=== PATIENT | female | born 1940 | race Caucasian/White ===

== ENCOUNTER 2019-08-30 11:15 | Outpatient (CLI) | payer MEDICARE, MEDICAID, SELFPAY ==
[2019-08-30 12:39] LABS: Immunoglobulin G 1618 mg/dL (700-1600)
[2019-09-02 14:10] LABS: Immunoglobulin G, Serum 1613 mg/dL (600-1540); Immunoglobulin G1 919 mg/dL (382-929); Immunoglobulin G2 499 mg/dL (241-700); Immunoglobulin G3 90 mg/dL (22-178); Immunoglobulin G4 73.7 mg/dL (4.0-86.0)
== END 2019-08-30 11:16 | disposition home or self-care (01) ==
PROVIDERS: PCP Family Medicine Adolescent Medicine; Visit Provider Nurse Practitioner Family
DX: D83.9 Common variable immunodeficiency, unspecified (principal)
CPT/HCPCS: 36415; 82784; 82787

== ENCOUNTER 2019-09-03 07:30 | Outpatient (RCR) | payer MEDICAID, SELFPAY | END 2019-09-03 23:59 | disposition home or self-care (01) | LOC: ANHAUDIO 07:30 | PROVIDERS: PCP Family Medicine Adolescent Medicine; Visit Provider Family Medicine Adolescent Medicine | DX: Z46.1 Encounter for fitting and adjustment of hearing aid (principal) | CPT/HCPCS: 99199; V5160; V5259 ==

== ENCOUNTER 2019-11-01 19:29 | Emergency (ER) | payer MEDICARE, MEDICAID, SELFPAY ==
[2019-11-01 19:26] VITALS: BP 187/120; PULSE 98; RESP 17; TEMP 36.9; O2SAT 97
--- NOTE | 2019-11-01 19:32 | ED.AMS ---
HPI - Altered Mental Status General Chief Complaint: Altered Mental Status Stated Complaint: ams Time Seen by Provider: 11/01/19 19:33 Source: patient Mode of arrival: EMS Limitations: no limitations History of Present Illness HPI narrative: Patient is an 79 year old female who presents to the emergency department by emergency medical services from home with complaints of altered mental status. The patients daughter states that she called the emergency medical services due to the patient not letting her care center manager enter the house. The patient stated to the care center manager that she was feeling sick and would not let her in. Patient denies nausea, vomiting, or diarrhea. She has been eating normally, having normal bowel movements, and urinating normally. Patients daughter notes that she acts this way when she has a urinary tract infection. She is requesting sprite. Patient has a back stimulator with a pain pump. She also has a port to her right chest. Patient lives at home alone. She has a caregiver that goes to her home every Friday, Friday, and Friday. Patients daughter is a caregiver for a private company. MD complaint: altered mental status Onset (ago): unknown Context: history of similar presentation Associated symptoms: denies other symptoms Related Data Home Medications Medication Instructions Recorded Confirmed Morphine Pump 0.279 mg NOT APPLICABLE DAILY 05/10/19 10/27/19 alendronate 70 mg PO WEEKLY 05/10/19 10/27/19 ascorbic acid (vitamin C) 1,000 mg PO DAILY 05/10/19 10/27/19 cyanocobalamin (vitamin B-12) 1,000 mcg PO DAILY 05/10/19 10/27/19 furosemide 20 mg PO DAILY PRN 05/10/19 10/27/19 gabapentin 300 mg PO BID 05/10/19 10/27/19 hydralazine 10 mg PO TID 05/10/19 10/27/19 hydrochlorothiazide 25 mg PO DAILY 05/10/19 10/27/19 hydroxychloroquine 200 mg PO DAILY 05/10/19 10/27/19 levothyroxine 125 mcg PO DAILY 05/10/19 10/27/19 losartan 100 mg PO DAILY 05/10/19 10/27/19 metoprolol succinate 100 mg PO DAILY 05/10/19 10/27/19 pantoprazole 40 mg PO BID 05/10/19 10/27/19 prednisone 5 mg PO DAILY 05/10/19 10/27/19 vitamin E 800 unit PO DAILY 05/10/19 10/27/19 fluticasone furoate [Arnuity 1 inh INHALATION DAILY 09/17/19 10/27/19 Ellipta] Allergies Allergy/AdvReac Type Severity Reaction Status Date / Time cefepime Allergy Intermediate Unknown Verified 10/27/19 09:52 latex Allergy Unknown Rash Verified 10/27/19 09:52 levofloxacin Allergy Unknown Swelling Verified 10/27/19 09:52 Penicillins Allergy Unknown Swelling Verified 10/27/19 09:52 pregabalin Allergy Unknown Unknown Verified 10/27/19 09:52 Quinolones Allergy Unknown Unknown Verified 10/27/19 09:52 Sulfa (Sulfonamide Allergy Unknown Itching Verified 10/27/19 09:52 Antibiotics) Review of Systems Review of Systems: All systems reviewed & are unremarkable except as noted in HPI and below Constitutional: Constitutional: Reports other (normal intake) Gastrointestinal: Gastrointestinal: Denies diarrhea, Denies nausea, Denies vomiting and Reports other (normal bowel movements) Genitourinary: Genitourinary: Denies other (urinary problems) [facility] Past Medical History Medical History (Updated 11/01/19 @ 21:21 by Roseanna Kern MD) Anemia Arthritis Bronchitis CKD (chronic kidney disease) COPD (chronic obstructive pulmonary disease) CPAP (continuous positive airway pressure) dependence DDD (degenerative disc disease) Diverticulitis DVT (deep venous thrombosis) Emphysema of lung GERD (gastroesophageal reflux disease) HTN (hypertension) Hypothyroid Lupus Osteoporosis Pneumonia Sleep apnea Spinal cord stimulator status UTI (urinary tract infection) Surgical History Surgical History (Updated 11/01/19 @ 20:02 by Jeet Mejía) H/O bilateral cataract extraction H/O exploratory laparotomy H/O repair of rotator cuff right H/O: hysterectomy History of carpal tunnel release History of total bilateral knee replacement Hx of appendectomy Hx of tonsillectomy S/P IV
--- NOTE | 2019-11-01 19:33 | ECG_ITS ---
Measurements Intervals [place] Rate: 94 P: 47 RI: 164 QRS: -44 QRSD: 108 T: 46 QT: 353 QTc: 442 Interpretive Statements SINUS RHYTHM POSSIBLE LEFT ATRIAL ENLARGEMENT LEFT AXIS DEVIATION POSSIBLE LEFT VENTRICULAR HYPERTROPHY BORDERLINE R WAVE PROGRESSION, ANTERIOR LEADS BASELINE ARTIFACT- V1 BORDERLINE ECG Electronically Signed On 11-02-2019 6:56:23 CDT by Mustapha Meléndez D.O.
[2019-11-01 19:57] LABS: Basophils Percent Auto 0.3 % (0.2-1.2); Hematocrit 32.9 % (37.0-47.0); Hemoglobin 9.9 g/dL (12.0-15.0); Immature Granulocyte Absolute 0.01 K/mm3 (0.00-0.031); Immature Granulocyte Percent A 0.3 % (0-0.5); Lymphocytes Absolute Auto 0.65 K/mm3 (0.9-3.2); Lymphocytes Percent Auto 20.2 % (18.3-44.2); Mean Corpuscular HGB Conc 30.1 g/dl (32-36); Mean Corpuscular Hemoglobin 27.7 pg (26-34); Mean Corpuscular Volume 92.2 fl (80-100); Mean Platelet Volume 10.4 fl (7.4-10.4); Monocytes Absolute Auto 0.6 K/mm3 (0.1-0.6); Monocytes Percent Auto 19.3 % (2.6-8.5); Neutrophils Absolute Auto 1.9 K/mm3 (1.3-6.7); Neutrophils Percent Auto 59.9 % (45.5-73.1); Platelet Count Result 201 k/mm3 (150-375); Red Blood Count 3.57 M/mm3 (4.2-5.4); Red Cell Distribution Width 17.5 % (11.5-14.5); White Blood Count 3.2 K/mm3 (4.5-10.0)
[2019-11-01] MEDS: SODIUM CHLORIDE 0.9% IV 1,000 ML 999 ML IV CONT (20:00)
[2019-11-01 20:08] LABS: Alanine Aminotransferase 15 U/L (4-35); Albumin Level 3.9 g/dL (3.5-5.1); Alkaline Phosphatase 61 U/L (38-126); Aspartate Amino Transferase 45 U/L (14-36); Bilirubin,Total 0.4 mg/dL (0.2-1.3); Blood Urea Nitrogen 72 mg/dL (7-17); Calcium 7.7 mg/dL (8.4-10.2); Carbon Dioxide 29 mmol/L (22-30); Chloride 95 mmol/L (98-107); Estimated CRCL calculation 13 ml/min; Estimated Glomerular Filt Rate 20; Glucose 102 mg/dL (65-105); Potassium 3.4 mmol/L (3.4-5.0); Sodium 140 mmol/L (137-145)
[2019-11-01 20:42] LABS: Add Urine Microscopic? YES; Appearance Urine Clear (Clear); Bilirubin Urine Negative (Negative); Blood Urine Negative (Negative); Color Urine Yellow (Yellow); Glucose Urine UA Negative (Negative); Ketones Urine Negative (Negative); Leukocyte Esterase Ur Negative LEU/UL (Negative); Mucus Urine Heavy /lpf; Nitrate Urine Negative (Negative); Protein Urine 1+ mg/dL (Negative); Specific Grav Ur 1.012 (1.001-1.035); Squamous Epithelial Cell Urine Rare /hpf (Few); Urobilinogen Urine Negative mg/dL (<2.0); WBC Urine 0-3 /hpf
[2019-11-01 20:48] VITALS: BP 182/85; PULSE 83; RESP 22; O2SAT 100
[2019-11-01 21:00] VITALS: BP 170/65; PULSE 85; RESP 21; O2SAT 100
[2019-11-01 21:10] VITALS: PULSE 78
[2019-11-01] MEDS: METOPROLOL TARTRATE INJ 5 MG/5 ML VIAL IV PUSH (21:10)
[2019-11-01 21:30] VITALS: BP 161/77; PULSE 82; RESP 23; O2SAT 100
[2019-11-01] MEDS: HEPARIN SOD FLUSH 500 UNITS/5 ML SYRINGE IV PUSH (21:40)
== END 2019-11-01 21:56 | disposition home or self-care (01) ==
PROVIDERS: Emergency Provider Emergency Medicine; PCP Family Medicine Adolescent Medicine
DX: E86.0 Dehydration (principal); R41.0 Disorientation, unspecified; I12.0 Hypertensive chronic kidney disease with stage 5 chronic kidney disease or end stage renal disease; N18.6 End stage renal disease; M19.90 Unspecified osteoarthritis, unspecified site; Z86.718 Personal history of other venous thrombosis and embolism; J43.9 Emphysema, unspecified; K21.9 Gastro-esophageal reflux disease without esophagitis; E03.9 Hypothyroidism, unspecified; M81.0 Age-related osteoporosis without current pathological fracture; G47.30 Sleep apnea, unspecified; Z87.440 Personal history of urinary (tract) infections; Z98.42 Cataract extraction status, left eye; Z98.41 Cataract extraction status, right eye; Z96.653 Presence of artificial knee joint, bilateral; Z87.891 Personal history of nicotine dependence
CPT/HCPCS: 36415; 51701; 80053; 81001; 85025; 93005; 96361; 96365; 96375; 99284; J0696; J7030

== ENCOUNTER 2019-11-29 10:24 | Outpatient (CLI) | payer MEDICARE, MEDICAID, SELFPAY ==
--- NOTE | ~2019-11-29 | US_ITS ---
EXAMINATION:US venous doppler LE LT INDICATION:Left leg swelling. Hypercoagulable state. TECHNIQUE: Multiple grayscale, color flow and Doppler images of the left lower extremity deep venous systems were obtained and reviewed. COMPARISON:12/29/2018 FINDINGS: The common femoral, superficial femoral and popliteal veins demonstrate normal respiratory variation, augmentation and compressibility. Color flow is also seen within the posterior tibial, pe roneal, greater saphenous and profunda veins. IMPRESSION: 1: No lower extremity deep venous thrombosis. Reviewed, dictated and finalized at location A.
== END 2019-11-29 10:25 | disposition home or self-care (01) ==
PROVIDERS: PCP Family Medicine Adolescent Medicine; Visit Provider Internal Medicine Hematology & Oncology
DX: D68.59 Other primary thrombophilia (principal); M79.89 Other specified soft tissue disorders
CPT/HCPCS: 93971

== ENCOUNTER 2020-04-23 13:58 | Observation (INO) | payer MEDICARE, MEDICAID, SELFPAY ==
[2020-04-23] VITALS (13 sets, daily range): BP systolic 168–201; BP diastolic 70–86; PULSE 66–85; RESP 20; TEMP 36.6–36.8; O2SAT 97–100
--- NOTE | ~2020-04-23 | XR_ITS ---
EXAMINATION: XR chest 2V DATE: 04/23/2020 14:15 INDICATION: Midline chest pain and headache TECHNIQUE: AP and lateral views of the chest are obtained. COMPARISON: 06/14/2019 FINDINGS: There is chronic elevation of the right hemidiaphragm. A right internal jugular Port-A-Cath ends with its tip in the distal superior vena cava. There is mild dependent atelectasis of the lungs . There is no pleural effusion or pneumothorax. The heart size is normal. An IVC filter is noted. Hillary tebral plasty changes noted in the lumbar spine. Neurostimulator leads project in the central spinal canal in the midthoracic spine. IMPRESSION: 1. Mild atelectasis of the lung bases. Reviewed, dictated and finalized at location A.
--- NOTE | 2020-04-23 13:57 | ED.CHESTPAIN ---
HPI - Chest Pain General Chief Complaint: Chest Pain Stated Complaint: HTN/CP Source: patient and EMS Mode of arrival: EMS Limitations: no limitations History of Present Illness HPI narrative: Patient is an 80-year-old female with a history of COPD, CVI D, chronic kidney disease, hypertension who presents for evaluation of chest pain. Patient reports intermittent chest pain over the past 48 hours located in the center of her chest. Patient reports intermittent radiation of the pain to the left shoulder. At times she feels short of breath, denies current shortness of breath. Patient states the pain seems spontaneous, not always worse with movement. No associated palpitations or leg edema. No pleuritic chest pain. Patient does not follow with a communication coordinator. No history of AR per her knowledge. Patient with recent infusion for immunosuppression for CVI D at oncology center. Patient denies fever, chills, shortness of breath. No abdominal pain. Related Data Home Medications Medication Instructions Recorded Confirmed Morphine Pump 0.279 mg NOT APPLICABLE DAILY 05/10/19 04/21/20 alendronate 70 mg PO WEEKLY 05/10/19 04/21/20 ascorbic acid (vitamin C) 1,000 mg PO DAILY 05/10/19 04/21/20 cyanocobalamin (vitamin B-12) 1,000 mcg PO DAILY 05/10/19 04/21/20 furosemide 20 mg PO DAILY PRN 05/10/19 04/21/20 gabapentin 300 mg PO BID 05/10/19 04/21/20 hydralazine 10 mg PO TID 05/10/19 04/21/20 hydrochlorothiazide 25 mg PO DAILY 05/10/19 04/21/20 hydroxychloroquine 200 mg PO DAILY 05/10/19 04/21/20 levothyroxine 125 mcg PO DAILY 05/10/19 04/21/20 losartan 100 mg PO DAILY 05/10/19 04/21/20 metoprolol succinate 100 mg PO DAILY 05/10/19 04/21/20 pantoprazole 40 mg PO BID 05/10/19 04/21/20 prednisone 5 mg PO DAILY 05/10/19 04/21/20 vitamin E 800 unit PO DAILY 05/10/19 04/21/20 Allergies Allergy/AdvReac Type Severity Reaction Status Date / Time cefepime Allergy Intermediate Unknown Verified 03/31/20 11:32 latex Allergy Unknown Rash Verified 03/31/20 11:32 levofloxacin Allergy Unknown Swelling Verified 03/31/20 11:32 Penicillins Allergy Unknown Swelling Verified 03/31/20 11:32 pregabalin Allergy Unknown Unknown Verified 03/31/20 11:32 Quinolones Allergy Unknown Unknown Verified 03/31/20 11:32 Sulfa (Sulfonamide Allergy Unknown Itching Verified 03/31/20 11:32 Antibiotics) Review of Systems Review of Systems: Narrative: CONSTITUTIONAL: Denies fever, chills ENT: Denies rhinorrhea, congestion, sore throat, or otalgia. CARDIOVASCULAR reports chest pain without palpitations, or edema. RESPIRATORY: Denies cough or dyspnea. GASTROINTESTINAL: Denies abdominal pain, nausea, vomiting, or diarrhea. GENITOURINARY: Denies dysuria or hematuria. SKIN: Denies rash or itching. MUSCULOSKELETAL: Denies back pain, joint pain, or myalgia. NEUROLOGIC: Denies headache, numbness, or weakness. [facility] Past Medical History Medical History Anemia Arthritis Bronchitis CKD (chronic kidney disease) COPD (chronic obstructive pulmonary disease) CPAP (continuous positive airway pressure) dependence DDD (degenerative disc disease) Diverticulitis DVT (deep venous thrombosis) Emphysema of lung GERD (gastroesophageal reflux disease) HTN (hypertension) Hypothyroid Lupus Osteoporosis Pneumonia Sleep apnea Spinal cord stimulator status UTI (urinary tract infection) Surgical History Surgical History H/O bilateral cataract extraction H/O exploratory laparotomy H/O repair of rotator cuff right H/O: hysterectomy History of carpal tunnel release History of total bilateral knee replacement Hx of appendectomy Hx of tonsillectomy S/P IVC filter S/P spinal surgery Family History Family History Sibling Hypertension Malignant neoplasm of prostate Father Hypertension Cerebrovascu
--- NOTE | 2020-04-23 13:58 | ECG_ITS ---
Measurements Intervals [place] Rate: 82 P: 48 ND: 182 QRS: -40 QRSD: 121 T: 30 QT: 381 QTc: 447 Interpretive Statements SINUS RHYTHM LEFT AXIS DEVIATION INTRAVENTRICULAR CONDUCTION DELAY VOLTAGE CRITERIA FOR LVH BORDERLINE R WAVE PROGRESSION, ANTERIOR LEADS BORDERLINE ECG Electronically Signed On 04-23-2020 20:05:20 CDT by Mustapha Meléndez D.O.
[2020-04-23 15:09] LABS: Basophils Percent Auto 0.3 % (0.2-1.2); Eosinophils Absolute Auto 0.2 K/mm3 (0-0.3); Eosinophils Percent Auto 2.5 % (0-4.4); Hematocrit 31.3 % (37.0-47.0); Hemoglobin 9.5 g/dL (12.0-15.0); Immature Granulocyte Absolute 0.06 K/mm3 (0.00-0.031); Lymphocytes Absolute Auto 0.71 K/mm3 (0.9-3.2); Mean Corpuscular HGB Conc 30.4 g/dl (32-36); Mean Corpuscular Hemoglobin 27.9 pg (26-34); Mean Corpuscular Volume 92.1 fl (80-100); Mean Platelet Volume 10.9 fl (7.4-10.4); Monocytes Absolute Auto 0.4 K/mm3 (0.1-0.6); Monocytes Percent Auto 7.2 % (2.6-8.5); Neutrophils Absolute Auto 4.6 K/mm3 (1.3-6.7); Platelet Count Result 216 k/mm3 (150-375); Red Cell Distribution Width 15.5 % (11.5-14.5); White Blood Count 5.9 K/mm3 (4.5-10.0)
[2020-04-23 15:19] LABS: Prothrombin Time 13.3 Seconds (11.1-14.7)
[2020-04-23 15:20] LABS: Partial Thromboplastin Time 26.9 SECONDS (22.3-36.8)
[2020-04-23 15:26] LABS: Alanine Aminotransferase 8 U/L (4-35); Alkaline Phosphatase 63 U/L (38-126); Anion Gap 9 mmol/L (8-16); Aspartate Amino Transferase 26 U/L (14-36); Bilirubin,Total 0.3 mg/dL (0.2-1.3); Blood Urea Nitrogen 79 mg/dL (7-17); Carbon Dioxide 35 mmol/L (22-30); Chloride 91 mmol/L (98-107); Estimated Glomerular Filt Rate 17; Glucose 121 mg/dL (65-105); Potassium 4.4 mmol/L (3.4-5.0); Sodium 135 mmol/L (137-145)
[2020-04-23 15:37] LABS: NT Pro B Type Natriuretic Pept 1350 PG/ML (5-100); Troponin I < 0.012 ng/mL (0.000-0.034)
[2020-04-23 18:44] LABS: Troponin I 0.013 ng/mL (0.000-0.034)
--- NOTE | 2020-04-23 18:54 | ADMGEN ---
This patient, Kellee Arora, was admitted to IMU Room 206-02. Patient/family oriented to hospital policies and general routines including ID bracelet, bed and alarms, visiting hours, pain management, procedures, bathroom and other care routines, personal items, smoking policy, room service/diet, and visiting hours. Valuables list has been completed. Information on how to activate the Rapid Response Team has been discussed. Patient/Family are encouraged to report perceived risks to care and to ask questions if they do not understand what they are told or what they should do.
[2020-04-23] MEDS: LABETALOL HCL INJ 100 MG/20 ML VIAL 20 MG IV PUSH (20:30)
--- NOTE | 2020-04-23 20:47 | PM.IMHP ---
H&P: HPI History of Present Illness Date/Time: 04/23/20 20:47 Chief complaint: Chest pain Narrative: This is a pleasant 80-year-old female with known history of lupus, COPD, hypertension, chronic renal failure, and CVID who presented to the hospital with complaints of frontal headache since yesterday and midsternal chest pain that has been ongoing all day long. The patient started noticed that she was developing a frontal headache yesterday which has just worsened today. Associated symptoms include nausea. She describes her chest pain as pressure-like and radiating towards her left shoulder. The patient denies any previous history of heart disease or myocardial infarctions. She does not know if she ever had a stress test. On further questioning she denies any fever, chills, shortness of breath, cough, abdominal pain, palpitations, dysuria, hematuria, lower extremity swelling, or rectal bleeding. Patient was evaluated emergency room and found to have persistently elevated blood pressure. The patient denies missing any doses of her antihypertensives although she does relate that sometimes she will forget to take a dose of her medications. Troponins have been negative and EKG does not demonstrate any significant ST segment changes. Review of Systems Review of Systems: All systems reviewed & are unremarkable except as noted in HPI and below PMFSH Past Medical History Medical History Anemia Arthritis Bronchitis CKD (chronic kidney disease) COPD (chronic obstructive pulmonary disease) CPAP (continuous positive airway pressure) dependence DDD (degenerative disc disease) Diverticulitis DVT (deep venous thrombosis) Emphysema of lung GERD (gastroesophageal reflux disease) HTN (hypertension) Hypothyroid Lupus Osteoporosis Pneumonia Sleep apnea Spinal cord stimulator status UTI (urinary tract infection) Surgical History Surgical History H/O bilateral cataract extraction H/O exploratory laparotomy H/O repair of rotator cuff right H/O: hysterectomy History of carpal tunnel release History of total bilateral knee replacement Hx of appendectomy Hx of tonsillectomy S/P IVC filter S/P spinal surgery Family History Family History Sibling Hypertension Malignant neoplasm of prostate Father Hypertension Cerebrovascular accident Mother Family history of Alzheimer's disease Social History Social History Smoking packs per day: 2 Smoking cigarettes per day: 40.0 Years smoked: 14 Smoking pack-years: 28.00 Smoking status: Former smoker Smoking end date: 07/28/96 Alcohol intake: never Substance use: never Substance use type: does not use Gender identity (if verbalized by the patient): Female Spiritual care concerns: No Meds Home Medications and Allergies Home Medications Medication Instructions Recorded Confirmed Type Morphine Pump 0.279 mg NOT APPLICABLE DAILY 05/10/19 04/23/20 History alendronate 70 mg PO WEEKLY 05/10/19 04/23/20 History ascorbic acid (vitamin C) 1,000 mg PO DAILY 05/10/19 04/23/20 History cyanocobalamin (vitamin B-12) 1,000 mcg PO DAILY 05/10/19 04/23/20 History furosemide [Lasix] 40 mg PO DAILY PRN 05/10/19 04/23/20 History gabapentin 300 mg PO BID 05/10/19 04/23/20 History hydralazine 10 mg PO TID 05/10/19 04/23/20 History hydrochlorothiazide 25 mg PO DAILY 05/10/19 04/23/20 History hydroxychloroquine 200 mg PO DAILY 05/10/19 04/23/20 History levothyroxine 150 mcg PO DAILY 05/10/19 04/23/20 History losartan 50 mg PO DAILY 05/10/19 04/23/20 History metoprolol succinate 25 mg PO DAILY 05/10/19 04/23/20 History pantoprazole 40 mg PO BID 05/10/19 04/23/20 History albuterol sulfate 90 mcg/actuation 2 puff INHALATION QID PRN #8.5
[2020-04-23] MEDS: hydrALAZINE 10 MG TABLET PO (22:18)
[2020-04-23] MEDS: PANTOPRAZOLE 40 MG TABLET PO (22:19)
[2020-04-24] VITALS (14 sets, daily range): BP systolic 109–153; BP diastolic 48–72; PULSE 63–83; RESP 12–18; TEMP 35.7–36.4; O2SAT 97–100
--- NOTE | 2020-04-24 | ECHO_ITS ---
Patient Info Name: Kellee Arora Age: 80 years : 1940 Gender: Female Ht: 60 in Wt: 172 lbs BSA: 1.85 m2 HR: 65 bpm BP: 149 / 72 mmHg Heart Rhythm: Sinus Rhythm Technical Quality: Good Exam Date: 04/24/2020 11:45 AM Exam Location: [facility] Patient Status: Inpatient Admit Date: 04/23/2020 Staff Ordering Physician: Shun Gates MD Plaster Helper: Faustino Pike RDCS Attending Provider: Paula Hancock MD Referring Physician: Yajaira GAYLE; Exam Type: CA echo doppler color flow Study Info Indications R07.9 - Chest pain, unspecified Complete two-dimensional, color flow and Doppler transthoracic echocardiogram is performed. Strain analysis performed. History/Risk Factors Chest pain; HTN, CKD3, COPD, chronic respiratory failure. Summary 1. Complete two-dimensional, color flow and Doppler transthoracic echocardiogram is performed. 2. Left ventricular systolic function is normal, estimated at 60-65%. 3. There is mildly increased left ventricular wall thickness. 4. The left ventricular diastolic function is grade I diastolic dysfunction. 5. Left atrial chamber dimension is moderately enlarged. 6. Right atrial chamber dimension is mildly enlarged. 7. There is no aortic valve stenosis. 8. There is mild mitral valve regurgitation. 9. Moderate mitral annular calcification. 10. There is mild tricuspid valve regurgitation. Left Ventricle Left ventricular systolic function is normal, estimated at 60-65%. There is mildly increased left ventricular wall thickness. The left ventricular diastolic function is grade I diastolic dysfunction. Global longitudinal strain is normal at -21 %. Right Ventricle Right ventricular chamber dimension is normal. Right ventricular systolic function is normal. Left Atria Left atrial chamber dimension is moderately enlarged. Right Atria Right atrial chamber dimension is mildly enlarged. Aortic Valve The aortic valve is trileaflet. There is mild aortic valve sclerosis. There is no aortic valve stenosis. There is no aortic valve regurgitation. Pulmonic Valve The pulmonic valve is not well visualized. Mitral Valve The mitral valve has thickened leaflets. There is mild mitral valve regurgitation. Moderate mitral annular calcification. Tricuspid Valve The tricuspid valve leaflets are normal. There is mild tricuspid valve regurgitation. No pulmonary hypertension, estimated pulmonary arterial systolic pressure is 34 mmHg. Pericardium/Pleural The pericardium appears normal. There is no pericardial effusion. Inferior Vena Cava Normal inferior vena cava with >50% collapse upon inspiration consistent with normal right atrial pressure, 5 mmHg. Aorta The prox ascending aorta size is normal. There is mild aortic atherosclerosis. Left Ventricular Outflow Tract Name Value Normal LVOT 2D LVOT Diameter 1.8 cm LVOT Doppler LVOT Peak Gradient 5 mmHg LVOT Mean Gradient 2 mmHg LVOT VTI 24 cm LVOT VTI/AV VTI Ratio
--- NOTE | 2020-04-24 02:47 | PC.NURSE ---
Pt has a specimen cup of rings. When I came in earlier she was in a panic cause she couldn't find it and her daughter didn't have it. I looked in her belongings it was there. She is insistent she hold this cup. I have offered to have it locked up and she wants to hold it. When she got up to the bathroom it fell out her bedding. I reminded her again it would be best for it to be locked up or sent home w family she again declined.
[2020-04-24 05:16] LABS: Basophils Percent Auto 0.7 % (0.2-1.2); Eosinophils Absolute Auto 0.4 K/mm3 (0-0.3); Eosinophils Percent Auto 6.4 % (0-4.4); Hematocrit 30.1 % (37.0-47.0); Hemoglobin 9.2 g/dL (12.0-15.0); Immature Granulocyte Absolute 0.04 K/mm3 (0.00-0.031); Immature Granulocyte Percent A 0.7 % (0-0.5); Lymphocytes Absolute Auto 1.15 K/mm3 (0.9-3.2); Lymphocytes Percent Auto 20.9 % (18.3-44.2); Mean Corpuscular HGB Conc 30.6 g/dl (32-36); Mean Corpuscular Hemoglobin 27.9 pg (26-34); Mean Corpuscular Volume 91.2 fl (80-100); Monocytes Absolute Auto 0.8 K/mm3 (0.1-0.6); Monocytes Percent Auto 15.1 % (2.6-8.5); Neutrophils Absolute Auto 3.1 K/mm3 (1.3-6.7); Neutrophils Percent Auto 56.2 % (45.5-73.1); Platelet Count Result 224 k/mm3 (150-375); Red Cell Distribution Width 15.3 % (11.5-14.5); White Blood Count 5.5 K/mm3 (4.5-10.0)
[2020-04-24 05:26] LABS: Anion Gap 6 mmol/L (8-16); Blood Urea Nitrogen 78 mg/dL (7-17); Calcium 8.8 mg/dL (8.4-10.2); Carbon Dioxide 35 mmol/L (22-30); Chloride 94 mmol/L (98-107); Cholesterol 161 mg/dL (0-200); Estimated Glomerular Filt Rate 16; Glucose 88 mg/dL (65-105); HDL Direct 41 mg/dL; Sodium 135 mmol/L (137-145); Triglycerides 67 mg/dL (<150)
[2020-04-24] MEDS: LEVOTHYROXINE SODIUM 150 MCG TABLET PO (05:31)
[2020-04-24 05:37] LABS: LDL Cholesterol Direct 79 mg/dL
[2020-04-24 06:33] LABS: Thyroid Stimulating Hormone Reflex 0.708 uIU/mL (0.465-4.68)
[2020-04-24] MEDS: hydrALAZINE 10 MG TABLET PO ×3 (08:27→16:27)
[2020-04-24] MEDS: LOSARTAN POTASSIUM 50 MG TABLET PO (08:27)
[2020-04-24] MEDS: ASCORBIC ACID 500 MG TABLET 1000 MG PO (08:27)
[2020-04-24] MEDS: FLUTICASONE PROPIONATE 0.05% NA SPR 16 GM BTL (*BKC) 1 SPRAY NASAL (08:27)
[2020-04-24] MEDS: PANTOPRAZOLE 40 MG TABLET PO ×2 (08:27→16:28)
[2020-04-24] MEDS: hydroCHLOROthiazide 25 MG TABLET PO (08:27)
[2020-04-24] MEDS: HYDROXYCHLOROQUINE SULFATE 200 MG TABLET PO (08:27)
[2020-04-24] MEDS: ASPIRIN 81 MG ENTERIC TABLET PO (08:27)
[2020-04-24] MEDS: GABAPENTIN 300 MG CAPSULE PO ×2 (08:27→16:28)
[2020-04-24] MEDS: CYANOCOBALAMIN 1,000 MCG TABLET 1000 MCG PO (08:27)
[2020-04-24] MEDS: METOPROLOL SUCCINATE EXT REL 25 MG TABCR PO (10:48)
--- NOTE | 2020-04-24 10:53 | PM.CNCAR ---
Assessment and Plan Assessment and plan (1) Chest pain: Qualifiers: Chest pain type: unspecified Qualified Code(s): R07.9 - Chest pain, unspecified Code(s): R07.9 - Chest pain, unspecified Status: Acute Assessment and Plan: Resolved, occurring at rest, most likely related to hypertensive urgency presentation. Ruled out for myocardial infarction with negative enzymes without acute ischemic changes by EKG. No prior history of CAD. Given multiple risk factors ischemic evaluation reasonable, however, patient agrees to pursue as an outpatient Unless she has recurrent chest pain. Given her significant renal insufficiency, coronary disease conservative management would be preferred. Differential diagnosis would include thromboembolism/pulmonary embolism although no progression chronic hypoxic respiratory failure noted. V/Q scan an option, CTA PE protocol is not due to renal failure. DVT prophylaxis. Defer to primary service in this regard. Further recommendations after review 2D echocardiogram. DVT prophylaxis. (2) Hypertensive urgency: Code(s): I16.0 - Hypertensive urgency Status: Acute Assessment and Plan: Very high at presentation, CP resolved with improvement in CP. Patient admits she may have missed a couple doses of her medications but cannot specify which or when. BP improved on current therapy. Monitor CP closely. 2D Echo to assess LV function, chamber size/wall motion, valve pathology, pulmonary pressures. Recommendations to follow. (3) Chronic respiratory failure with hypoxia, on home O2 therapy: Code(s): J96.11 - Chronic respiratory failure with hypoxia; Z99.81 - Dependence on supplemental oxygen Status: Acute Assessment and Plan: Per Hospitalist Service. No clinical evidence of decompensated HF at present. (4) COPD (chronic obstructive pulmonary disease): Qualifiers: COPD type: unspecified COPD Qualified Code(s): J44.9 - Chronic obstructive pulmonary disease, unspecified Code(s): J44.9 - Chronic obstructive pulmonary disease, unspecified Status: Chronic Assessment and Plan: Per primary service. Continue oxygen supplementation, bronchodilator therapy. (5) ALEX (obstructive sleep apnea): Code(s): G47.33 - Obstructive sleep apnea (adult) (pediatric) Status: Acute Assessment and Plan: Continue support with CPAP/ BiPAP. (6) Anemia associated with stage 3 chronic renal failure: Code(s): N18.3 - Chronic kidney disease, stage 3 (moderate); D63.1 - Anemia in chronic kidney disease Status: Acute Assessment and Plan: Chronic. No evidence of active bleed. (7) CKD (chronic kidney disease): Qualifiers: Chronic kidney disease stage: stage 3 (moderate) Qualified Code(s): N18.3 - Chronic kidney disease, stage 3 (moderate) Code(s): N18.9 - Chronic kidney disease, unspecified Status: Chronic Assessment and Plan: Stable, stage IV, patient appears essentially at baseline. Continue to monitor closely. (8) Common variable immunodeficiency, unspecified: Code(s): D83.9 - Common variable immunodeficiency, unspecified Status: Acute Assessment and Plan: Per primary service. (9) SLE (systemic lupus erythematosus related syndrome): Code(s): M32.9 - Systemic lupus erythematosus, unspecified Status: Chronic Assessment and Plan: Per primary service. History of Present Illness History of Present Illness Consult date/time: date of service: 04/24/20 10:53 This is a cardiology consultation at the request of Dr. Ghotra of the [facility] Service for opinion regarding complaints of chest pain. Requesting physician: Titi Ghotra MD Consult reason: chest pain Reason For Visit: Chest pain Narrative: patient is an 80-year-old female with a past medical history significant for chronic hypoxic respiratory failu
--- NOTE | 2020-04-24 11:05 | PCRCNOTE ---
PAST RESPIRATORY TIME WINDOW TO GIVE TREATMENT
[2020-04-24] MEDS: ALBUTEROL SULFATE NEB 2.5 MG/0.5 ML INH INHALATION (14:16)
--- NOTE | 2020-04-28 13:36 | PM.DS ---
DS: Admitting Diagnosis Admitting Diagnosis Admitting Diagnosis: Chest pain DS: Discharge Diagnosis Discharge Diagnosis (1) Chest pain: Qualifiers: Chest pain type: unspecified Qualified Code(s): R07.9 - Chest pain, unspecified Code(s): R07.9 - Chest pain, unspecified Status: Acute Assessment and Plan: chest pain subsided and troponins were negative. Echocardiogram showed normal ejection fraction no wall motion abnormalities. She was seen in consultation Cardiology who felt to most likely the pain was nonischemic did agree that outpatient stress testing may be in order and patient will follow-up with cardiology. (2) Uncontrolled hypertension: Code(s): I10 - Essential (primary) hypertension Status: Acute Assessment and Plan: with resumption of for numerous anti hypertensives her pressure returned to her normal baseline. And chest pain and headache resolved. (3) Headache: Qualifiers: Headache type: other headache syndrome Qualified Code(s): G44.89 - Other headache syndrome Code(s): R51 - Headache Status: Acute Assessment and Plan: Now resolved likely secondary to uncontrolled hypertension. Not recur once returned her usual medication and was not evaluated further (4) COPD (chronic obstructive pulmonary disease): Qualifiers: COPD type: unspecified COPD Qualified Code(s): J44.9 - Chronic obstructive pulmonary disease, unspecified Code(s): J44.9 - Chronic obstructive pulmonary disease, unspecified Status: Chronic Assessment and Plan: continue bronchodilators as needed. and home O2 2 L nasal cannula (5) CKD (chronic kidney disease): Qualifiers: Chronic kidney disease stage: stage 3 (moderate) Qualified Code(s): N18.3 - Chronic kidney disease, stage 3 (moderate) Code(s): N18.9 - Chronic kidney disease, unspecified Status: Chronic Assessment and Plan: stage IV chronic renal failure unchanged with anemia of chronic disease unchanged DS: Summary Hospital Course Hospital Course: 80-year-old hypertensive female with COPD and stage IV chronic renal failure admitted with chest pain and headache. Pressure was elevated and once control with her usual medications headache and chest pain subsided. Troponins were negative and patient was seen by cardiology who felt that an outpatient ischemic evaluation was in order and patient will follow-up cardiology. Echocardiogram revealed ejection fraction of 60-65% with no wall motion abnormalities and no pulmonary hypertension Time Spent with Patient Time attestation: Total time spent providing and/or coordinating discharge services: 35 minutes Exam Narrative: Exam Narrative: condition on discharge blood pressure 134 / 84 pulse 72 saturating 100% on 2 L nasal cannula lungs clear CV regular rate rhythm abdomen soft nontender no masses extremities without edema good distal pulses she was up and about with no shortness of breath or chest discomfort seen by physical therapy felt to be independent and discharge home to self-care in stable condition DS: Data Data Completed and Pending Labs on day of discharge: Preliminary micro results at discharge 04/23/20 21:26 Blood Culture - Preliminary Blood 04/23/20 21:26 Blood Culture - Preliminary Blood Discharge Plan Discharge Attending physician on discharge: Shun Gates Consulting providers: Jared Gonzalez ; Gabriel Tavares ; Alfredo Barrett ; Mustapha Meléndez Discharging Clinician: Shun Gates Patient Disposition: Home, Self-Care Activity: as tolerated Diet: low sodium Stand Alone Forms: General Discharge Information Follow-up/Referrals: Ray Dee MD [Primary Care Provider] - 2 Weeks Discharge Medications: Continued alendronate 70 mg Tablet 70 mg PO WEEKLY RF: 0 ascorbic acid (vitamin C) 500 mg Tablet
== END 2020-04-24 18:24 | disposition home or self-care (01) ==
LOC: ANHED 16:16 → ANHIMU 04-24 13:00
PROVIDERS: Family Medicine; Admitting Provider Family Medicine; Emergency Provider Emergency Medicine; PCP Family Medicine Adolescent Medicine; Visit Provider Internal Medicine
DX: R07.9 Chest pain, unspecified (principal); I16.0 Hypertensive urgency; J44.9 Chronic obstructive pulmonary disease, unspecified; J96.11 Chronic respiratory failure with hypoxia; I12.9 Hypertensive chronic kidney disease with stage 1 through stage 4 chronic kidney disease, or unspecified chronic kidney disease; D83.9 Common variable immunodeficiency, unspecified; D63.1 Anemia in chronic kidney disease; G47.33 Obstructive sleep apnea (adult) (pediatric); G44.89 Other headache syndrome; M32.9 Systemic lupus erythematosus, unspecified; N18.4 Chronic kidney disease, stage 4 (severe); Z96.653 Presence of artificial knee joint, bilateral; Z99.81 Dependence on supplemental oxygen; Z87.891 Personal history of nicotine dependence; Z79.899 Other long term (current) drug therapy; R06.02 Shortness of breath
CPT/HCPCS: 36415; 71046; 80048; 80053; 80061; 83880; 84443; 84484; 85025; 85610; 85730; 87040; 93005; 93306; 94640; 96374; 97161; 97165; 99285; A9270; G0378

== ENCOUNTER 2020-06-23 05:05 | Emergency (ER) | payer MEDICARE, MEDICAID, SELFPAY ==
--- NOTE | ~2020-06-23 | CT_ITS ---
EXAMINATION: CT brain wo con DATE: 06/23/2020 05:58 INDICATION: Head injury TECHNIQUE: Computed tomographic angiography (CTA) of the head was performed without and with 100 mL O mnipaque-350 intravenous contrast. Exam dose: 605.33 mGy-cm total exam DLP. Volume-rendered and ma ximum intensity projection 3D reconstructions of the intracranial arteries were created by the techno logist on a separate workstation. COMPARISON: 11/16/2017 CT brain FINDINGS: Bilateral vertebral and carotid siphon and supraclinoid internal carotid artery calcificati ons. Nonspecific diminished attenuation of the cerebral white matter, likely due to chronic small vessel i schemic changes. No intracranial mass lesion or hemorrhage or cerebrovascular accident is evident. No midline shift or mass effect. No subdural or epidural hematoma. Prominent left periorbital and left frontal hematoma with some left supraorbital mild subcutaneous em physema associated with soft tissue laceration. No associated intracranial coup or contrecoup abnorma lity. No skull fracture or bone destruction. There is mild soft tissue thickening along the medial wall of the right maxillary sinus and minimal f luid in the dependent right maxillary sinus. Mild soft tissue thickening along the anterolateral wall of the right sphenoid sinus. The included paranasal sinuses and mastoid air cells are otherwise norm ally developed and aerated. IMPRESSION: Left periorbital and frontal cephalohematoma and laceration; no underlying skull fractur e or tumor contrecoup or other acute intracranial finding Reviewed, dictated and finalized at [facility]. Reviewed, dictated and finalized at location [facility]. 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
--- NOTE | ~2020-06-23 | CT_ITS ---
EXAMINATION: 1. CT facial & cervical spine wo DATE: 06/23/2020 05:58 INDICATION: Head injury TECHNIQUE: 1. Computed tomography (CT) of the maxillofacial region and of the cervical spine were performed with out intravenous contrast. Sagittal and coronal reconstructions of both regions were obtained. Automat ed exposure control and iterative reconstruction technique were employed. The dose-length product was 454.31 mGy-cm. COMPARISON: Cervical spine CT dated 11/16/2017 FINDINGS: Maxillofacial CT: Prominent left frontal scalp hematoma with likely blood surrounding bandaging material overlying skin laceration with tiny focus of gas in the soft tissues. The soft tissue swelling extends inferiorly i nto the preseptal soft tissues of the left orbit and into the left malar region. Bilateral globes emilia ear intact with changes of bilateral intraocular lens replacement. No post septal inflammatory strand ing. No maxillofacial fractures. Specifically the gomez of the orbits and paranasal sinuses, the pter ygoid plates, zygomatic arches and mandible remain intact. Nasal septum is midline. Small mucous rete ntion cyst at the superomedial aspect of the right maxillary sinus which occludes the right ostiomeat al unit. Minimal mucoperiosteal thickening the bilateral ethmoid sinuses. Bilateral temporomandibular joints are normal alignment with mild osteoarthritis. Patient is edentulous with alveolar ridge reso rption along both the mandible and maxilla. Atherosclerotic calcifications at the bilateral carotid s iphons. Cervical spine CT: Moderate osteoarthritis at the atlantoaxial articulation with degenerative subchondral changes at the left anterior base of the dens. 2 mm anterolisthesis C4 on C5. Relatively recent-appearing compressi on fracture with sclerosis along the fracture line underlying the superior endplate of T2 with 20% an terior vertebral body height loss. Cervical vertebral body heights are normal. No other fractures chel ntified. Severe disc height loss at C6-C7 and C7-T1. Moderate disc height loss at C3-C4 and T2-T3 and mild disc height loss at C5-C6 and T1-T2. Disc bulges and posterior disc osteophyte complexes result ing in mild central canal stenosis at the level of each of the cervical disc spaces. No significant i nterval change in multilevel severe uncovertebral and facet osteoarthritis. This contributes to multi level mild to moderate neural foraminal stenosis most prominent on the right at C5-C6 and C6-C7. Righ t internal jugular central venous port catheter with distal tip near the superior cavoatrial junction the recruitment specialist topogram. System Trainer topogram also demonstrates spinal stimulator leads projecting over the dong tral canal of the mid to lower thoracic spine. Atherosclerotic calcifications at the bilateral caroti d bulbs. Mild apical emphysema. Discoid atelectasis in the right upper lobe along the major fissure. IMPRESSION: 1. Large left frontal scalp hematoma with skin laceration. No radio opaque foreign bodies or maxillof acial fractures. 2. Age-indeterminate but relatively recent, potentially acute, T2 superior endplate compression fract ure with 20% anterior vertebral body height loss. 3. Severe cervical spondylosis. Reviewed, dictated and finalized at location [facility]. 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 Large left frontal scalp hematoma with skin laceration. No radio opaque fore ign bodies or maxillofacial fractures. 2. Age-indeterminate but relatively recent, potentially acute, T2 superior endp late compression fracture with 20% anterior vertebral body height loss. 3. Severe cervical spondylosis.
[2020-06-23 05:02] VITALS: BP 153/72; PULSE 76; RESP 16; TEMP 36.3; O2SAT 100
--- NOTE | 2020-06-23 06:22 | ED.FALL ---
HPI - Fall General Chief Complaint: Fall Stated Complaint: fall Time Seen by Provider: 06/23/20 05:10 History of Present Illness HPI Narrative: Patient is a 80-year-old female who presents the emergency department with chief complaint of head injury. Patient states she slipped and fell and struck her left eye area. The patient states she has a bruise around her eyes states she has normal vision out of her eye. Patient reports there is a laceration that is approximately 2 cm above the left eyebrow. Patient denies loss of consciousness states that she has pain in her face reports that she is a little uncomfortable in her neck as well but denies any actual point tenderness. Patient's family reports that she has history of anemia and is followed by hematology and they are concerned because they have noticed there was a fair amount of bleeding at the house after the injury. Related Data Home Medications Medication Instructions Recorded Confirmed Morphine Pump 0.279 mg NOT APPLICABLE DAILY 05/10/19 06/20/20 alendronate 70 mg PO WEEKLY 05/10/19 06/20/20 ascorbic acid (vitamin C) 1,000 mg PO DAILY 05/10/19 06/20/20 cyanocobalamin (vitamin B-12) 1,000 mcg PO DAILY 05/10/19 06/20/20 furosemide [Lasix] 40 mg PO DAILY PRN 05/10/19 06/20/20 gabapentin 300 mg PO BID 05/10/19 06/20/20 hydralazine 10 mg PO TID 05/10/19 06/20/20 hydrochlorothiazide 25 mg PO DAILY 05/10/19 06/20/20 hydroxychloroquine 200 mg PO DAILY 05/10/19 06/20/20 levothyroxine 150 mcg PO DAILY 05/10/19 06/20/20 losartan 50 mg PO DAILY 05/10/19 06/20/20 metoprolol succinate 25 mg PO DAILY 05/10/19 06/20/20 pantoprazole 40 mg PO BID 05/10/19 06/20/20 Allergies Allergy/AdvReac Type Severity Reaction Status Date / Time cefepime Allergy Intermediate Unknown Verified 06/20/20 10:36 latex Allergy Unknown Rash Verified 06/20/20 10:36 levofloxacin Allergy Unknown Swelling Verified 06/20/20 10:36 Penicillins Allergy Unknown Swelling Verified 06/20/20 10:36 pregabalin Allergy Unknown Unknown Verified 06/20/20 10:36 Quinolones Allergy Unknown Unknown Verified 06/20/20 10:36 Sulfa (Sulfonamide Allergy Unknown Itching Verified 06/20/20 10:36 Antibiotics) Review of Systems Review of Systems: Narrative: CONSTITUTIONAL: Denies fever, chills, or sweats. EYES: Denies visual changes, redness, or discharge. ENT: Denies rhinorrhea, congestion, sore throat, or otalgia. CARDIOVASCULAR: Denies chest pain, palpitations, or edema. RESPIRATORY: Denies cough or dyspnea. GASTROINTESTINAL: Denies abdominal pain, nausea, vomiting, or diarrhea. GENITOURINARY: Denies dysuria or hematuria. SKIN: Denies rash or itching. MUSCULOSKELETAL: Denies back pain, joint pain, or myalgia. NEUROLOGIC: Denies headache, numbness, or weakness. PSYCHIATRIC: Denies anxiety or depression. A 10 system review of systems was completed on the patient and is negative except for what is stated in the HPI. Nursing and ancillary documentation was reviewed. [facility] Past Medical History Medical History (Updated 06/23/20 @ 06:27 by Mohinder Del Rosario MD) Anemia Arthritis Bronchitis CKD (chronic kidney disease) COPD (chronic obstructive pulmonary disease) CPAP (continuous positive airway pressure) dependence DDD (degenerative disc disease) Diverticulitis DVT (deep venous thrombosis) Emphysema of lung GERD (gastroesophageal reflux disease) HTN (hypertension) Hypothyroid Lupus Osteoporosis Pneumonia Sleep apnea Spinal cord stimulator status UTI (urinary tract infection) Surgical History Surgical History H/O bilateral cataract extraction H/O exploratory laparotomy H/O repair of rotator cuff right H/O: hysterectomy History of carpal tunnel release History of total bilateral knee replacement Hx of appendectomy Hx of tonsillectomy S/P IVC filter S/P spinal surgery Family History Family History (Reviewed 06/23/20 @ 06:24 by Mohinder Irby
[2020-06-23 06:48] LABS: Basophils Percent Auto 0.5 % (0.2-1.2); Eosinophils Absolute Auto 0.2 K/mm3 (0-0.3); Eosinophils Percent Auto 3.8 % (0-4.4); Hematocrit 31.8 % (37.0-47.0); Hemoglobin 9.7 g/dL (12.0-15.0); Immature Granulocyte Absolute 0.02 K/mm3 (0.00-0.031); Immature Granulocyte Percent A 0.3 % (0-0.5); Immature Platelet Fraction Pct 3.2 % (0.9-11.2); Lymphocytes Absolute Auto 1.22 K/mm3 (0.9-3.2); Lymphocytes Percent Auto 20.1 % (18.3-44.2); Mean Corpuscular HGB Conc 30.5 g/dl (32-36); Mean Corpuscular Volume 94.9 fl (80-100); Monocytes Absolute Auto 0.6 K/mm3 (0.1-0.6); Neutrophils Percent Auto 65.3 % (45.5-73.1); Platelet Count Result 199 k/mm3 (150-375); Red Blood Count 3.35 M/mm3 (4.2-5.4); Red Cell Distribution Width 17.3 % (11.5-14.5); White Blood Count 6.1 K/mm3 (4.5-10.0)
[2020-06-23 06:58] LABS: Anion Gap 8 mmol/L (8-16); Blood Urea Nitrogen 88 mg/dL (7-17); Carbon Dioxide 34 mmol/L (22-30); Chloride 96 mmol/L (98-107); Estimated CRCL calculation 11 ml/min; Estimated Glomerular Filt Rate 13; Glucose 99 mg/dL (65-105); Sodium 138 mmol/L (137-145)
[2020-06-23 07:10] VITALS: BP 148/94; PULSE 72; RESP 16; TEMP 36.8; O2SAT 96
== END 2020-06-23 07:11 | disposition home or self-care (01) ==
PROVIDERS: Emergency Provider Emergency Medicine; PCP Family Medicine Adolescent Medicine
DX: S01.112A Laceration without foreign body of left eyelid and periocular area, initial encounter (principal); S09.90XA Unspecified injury of head, initial encounter; D64.9 Anemia, unspecified; M19.90 Unspecified osteoarthritis, unspecified site; I12.9 Hypertensive chronic kidney disease with stage 1 through stage 4 chronic kidney disease, or unspecified chronic kidney disease; N18.9 Chronic kidney disease, unspecified; Z87.891 Personal history of nicotine dependence; Z86.718 Personal history of other venous thrombosis and embolism; J43.9 Emphysema, unspecified; K21.9 Gastro-esophageal reflux disease without esophagitis; E03.9 Hypothyroidism, unspecified; M81.0 Age-related osteoporosis without current pathological fracture; G47.30 Sleep apnea, unspecified; Z87.440 Personal history of urinary (tract) infections; Z98.42 Cataract extraction status, left eye; Z98.41 Cataract extraction status, right eye; Z96.653 Presence of artificial knee joint, bilateral; W01.0XXA Fall on same level from slipping, tripping and stumbling without subsequent striking against object, initial encounter
CPT/HCPCS: 12011; 36415; 70450; 70486; 72125; 80048; 85025; 85055; 99284

== ENCOUNTER 2020-06-25 23:55 | Emergency (ER) | payer MEDICARE, MEDICAID, SELFPAY ==
--- NOTE | ~2020-06-25 | XR_ITS ---
EXAMINATION: XR knee LT 3V EXAM DATE: 06/26/2020 01:11 INDICATION: Injury, pain. TECHNIQUE: 3 projections of the left knee. Comparison is made to prior examination from 04/28/2019. FINDINGS: There is an oblique acute closed posttraumatic fracture through the left femoral distal me tadiaphysis, anterior portion of fracture line appears to be just above the femoral component of a to gonzález knee arthroplasty. There is about 1 cm gap between the fracture fragments. Knee arthroplasty hard ruby appears in position. There are arterial calcifications, arteriosclerosis. IMPRESSION: 1. Left distal femoral metadiaphyseal oblique fracture, just above femoral component of arthroplasty . Reviewed, dictated and finalized at location [facility]. ENT SUPPORT SPECIALIST IMPRESSION: 1. Left distal femoral metadiaphyseal oblique fracture, just above femoral com ponent of arthroplasty.
--- NOTE | ~2020-06-25 | XR_ITS ---
EXAMINATION: XR chest 1V EXAM DATE: 06/26/2020 01:11 INDICATION: Cough. TECHNIQUE: Portable AP frontal chest x-ray was obtained. Comparison is made to prior examination from 04/23/2020. FINDINGS: There is a right-sided or portacatheter. Several leads overlying the abdomen. There is an I VC filter. There is a needlelike foreign body overlying the right upper quadrant. No confluent consol idation, pneumothorax or pleural effusion suspected. Moderate thoracolumbar levoscoliosis. Lumbar met hylmethacrylate injections. There are bony degenerative changes. IMPRESSION: 1. Chronic findings unchanged. Reviewed, dictated and finalized at location [facility]. GER ROOFING
--- NOTE | ~2020-06-25 | XR_ITS ---
EXAMINATION: XR hip LT 2V w AP pelvis EXAM DATE: 06/26/2020 01:11 INDICATION: Fall, subsequent pelvic and left hip pain. TECHNIQUE: Left hip frontal, lateral projections for interpretation. Frontal projection pelvis. Enrique de la vega is made to prior examination from 06/13/2019. FINDINGS: Acute closed posttraumatic fracture through the shaft of the left femur with about 1 cm dis placement. Pelvic ring is intact. No hip dislocation. Methylmethacrylate injections lumbosacral regio n. 2 metallic stimulator and/or pain pump device is implanted over the abdomen. IMPRESSION: Acute oblique left distal femoral metadiaphyseal fracture. Reviewed, dictated and finalized at location [facility]. EL OPERATOR
[2020-06-25 23:56] VITALS: PULSE 87; RESP 20; TEMP 35.8; O2SAT 98
[2020-06-26] MEDS: MORPHINE SULFATE (*CRX) 4 MG/ML INJ IV PUSH ×2 (00:21→01:29)
[2020-06-26] MEDS: SODIUM CHLORIDE 0.9% IV 1,000 ML 150 ML IV CONT (00:21)
--- NOTE | 2020-06-26 00:29 | ED.FALL ---
HPI - Fall General Chief Complaint: Fall Stated Complaint: fall Time Seen by Provider: 06/26/20 00:02 History of Present Illness HPI Narrative: Patient is a 80-year-old female who presents to emergency department with complaint of fall. Per the patient's family she was bending over fell backwards and landed on her left lower extremity. Patient reports that her leg was twisted underneath her states she heard a large pop and reports that she had deformity and pain in the left knee area. Patient reports prior history of knee replacement many many years ago which they think was done at our facility. Patient denies head trauma today reports that she was recently seen in the emergency department after a fall and had a head injury with a scalp laceration that was repaired. Patient reports her tetanus status is up-to-date patient denies chest pain or shortness of breath currently Related Data Home Medications Medication Instructions Recorded Confirmed Morphine Pump 0.279 mg NOT APPLICABLE DAILY 05/10/19 06/20/20 alendronate 70 mg PO WEEKLY 05/10/19 06/20/20 ascorbic acid (vitamin C) 1,000 mg PO DAILY 05/10/19 06/20/20 cyanocobalamin (vitamin B-12) 1,000 mcg PO DAILY 05/10/19 06/20/20 furosemide [Lasix] 40 mg PO DAILY PRN 05/10/19 06/20/20 gabapentin 300 mg PO BID 05/10/19 06/20/20 hydralazine 10 mg PO TID 05/10/19 06/20/20 hydrochlorothiazide 25 mg PO DAILY 05/10/19 06/20/20 hydroxychloroquine 200 mg PO DAILY 05/10/19 06/20/20 levothyroxine 150 mcg PO DAILY 05/10/19 06/20/20 losartan 50 mg PO DAILY 05/10/19 06/20/20 metoprolol succinate 25 mg PO DAILY 05/10/19 06/20/20 pantoprazole 40 mg PO BID 05/10/19 06/20/20 Allergies Allergy/AdvReac Type Severity Reaction Status Date / Time cefepime Allergy Intermediate Unknown Verified 06/20/20 10:36 latex Allergy Unknown Rash Verified 06/20/20 10:36 levofloxacin Allergy Unknown Swelling Verified 06/20/20 10:36 Penicillins Allergy Unknown Swelling Verified 06/20/20 10:36 pregabalin Allergy Unknown Unknown Verified 06/20/20 10:36 Quinolones Allergy Unknown Unknown Verified 06/20/20 10:36 Sulfa (Sulfonamide Allergy Unknown Itching Verified 06/20/20 10:36 Antibiotics) Review of Systems Review of Systems: Narrative: CONSTITUTIONAL: Denies fever, chills, or sweats. EYES: Denies visual changes, redness, or discharge. ENT: Denies rhinorrhea, congestion, sore throat, or otalgia. CARDIOVASCULAR: Denies chest pain, palpitations, or edema. RESPIRATORY: Denies cough or dyspnea. GASTROINTESTINAL: Denies abdominal pain, nausea, vomiting, or diarrhea. GENITOURINARY: Denies dysuria or hematuria. SKIN: Denies rash or itching. MUSCULOSKELETAL: Denies back pain, joint pain, or myalgia. NEUROLOGIC: Denies headache, numbness, or weakness. PSYCHIATRIC: Denies anxiety or depression. A 10 system review of systems was completed on the patient and is negative except for what is stated in the HPI. Nursing and ancillary documentation was reviewed. [facility] Past Medical History Medical History (Updated 06/26/20 @ 01:40 by Mohinder Del Rosario MD) Anemia Arthritis Bronchitis CKD (chronic kidney disease) COPD (chronic obstructive pulmonary disease) CPAP (continuous positive airway pressure) dependence DDD (degenerative disc disease) Diverticulitis DVT (deep venous thrombosis) Emphysema of lung GERD (gastroesophageal reflux disease) HTN (hypertension) Hypothyroid Lupus Osteoporosis Pneumonia Sleep apnea Spinal cord stimulator status UTI (urinary tract infection) Surgical History Surgical History H/O bilateral cataract extraction H/O exploratory laparotomy H/O repair of rotator cuff right H/O: hysterectomy History of carpal tunnel release History of total bilateral knee replacement Hx of appendectomy Hx of tonsillectomy S/P IVC filter S/P spinal surgery Family History Family History (Reviewed 06/26/20 @ 00:35 by Mohinder Benton
[2020-06-26 01:15] VITALS: BP 127/69; PULSE 84; RESP 16; O2SAT 100
[2020-06-26 01:26] LABS: Basophils Percent Auto 0.3 % (0.2-1.2); Eosinophils Absolute Auto 0.1 K/mm3 (0-0.3); Eosinophils Percent Auto 1.5 % (0-4.4); Hematocrit 29.4 % (37.0-47.0); Immature Granulocyte Absolute 0.05 K/mm3 (0.00-0.031); Immature Granulocyte Percent A 0.6 % (0-0.5); Lymphocytes Absolute Auto 0.84 K/mm3 (0.9-3.2); Lymphocytes Percent Auto 9.3 % (18.3-44.2); Mean Corpuscular HGB Conc 30.6 g/dl (32-36); Mean Corpuscular Hemoglobin 29.2 pg (26-34); Mean Corpuscular Volume 95.5 fl (80-100); Mean Platelet Volume 10.7 fl (7.4-10.4); Monocytes Absolute Auto 0.6 K/mm3 (0.1-0.6); Monocytes Percent Auto 6.1 % (2.6-8.5); Neutrophils Absolute Auto 7.5 K/mm3 (1.3-6.7); Neutrophils Percent Auto 82.2 % (45.5-73.1); Platelet Count Result 260 k/mm3 (150-375); Red Blood Count 3.08 M/mm3 (4.2-5.4); Red Cell Distribution Width 17.2 % (11.5-14.5); White Blood Count 9.1 K/mm3 (4.5-10.0)
[2020-06-26 01:38] LABS: Alanine Aminotransferase 14 U/L (4-35); Albumin Level 3.9 g/dL (3.5-5.1); Alkaline Phosphatase 65 U/L (38-126); Anion Gap 8 mmol/L (8-16); Aspartate Amino Transferase 31 U/L (14-36); Bilirubin,Total 0.3 mg/dL (0.2-1.3); Blood Urea Nitrogen 92 mg/dL (7-17); Calcium 8.8 mg/dL (8.4-10.2); Carbon Dioxide 33 mmol/L (22-30); Chloride 96 mmol/L (98-107); Estimated CRCL calculation 9 ml/min; Estimated Glomerular Filt Rate 11; Glucose 130 mg/dL (65-105); Partial Thromboplastin Time 27.8 SECONDS (22.3-36.8); Sodium 137 mmol/L (137-145)
--- NOTE | 2020-06-26 01:47 | PC.NURSE ---
L knee immobilizer placed: L knee immobilizer placed per MD verbal orders with read back. PMS intact prior to placement and after placement. Pt educated on use. Pt reporting improvement in pain. Daughter at bedside. Pt within view of nursing station. VSS. RN will continue to monitor.
--- NOTE | 2020-06-26 01:55 | PC.NURSE ---
Addendum entered by Courtney Fox 06/26/20 01:58: Also called [facility] and [facility]. Both declined. Original Note: Called [facility] to transport patient to [facility]...[phone]
[2020-06-26 02:17] VITALS: BP 109/58; PULSE 79; RESP 18; O2SAT 100
--- NOTE | 2020-06-26 02:30 | PC.NURSE ---
ASSUMING CARE OF PT AT THIS TIME, RECEIVED REPORT FROM JASKARAN ENG
[2020-06-26 02:55] VITALS: BP 105/55; PULSE 79; RESP 20; O2SAT 100
[2020-06-26 03:09] LABS: Add Urine Microscopic? YES; Appearance Urine Clear (Clear); Bacteria Urine Trace /hpf; Bilirubin Urine Negative (Negative); Blood Urine Negative (Negative); Color Urine Straw (Yellow); Glucose Urine UA Negative (Negative); Ketones Urine Negative (Negative); Leukocyte Esterase Ur Negative LEU/UL (Negative); Mucus Urine Rare /lpf; Nitrate Urine Positive (Negative); Protein Urine Negative (Negative); RBC Urine 0-2 /hpf (0-2); Urobilinogen Urine Negative mg/dL (<2.0)
[2020-06-26 04:03] VITALS: BP 107/58; PULSE 86; RESP 18; O2SAT 100
== END 2020-06-26 04:05 | disposition short-term general hospital (02) ==
PROVIDERS: Emergency Provider Emergency Medicine; PCP Family Medicine Adolescent Medicine
DX: S79.192A Other physeal fracture of lower end of left femur, initial encounter for closed fracture (principal); I12.9 Hypertensive chronic kidney disease with stage 1 through stage 4 chronic kidney disease, or unspecified chronic kidney disease; N18.9 Chronic kidney disease, unspecified; Z86.718 Personal history of other venous thrombosis and embolism; K21.9 Gastro-esophageal reflux disease without esophagitis; J43.9 Emphysema, unspecified; M81.0 Age-related osteoporosis without current pathological fracture; E03.9 Hypothyroidism, unspecified; G47.30 Sleep apnea, unspecified; Z87.440 Personal history of urinary (tract) infections; Z98.42 Cataract extraction status, left eye; Z98.41 Cataract extraction status, right eye; Z96.653 Presence of artificial knee joint, bilateral; Z87.891 Personal history of nicotine dependence; W18.39XA Other fall on same level, initial encounter
CPT/HCPCS: 36415; 51702; 71045; 73502; 73562; 80053; 81001; 85025; 85610; 85730; 86850; 86880; 86900; 86901; 86902; 87086; 87088; 96361; 96374; 96376; 99285; J2270; J7030

== ENCOUNTER → 2020-08-17 15:56 | Outpatient (CLI) | payer MEDICARE, MEDICAID, SELFPAY ==
--- NOTE | ~2020-08-17 | XR_ITS ---
EXAMINATION: XR hip LT 2V w AP pelvis INDICATION: Left hip pain TECHNIQUE: AP view the pelvis and two views of the left hip and femur are obtained on six radiographs . COMPARISON: 06/26/2020 FINDINGS: There is been interval plate and screw fixation of the previously described distal left fem ur fracture. Changes of left knee arthroplasty are also noted. Alignment at the hip is normal. There is mild osteoarthritis of the hips and pubic symphysis. Neurostimulator devices are noted. There are changes of vertebroplasty and sacro plasty. An inferior vena cava filter is noted. IMPRESSION: 1. Interval plate and screw fixation of the previously described left distal femur fracture without a cute osseous abnormality. Reviewed, dictated and finalized at location A. ARIST IMPRESSION: 1. Interval plate and screw fixation of the previously described left distal fe mur fracture without acute osseous abnormality.
== END ==
PROVIDERS: PCP Family Medicine Adolescent Medicine; Visit Provider Family Medicine Adolescent Medicine
DX: M25.552 Pain in left hip (principal); Z96.89 Presence of other specified functional implants
CPT/HCPCS: 73502

== ENCOUNTER 2020-08-19 19:07 | Emergency (ER) | payer MEDICARE, MEDICAID, SELFPAY ==
[2020-08-19] VITALS (17 sets, daily range): BP systolic 166–187; BP diastolic 52–74; PULSE 77–88; RESP 12–18; TEMP 36.6; O2SAT 97–100
--- NOTE | 2020-08-19 19:10 | ED.FEMALEGU ---
HPI - Female Genitourinary General Chief complaint: Urogenital-Female Stated complaint: urinary retention Time Seen by Provider: 08/19/20 19:09 Source: patient and family Limitations: no limitations History of Present Illness HPI Narrative: 80 years old white female presents with inability to void urine completely. Patient denies any fever, chills, nausea, vomiting, abdominal pain. Patient had Moscoso catheter removed 3 days ago. After been there since May 2020 secondary to hip fracture. Related Data Home Medications Medication Instructions Recorded Confirmed Morphine Pump 0.279 mg NOT APPLICABLE DAILY 05/10/19 06/20/20 alendronate 70 mg PO WEEKLY 05/10/19 06/20/20 ascorbic acid (vitamin C) 1,000 mg PO DAILY 05/10/19 06/20/20 cyanocobalamin (vitamin B-12) 1,000 mcg PO DAILY 05/10/19 06/20/20 furosemide [Lasix] 40 mg PO DAILY PRN 05/10/19 06/20/20 gabapentin 300 mg PO BID 05/10/19 06/20/20 hydralazine 10 mg PO TID 05/10/19 06/20/20 hydrochlorothiazide 25 mg PO DAILY 05/10/19 06/20/20 hydroxychloroquine 200 mg PO DAILY 05/10/19 06/20/20 levothyroxine 150 mcg PO DAILY 05/10/19 06/20/20 losartan 50 mg PO DAILY 05/10/19 06/20/20 metoprolol succinate 25 mg PO DAILY 05/10/19 06/20/20 pantoprazole 40 mg PO BID 05/10/19 06/20/20 Allergies Allergy/AdvReac Type Severity Reaction Status Date / Time cefepime Allergy Intermediate Unknown Verified 06/20/20 10:36 latex Allergy Unknown Rash Verified 06/20/20 10:36 levofloxacin Allergy Unknown Swelling Verified 06/20/20 10:36 Penicillins Allergy Unknown Swelling Verified 06/20/20 10:36 pregabalin Allergy Unknown Unknown Verified 06/20/20 10:36 Quinolones Allergy Unknown Unknown Verified 06/20/20 10:36 Sulfa (Sulfonamide Allergy Unknown Itching Verified 06/20/20 10:36 Antibiotics) Review of Systems Review of Systems: Narrative: CONSTITUTIONAL: Denies fever, chills, or sweats. EYES: Denies visual changes, redness, or discharge. ENT: Denies rhinorrhea, congestion, sore throat, or otalgia. CARDIOVASCULAR: Denies chest pain, palpitations, or edema. RESPIRATORY: Denies cough or dyspnea. GASTROINTESTINAL: Denies abdominal pain, nausea, vomiting, or diarrhea. GENITOURINARY: Denies dysuria or hematuria. SKIN: Denies rash or itching. MUSCULOSKELETAL: Denies back pain, joint pain, or myalgia. NEUROLOGIC: Denies headache, numbness, or weakness. PSYCHIATRIC: Denies anxiety or depression. [facility] Past Medical History Medical History (Updated 08/19/20 @ 22:03 by Traci Childs MD) Anemia Arthritis Bronchitis CKD (chronic kidney disease) COPD (chronic obstructive pulmonary disease) CPAP (continuous positive airway pressure) dependence DDD (degenerative disc disease) Diverticulitis DVT (deep venous thrombosis) Emphysema of lung GERD (gastroesophageal reflux disease) HTN (hypertension) Hypothyroid Lupus Osteoporosis Pneumonia Sleep apnea Spinal cord stimulator status UTI (urinary tract infection) Surgical History Surgical History H/O bilateral cataract extraction H/O exploratory laparotomy H/O repair of rotator cuff right H/O: hysterectomy History of carpal tunnel release History of total bilateral knee replacement Hx of appendectomy Hx of tonsillectomy S/P IVC filter S/P spinal surgery Family History Family History Sibling Hypertension Malignant neoplasm of prostate Father Hypertension Cerebrovascular accident Mother Family history of Alzheimer's disease Social History Social History Smoking packs per day: 2 Smoking cigarettes per day: 40.0 Years smoked: 14 Smoking pack-years: 28.00 Smoking status: Former smoker Smoking end date: 07/28/96 Alcohol intake: never Substance use: never Substance use type: does not use Gender identity (if verbalized by the patient): F
[2020-08-19 20:56] LABS: Add Urine Microscopic? YES; Appearance Urine Cloudy (Clear); Bacteria Urine Trace /hpf; Bilirubin Urine Negative (Negative); Blood Urine Negative (Negative); Color Urine Yellow (Yellow); Glucose Urine UA Negative (Negative); Ketones Urine Negative (Negative); Leukocyte Esterase Ur 2+ LEU/UL (Negative); Nitrate Urine Negative (Negative); Protein Urine Negative (Negative); RBC Urine 0-2 /hpf (0-2); Specific Grav Ur 1.008 (1.001-1.035); Squamous Epithelial Cell Urine Occasional /hpf (Few); Urobilinogen Urine Negative mg/dL (<2.0); WBC Urine 51-75 /hpf
[2020-08-19] MEDS: NITROFURANTOIN MONOHYD MACROCR 100 MG CAP (22:27)
== END 2020-08-19 23:24 | disposition home or self-care (01) ==
PROVIDERS: Emergency Provider Emergency Medicine; PCP Family Medicine Adolescent Medicine
DX: N39.0 Urinary tract infection, site not specified (principal); J43.9 Emphysema, unspecified; I12.9 Hypertensive chronic kidney disease with stage 1 through stage 4 chronic kidney disease, or unspecified chronic kidney disease; N18.9 Chronic kidney disease, unspecified; Z86.718 Personal history of other venous thrombosis and embolism; K21.9 Gastro-esophageal reflux disease without esophagitis; I10 Essential (primary) hypertension; E03.9 Hypothyroidism, unspecified; M19.90 Unspecified osteoarthritis, unspecified site; G47.30 Sleep apnea, unspecified; Z98.42 Cataract extraction status, left eye; Z98.41 Cataract extraction status, right eye; Z87.891 Personal history of nicotine dependence; Z86.2 Personal history of diseases of the blood and blood-forming organs and certain disorders involving the immune mechanism; M81.0 Age-related osteoporosis without current pathological fracture
CPT/HCPCS: 81001; 87077; 87086; 87088; 87186; 99283; A9270

== ENCOUNTER 2020-10-11 20:55 | Inpatient (IN) | payer MEDICARE, MEDICAID, SELFPAY ==
--- NOTE | ~2020-10-11 | US_ITS ---
EXAMINATION: US renal BI DATE: 10/12/2020 12:19 INDICATION: Acute renal insufficiency TECHNIQUE: Multiple ultrasound grayscale images of the kidneys were obtained. COMPARISON: 05/28/[address] dated 07/01/2017 FINDINGS: The right kidney measures 7.9 x 3.2 x 4.4 cm. The left kidney measures 9.7 x 4.6 x 4.8 cm. There is b ilateral cortical thinning with increased renal cortical echogenicity consistent with medical renal d isease. Again seen is a small peripheral hypoechoic likely renal cysts measuring 1.3 cm in the curren t study. There is no hydronephrosis in either kidney. No stones identified. The bladder is incomplet nick distended likely due to the presence of a reported Moscoso catheter and which limits evaluation. IMPRESSION: 1. Bilateral mild renal atrophy with increased renal cortical echogenicity consistent with medical r enal disease. No hydronephrosis. Reviewed, dictated and finalized at location B. IMPRESSION: 1. Bilateral mild renal atrophy with increased renal cortical echogenicity con sistent with medical renal disease. No hydronephrosis.
--- NOTE | ~2020-10-11 | XR_ITS ---
MODIFIED ESOPHAGRAM HISTORY: Dysphagia. TECHNIQUE: Modified barium esophagram was performed by speech pathologist under radiologist fluorosco pic guidance. This was recorded on tape. The exam was reviewed on 10/18/2020 13:42 CDT. The DAP for this procedure was 2.9 Gycm2. Fluoroscopy time is 3.5 minutes. FINDINGS: Lateral projection of the cervical spine demonstrates normal alignment. Oral stage is wit hin functional limits. Pharyngeal stage demonstrates reduced laryngeal elevation, laryngeal penetrati on and aspiration with liquids.. IMPRESSION: 1: Abnormal laryngeal penetration with aspiration with liquids. 2: Please refer to speech pathologist report for additional detail. Reviewed, dictated and finalized at location A.
--- NOTE | ~2020-10-11 | CT_ITS ---
EXAMINATION: CT brain wo con DATE: 10/14/2020 06:22 INDICATION: Mental status change. TECHNIQUE: Computed tomography (CT) of the head was performed without intravenous contrast. Sagittal and coronal reconstructions were performed. The mA was adjusted according to patient size. Iterative reconstruction technique was employed. The dose-length product was 605.33 mGy-cm. COMPARISON: head CT dated 10/11/2020 FINDINGS: Streak artifact which mild to moderately limits evaluation. No acute intracranial hemorrhage, acute i nfarction or abnormal extra axial fluid collection. Again seen is moderate scattered white matter hyp oattenuation consistent with chronic small vessel ischemic disease. Ventricles are normal and symmetr ic. No mass/mass effect. Changes of bilateral intraocular lens replacement. Bubbly mucus and dependen tly layering fluid in the bilateral sphenoid sinuses. Small bilateral mastoid effusions. IMPRESSION: 1. No acute intracranial process. Evaluation mild to moderately limited by motion. 2. White matter hypoattenuation consistent with chronic small vessel ischemic disease. Reviewed, dictated and finalized at location A. IMPRESSION: 1. No acute intracranial process. Evaluation mild to moderately limited by avtar on. 2. White matter hypoattenuation consistent with chronic small vessel ischemic d isease.
--- NOTE | ~2020-10-11 | CT_ITS ---
EXAMINATION: CT brain wo con DATE: 10/15/2020 15:36 INDICATION: Seizure TECHNIQUE: Computed tomography (CT) of the head was performed without intravenous contrast. The mA wa s adjusted according to patient size. Iterative reconstruction technique was employed. Exam dose: 60 5.33 mGy-cm total exam DLP. COMPARISON: 10/14/2020 CT brain 10/11/2020 CT brain 06/23/2020 CT brain FINDINGS: There is prominent nonspecific diminished attenuation of the subcortical and periventricula r cerebral white matter, likely due to chronic small vessel ischemic changes. Prominent bilateral car otid siphon and supraclinoid internal carotid artery calcifications as well as vertebral artery calci fications are noted. No intracranial mass lesion or hemorrhage or cerebrovascular accident is evident. There is no midline shift or mass effect effect. No subdural or epidural hematoma is detected. There is cerebral and cerebellar volume loss not inconsistent with patient age. No fracture or bone destruction of the cranial vault. Included paranasal sinuses and mastoid air cells are normally developed and aerated. IMPRESSION: Cerebral atherosclerosis and chronic small vessel ischemic changes of the cerebral white matter No acute intracranial finding or significant change since 10/14/2020 Reviewed, dictated and finalized at Location A. Reviewed, dictated and finalized at location A.
--- NOTE | ~2020-10-11 | XR_ITS ---
XR chest 1V portable DATE: 10/17/2020 13:34 INDICATION: Worsening shortness of breath TECHNIQUE: Portable AP chest on 10/17/2020 at 1327 hours COMPARISON: 10/16/2020 portable AP chest FINDINGS: Right Port-A-Cath catheter tip is situated near the superior cavoatrial junction in the low er aspect of the superior vena cava. Heart size is borderline. Is aortic calcification. There is mild infiltrate or atelectasis in the lower lung zones primarily. There is minimal if any pl eural effusion. No pneumothorax. Bilateral rotator cuff atrophy. Thoracic spinal leads are noted at the T6-7 level. There is diffuse osteopenia. There is scoliosis and degenerative change of the thoracolumbar spine as well as vertebroplasty of some lumbar vertebral bodies. IMPRESSION: Bibasilar infiltrate or atelectasis, mildly improved since 10/16/2020 Reviewed, dictated and finalized at location B.
--- NOTE | ~2020-10-11 | XR_ITS ---
EXAMINATION: XR chest 1V portable DATE: 10/25/2020 06:34 INDICATION: Hypoxia TECHNIQUE: frontal view of the chest was obtained. COMPARISON: Chest radiograph dated 10/17/20 FINDINGS: Small lung volumes. Opacities in the bilateral lower lung zones. Blunting at the left costophrenic an gle consistent with small left pleural effusion. No pneumothorax. Heart size is normal. Right internal jugular central venous port catheter with distal tip in the midsuperior vena cava. Sev ere thoracic spondylosis with spinal stimulator leads project over the mid thoracic spine. IMPRESSION: 1. Small lung volumes with opacities in the bilateral lower lung zones with differential including at electasis, pneumonia, pulmonary edema or some combination thereof. 2. Small left pleural effusion. Reviewed, dictated and finalized at location A. IMPRESSION: 1. Small lung volumes with opacities in the bilateral lower lung zones with dif ferential including atelectasis, pneumonia, pulmonary edema or some combination thereof. 2. Small left pleural effusion.
--- NOTE | ~2020-10-11 | CT_ITS ---
EXAMINATION: CT brain wo con INDICATION: Confusion COMPARISON: 10/15/2020 TECHNIQUE: Standard unenhanced head CT. The dose-length product (DLP) was 605.33 mGy-cm. The mA was a djusted according to patient size. Iterative reconstruction technique was employed. FINDINGS: There is no acute intraparenchymal hemorrhage. No evidence of mass lesion. No evidence of a cute infarction. There is moderate periventricular and subcortical hypodensity probably related to sm all vessel ischemic disease. There is moderate prominence of the sulci and ventricles related to cere bral atrophy. Intracranial calcified cerebral atherosclerosis is noted. There are no extra-axial es ections. There is no mass effect or midline shift. Changes in the globes are likely from ocular lens surgery. There is mild mucosal thickening of the paranasal sinuses. IMPRESSION: 1. No acute intracranial abnormality. 2. Age related findings. Reviewed, dictated and finalized at location A.
--- NOTE | ~2020-10-11 | XR_ITS ---
XR chest 1V portable 10/16/2020 12:53 Indication: Shortness of breath and weakness Procedure: AP portable chest Comparison: Comparison to multiple prior studies sequentially, with oldest reviewed study dated 05/28. Findings: Shallow inspiration with crowding of the pulmonary vessels. Elevated right diaphragm. Bibas ilar airspace disease has progressed since 10/11/2020. Possible small effusions. No pneumothorax. Port acatheter tip in the SVC. Spinal stimulator leads unchanged. Impression: 1: Progression of bibasilar airspace disease which may represent pneumonia and/or atelectasis. Reviewed, dictated and finalized at location A. Impression: 1: Progression of bibasilar airspace disease which may represent pneumonia and/ or atelectasis.
--- NOTE | ~2020-10-11 | XR_ITS ---
XR chest 1V portable DATE: 10/11/2020 21:24 INDICATION: Weakness TECHNIQUE: Portable AP chest on 10/11/2020 at 2126 hours COMPARISON: 06/26/2020 AP chest FINDINGS: Right Port-A-Cath catheter again noted in superior vena cava. Thoracic spinal electrodes are again noted as well as leads overlying the medial left lower chest. Heart size appears within normal limits. Is aortic arch calcification. There is moderate elevation right leaf of diaphragm. There is discoid atelectasis and/or scarring in the right lung base and left mid to lower lung. Right basilar infiltrate and/atelectasis. No pleural effusion or pneumothorax is evident. IMPRESSION: Discoid atelectasis or scarring, left midlung, right lung base. Cannot exclude right basi lar infiltrate Elevated right diaphragm Right Port-A-Cath in superior vena cava Reviewed, dictated and finalized at location A. IMPRESSION: Discoid atelectasis or scarring, left midlung, right lung base. Can not exclude right basilar infiltrate Elevated right diaphragm Right Port-A-Cath in superior vena cava
--- NOTE | ~2020-10-11 | CT_ITS ---
EXAMINATION: CT brain wo con DATE: 10/11/2020 22:27 INDICATION: Altered mental status TECHNIQUE: Computed tomography (CT) of the head was performed without intravenous contrast. The mA wa s adjusted according to patient size. Iterative reconstruction technique was employed. Exam dose: 60 5.33 mGy-cm total exam DLP. COMPARISON: 06/23/2020 CT brain FINDINGS: Bilateral prominent carotid siphon and supraclinoid internal carotid artery calcifications. There is prominent image attenuation of the subcortical and periventricular cerebral white matter, li murphy due to chronic small vessel ischemic changes. Minimal bilateral basal ganglia calcification. No intracranial mass lesion or hemorrhage or recent cerebrovascular accident is detected. No midline shift or mass effect effect. No subdural or epidural hematoma. No fracture or bone destruction of the cranial vault. There is some soft tissue density within the right sphenoid sinus and fluid level in the left sphenoi d sinus. The paranasal sinuses and mastoid air cells otherwise appear unremarkable. IMPRESSION: Cerebral atherosclerosis and chronic small vessel ischemic changes of the cerebral white matter No acute intracranial finding Reviewed, dictated and finalized at Location A. Reviewed, dictated and finalized at location A.
--- NOTE | ~2020-10-11 | XR_ITS ---
EXAMINATION: XR femur LT min 2V DATE: 10/26/2020 17:07 INDICATION: Left thigh drainage. TECHNIQUE: 2 views of left femur on 4 radiographs were obtained. COMPARISON: Left femur radiographs 08/17/20, 06/26/20 FINDINGS: There is a comminuted fracture of distal diaphysis and metaphysis of the femur. Periosteal new bone formation is noted. Internal fixation is seen with lateral plate and multiple screws and ret rograde intramedullary carmen with proximal and distal screws. There is a total left knee arthroplasty i n near-anatomic alignment. No periprosthetic lucency to suggest loosening or infection. There is mild left hip osteoarthritis. There is a small knee joint effusion. IMPRESSION: 1. Healing comminuted fracture of distal diaphysis and metaphysis of left femur with internal fixatio n. 2. Total left knee arthroplasty in near-anatomic alignment. 3. Small left knee joint effusion. Reviewed, dictated and finalized at location A. IMPRESSION: 1. Healing comminuted fracture of distal diaphysis and metaphysis of left femur with internal fixation. 2. Total left knee arthroplasty in near-anatomic alignment. 3. Small left knee joint effusion.
[2020-10-11 20:53] VITALS: BP 124/78; PULSE 104; RESP 22; TEMP 37.6; O2SAT 90
[2020-10-11 21:00] VITALS: RESP 23
--- NOTE | 2020-10-11 21:01 | ECG_ITS ---
Measurements Intervals [place] Rate: 78 P: 57 NE: 177 QRS: -37 QRSD: 102 T: 7 QT: 412 QTc: 470 Interpretive Statements SINUS RHYTHM POSSIBLE LEFT ATRIAL ENLARGEMENT LEFT AXIS DEVIATION CANNOT RULE OUT SEPTAL INFARCT, AGE INDETERMINATE BORDERLINE T WAVE ABNORMALITY- INFERIOR LEADS MISSING LEAD V4 ABNORMAL ECG Electronically Signed On 10-12-2020 10:55:30 CDT by Mustapha Meléndez D.O.
[2020-10-11 21:30] VITALS: BP 104/53; PULSE 95; RESP 23; O2SAT 99
[2020-10-11 21:32] LABS: Alveolar/Arterial O2 Gradient 280.9 mmHg; Base Excess ABG -2.4 mEq/l (+/-2.0); Device NON-REBREATHER MASK; Fractional Inspired Oxygen 90 %; HCO3 ABG 23.4 mEq/l (22.0-26.0); Modified Allen's Test Pass; Oxygen Content ABG 15.8 %vol (16.0-22.0); Oxygen Saturation ABG 99.7 % (95.0-100.0); Oxyhemoglobin 98.4 % THb (90.0-100.0); PCO2 ABG 44.6 mmHg (35.0-45.0); PO2 ABG 315.1 mmHg (80.0-100.0); Site Drawn LEFT RADIAL; Total Hemoglobin 10.8 g/dL (12.0-18.0); pH ABG 7.338 (7.350-7.450)
[2020-10-11 22:00] VITALS: BP 103/51; PULSE 96; RESP 22; O2SAT 100
[2020-10-11 22:23] LABS: Basophils Percent Auto 0.2 % (0.2-1.2); Eosinophils Absolute Auto 0.1 K/mm3 (0-0.3); Eosinophils Percent Auto 0.6 % (0-4.4); Hematocrit 30.5 % (37.0-47.0); Hemoglobin 9.7 g/dL (12.0-15.0); Immature Granulocyte Absolute 0.07 K/mm3 (0.00-0.031); Immature Granulocyte Percent A 0.5 % (0-0.5); Lymphocytes Absolute Auto 0.89 K/mm3 (0.9-3.2); Lymphocytes Percent Auto 6.2 % (18.3-44.2); Mean Corpuscular HGB Conc 31.8 g/dl (32-36); Mean Corpuscular Hemoglobin 30.1 pg (26-34); Mean Corpuscular Volume 94.7 fl (80-100); Mean Platelet Volume 9.9 fl (7.4-10.4); Monocytes Absolute Auto 0.8 K/mm3 (0.1-0.6); Monocytes Percent Auto 5.5 % (2.6-8.5); Neutrophils Absolute Auto 12.5 K/mm3 (1.3-6.7); Platelet Count Result 241 k/mm3 (150-375); Red Blood Count 3.22 M/mm3 (4.2-5.4); Red Cell Distribution Width 16.2 % (11.5-14.5); White Blood Count 14.3 K/mm3 (4.5-10.0)
[2020-10-11 22:28] LABS: Add Urine Microscopic? YES; Appearance Urine Cloudy (Clear); Bacteria Urine 1+ /hpf; Bilirubin Urine Negative (Negative); Blood Urine Negative (Negative); Color Urine Yellow (Yellow); Glucose Urine UA Negative (Negative); Ketones Urine Negative (Negative); Leukocyte Esterase Ur 3+ LEU/UL (Negative); Nitrate Urine Positive (Negative); Protein Urine 1+ mg/dL (Negative); Specific Grav Ur 1.014 (1.001-1.035); Squamous Epithelial Cell Urine Few /hpf (Few); Urobilinogen Urine Negative mg/dL (<2.0); WBC Urine >75 /hpf
[2020-10-11 22:30] VITALS: BP 85/43; PULSE 88; RESP 21; O2SAT 100
[2020-10-11 22:33] LABS: INR 1.1; Prothrombin Time 14.3 Seconds (11.1-14.7)
[2020-10-11 22:34] LABS: Partial Thromboplastin Time 29.1 SECONDS (22.3-36.8)
[2020-10-11 22:37] LABS: Alanine Aminotransferase 6 U/L (4-35); Albumin Level 3.5 g/dL (3.5-5.1); Alkaline Phosphatase 85 U/L (38-126); Anion Gap 7 mmol/L (8-16); Aspartate Amino Transferase 19 U/L (14-36); Bilirubin,Total 0.4 mg/dL (0.2-1.3); Blood Urea Nitrogen 90 mg/dL (7-17); Calcium 8.4 mg/dL (8.4-10.2); Carbon Dioxide 26 mmol/L (22-30); Chloride 100 mmol/L (98-107); Estimated CRCL calculation 12 ml/min; Estimated Glomerular Filt Rate 13; Glucose 116 mg/dL (65-105); Lactic Acid Reflex 0.6 mmol/L (0.7-2.1); Magnesium 1.9 mg/dL (1.6-2.3); Potassium 5.1 mmol/L (3.4-5.0); Sodium 133 mmol/L (137-145)
[2020-10-11] MEDS: SODIUM CHLORIDE 0.9% IV 1,000 ML 999 ML IV CONT (22:49)
[2020-10-11 22:57] LABS: NT Pro B Type Natriuretic Pept 3120 PG/ML (5-100); Troponin I 0.077 ng/mL (0.000-0.034)
[2020-10-11 23:00] VITALS: BP 95/49; PULSE 82; RESP 23; O2SAT 100
--- NOTE | 2020-10-11 23:25 | ED.GENADULT ---
HPI - General Adult General Chief complaint: Fever Stated complaint: fever-lethargic Time Seen by Provider: 10/11/20 21:02 Limitations: altered mental status History of Present Illness HPI narrative: Patient is a 80-year-old female sent to the emergency department with chief complaint of altered mental status and generalized weakness. Patient was at a local long term and they noticed over the last week she has been declining more and today noticed particular this evening she was much less active. They reported subjective fevers and reported that she has history of UTIs due to a chronic indwelling Moscoso. Related Data Home Medications Medication Instructions Recorded Confirmed Morphine Pump 0.279 mg NOT APPLICABLE DAILY 05/10/19 08/30/20 alendronate 70 mg PO WEEKLY 05/10/19 08/30/20 ascorbic acid (vitamin C) 1,000 mg PO DAILY 05/10/19 08/30/20 cyanocobalamin (vitamin B-12) 1,000 mcg PO DAILY 05/10/19 08/30/20 furosemide [Lasix] 40 mg PO DAILY PRN 05/10/19 08/30/20 gabapentin 300 mg PO BID 05/10/19 08/30/20 hydralazine 10 mg PO TID 05/10/19 08/30/20 hydrochlorothiazide 25 mg PO DAILY 05/10/19 08/30/20 hydroxychloroquine 200 mg PO DAILY 05/10/19 08/30/20 levothyroxine 150 mcg PO DAILY 05/10/19 08/30/20 losartan 50 mg PO DAILY 05/10/19 08/30/20 metoprolol succinate 25 mg PO DAILY 05/10/19 08/30/20 pantoprazole 40 mg PO BID 05/10/19 08/30/20 Allergies Allergy/AdvReac Type Severity Reaction Status Date / Time cefepime Allergy Intermediate Unknown Verified 08/30/20 10:26 latex Allergy Unknown Rash Verified 08/30/20 10:26 levofloxacin Allergy Unknown Swelling Verified 08/30/20 10:26 Penicillins Allergy Unknown Swelling Verified 08/30/20 10:26 pregabalin Allergy Unknown Unknown Verified 08/30/20 10:26 Quinolones Allergy Unknown Unknown Verified 08/30/20 10:26 Sulfa (Sulfonamide Allergy Unknown Itching Verified 08/30/20 10:26 Antibiotics) Review of Systems Review of Systems: Narrative: A 10 system review of systems was completed on the patient and is negative except for what is stated in the HPI. Nursing and ancillary documentation was reviewed. [facility] Past Medical History Medical History (Updated 10/11/20 @ 23:30 by Mohinder Del Rosario MD) Anemia Arthritis Bronchitis CKD (chronic kidney disease) COPD (chronic obstructive pulmonary disease) CPAP (continuous positive airway pressure) dependence DDD (degenerative disc disease) Diverticulitis DVT (deep venous thrombosis) Emphysema of lung GERD (gastroesophageal reflux disease) HTN (hypertension) Hypothyroid Lupus Osteoporosis Pneumonia Sleep apnea Spinal cord stimulator status UTI (urinary tract infection) Surgical History Surgical History H/O bilateral cataract extraction H/O exploratory laparotomy H/O repair of rotator cuff right H/O: hysterectomy History of carpal tunnel release History of total bilateral knee replacement Hx of appendectomy Hx of tonsillectomy S/P IVC filter S/P spinal surgery Family History Family History Sibling Hypertension Malignant neoplasm of prostate Father Hypertension Cerebrovascular accident Mother Family history of Alzheimer's disease Social History Social History Smoking packs per day: 2 Smoking cigarettes per day: 40.0 Years smoked: 14 Smoking pack-years: 28.00 Smoking status: Former smoker Smoking end date: 07/28/96 Alcohol intake: never Substance use: never Substance use type: does not use Gender identity (if verbalized by the patient): Female Spiritual care concerns: No Exam Narrative: Exam Narrative: GENERAL: ill-appearing, well-nourished, and in no acute distress. HEAD: Normocephalic, atraumatic. EYES: PERRLA and EOMI. ENT: Nares clear, no rhinorrhea or e
[2020-10-11] MEDS: SODIUM CHLORIDE 0.9% IV 1,000 ML 500 ML IV CONT (23:51)
[2020-10-12] VITALS (22 sets, daily range): BP systolic 97–209; BP diastolic 48–84; PULSE 77–105; RESP 17–23; TEMP 36.5–38; O2SAT 92–100; BMI 25.4
--- NOTE | 2020-10-12 | ECHO_ITS ---
Patient Info Name: Kellee Arora Age: 80 years : 1940 Gender: Female Ht: 64 in Wt: 138 lbs BSA: 1.69 m2 HR: 97 bpm BP: 143 / 58 mmHg Heart Rhythm: Sinus Rhythm Technical Quality: Good Exam Date: 10/12/2020 11:33 AM Exam Location: [facility] Patient Status: Inpatient Admit Date: 10/11/2020 Staff Ordering Physician: Mohinder Rapp MD Brazing Machine Operator Automatic: Mauro Salazar, CRISTHIANCS, RT Attending Provider: Titi Ghotra MD Exam Type: CA echo doppler color flow Study Info Indications I50.9 - Heart failure, unspecified Complete two-dimensional, color flow and Doppler transthoracic echocardiogram is performed. Strain analysis performed. Summary 1. Complete two-dimensional, color flow and Doppler transthoracic echocardiogram is performed. 2. Left ventricular systolic function is normal, estimated at 60-65%. 3. There is mildly increased left ventricular wall thickness. 4. Left ventricular septal wall motion is abnormal with septal motion related to bundle branch block. 5. The left ventricular diastolic function is grade I diastolic dysfunction. 6. There is mild aortic valve stenosis with a peak velocity of 220 cm/s, mean gradient of 11 mmHg, and aortic valve area of 1.5 cm2. 7. There is trace mitral valve regurgitation. 8. There is trace tricuspid valve regurgitation. 9. Mild pulmonary hypertension, estimated pulmonary arterial systolic pressure is 35 mmHg. Left Ventricle Left ventricular chamber dimension is normal. Left ventricular systolic function is normal, estimated at 60-65%. There is mildly increased left ventricular wall thickness. Left ventricular septal wall motion is abnormal with septal motion related to bundle branch block. The left ventricular diastolic function is grade I diastolic dysfunction. Global longitudinal strain is normal at -18 %. Right Ventricle Right ventricular chamber dimension is normal. Right ventricular systolic function is normal. Left Atria Left atrial chamber dimension is mildly enlarged. Right Atria Right atrial chamber dimension is moderately enlarged. Atrial Septum Thin and hypermobile interatrial septum. Aortic Valve There is mild aortic valve stenosis with a peak velocity of 220 cm/s, mean gradient of 11 mmHg, and aortic valve area of 1.5 cm2. The aortic valve is not well visualized. There is no aortic valve regurgitation. There is mild aortic valve calcification. Pulmonic Valve The pulmonic valve is normal. There is trace pulmonic regurgitation. Mitral Valve The mitral valve has thickened leaflets. There is trace mitral valve regurgitation. The mitral valve annulus is moderately calcified. Tricuspid Valve The tricuspid valve leaflets are normal. There is trace tricuspid valve regurgitation. Mild pulmonary hypertension, estimated pulmonary arterial systolic pressure is 35 mmHg. Pericardium/Pleural The pericardium appears normal. There is no pericardial effusion. Inferior Vena Cava Normal inferior vena cava with >50% collapse upon inspiration consistent with normal right atrial pressure, 5 mmHg. Aorta The aortic root size at the sinus of Valsalva is normal. Left Ventricular Outflow Tract Name Value Normal LVOT 2D LVOT Diameter
--- NOTE | 2020-10-12 01:45 | ADMGEN ---
This patient, Kellee Arora, was admitted to Intensive Care Unit-11. Patient/family oriented to hospital policies and general routines including ID bracelet, bed and alarms, visiting hours, pain management, procedures, bathroom and other care routines, personal items, smoking policy, room service/diet, and visiting hours. Information on how to activate the Rapid Response Team has been discussed. Patient/Family are encouraged to report perceived risks to care and to ask questions if they do not understand what they are told or what they should do.
[2020-10-12 03:06] LABS: Troponin I 0.075 ng/mL (0.000-0.034)
[2020-10-12] MEDS: SODIUM CHLORIDE 0.9% IV 1,000 ML 125 ML IV CONT ×2 (03:23→12:44)
[2020-10-12 05:03] LABS: Basophils Percent Auto 0.2 % (0.2-1.2); Eosinophils Absolute Auto 0.1 K/mm3 (0-0.3); Eosinophils Percent Auto 0.7 % (0-4.4); Hematocrit 31.2 % (37.0-47.0); Hemoglobin 9.7 g/dL (12.0-15.0); Immature Granulocyte Absolute 0.07 K/mm3 (0.00-0.031); Immature Granulocyte Percent A 0.6 % (0-0.5); Lymphocytes Absolute Auto 1.31 K/mm3 (0.9-3.2); Lymphocytes Percent Auto 10.7 % (18.3-44.2); Mean Corpuscular HGB Conc 31.1 g/dl (32-36); Mean Corpuscular Hemoglobin 29.8 pg (26-34); Mean Platelet Volume 8.9 fl (7.4-10.4); Monocytes Absolute Auto 0.9 K/mm3 (0.1-0.6); Monocytes Percent Auto 7.2 % (2.6-8.5); Neutrophils Absolute Auto 9.8 K/mm3 (1.3-6.7); Neutrophils Percent Auto 80.6 % (45.5-73.1); Platelet Count Result 207 k/mm3 (150-375); Red Blood Count 3.25 M/mm3 (4.2-5.4); Red Cell Distribution Width 16.3 % (11.5-14.5); White Blood Count 12.2 K/mm3 (4.5-10.0)
[2020-10-12 05:27] LABS: Anion Gap 7 mmol/L (8-16); Blood Urea Nitrogen 81 mg/dL (7-17); Calcium 7.8 mg/dL (8.4-10.2); Carbon Dioxide 24 mmol/L (22-30); Chloride 104 mmol/L (98-107); Estimated CRCL calculation 11 ml/min; Estimated Glomerular Filt Rate 14; Glucose 106 mg/dL (65-105); Potassium 4.6 mmol/L (3.4-5.0); Sodium 135 mmol/L (137-145)
[2020-10-12 05:51] LABS: Troponin I 0.067 ng/mL (0.000-0.034)
--- NOTE | 2020-10-12 09:02 | PM.IMHP ---
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 She is alert but confused currently and unable to provide hx. She does not know why she is here and denies and recent illnesses or symptoms that she can recall. She only complains of feeling cold at this time. As such, a majority of the history is from the chart. Per EMS notes, patient was alert but unresponsive to verbal stimuli beginning around 1900 on 10/11. VS: BP 128/60, HR 99, SAO2 75% on 2L (she is on 2L chronically). She was placed on a NRB mask and transported to the ED. In the ED, Temp 99.7 with HR 104 and BP dropping to 85/43. Brain CT showing no acute findings. CXR showing RLL and left mid and lower lobe discoid atelectasis or scarring with right Port-A-Cath in superior vena cava. She is known to have bronchietasis. Port in place for Hizentra infusions every 4weeks for her CVID. WBC 14K, Hgb 9.7, Potassium 5.1, Cr 3.4, BUN 90. Trop elevated at 0.077 but trended down. No EKG listed. BNP 3120. ABG 7.34/44/315 NRB. UA consistent with UTI. Cultures obtained. She was given aspirin. Was started IV fluids. Primaxin started. She was admitted to the IMU for further care. She is a full code. Discussed with POA: Patient has had a more recent left hip surgery 09/14/20. The patient had a carmen placed originally but that the carmen was bent requiring repeat surgery. Surgery at [facility] for rehab and has been at [place] since Friday. She was 'fine' on 10/10 but was noted to be 'off the wall' yesterday when speaking with the patient by phone. Patient without symptoms past few days that the POA is aware of. Review of Systems Review of Systems: ROS unobtainable: Yes unobtainable due to mental status PMFSH Past Medical History Medical History (Updated 10/12/20 @ 09:51 by Mohinder Rapp MD) Anemia Arthritis Bronchitis Chronic respiratory failure with hypoxia, on home O2 therapy Home O2 at 2L CKD (chronic kidney disease) Common variable immunodeficiency, unspecified COPD (chronic obstructive pulmonary disease) CPAP (continuous positive airway pressure) dependence DDD (degenerative disc disease) Diverticulitis DVT (deep venous thrombosis) Emphysema of lung Femur fracture, left s/p surgical repair in Jun 2020 GERD (gastroesophageal reflux disease) HTN (hypertension) Hypothyroid Lupus Osteoporosis Pneumonia Port-A-Cath in place Sleep apnea Spinal cord stimulator status UTI (urinary tract infection) Surgical History Surgical History H/O bilateral cataract extraction H/O exploratory laparotomy H/O repair of rotator cuff right H/O: hysterectomy History of carpal tunnel release History of total bilateral knee replacement Hx of appendectomy Hx of tonsillectomy S/P IVC filter S/P spinal surgery Family History Family History Sibling Hypertension Malignant neoplasm of prostate Father Hypertension Cerebrovascular accident Mother Family history of Alzheimer's disease Social History Social History Smoking packs per day: 2 Smoking cigarettes per day: 40.0 Years smoked: 14 Smoking pack-years: 28.00 Smoking status: Former smoker Alcohol intake: never Substance use: never Substance use type: does not use Gender identity (if verbalized by the patient): Female Spiritual care concerns: No Meds Home Medications and Allergies Home Medications Medication Instructions Recorded Confirmed Type alendronate 70 mg PO WEEKLY 05/10/19 10/12/20 History ascorbic acid (vitamin C) 1,000 mg PO DAILY 05/10
--- NOTE | 2020-10-12 10:11 | ECG_ITS ---
Measurements Intervals [place] Rate: 92 P: 63 FL: 185 QRS: -41 QRSD: 101 T: 11 QT: 351 QTc: 436 Interpretive Statements SINUS RHYTHM LEFT AXIS DEVIATION BORDERLINE R WAVE PROGRESSION, ANTERIOR LEADS BORDERLINE ECG Electronically Signed On 10-12-2020 13:01:52 CDT by Mustapha Meléndez D.O.
[2020-10-12] MEDS: HEPARIN SODIUM 5,000 UNITS/ML VIAL 5000 UNITS SUB-Q ×2 (12:41→20:40)
[2020-10-12] MEDS: ASPIRIN 81 MG CHEWABLE TABLET PO (12:41)
[2020-10-12 12:59] LABS: Eosinophil Urine None Seen % (None Seen)
[2020-10-12] MEDS: CENTRAL LINE FLUSH 10 ML IV PUSH (13:58)
[2020-10-12] MEDS: PANTOPRAZOLE 40 MG TABLET PO (16:54)
[2020-10-12] MEDS: hydrALAZINE 10 MG TABLET PO (20:40)
[2020-10-12] MEDS: METOPROLOL TARTRATE 12.5 MG TABLET PO (20:41)
[2020-10-12] MEDS: ACETAMINOPHEN 325 MG TABLET 650 MG PO (20:45)
[2020-10-12] MEDS: SODIUM CHLORIDE 0.9% IV 1,000 ML 100 ML IV CONT (21:54)
[2020-10-13] VITALS (10 sets, daily range): BP systolic 147–176; BP diastolic 61–83; PULSE 72–95; RESP 15–24; TEMP 36.1–37.3; O2SAT 94–100
[2020-10-13 05:08] LABS: Basophils Percent Auto 0.2 % (0.2-1.2); Eosinophils Absolute Auto 0.1 K/mm3 (0-0.3); Hematocrit 27.8 % (37.0-47.0); Hemoglobin 8.9 g/dL (12.0-15.0); Immature Granulocyte Absolute 0.11 K/mm3 (0.00-0.031); Immature Granulocyte Percent A 0.9 % (0-0.5); Lymphocytes Absolute Auto 0.83 K/mm3 (0.9-3.2); Lymphocytes Percent Auto 6.9 % (18.3-44.2); Mean Corpuscular Hemoglobin 30.1 pg (26-34); Mean Corpuscular Volume 93.9 fl (80-100); Monocytes Absolute Auto 0.8 K/mm3 (0.1-0.6); Monocytes Percent Auto 6.5 % (2.6-8.5); Neutrophils Absolute Auto 10.2 K/mm3 (1.3-6.7); Neutrophils Percent Auto 84.5 % (45.5-73.1); Platelet Count Result 174 k/mm3 (150-375); Red Blood Count 2.96 M/mm3 (4.2-5.4); Red Cell Distribution Width 16.1 % (11.5-14.5); White Blood Count 12.1 K/mm3 (4.5-10.0)
[2020-10-13 05:32] LABS: Albumin Level 2.9 g/dL (3.5-5.1); Alkaline Phosphatase 72 U/L (38-126); Anion Gap 5 mmol/L (8-16); Aspartate Amino Transferase 19 U/L (14-36); Bilirubin,Total 0.4 mg/dL (0.2-1.3); Blood Urea Nitrogen 65 mg/dL (7-17); Calcium 7.7 mg/dL (8.4-10.2); Carbon Dioxide 22 mmol/L (22-30); Chloride 104 mmol/L (98-107); Estimated CRCL calculation 13 ml/min; Estimated Glomerular Filt Rate 17; Glucose 127 mg/dL (65-105); Magnesium 1.7 mg/dL (1.6-2.3); Phosphorus 4.1 mg/dL (2.5-4.5); Potassium 3.9 mmol/L (3.4-5.0); Sodium 131 mmol/L (137-145)
[2020-10-13] MEDS: LEVOTHYROXINE SODIUM 150 MCG TABLET PO (05:41)
[2020-10-13] MEDS: CENTRAL LINE FLUSH 10 ML IV PUSH ×3 (05:41→20:24)
[2020-10-13] MEDS: hydrALAZINE HCL 20 MG/ML VIAL 10 MG IV PUSH (05:42)
[2020-10-13 05:44] LABS: CRP 16.3 mg/dL (<1.0)
[2020-10-13] MEDS: ACETAMINOPHEN 325 MG TABLET 650 MG PO ×3 (05:44→20:26)
[2020-10-13 05:47] LABS: Iron 44 ug/dL (37-170)
[2020-10-13 05:56] LABS: Percent Iron Saturation 29 % (20-50)
[2020-10-13 06:44] LABS: Vitamin B12 > 1000.0 pg/mL (239-931)
[2020-10-13 06:46] LABS: Alanine Aminotransferase < 6 U/L (4-35)
[2020-10-13] MEDS: SODIUM CHLORIDE 0.9% IV 1,000 ML 100 ML IV CONT (09:10)
[2020-10-13] MEDS: ONDANSETRON INJ 4 MG/2 ML VIAL IV PUSH (09:14)
[2020-10-13] MEDS: predniSONE 5 MG TABLET PO (09:20)
[2020-10-13] MEDS: ASPIRIN 81 MG CHEWABLE TABLET PO (09:20)
[2020-10-13] MEDS: METOPROLOL TARTRATE 12.5 MG TABLET PO ×2 (09:20→20:23)
[2020-10-13] MEDS: PANTOPRAZOLE 40 MG TABLET PO ×2 (09:20→16:10)
[2020-10-13] MEDS: HEPARIN SODIUM 5,000 UNITS/ML VIAL 5000 UNITS SUB-Q ×2 (09:22→20:23)
--- NOTE | 2020-10-13 11:37 | PC.NURSE ---
This patient, Kellee Arora, was transferred to [[id number]] on 10/13/20 at 1137. Personal belongings sent with patient. Report given to [Mojgan ENG]. Appropriate documentation sent with patient.
--- NOTE | 2020-10-13 14:17 | PM.IMPN ---
Progress Note: A&P Assessment and Plan (1) Acute respiratory failure with hypoxia: Code(s): J96.01 - Acute respiratory failure with hypoxia Status: Acute Assessment and Plan: Patient have an SaO2 of 75% on her chronic 2 L at the [facility]. Chest x-ray results as mentioned above. These were reviewed. ABG noted on admission. Patient has been weaned to room air. Will continue monitor. 10/13/20 14:17 Patient 80-year-old female was sent to emergency department with a acute mental status change upon arrival patient was confused and was not able to provide any detailed review symptoms or history, patient had a left hip surgery on 09/14/2020 and patient had a repeat surgery because surgical carmen was bent and it was revised, surgery was performed with [facility] from there patient was transferred to [place] for rehab and then to [facility] here in [place], today patient is more awake however still quite confused and wants to walk out, still unable to provide any detailed review of symptom however upon arrival patient was hypoxic on 2 L however her symptoms did improve and patient was saturating well on room air, upon patient also met the criteria for sepsis with hypotension tachycardia tachypnea elevated tropes and acute kidney injury suspect secondary to UTI is patient urine is positive for nitrite and leukocyte and patient was being treated with Primaxin, the culture is growing E coli sensitive to Rocephin will start the Primaxin switch the patient to Rocephin will continue to monitor. Patient with acute on chronic kidney disease most likely secondary dehydration will gently hydrate the patient and monitor kidney function, Will continue to monitor the patient have PT OT evaluate and further recommendation to follow. (2) Sepsis: Code(s): A41.9 - Sepsis, unspecified organism Status: Acute Assessment and Plan: Present on admission with hypotension, tachycardia, leukocytosis, elevated troponins and acute kidney injury. Suspect related to UTI. Cannot exclude pneumonia. Consider also wound infection. Blood cultures and urine cultures are pending. Continue IV antibiotics. Blood pressure better controlled now. (3) Encephalopathy: Code(s): G93.40 - Encephalopathy, unspecified Status: Acute Assessment and Plan: Patient with acute encephalopathy. Probably related to sepsis but cannot exclude metabolic given her renal failure and elevated BUN. CT of the brain showing no acute findings. She cannot have MRI. Continue monitor for improvement. (4) Acute kidney injury: Code(s): N17.9 - Acute kidney failure, unspecified Status: Acute Assessment and Plan: Creatinine 3.4 on admission. Baseline creatinine probably a runs 2.3-2.9 range. With IV fluids, creatinine improved this morning. BUN is also trended downward. Check renal ultrasound. Continue to follow. Potassium mildly elevated on admission but normal now. (5) Acute UTI: Code(s): N39.0 - Urinary tract infection, site not specified Status: Acute Assessment and Plan: Patient with complicated acute UTI related to chronic indwelling Moscoso catheter. UA noted. Urine culture pending. Continue Primaxin. (6) Elevated troponin: Code(s): R77.8 - Other specified abnormalities of plasma proteins Status: Acute Assessment and Plan: Troponins are mildly elevated but flat. Suspect related to cardiac strain from sepsis. Will check EKG. Check echocardiogram. Continue aspirin. (7) Chronic respiratory failure with hypoxia, on home O2 therapy: Code(s): J96.11 - Chronic respiratory failure with hypoxia; Z99.81 - Dependence on supplemental oxygen Status: Acute Assessment and Plan: Patient with chronic respiratory failure requiring 2 L of oxygen at home. Currently on room air sore O2 requirement during the day might be just with exertion. Continue monit
[2020-10-13 19:28] LABS: SARS-CoV-2 RNA PCR Negative
[2020-10-13] MEDS: SODIUM CHLORIDE 0.9% IV 1,000 ML 75 ML IV CONT (20:21)
[2020-10-14] VITALS (22 sets, daily range): BP systolic 143–208; BP diastolic 55–116; PULSE 74–129; RESP 14–22; TEMP 36–36.8; O2SAT 95–100
[2020-10-14] MEDS: CENTRAL LINE FLUSH 10 ML IV PUSH ×3 (05:29→22:27)
[2020-10-14] MEDS: LEVOTHYROXINE SODIUM 150 MCG TABLET PO (05:30)
--- NOTE | 2020-10-14 05:50 | ECG_ITS ---
Measurements Intervals [place] Rate: 117 P: 64 CA: 165 QRS: -40 QRSD: 98 T: 62 QT: 311 QTc: 435 Interpretive Statements SINUS TACHYCARDIA POSSIBLE LEFT ATRIAL ENLARGEMENT LEFT AXIS DEVIATION CANNOT RULE OUT SEPTAL INFARCT, AGE INDETERMINATE BORDERLINE ST-T WAVE ABNORMALITY- HIGH LATERAL LEADS BASELINE ARTIFACT- I, II, AVR, AVL, V1-V2 ABNORMAL ECG Electronically Signed On 10-14-2020 7:40:53 CDT by Mustapha Meléndez D.O.
--- NOTE | 2020-10-14 06:19 | P.RRN_ITS ---
Critical Care Event Note Summary Code activated: No Narrative: 10/14/2020 at 05:55 A rapid response was called after the patient had an episode of jerking and unresponsiveness. Nursing staff was changing the patient bedding/cleaning the patient up when they rolled her to her left side. When they were older to her left side the patient had eye deviation and twitching of the left side of her body. The episode lasted about 45 seconds to a minute. After which time the patient was confused and had left-side neglect. The patient left hand was flaccid and she only had minimal movement of her left leg to noxious stimuli. The patient has had episodes of confusion throughout her hospital stay and was repetitively asking the nurse to treat her headache. However the same time the patient was also intermittently saying that her hips hurt. The source the patient's pain was not clear. Patient's blood pressure immediately following this episode was elevated to over 200 systolic. Repeat blood pressure evaluation at the time of my arrival demonstrated blood pressure of 186/105. Th e patient pupils were equal and she did not have any eye deviation. She was unable to follow commands for complete evaluation of extraocular movements. Patient did not have any evidence of tongue deviation or nasal labial fold droop. The patient was able to clinical appeals reviewer the nurses hand strongly with the right hand. She was moving her right lower extremity similar to prior exams. down for the stat CT of the head the patient did have an episode of emesis consisting of clear material. There was no evidence of acute aspiration. She did receive a dose of Zofran well in the radiology department. GENERAL: Chronically ill-appearing, debilitated HEENT: No facial asymmetry, pupils are equal and reactive, head is normocephalic atraumatic CARDIOVASCULAR: Sinus tachycardia, 2+ left radial pulse RESPIRATORY: Decreased breath sounds at the bases, no tachypnea, no increased work of breathing ABDOMEN: Soft, nondistended, positive bowel sound INTEGUMENT: Scabbing to the left lateral thigh, mottling of the extremities NEUROLOGIC: Alert and oriented to name, speech is clear but repetitive questions, patient has left-sided neglect, flaccid on the left arm and hand, mental response to noxious stimuli to the left foot, patient will not look at the examiner he was standing on the left side of the bed PSYCHIATRIC: Confused, restless EXTREMITIES: 4/5 clinical appeals reviewer strength on the right, moves the right lower extremity, flaccid of the left upper and lower extremity : Moscoso catheter in place Assessment and plan: 1. Acute neurologic change concerning for possible CVA versus seizure---patient has been taken downed for stat CT of the head. The patient's blood pressures are elevated to the 1 80s systolic. Will allow for permissive hypertension until CVA is ruled out. Patient will be moved to the intermediate unit. Will check neuro checks q.4 hours. Stat labs have been ordered. Will provide p.r.n. hydralazine for blood pressures greater than 180/105. 45 minutes spent in critical care activities. This case had a high probability of a clinically significant, sudden, or life threatening deterioration of this patient's condition which required my full and direct attention, intervention and personal management. Critical care time: 30 - 74 mins
[2020-10-14] MEDS: ONDANSETRON INJ 4 MG/2 ML VIAL IV PUSH ×2 (06:24→17:03)
[2020-10-14 06:39] LABS: Hematocrit 31.2 % (37.0-47.0); Hemoglobin 9.9 g/dL (12.0-15.0); Mean Corpuscular HGB Conc 31.7 g/dl (32-36); Mean Corpuscular Hemoglobin 29.3 pg (26-34); Mean Corpuscular Volume 92.3 fl (80-100); Mean Platelet Volume 9.4 fl (7.4-10.4); Platelet Count Result 215 k/mm3 (150-375); Red Blood Count 3.38 M/mm3 (4.2-5.4); Red Cell Distribution Width 16.2 % (11.5-14.5); White Blood Count 15.5 K/mm3 (4.5-10.0)
--- NOTE | 2020-10-14 06:45 | PC.NURSE ---
This patient, Kellee Arora, was transferred to [ IMU] on 10/14/20 at 0640. Personal belongings sent with patient. Report given to [Cecilia ]. Appropriate documentation sent with patient.
[2020-10-14 06:48] LABS: Partial Thromboplastin Time 36.4 SECONDS (22.3-36.8)
--- NOTE | 2020-10-14 06:49 | PC.NURSE ---
This patient, Kellee Arora, was received from [ 243] on 10/14/20 at 0649. Patient/family oriented to unit policies and routines
--- NOTE | 2020-10-14 06:50 | PC.NURSE ---
This patient, Kellee Arora, was received from [ 243] on 10/14/20 at 0635 for change in neuro status and increased BP. Patient/family oriented to unit policies and routines
[2020-10-14 06:54] LABS: Anion Gap 5 mmol/L (8-16); Blood Urea Nitrogen 56 mg/dL (7-17); Calcium 7.9 mg/dL (8.4-10.2); Carbon Dioxide 23 mmol/L (22-30); Chloride 104 mmol/L (98-107); Estimated CRCL calculation 14 ml/min; Estimated Glomerular Filt Rate 18; Glucose 136 mg/dL (65-105); Potassium 4.2 mmol/L (3.4-5.0); Sodium 132 mmol/L (137-145)
[2020-10-14 07:00] LABS: Glucose Point of Care 140 (65-105)
[2020-10-14] MEDS: hydrALAZINE HCL 20 MG/ML VIAL 10 MG IV PUSH (07:06)
[2020-10-14 07:09] LABS: INR 1.1; Prothrombin Time 15.1 Seconds (11.1-14.7)
[2020-10-14 07:33] LABS: Alanine Aminotransferase 6 U/L (4-35); Albumin Level 3.1 g/dL (3.5-5.1); Alkaline Phosphatase 86 U/L (38-126); Aspartate Amino Transferase 18 U/L (14-36); Bilirubin,Total 0.5 mg/dL (0.2-1.3)
[2020-10-14 07:41] LABS: Alveolar/Arterial O2 Gradient 140.9 mmHg; Base Excess ABG -9.3 mEq/l (+/-2.0); Carboxyhemoglobin 0.3 % THb (0-2.0); Fractional Inspired Oxygen 44 %; HCO3 ABG 16.9 mEq/l (22.0-26.0); Methemoglobin ABG 0.5 %THb (0-1.5); Oxygen Content ABG 15.7 %vol (16.0-22.0); Oxygen Saturation ABG 98.2 % (95.0-100.0); Oxyhemoglobin 97.1 % THb (90.0-100.0); PCO2 ABG 37.9 mmHg (35.0-45.0); PO2 ABG 129.6 mmHg (80.0-100.0); PO2 FiO2 Ratio Arterial Blood 2.95 %; Reduced Hemoglobin 2.1 %THb (0-5.0); Total Hemoglobin 11.3 g/dL (12.0-18.0)
[2020-10-14 07:42] LABS: Device NASAL CANNULA; Modified Allen's Test Pass; Site Drawn RIGHT RADIAL; pH ABG 7.267 (7.350-7.450)
[2020-10-14 07:48] LABS: Troponin I 0.047 ng/mL (0.000-0.034)
[2020-10-14] MEDS: LORazepam INJ (*CRX) 2 MG/ML VIAL IV PUSH (08:04)
--- NOTE | 2020-10-14 08:13 | PC.NURSE ---
Karen administed at 0733, unable to edit admin in MAR
--- NOTE | 2020-10-14 08:20 | PM.IMPN ---
Progress Note: A&P Assessment and Plan (1) Seizure: Code(s): R56.9 - Unspecified convulsions Status: Acute Assessment and Plan: Patient with new onset seizures. She may have had this on admission. Glucose okay. Now with a thick left hemiplegia and left facial droop. Consider CVA causing the seizure and weakness but would also consider Claudy's paralysis from the seizure. Seizure could also be related to imipenem as well. Discussed with stroke team and no plans for alteplase. Not able to get MRA/MRI or CTA. Plan to repeat CT brain tomorrow. If she remains stable, resume PT/OT. NPO for now. Neuro checks. Neurology to see. Change to maintenance fluids. 40 minutes spent of critical care time (2) Left hemiparesis: Code(s): G81.94 - Hemiplegia, unspecified affecting left nondominant side Status: Acute Assessment and Plan: As above. (3) Acute respiratory failure with hypoxia: Code(s): J96.01 - Acute respiratory failure with hypoxia Status: Acute Assessment and Plan: Patient have an SaO2 of 75% on her chronic 2 L at the [facility]. Chest x-ray showing atelectasis. ABG showing 7.27/38/130 today. Low pH related to the seizure. Patient has been weaned to room air at times. Will continue monitor. (4) Sepsis: Code(s): A41.9 - Sepsis, unspecified organism Status: Acute Assessment and Plan: Present on admission with hypotension, tachycardia, leukocytosis, elevated troponins and acute kidney injury. Suspect related to UTI. Cannot exclude pneumonia. Consider also wound infection. Blood cultures NGTD. Urine culture growing EColi. Blood pressure better controlled now. Abx stopped for now. (5) Encephalopathy: Code(s): G93.40 - Encephalopathy, unspecified Status: Acute Assessment and Plan: Patient with acute encephalopathy. Probably related to sepsis but cannot exclude metabolic given her renal failure and elevated BUN. Now, will also consider unrecognized seizure that occurred prior to admission. On admission, CT of the brain showing no acute findings. As above. (6) Acute kidney injury: Code(s): N17.9 - Acute kidney failure, unspecified Status: Acute Assessment and Plan: Creatinine 3.4 on admission. Baseline creatinine probably a runs 2.3-2.9 range. With IV fluids, creatinine improved to 2.5 this morning. BUN is also trended downward. Renal ultrasound showing bilateral renal atrophy. Continue to follow. Change to maintenance fluids (7) Acute UTI: Code(s): N39.0 - Urinary tract infection, site not specified Status: Acute Assessment and Plan: Patient with complicated acute UTI related to chronic indwelling Moscoso catheter. UA noted. Urine culture growing EColi sensitive to imipenem. Since she has many allergies and imipenem can cause seizures, don hold further abx for now. Cefepime caused patietn to (what sounds like) flail wildly and required her to be moved to ICU. Will hold abx for now. (8) Elevated troponin: Code(s): R77.8 - Other specified abnormalities of plasma proteins Status: Acute Assessment and Plan: Troponins are mildly elevated but flat. Suspect related to cardiac strain from sepsis. Troponin repeated today and still trending down. EKG today reviewd showing borderline ST-T wave changes. Echo showing EF 60-65%, diastolic dysfunction and mild pulmonary HTN. Continue aspirin. (9) Chronic respiratory failure with hypoxia, on home O2 therapy: Code(s): J96.11 - Chronic respiratory failure with hypoxia; Z99.81 - Dependence on supplemental oxygen Status: Acute Assessment and Plan: Patient with chronic respiratory failure requiring 2 L of oxygen at home. On room air at times so O2 requirement during the day might be just with exertion. As above. Continue monitor and adjust oxygen as needed. Continue with 2 L of
[2020-10-14] MEDS: levETIRAcetam 500MG/NACL 100ML 500 MG/100 ML BAG 400 MG IVPB ×2 (08:21→20:37)
[2020-10-14 08:53] LABS: Glucose Point of Care 129 (65-105)
--- NOTE | 2020-10-14 11:00 | PCPTNOTE ---
patient experienced 2 rapids this morning. She is having seizures, and has had a CVA. Spoke with nurse. She spoke with MD, who will issue HOLD PT/OT orders and send RESUME therapy orders when appropriate
[2020-10-14] MEDS: ASPIRIN 300 MG SUPPOSITORY RECTAL (11:12)
[2020-10-14] MEDS: PANTOPRAZOLE SODIUM IV 40 MG VIAL IV PUSH ×2 (11:12→20:33)
[2020-10-14] MEDS: DEXTROSE 5%/0.9% SOD CHL 1,000 ML 70 ML IV CONT (11:19)
[2020-10-14] MEDS: HEPARIN SODIUM 5,000 UNITS/ML VIAL 5000 UNITS SUB-Q ×2 (11:28→20:24)
--- NOTE | 2020-10-14 12:00 | WPDNEURCNPN ---
Assessment and Plan Assessment and plan (1) Left hemiparesis: Code(s): G81.94 - Hemiplegia, unspecified affecting left nondominant side Status: Acute (2) Seizure: Code(s): R56.9 - Unspecified convulsions Status: Acute Additional Plan most likely right hemispheric stroke with no evidence of bleed on the routine CT scan of the head ,MRI cannot be obtained because of the pacemaker, explained to the family patient had right hemispheric stroke with left hemiparesis and seizure because of the stroke and gradually shoe going to improve left-sided neurological deficit, MRI note necessary right now Consult date: 10/14/20 Time Seen: 11:30 HPI: Kellee Arora is a 80 year old female has been admitted [facility] for the complaint of change in the mental status in a patient with the ongoing history of 1. COVID 2. Bladder dysfunction 3. Chronic respiratory failure 4. Chronic kidney disease the initially patient was unable to provide any information but as per the EMS mV patient was reportedly alert to his stimuli initially and then became unresponsive. there was significant change in the vital signs. Patient has had hip surgery on to 09/14/20. neuro consult was obtained because patient had a seizure. repeat CT head revealed no bleed or space-occupying lesion but data was white matter hypoattenuation consistent with chronic ischemic disease. patient has received her Keppra intravenously in addition to other medication. Review of Systems Review of Systems: All systems reviewed & are unremarkable except as noted in HPI and below PMFSH Past Medical History Medical History Anemia Arthritis Bronchitis Chronic respiratory failure with hypoxia, on home O2 therapy Home O2 at 2L CKD (chronic kidney disease) Common variable immunodeficiency, unspecified COPD (chronic obstructive pulmonary disease) CPAP (continuous positive airway pressure) dependence DDD (degenerative disc disease) Diverticulitis DVT (deep venous thrombosis) Emphysema of lung Femur fracture, left s/p surgical repair in Jun 2020 GERD (gastroesophageal reflux disease) HTN (hypertension) Hypothyroid Lupus Osteoporosis Pneumonia Port-A-Cath in place Sleep apnea Spinal cord stimulator status UTI (urinary tract infection) Surgical History Surgical History H/O bilateral cataract extraction H/O exploratory laparotomy H/O repair of rotator cuff right H/O: hysterectomy History of carpal tunnel release History of total bilateral knee replacement Hx of appendectomy Hx of tonsillectomy S/P IVC filter S/P spinal surgery Family History Family History Sibling Hypertension Malignant neoplasm of prostate Father Hypertension Cerebrovascular accident Mother Family history of Alzheimer's disease Social History Social History Smoking packs per day: 2 Smoking cigarettes per day: 40.0 Years smoked: 14 Smoking pack-years: 28.00 Smoking status: Former smoker Alcohol intake: never Substance use: never Substance use type: does not use Gender identity (if verbalized by the patient): Female Spiritual care concerns: No Meds Home Medications and Allergies Home Medications Medication Instructions Recorded Confirmed Type alendronate 70 mg PO WEEKLY 05/10/19 10/12/20 History ascorbic acid (vitamin C) 1,000 mg PO DAILY 05/10/19 10/12/20 History cyanocobalamin (vitamin B-12) 1,000 mcg PO DAILY 05/10/19 10/12/20 History furosemide [Lasix] 40 mg PO DAILY 05/10/19 10/12/20 History gabapentin 300 mg PO BID 05/10/19 10/12/20 History hydralazine 10 mg PO DAILY 05/10/19 10/12/20 History hydrochlorothiazide 25 mg PO DAILY 05/10/19 10/12/20 History hydroxychloroquine 200 mg PO DAILY 05/10/19 10/12/20 History
[2020-10-15] VITALS (20 sets, daily range): BP systolic 165–186; BP diastolic 61–74; PULSE 71–98; RESP 16–24; TEMP 36.5–36.6; O2SAT 94–100
[2020-10-15] MEDS: DEXTROSE 5%/0.9% SOD CHL 1,000 ML 70 ML IV CONT ×2 (04:46→19:03)
[2020-10-15] MEDS: CENTRAL LINE FLUSH 10 ML IV PUSH ×3 (06:09→20:21)
[2020-10-15 07:15] LABS: Basophils Percent Auto 0.4 % (0.2-1.2); Eosinophils Absolute Auto 0.2 K/mm3 (0-0.3); Eosinophils Percent Auto 2.8 % (0-4.4); Hematocrit 25.7 % (37.0-47.0); Hemoglobin 8.1 g/dL (12.0-15.0); Immature Granulocyte Absolute 0.15 K/mm3 (0.00-0.031); Immature Granulocyte Percent A 1.8 % (0-0.5); Lymphocytes Absolute Auto 0.71 K/mm3 (0.9-3.2); Lymphocytes Percent Auto 8.3 % (18.3-44.2); Mean Corpuscular HGB Conc 31.5 g/dl (32-36); Mean Corpuscular Hemoglobin 29.8 pg (26-34); Mean Corpuscular Volume 94.5 fl (80-100); Mean Platelet Volume 10.1 fl (7.4-10.4); Monocytes Absolute Auto 0.6 K/mm3 (0.1-0.6); Monocytes Percent Auto 7.5 % (2.6-8.5); Neutrophils Absolute Auto 6.8 K/mm3 (1.3-6.7); Neutrophils Percent Auto 79.2 % (45.5-73.1); Platelet Count Result 210 k/mm3 (150-375); Red Blood Count 2.72 M/mm3 (4.2-5.4); Red Cell Distribution Width 16.5 % (11.5-14.5); White Blood Count 8.5 K/mm3 (4.5-10.0)
[2020-10-15 07:34] LABS: Albumin Level 2.7 g/dL (3.5-5.1); Alkaline Phosphatase 65 U/L (38-126); Anion Gap 4 mmol/L (8-16); Aspartate Amino Transferase 16 U/L (14-36); Bilirubin,Total 0.4 mg/dL (0.2-1.3); Blood Urea Nitrogen 50 mg/dL (7-17); CRP 8.4 mg/dL (<1.0); Calcium 7.8 mg/dL (8.4-10.2); Carbon Dioxide 23 mmol/L (22-30); Chloride 107 mmol/L (98-107); Estimated CRCL calculation 16 ml/min; Estimated Glomerular Filt Rate 18; Glucose 91 mg/dL (65-105); Magnesium 1.6 mg/dL (1.6-2.3); Phosphorus 4.6 mg/dL (2.5-4.5); Sodium 134 mmol/L (137-145)
[2020-10-15 07:48] LABS: Alanine Aminotransferase < 4 U/L (4-35)
[2020-10-15] MEDS: levETIRAcetam 500MG/NACL 100ML 500 MG/100 ML BAG 400 MG IVPB ×2 (08:21→20:19)
[2020-10-15] MEDS: HEPARIN SODIUM 5,000 UNITS/ML VIAL 5000 UNITS SUB-Q ×2 (08:22→20:20)
[2020-10-15] MEDS: PANTOPRAZOLE SODIUM IV 40 MG VIAL IV PUSH ×2 (08:24→20:21)
[2020-10-15] MEDS: ASPIRIN 300 MG SUPPOSITORY RECTAL (08:24)
--- NOTE | 2020-10-15 09:52 | WPDNEUROPN ---
Progress Note: A&P Assessment and Plan (1) Left hemiparesis: Code(s): G81.94 - Hemiplegia, unspecified affecting left nondominant side Status: Acute (2) Seizure: Code(s): R56.9 - Unspecified convulsions Status: Acute Additional Plan iscontrolled Review of Systems Review of Systems: All systems reviewed & are unremarkable except as noted in HPI and below Exam Const: General: no acute distress Nutritional Appearance: average body habitus Orientation/consciousness: confusion Limitations: altered mental status HENMT: General nose exam: Normal external nose present and No nasal discharge present Face and sinus: normal facial exam Mouth: Yes Normal oral and palatal mucosa present Eyes: General: appearance normal, both eyes and all related structures EOM: EOMs intact bilaterally Neck: Neck: full ROM Resp: Auscultation: clear to auscultation bilaterally Cardio: Rate: regular rate Rhythm: regular rhythm GI: Auscultation: normoactive bowel sounds Neuro: General: oriented to person ( open her eyes on command) and no meningeal signs Cranial nerves: Yes Equal, round and reactive pupils present and Yes Nystagmus not present Cognition (Neuro): abnormal cognition Speech: Abnormal speech present Gait exam (Neuro): Unable to assess gait Motor exam (neuro): Abnormal motor strength present ( left hemiparesis) Plantar Reflex Responses: upgoing (positive Babinski): left Objective Data Vital Signs Vital Signs: Vital Signs - 24 hr 10/14/20 10:00 10/14/20 11:53 10/14/20 12:00 Temperature 36.8 C Pulse Rate 79 89 89 Respiratory Rate 16 14 Blood Pressure 151/66 H Pulse Oximetry 100 100 10/14/20 14:00 10/14/20 16:00 10/14/20 18:00 Temperature 36.5 C Pulse Rate 83 79 86 Respiratory Rate 14 Blood Pressure 143/55 H Pulse Oximetry 100 10/14/20 19:42 10/14/20 20:00 10/14/20 22:00 Temperature 36.3 C L Pulse Rate 79 91 74 Respiratory Rate 20 Blood Pressure 149/66 H Pulse Oximetry 97 10/14/20 23:48 10/15/20 00:00 10/15/20 02:00 Temperature 36.2 C L Pulse Rate 97 73 76 Respiratory Rate 16 Blood Pressure 152/68 H Pulse Oximetry 95 10/15/20 03:29 10/15/20 04:00 10/15/20 06:00 Temperature Pulse Rate 72 71 Respiratory Rate Blood Pressure Pulse Oximetry 99 10/15/20 07:54 10/15/20 08:00 10/15/20 09:29 Temperature 36.6 C Pulse Rate 85 81 Respiratory Rate 16 Blood Pressure 179/74 H Pulse Oximetry 100 99 Intake/Output Intake/Output: Intake & Output 10/12/20 10/13/20 10/14/20 10/15/20 23:59 23:59 23:59 23:59 Intake Total 4400 3520 600 1000 Output Total 1450 1975 2300 450 Balance 2950 1545 -1700 550 Meds/Results Medications: Active Medications Generic Name Dose Route Start Last Admin Trade Name Freq PRN Reason Stop Dose Admin Albuterol 2 puff 10/12/20 10:08 Albuterol Sulfate (*Sp) Aerosol 1 Puff INHALATION QID PRN shortness of breath or wheezing Aspirin 81 mg 10/12/20 10:15 10/14/20 11:30 Aspirin 81 Mg Chewable Tablet PO Not Given DAILY@0800 JACK Aspirin 300 mg 10/14/20 09:10 10/15/20 08:24 Aspirin 300 Mg Suppository RECTAL 300 mg QAM JACK Administration Fluticasone Propionate 2 puff 10/12/20 20:00 10/15/20 08:22 Fluticasone Prop 110 Mcg Inhaler 1 Puff INHALATION 2 puff Q12HRT JACK Administration Heparin Sodium (Beef Lung) 50 units 10/12/20 09:00 10/14/20 11:30 Heparin Flush 50 Units/5 Ml Syringe IV PUSH Not Given QAM JACK Heparin Sodium (Beef Lung) 50 units 10/12/20 06:39 Heparin Flush 50 Units/5 Ml Syringe IV PUSH PRN PRN after intermittent infusion Heparin Sodium (Beef Lung) 50 units 10/12/20 06:39 10/15/20 06:11 Heparin Flush 50 Units/5 Ml Syringe IV PUSH 50 units PRN PRN Administration after blood draws Heparin Sodium (Porcine) 500 units 10/12/20 06:39 Heparin Sod Flush 500 Units/5 Ml Syringe IV PUSH HI
--- NOTE | 2020-10-15 13:51 | PM.IMPN ---
Progress Note: A&P Assessment and Plan (1) Seizure: Code(s): R56.9 - Unspecified convulsions Status: Acute Assessment and Plan: Patient with new onset seizures. She may have had this on admission. Glucose okay. Had a thick left hemiplegia and left facial droop but some improvement. Consider CVA causing the seizure and weakness but would also consider Claudy's paralysis from the seizure. Seizure could also be related to imipenem as well. Discussed with Stroke Team and no plans for alteplase. Not able to get MRA/MRI or CTA. Will repeat CT brain today. Resume PT/OT. NPO for now and have ST evaluate. Neuro checks. Neurology to see. Continue maintenance fluids. (2) Left hemiparesis: Code(s): G81.94 - Hemiplegia, unspecified affecting left nondominant side Status: Acute Assessment and Plan: As above. (3) Acute respiratory failure with hypoxia: Code(s): J96.01 - Acute respiratory failure with hypoxia Status: Acute Assessment and Plan: Patient have an SaO2 of 75% [facility] Chest x-ray showing atelectasis. ABG showing 7.27/38/130 yesterday. Low pH related to the seizure. Patient has been weaned to room air at times. Will continue monitor. (4) Sepsis: Code(s): A41.9 - Sepsis, unspecified organism Status: Acute Assessment and Plan: Present on admission with hypotension, tachycardia, leukocytosis, elevated troponins and acute kidney injury. Suspect related to UTI but consider other etiologies. Cannot exclude pneumonia. Consider also wound infection but felt les likely. Blood cultures NGTD. Urine culture growing EColi. Blood pressure better controlled now. Primaxin stopped yesterday - more stable now so will start Ertapenem and monitor closely. (5) Encephalopathy: Code(s): G93.40 - Encephalopathy, unspecified Status: Acute Assessment and Plan: Patient with acute encephalopathy. Probably related to sepsis but cannot exclude metabolic given her renal failure and elevated BUN. Consider also lupus cerebritis. Consider also unrecognized seizure that occurred prior to admission. On admission, CT of the brain showing no acute findings. As above. (6) Acute kidney injury: Code(s): N17.9 - Acute kidney failure, unspecified Status: Acute Assessment and Plan: Creatinine 3.4 on admission. Baseline creatinine probably a runs 2.3-2.9 range. With IV fluids, creatinine improved to 2.5 and stable. BUN is also trended downward. Renal ultrasound showing bilateral renal atrophy. Continue to follow. Changed to maintenance fluids. (7) Acute UTI: Code(s): N39.0 - Urinary tract infection, site not specified Status: Acute Assessment and Plan: Patient with complicated acute UTI related to chronic indwelling Moscoso catheter. UA noted. Urine culture growing EColi sensitive to imipenem. Since she has many allergies and imipenem can cause seizures, we held her abx. Cefepime caused patient to (what sounds like) flail wildly and required her to be moved to ICU. Will resume abx. (8) Elevated troponin: Code(s): R77.8 - Other specified abnormalities of plasma proteins Status: Acute Assessment and Plan: Troponins are mildly elevated but flat. Suspect related to cardiac strain from sepsis. Troponin repeated yesterday and still trending down. EKG yesterday reviewed showing borderline ST-T wave changes. Echo showing EF 60-65%, diastolic dysfunction and mild pulmonary HTN. Continue aspirin. (9) Chronic respiratory failure with hypoxia, on home O2 therapy: Code(s): J96.11 - Chronic respiratory failure with hypoxia; Z99.81 - Dependence on supplemental oxygen Status: Acute Assessment and Plan: Patient with chronic respiratory failure requiring 2 L of oxygen at home. On room air at times so O2 requirement during the day might
[2020-10-15] MEDS: ERTAPENEM 1 GM/NS 50 ML 1 GM/50 ML BAG IVPB (15:54)
[2020-10-15 15:55] LABS: Hematocrit 27.1 % (37.0-47.0); Hemoglobin 8.3 g/dL (12.0-15.0)
[2020-10-16] VITALS (16 sets, daily range): BP systolic 174–201; BP diastolic 68–83; PULSE 47–114; RESP 18–26; TEMP 36.1–36.5; O2SAT 97–100; BMI 11.0
[2020-10-16] MEDS: CENTRAL LINE FLUSH 10 ML IV PUSH ×3 (03:53→20:07)
[2020-10-16 04:03] LABS: Basophils Percent Auto 0.3 % (0.2-1.2); Eosinophils Absolute Auto 0.3 K/mm3 (0-0.3); Eosinophils Percent Auto 2.3 % (0-4.4); Hematocrit 27.4 % (37.0-47.0); Hemoglobin 8.4 g/dL (12.0-15.0); Immature Granulocyte Absolute 0.07 K/mm3 (0.00-0.031); Immature Granulocyte Percent A 0.5 % (0-0.5); Lymphocytes Absolute Auto 0.83 K/mm3 (0.9-3.2); Lymphocytes Percent Auto 6.2 % (18.3-44.2); Mean Corpuscular HGB Conc 30.7 g/dl (32-36); Mean Corpuscular Hemoglobin 29.9 pg (26-34); Mean Corpuscular Volume 97.5 fl (80-100); Mean Platelet Volume 9.8 fl (7.4-10.4); Monocytes Absolute Auto 0.9 K/mm3 (0.1-0.6); Neutrophils Absolute Auto 11.2 K/mm3 (1.3-6.7); Neutrophils Percent Auto 83.7 % (45.5-73.1); Platelet Count Result 185 k/mm3 (150-375); Red Blood Count 2.81 M/mm3 (4.2-5.4); Red Cell Distribution Width 16.6 % (11.5-14.5); White Blood Count 13.3 K/mm3 (4.5-10.0)
[2020-10-16 04:22] LABS: Albumin Level 2.7 g/dL (3.5-5.1); Anion Gap 5 mmol/L (8-16); Blood Urea Nitrogen 44 mg/dL (7-17); CRP 6.5 mg/dL (<1.0); Calcium 8.1 mg/dL (8.4-10.2); Carbon Dioxide 22 mmol/L (22-30); Chloride 111 mmol/L (98-107); Estimated CRCL calculation 16 ml/min; Estimated Glomerular Filt Rate 18; Glucose 102 mg/dL (65-105); Magnesium 1.5 mg/dL (1.6-2.3); Phosphorus 4.5 mg/dL (2.5-4.5); Potassium 4.2 mmol/L (3.4-5.0); Sodium 138 mmol/L (137-145)
[2020-10-16] MEDS: MAGNESIUM SULF 2 GM/WATER 50ML 2 GM/50 ML BAG IVPB (08:20)
[2020-10-16] MEDS: HEPARIN SODIUM 5,000 UNITS/ML VIAL 5000 UNITS SUB-Q ×2 (08:22→20:05)
[2020-10-16] MEDS: hydrALAZINE HCL 20 MG/ML VIAL 10 MG IV PUSH ×2 (08:22→17:34)
[2020-10-16] MEDS: PANTOPRAZOLE SODIUM IV 40 MG VIAL IV PUSH ×2 (08:23→20:06)
[2020-10-16] MEDS: ASPIRIN 300 MG SUPPOSITORY RECTAL (08:23)
[2020-10-16] MEDS: levETIRAcetam 500MG/NACL 100ML 500 MG/100 ML BAG 400 MG IVPB ×2 (08:29→20:05)
[2020-10-16] MEDS: DEXTROSE 5%/0.9% SOD CHL 1,000 ML 70 ML IV CONT ×2 (09:21→23:26)
--- NOTE | 2020-10-16 10:46 | PM.IMPN ---
Progress Note: A&P Assessment and Plan (1) Seizure: Code(s): R56.9 - Unspecified convulsions Status: Acute Assessment and Plan: Patient with new onset seizures. She may have had unrecognized seizures on admission. Glucose okay. Had a thick left hemiplegia and left facial droop but some improvement every day. Consider CVA causing the seizure and weakness but would also consider Claudy's paralysis from the seizure. Seizure could also be related to imipenem as well. Discussed with Stroke Team and no plans for alteplase. Not able to get MRA/MRI or CTA. Repeat CT brain yesterday not showing any acute changes. Contineu PT/OT. ST evaluate ordered. Contineu Neuro checks. Neurology following. Continue maintenance fluids. (2) Left hemiparesis: Code(s): G81.94 - Hemiplegia, unspecified affecting left nondominant side Status: Acute Assessment and Plan: As above. (3) Acute respiratory failure with hypoxia: Code(s): J96.01 - Acute respiratory failure with hypoxia Status: Acute Assessment and Plan: Patient had an SaO2 of 75% on her [facility]. Chest x-ray showing atelectasis. ABG showing 7.27/38/130. Low pH related to the seizure. Patient has been weaned to room air at times. Will continue monitor. (4) Sepsis: Code(s): A41.9 - Sepsis, unspecified organism Status: Acute Assessment and Plan: Present on admission with hypotension, tachycardia, leukocytosis, elevated troponins and acute kidney injury. Suspect related to UTI but consider other etiologies. Cannot exclude pneumonia. Consider also wound infection but felt less likely. Blood cultures NGTD. Urine culture growing EColi. Blood pressure higher now. Primaxin stopped due to seizure risk; no other appropriate abx so started Ertapenem yesterday. WBC slightly elevated - continue to monitor. (5) Encephalopathy: Code(s): G93.40 - Encephalopathy, unspecified Status: Acute Assessment and Plan: Patient with acute encephalopathy. Probably related to sepsis but cannot exclude metabolic given her renal failure and elevated BUN. Consider also lupus cerebritis. Consider also unrecognized seizure that occurred prior to admission. On admission, CT of the brain showing no acute findings. As above. (6) Acute kidney injury: Code(s): N17.9 - Acute kidney failure, unspecified Status: Acute Assessment and Plan: Creatinine 3.4 on admission. Baseline creatinine probably a runs 2.3-2.9 range. With IV fluids, creatinine improved to 2.5 and stable. BUN is also trended downward. Renal ultrasound showing bilateral renal atrophy. Continue to follow. Contnue maintenance fluids until eating. (7) Acute UTI: Code(s): N39.0 - Urinary tract infection, site not specified Status: Acute Assessment and Plan: Patient with complicated acute UTI related to chronic indwelling Moscoso catheter. UA noted. Urine culture growing EColi sensitive to imipenem. Since she has many allergies and imipenem can cause seizures, we held her abx. Cefepime caused patient to (what sounds like) flail wildly and required her to be moved to ICU. We resumed abx as Ertapenem and she appears to be toelrating. Follow. (8) Elevated troponin: Code(s): R77.8 - Other specified abnormalities of plasma proteins Status: Acute Assessment and Plan: Troponins are mildly elevated but flat. Suspect related to cardiac strain from sepsis. Troponin repeated and still trending down. EKG 10/[address]-T wave changes. Echo showing EF 60-65%, diastolic dysfunction and mild pulmonary HTN. Continue aspirin. (9) Chronic respiratory failure with hypoxia, on home O2 therapy: Code(s): J96.11 - Chronic respiratory failure with hypoxia; Z99.81 - Dependence on supplemental oxygen Status: Acute Assessment and Plan: Patient w
[2020-10-16] MEDS: ERTAPENEM 1 GM/NS 50 ML 1 GM/50 ML BAG IVPB (17:34)
[2020-10-17] VITALS (20 sets, daily range): BP systolic 160–188; BP diastolic 64–76; PULSE 77–98; RESP 20; TEMP 36.2–36.7; O2SAT 94–100
[2020-10-17] MEDS: CENTRAL LINE FLUSH 10 ML IV PUSH ×3 (04:39→20:18)
[2020-10-17 04:56] LABS: Hematocrit 27.6 % (37.0-47.0); Hemoglobin 8.4 g/dL (12.0-15.0); Mean Corpuscular HGB Conc 30.4 g/dl (32-36); Mean Corpuscular Hemoglobin 29.1 pg (26-34); Mean Corpuscular Volume 95.5 fl (80-100); Platelet Count Result 201 k/mm3 (150-375); Red Blood Count 2.89 M/mm3 (4.2-5.4); Red Cell Distribution Width 16.5 % (11.5-14.5)
[2020-10-17 05:11] LABS: Anion Gap 3 mmol/L (8-16); Blood Urea Nitrogen 36 mg/dL (7-17); Carbon Dioxide 24 mmol/L (22-30); Chloride 113 mmol/L (98-107); Estimated CRCL calculation 16 ml/min; Estimated Glomerular Filt Rate 18; Glucose 126 mg/dL (65-105); Magnesium 1.8 mg/dL (1.6-2.3); Potassium 4.1 mmol/L (3.4-5.0); Sodium 140 mmol/L (137-145)
[2020-10-17] MEDS: HEPARIN SODIUM 5,000 UNITS/ML VIAL 5000 UNITS SUB-Q ×2 (09:24→20:16)
[2020-10-17] MEDS: ASPIRIN 300 MG SUPPOSITORY RECTAL (09:25)
[2020-10-17] MEDS: PANTOPRAZOLE SODIUM IV 40 MG VIAL IV PUSH (09:25)
[2020-10-17] MEDS: levETIRAcetam 500MG/NACL 100ML 500 MG/100 ML BAG 400 MG IVPB ×2 (09:26→20:17)
--- NOTE | 2020-10-17 09:55 | PCSTNOTE ---
Patient will not receive Modified Barium Swallow at 9:30 this morning due to decreased alertness and not being to actively participate in evaluation tasks. Therapist will conference in the nurse in the afternoon, to see if she can tolerate it at that time.
--- NOTE | 2020-10-17 11:44 | WPDNEUROPN ---
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 Review of Systems Review of Systems: All systems reviewed & are unremarkable except as noted in HPI and below Exam Const: General: comfortable and no acute distress Nutritional Appearance: average body habitus Limitations: physical limitations HENMT: Ears: hearing grossly normal bilaterally General nose exam: Normal external nose present Face and sinus: normal facial exam Mouth: Yes Normal oral and palatal mucosa present Eyes: General: appearance normal, both eyes and all related structures Alignment and Position: alignment normal Eyelids: eyelids normal Conjunctivae: conjunctivae normal Sclera: sclerae normal Cornea: corneas normal Pupils: Equal, round and reactive pupils present EOM: EOMs intact bilaterally Neck: Neck: full ROM Resp: Effort & Inspection: normal respiratory effort Auscultation: rhonchi Cardio: Rate: regular rate Rhythm: regular rhythm Neuro: General: no meningeal signs and Unable to assess gait Cranial nerves: Yes Equal, round and reactive pupils present, Yes Bilaterally intact EOM present, Yes Nystagmus not present and Yes Normal facial strength present Speech: Abnormal speech present Gait exam (Neuro): Unable to assess gait Sensory Exam: other Deep tendon reflexes (DTR's): Right triceps reflex intensity grade: 1+, Left triceps reflex intensity grade: 2+, Rt Biceps (C5, C6): 1+, Left biceps reflex intensity grade: 2+, Right brachioradialis reflex intensity grade: 1+, Left brachioradialis reflex intensity grade: 2+, Right patellar reflex intensity grade: 1+, Left patellar reflex intensity grade: 2+, Right ankle reflex intensity grade: 1+ and Left ankle reflex intensity grade: 2+ Plantar Reflex Responses: downgoing: right and upgoing (positive Babinski): left Psych: Appearance: other ( tries to follow the instruction and eyes open) Objective Data Vital Signs Vital Signs: Vital Signs - 24 hr 10/16/20 12:00 10/16/20 12:30 10/16/20 14:00 Temperature 36.2 C L Pulse Rate 104 H 104 H 112 H Respiratory Rate 24 H 22 H Blood Pressure 183/77 H Pulse Oximetry 97 100 10/16/20 14:01 10/16/20 16:00 10/16/20 18:00 Temperature 36.3 C L Pulse Rate 111 H 110 H Respiratory Rate 24 H Blood Pressure 197/81 H Pulse Oximetry 98 100 10/16/20 20:00 10/16/20 20:52 10/16/20 22:00 Temperature 36.5 C Pulse Rate 108 H 114 H 107 H Respiratory Rate 20 Blood Pressure 184/83 H Pulse Oximetry 99 99 10/16/20 23:38 10/16/20 23:45 10/17/20 02:00 Temperature 36.4 C Pulse Rate 47 L 102 H 95 Respiratory Rate 20 20 Blood Pressure 174/68 H Pulse Oximetry 97 97 10/17/20 03:49 10/17/20 04:31 10/17/20 05:58 Temperature 36.6 C Pulse Rate 95 94 98 Respiratory Rate 20 20 Blood Pressure 160/69 H Pulse Oximetry 97 98 10/17/20 08:00 10/17/20 08:52 Temperature 36.4 C L Pulse Rate 90 Respiratory Rate 20 Blood Pressure 183/76 H Pulse Oximetry 98 98 Intake/Output Intake/Output: Intake & Output 10/14/20 10/15/20 10/16/20 10/17/20 23:59 23:59 23:59 23:59 Intake Total 600 2350 2200 0 Output Total 2300 1150 2350 500 Balance -1700 1200 -150 -500 Meds/Results Medications: Active Medications Generic Name Dose Route Start Last Admin Trade Name Freq PRN Reason Stop Dose Admin Albuterol 2 puff 10/12/20 10:08 Albuterol Sulfate (*Sp) Aerosol 1 Puff INHALATION QID PRN shortness of breath or wheezing Aspirin 81 mg 10/12/20 10:15 10/14/20 11:30 Aspirin 81 Mg Chewable Tablet PO Not Given DAILY@0800 [facility] Aspirin 300 mg 10/14/20 09:10 10/17/20 09:25 Aspirin 300 Mg Suppository RECTAL 300 mg QAM [facility] Administration Fluticasone Propionate 2
[2020-10-17 12:39] LABS: Glucose Point of Care 124 (65-105)
[2020-10-17] MEDS: DEXTROSE 5%/0.9% SOD CHL 1,000 ML 30 ML IV CONT (13:45)
[2020-10-17] MEDS: IPRATROPIUM BR 0.02% INH SOLN 0.5 MG/2.5 ML VIAL INHALATION ×2 (13:59→19:56)
[2020-10-17] MEDS: ALBUTEROL SULFATE NEB 2.5 MG/0.5 ML INH INHALATION ×2 (13:59→19:56)
[2020-10-17] MEDS: ERTAPENEM 1 GM/NS 50 ML 1 GM/50 ML BAG IVPB (14:42)
--- NOTE | 2020-10-17 14:59 | P.PNIM_ITS ---
Progress Note: A&P Assessment and Plan (1) Seizure: Code(s): R56.9 - Unspecified convulsions Status: Acute Assessment and Plan: Patient with new onset seizures.Had a thick left hemiplegia and left facial droop but some improvement every day. Consider CVA causing the seizure and weakness but would also consider Claudy's paralysis from the seizure. (2) Left hemiparesis: Code(s): G81.94 - Hemiplegia, unspecified affecting left nondominant side Status: Acute Assessment and Plan: As above. swallow test postponed. (3) Acute respiratory failure with hypoxia: Code(s): J96.01 - Acute respiratory failure with hypoxia Status: Acute Assessment and Plan: Patient is on chronic 2 L at the [facility]-term. Chest x-ray showing atelectasis. on 2 liters of oxygen start breathing treatment continue ertapenem (4) Sepsis: Code(s): A41.9 - Sepsis, unspecified organism Status: Acute Assessment and Plan: Present on admission with hypotension, tachycardia, leukocytosis, elevated troponins and acute kidney injury. pt started on appropriate abx so started Ertapenem yesterday. WBC slightly elevated - continue to monitor. (5) Encephalopathy: Code(s): G93.40 - Encephalopathy, unspecified Status: Acute Assessment and Plan: Patient with acute encephalopathy. Probably related to sepsis but cannot exclude metabolic causes (6) Acute kidney injury: Code(s): N17.9 - Acute kidney failure, unspecified Status: Acute Assessment and Plan: Pt is wheezing cut back on fluids (7) Acute UTI: Code(s): N39.0 - Urinary tract infection, site not specified Status: Acute Assessment and Plan: Patient with complicated acute UTI related to chronic indwelling Moscoso catheter. On ertapenem (8) Elevated troponin: Code(s): R77.8 - Other specified abnormalities of plasma proteins Status: Acute Assessment and Plan: Troponins are mildly elevated but flat. (9) Chronic respiratory failure with hypoxia, on home O2 therapy: Code(s): J96.11 - Chronic respiratory failure with hypoxia; Z99.81 - Dependence on supplemental oxygen Status: Acute Assessment and Plan: Patient with chronic respiratory failure requiring 2 L of oxygen at home. (10) CKD (chronic kidney disease): Qualifiers: Chronic kidney disease stage: stage 3 (moderate) Qualified Code(s): N18.3 - Chronic kidney disease, stage 3 (moderate) Code(s): N18.9 - Chronic kidney disease, unspecified Status: Chronic Assessment and Plan: Baseline creatinine probably 2.3-2.9. (11) Femur fracture, left: Code(s): S72.92XA - Unspecified fracture of left femur, initial encounter for closed fracture Status: Inactive Assessment and Plan: interval history : Patient fell on June 26 and presented to the ED here. X-ray showing acute oblique left distal femoral metadiaphyseal fracture. She was transferred to another facility for surgical repair and had a carmen placed. On follow up, she was found to have the carmen bent so she underwent a 2nd surgery on 09/14. Patient still with nicol in place. Wound did not appear to be in fected. (12) Anemia associated with stage 3 chronic renal failure: Code(s): N18.3 - Chronic kidney disease, stage 3 (moderate); D63.1 - Anemia in chronic kidney disease Status: Acute Assessment and Plan: Continue to foll
--- NOTE | 2020-10-17 15:15 | PCSTNOTE ---
Therapist returned in the afternoon to check on status of patient and daughter, who was present in the room, stated that mother is still unable to actively participate in direct evaluation/therapy tasks. No charge.
[2020-10-17] MEDS: hydrALAZINE HCL 20 MG/ML VIAL 10 MG IV PUSH (17:52)
[2020-10-18] VITALS (24 sets, daily range): BP systolic 151–195; BP diastolic 62–90; PULSE 80–113; RESP 18–26; TEMP 35.8–36.6; O2SAT 24–100; BMI 28.8
[2020-10-18] MEDS: ALBUTEROL SULFATE NEB 2.5 MG/0.5 ML INH INHALATION ×4 (01:40→21:38)
[2020-10-18] MEDS: IPRATROPIUM BR 0.02% INH SOLN 0.5 MG/2.5 ML VIAL INHALATION ×4 (01:40→21:36)
[2020-10-18] MEDS: CENTRAL LINE FLUSH 10 ML IV PUSH ×3 (05:37→21:09)
[2020-10-18] MEDS: ASPIRIN 300 MG SUPPOSITORY RECTAL (09:37)
[2020-10-18] MEDS: HEPARIN SODIUM 5,000 UNITS/ML VIAL 5000 UNITS SUB-Q ×2 (09:38→21:08)
[2020-10-18] MEDS: levETIRAcetam 500MG/NACL 100ML 500 MG/100 ML BAG 400 MG IVPB ×2 (09:39→21:08)
--- NOTE | 2020-10-18 13:08 | P.PNIM_ITS ---
Progress Note: A&P Assessment and Plan (1) Seizure: Code(s): R56.9 - Unspecified convulsions Status: Acute Assessment and Plan: Patient with new onset seizures.Had a thick left hemiplegia and left facial droop but some improvement every day. Consider CVA causing the seizure and weakness but would also consider Clauyd's paralysis from the seizure. (2) Left hemiparesis: Code(s): G81.94 - Hemiplegia, unspecified affecting left nondominant side Status: Acute Assessment and Plan: As above. swallow test today (3) Acute respiratory failure with hypoxia: Code(s): J96.01 - Acute respiratory failure with hypoxia Status: Acute Assessment and Plan: Patient is on chronic 2 L at the halfway. Chest x-ray showing atelectasis. on 2 liters of oxygen start breathing treatment continue ertapenem (4) Sepsis: Code(s): A41.9 - Sepsis, unspecified organism Status: Acute Assessment and Plan: Present on admission with hypotension, tachycardia, leukocytosis, elevated troponins and acute kidney injury. pt started on appropriate abx so started Ertapenem yesterday. WBC slightly elevated - continue to monitor. (5) Encephalopathy: Code(s): G93.40 - Encephalopathy, unspecified Status: Acute Assessment and Plan: Patient with acute encephalopathy. Probably related to sepsis but cannot exclude metabolic causes (6) Acute kidney injury: Code(s): N17.9 - Acute kidney failure, unspecified Status: Acute Assessment and Plan: Pt is wheezing cut back on fluids (7) Acute UTI: Code(s): N39.0 - Urinary tract infection, site not specified Status: Acute Assessment and Plan: Patient with complicated acute UTI related to chronic indwelling Moscoso catheter. On ertapenem (8) Elevated troponin: Code(s): R77.8 - Other specified abnormalities of plasma proteins Status: Acute Assessment and Plan: Troponins are mildly elevated but flat. (9) Chronic respiratory failure with hypoxia, on home O2 therapy: Code(s): J96.11 - Chronic respiratory failure with hypoxia; Z99.81 - Dependence on supplemental oxygen Status: Acute Assessment and Plan: Patient with chronic respiratory failure requiring 2 L of oxygen at home. (10) CKD (chronic kidney disease): Qualifiers: Chronic kidney disease stage: stage 3 (moderate) Qualified Code(s): N18.3 - Chronic kidney disease, stage 3 (moderate) Code(s): N18.9 - Chronic kidney disease, unspecified Status: Chronic Assessment and Plan: Baseline creatinine probably 2.3-2.9. (11) Femur fracture, left: Code(s): S72.92XA - Unspecified fracture of left femur, initial encounter for closed fracture Status: Inactive Assessment and Plan: interval history : Patient fell on June 26 and presented to the ED here. X-ray showing acute oblique left distal femoral metadiaphyseal fracture. She was transferred to another facility for surgical repair and had a carmen placed. On follow up, she was found to have the carmen bent so she underwent a 2nd surgery on 09/14. Patient still with nicol in place. Wound did not appear to be infected. (12) Anemia associated with stage 3 chronic renal failure: Code(s): N18.3 - Chronic kidney disease, stage 3 (moderate); D63.1 - Anemia in chronic kidney disease Status: Acute Assessment and Plan: Continue to follow.
--- NOTE | 2020-10-18 14:25 | PCSTNOTE ---
Please refer to the Modified Barium Swallow Evaluation in the EMR.
[2020-10-18] MEDS: ERTAPENEM 1 GM/NS 50 ML 1 GM/50 ML BAG IVPB (17:23)
[2020-10-18] MEDS: hydrALAZINE HCL 20 MG/ML VIAL 10 MG IV PUSH (17:26)
[2020-10-18] MEDS: DEXTROSE 5%/0.9% SOD CHL 1,000 ML 30 ML IV CONT (23:04)
[2020-10-19] VITALS (25 sets, daily range): BP systolic 156–186; BP diastolic 57–81; PULSE 84–108; RESP 16–24; TEMP 35.5–36.6; O2SAT 98–100
[2020-10-19] MEDS: ALBUTEROL SULFATE NEB 2.5 MG/0.5 ML INH INHALATION ×4 (02:00→20:35)
[2020-10-19] MEDS: IPRATROPIUM BR 0.02% INH SOLN 0.5 MG/2.5 ML VIAL INHALATION ×4 (03:35→20:35)
[2020-10-19] MEDS: hydrALAZINE HCL 20 MG/ML VIAL 10 MG IV PUSH (04:13)
[2020-10-19] MEDS: CENTRAL LINE FLUSH 10 ML IV PUSH ×3 (06:54→20:23)
[2020-10-19] MEDS: HEPARIN SODIUM 5,000 UNITS/ML VIAL 5000 UNITS SUB-Q ×2 (09:33→20:21)
[2020-10-19] MEDS: levETIRAcetam 500MG/NACL 100ML 500 MG/100 ML BAG 400 MG IVPB ×2 (09:41→20:22)
[2020-10-19] MEDS: ASPIRIN 300 MG SUPPOSITORY RECTAL (12:31)
--- NOTE | 2020-10-19 14:32 | PM.IMPN ---
Progress Note: A&P Assessment and Plan (1) Seizure: Code(s): R56.9 - Unspecified convulsions Status: Acute Assessment and Plan: Patient with new onset seizures.Had a thick left hemiplegia and left facial droop but some improvement every day. Consider CVA causing the seizure and weakness but would also consider Claudy's paralysis from the seizure. (2) Left hemiparesis: Code(s): G81.94 - Hemiplegia, unspecified affecting left nondominant side Status: Acute Assessment and Plan: As above. swallow test yesterday. (3) Acute respiratory failure with hypoxia: Code(s): J96.01 - Acute respiratory failure with hypoxia Status: Acute Assessment and Plan: Patient is on chronic 2 L at the assisted. Chest x-ray showing atelectasis. on 2 liters of oxygen start breathing treatment continue ertapenem (4) Sepsis: Code(s): A41.9 - Sepsis, unspecified organism Status: Acute Assessment and Plan: Present on admission with hypotension, tachycardia, leukocytosis, elevated troponins and acute kidney injury. pt started on appropriate abx so started Ertapenem yesterday. WBC slightly elevated - continue to monitor. (5) Encephalopathy: Code(s): G93.40 - Encephalopathy, unspecified Status: Acute Assessment and Plan: Patient with acute encephalopathy. Probably related to sepsis but cannot exclude metabolic causes (6) Acute kidney injury: Code(s): N17.9 - Acute kidney failure, unspecified Status: Acute Assessment and Plan: Pt is wheezing cut back on fluids (7) Acute UTI: Code(s): N39.0 - Urinary tract infection, site not specified Status: Acute Assessment and Plan: Patient with complicated acute UTI related to chronic indwelling Moscoso catheter. On ertapenem (8) Elevated troponin: Code(s): R77.8 - Other specified abnormalities of plasma proteins Status: Acute Assessment and Plan: Troponins are mildly elevated but flat. (9) Chronic respiratory failure with hypoxia, on home O2 therapy: Code(s): J96.11 - Chronic respiratory failure with hypoxia; Z99.81 - Dependence on supplemental oxygen Status: Acute Assessment and Plan: Patient with chronic respiratory failure requiring 2 L of oxygen at home. (10) CKD (chronic kidney disease): Qualifiers: Chronic kidney disease stage: stage 3 (moderate) Qualified Code(s): N18.3 - Chronic kidney disease, stage 3 (moderate) Code(s): N18.9 - Chronic kidney disease, unspecified Status: Chronic Assessment and Plan: Baseline creatinine probably 2.3-2.9. (11) Femur fracture, left: Code(s): S72.92XA - Unspecified fracture of left femur, initial encounter for closed fracture Status: Inactive Assessment and Plan: interval history : Patient fell on June 26 and presented to the ED here. X-ray showing acute oblique left distal femoral metadiaphyseal fracture. She was transferred to another facility for surgical repair and had a carmen placed. On follow up, she was found to have the carmen bent so she underwent a 2nd surgery on 09/14. Patient still with nicol in place. Wound did not appear to be infected. (12) Anemia associated with stage 3 chronic renal failure: Code(s): N18.3 - Chronic kidney disease, stage 3 (moderate); D63.1 - Anemia in chronic kidney disease Status: Acute Assessment and Plan: Continue to follow. (13) ALEX (obstructive sleep apnea): Code(s): G47.33 - Obstructive sleep apnea (adult) (pediatric) Status: Acute Assessment and Plan: ABG showing no CO2 retention. Follow. (14) Common variable immunodeficiency, unspecified: Code(s): D83.9 - Common variable immunodeficiency, unspecified Status: Acute Assessment and Plan: Patient has CVID requiring Hizantra infusions every 4 wee
[2020-10-19] MEDS: ERTAPENEM SODIUM 0.5 GM in SODIUM CHLORIDE 0.9% IV 50 ML IVPB (15:42)
[2020-10-20] VITALS (18 sets, daily range): BP systolic 154–184; BP diastolic 71–93; PULSE 82–113; RESP 18–28; TEMP 36.1–36.7; O2SAT 97–100
[2020-10-20] MEDS: hydrALAZINE HCL 20 MG/ML VIAL 10 MG IV PUSH ×2 (00:48→17:24)
[2020-10-20] MEDS: IPRATROPIUM BR 0.02% INH SOLN 0.5 MG/2.5 ML VIAL INHALATION ×4 (02:55→20:20)
[2020-10-20] MEDS: ALBUTEROL SULFATE NEB 2.5 MG/0.5 ML INH INHALATION ×4 (02:55→20:20)
[2020-10-20] MEDS: CENTRAL LINE FLUSH 10 ML IV PUSH ×3 (05:47→21:31)
[2020-10-20] MEDS: ASPIRIN 300 MG SUPPOSITORY RECTAL (09:06)
[2020-10-20] MEDS: levETIRAcetam 500MG/NACL 100ML 500 MG/100 ML BAG 400 MG IVPB ×2 (09:07→21:27)
[2020-10-20] MEDS: HEPARIN SODIUM 5,000 UNITS/ML VIAL 5000 UNITS SUB-Q ×2 (09:15→21:28)
[2020-10-20] MEDS: DEXTROSE 5%/0.9% SOD CHL 1,000 ML 30 ML IV CONT (09:38)
--- NOTE | 2020-10-20 12:06 | PCDIET ---
Nutrition Follow-Up Complete: Nutrition Diagnosis: Inadequate oral intake related to possible dysphagia as evidenced by NPO diet, awaiting swallow evaluation. Nutrition Goal: Patient to meet estimated nutritional needs. Goal in progress. Average intake 46% of meals from last review. Does take Ensure Enlive via spoon, per RN. Diet is pureed, level 3 liquids, heart healthy + Ensure Enlive BID. Recommend removing heart healthy restriction and increasing Ensure Enlive (350kcal, 20g protein) to TID with all meals. Last recorded weight is 73.9 kg which is decreased from last review. I/O noted. Bowel Motility: +BM x 1 on 10/19/20. Labs Reviewed: No new labs available. Meds Noted: Albuterol, D5NS at 30mL/hr, Ertapenem, Hydralazine, Atrovent Additional Notes: Sacrum macerated. Left hip incision with dressing. Will continue to monitor with same goal. Nutrition Monitoring and Evaluation: Follow up every 5 days.
[2020-10-20] MEDS: ERTAPENEM SODIUM 0.5 GM in SODIUM CHLORIDE 0.9% IV 50 ML IVPB (15:51)
--- NOTE | 2020-10-20 16:31 | P.PNIM_ITS ---
Progress Note: A&P Assessment and Plan (1) Seizure: Code(s): R56.9 - Unspecified convulsions Status: Acute Assessment and Plan: Patient with new onset seizures.Had a thick left hemiplegia and left facial droop but some improvement every day. Consider CVA causing the seizure and weakness but would also consider Claudy's paralysis from the seizure. (2) Left hemiparesis: Code(s): G81.94 - Hemiplegia, unspecified affecting left nondominant side Status: Acute Assessment and Plan: As above. swallow test yesterday. (3) Acute respiratory failure with hypoxia: Code(s): J96.01 - Acute respiratory failure with hypoxia Status: Acute Assessment and Plan: Patient is on chronic 2 L at the [facility]. Chest x-ray showing atelectasis. on 2 liters of oxygen start breathing treatment continue ertapenem (4) Sepsis: Code(s): A41.9 - Sepsis, unspecified organism Status: Acute Assessment and Plan: Present on admission with hypotension, tachycardia, leukocytosis, elevated troponins and acute kidney injury. pt started on appropriate abx so started Ertapenem yesterday. WBC slightly elevated - continue to monitor. (5) Encephalopathy: Code(s): G93.40 - Encephalopathy, unspecified Status: Acute Assessment and Plan: Patient with acute encephalopathy. Probably related to sepsis but cannot exclude metabolic causes (6) Acute kidney injury: Code(s): N17.9 - Acute kidney failure, unspecified Status: Acute Assessment and Plan: Pt is wheezing cut back on fluids (7) Acute UTI: Code(s): N39.0 - Urinary tract infection, site not specified Status: Acute Assessment and Plan: Patient with complicated acute UTI related to chronic indwelling Moscoso catheter. On ertapenem (8) Elevated troponin: Code(s): R77.8 - Other specified abnormalities of plasma proteins Status: Acute Assessment and Plan: Troponins are mildly elevated but flat. (9) Chronic respiratory failure with hypoxia, on home O2 therapy: Code(s): J96.11 - Chronic respiratory failure with hypoxia; Z99.81 - Dependence on supplemental oxygen Status: Acute Assessment and Plan: Patient with chronic respiratory failure requiring 2 L of oxygen at home. (10) CKD (chronic kidney disease): Qualifiers: Chronic kidney disease stage: stage 3 (moderate) Qualified Code(s): N18.3 - Chronic kidney disease, stage 3 (moderate) Code(s): N18.9 - Chronic kidney disease, unspecified Status: Chronic Assessment and Plan: Baseline creatinine probably 2.3-2.9. (11) Femur fracture, left: Code(s): S72.92XA - Unspecified fracture of left femur, initial encounter for closed fracture Status: Inactive Assessment and Plan: interval history : Patient fell on June 26 and presented to the ED here. X-ray showing acute oblique left distal femoral metadiaphyseal fracture. She was transferred to another facility for surgical repair and had a carmen placed. On follow up, she was found to have the carmen bent so she underwent a 2nd surgery on 09/14. Patient still with nicol in place. Wound did not appear to be inf ected. (12) Anemia associated with stage 3 chronic renal failure: Code(s): N18.3 - Chronic kidney disease, stage 3 (moderate); D63.1 - Anemia in chronic kidney disease Status: Acute Assessment and Plan: Continue to follo
--- NOTE | 2020-10-20 18:38 | PC.NURSE ---
Orders to transfer to medical- report given to Mojgan ENG- Daughter Liliam called and notified of transfer to room 258 - transferred via bed accompanied by staff- belongings with pt
[2020-10-20] MEDS: hydrALAZINE 10 MG TABLET 20 MG PO (21:29)
[2020-10-20] MEDS: ACETAMINOPHEN 325 MG TABLET 650 MG PO (21:36)
[2020-10-20] MEDS: METOPROLOL TARTRATE 12.5 MG TABLET PO (21:39)
[2020-10-21] VITALS (15 sets, daily range): BP systolic 145–180; BP diastolic 63–94; PULSE 68–94; RESP 16–21; TEMP 36.1–36.6; O2SAT 97–100
[2020-10-21 01:42] LABS: SARS-CoV-2 RNA PCR Negative
[2020-10-21] MEDS: IPRATROPIUM BR 0.02% INH SOLN 0.5 MG/2.5 ML VIAL INHALATION ×3 (03:51→19:38)
[2020-10-21] MEDS: ALBUTEROL SULFATE NEB 2.5 MG/0.5 ML INH INHALATION ×3 (03:52→19:38)
[2020-10-21 04:30] LABS: Hematocrit 25.4 % (37.0-47.0); Hemoglobin 7.8 g/dL (12.0-15.0); Mean Corpuscular HGB Conc 30.7 g/dl (32-36); Mean Corpuscular Hemoglobin 29.8 pg (26-34); Mean Corpuscular Volume 96.9 fl (80-100); Mean Platelet Volume 10.2 fl (7.4-10.4); Platelet Count Result 157 k/mm3 (150-375); Red Blood Count 2.62 M/mm3 (4.2-5.4); Red Cell Distribution Width 17.2 % (11.5-14.5); White Blood Count 9.8 K/mm3 (4.5-10.0)
[2020-10-21 04:42] LABS: Anion Gap 4 mmol/L (8-16); Blood Urea Nitrogen 26 mg/dL (7-17); Calcium 8.1 mg/dL (8.4-10.2); Carbon Dioxide 25 mmol/L (22-30); Chloride 118 mmol/L (98-107); Estimated CRCL calculation 21 ml/min; Estimated Glomerular Filt Rate 25; Glucose 102 mg/dL (65-105); Potassium 3.8 mmol/L (3.4-5.0); Sodium 147 mmol/L (137-145)
[2020-10-21] MEDS: CENTRAL LINE FLUSH 10 ML IV PUSH ×3 (06:35→19:58)
[2020-10-21] MEDS: LEVOTHYROXINE SODIUM 150 MCG TABLET PO (06:35)
[2020-10-21] MEDS: FLUTICASONE PROPIONATE 0.05% NA SPR 16 GM BTL (*BKC) 1 SPRAY NASAL (08:56)
[2020-10-21] MEDS: VITAMIN E 400 UNIT CAPSULE PO (08:57)
[2020-10-21] MEDS: HYDROXYCHLOROQUINE SULFATE 200 MG TABLET PO (08:57)
[2020-10-21] MEDS: hydrALAZINE 10 MG TABLET PO ×2 (08:57→18:24)
[2020-10-21] MEDS: hydroCHLOROthiazide 25 MG TABLET PO (08:57)
[2020-10-21] MEDS: LOSARTAN POTASSIUM 50 MG TABLET PO (08:57)
[2020-10-21] MEDS: ASCORBIC ACID 500 MG TABLET 1000 MG PO (08:57)
[2020-10-21] MEDS: METOPROLOL SUCCINATE EXT REL 25 MG TABCR PO (08:57)
[2020-10-21] MEDS: FUROSEMIDE 40 MG TABLET PO (08:58)
[2020-10-21] MEDS: METOPROLOL TARTRATE 12.5 MG TABLET PO ×2 (08:58→19:58)
[2020-10-21] MEDS: GABAPENTIN 300 MG CAPSULE PO ×2 (08:58→17:23)
[2020-10-21] MEDS: CYANOCOBALAMIN 1,000 MCG TABLET 1000 MCG PO (08:58)
[2020-10-21] MEDS: ASPIRIN 325 MG TABLET PO (08:58)
[2020-10-21] MEDS: HEPARIN SODIUM 5,000 UNITS/ML VIAL 5000 UNITS SUB-Q ×2 (08:59→19:56)
[2020-10-21] MEDS: levETIRAcetam 500MG/NACL 100ML 500 MG/100 ML BAG 400 MG IVPB ×2 (09:13→19:57)
[2020-10-21] MEDS: predniSONE 5 MG TABLET PO (09:24)
[2020-10-21] MEDS: PANTOPRAZOLE 40 MG TABLET PO ×2 (09:24→17:23)
[2020-10-21] MEDS: POTASSIUM CHLORIDE 10 MEQ TABLET.ER PO (09:24)
--- NOTE | 2020-10-21 10:42 | WPDNEUROPN ---
Progress Note: A&P Assessment and Plan (1) Left hemiparesis: Code(s): G81.94 - Hemiplegia, unspecified affecting left nondominant side Status: Acute (2) Seizure: Code(s): R56.9 - Unspecified convulsions Status: Acute Additional Plan stable neurologically will repeat the CT scan of the head Review of Systems Review of Systems: All systems reviewed & are unremarkable except as noted in HPI and below Exam Const: General: cooperative, comfortable and no acute distress Nutritional Appearance: average body habitus Orientation/consciousness: oriented to person Limitations: physical limitations HENMT: Head: normocephalic Ears: hearing grossly normal bilaterally General nose exam: Normal external nose present Face and sinus: normal facial exam Mouth: Yes Normal oral and palatal mucosa present Eyes: General: appearance normal, both eyes and all related structures Neck: Neck: full ROM Chest: Chest palpation & inspection: normal inspection of the chest Resp: Auscultation: clear to auscultation bilaterally Cardio: Rate: regular rate Rhythm: regular rhythm Neuro: General: oriented to person and oriented to place Cranial nerves: Yes CN's II-XII intact bilaterally Cognition (Neuro): normal cognition Speech: Other speech findings present (Neuro) ( slow) Gait exam (Neuro): Unable to assess gait Motor exam (neuro): Abnormal motor strength present ( left hemiparesis) Deep tendon reflexes (DTR's): Right triceps reflex intensity grade: 1+, Left triceps reflex intensity grade: 2+, Rt Biceps (C5, C6): 1+, Left biceps reflex intensity grade: 2+, Right brachioradialis reflex intensity grade: 1+, Left brachioradialis reflex intensity grade: 2+, Right patellar reflex intensity grade: 1+, Left patellar reflex intensity grade: 2+, Right ankle reflex intensity grade: 1+ and Left ankle reflex intensity grade: 2+ Plantar Reflex Responses: downgoing: right and upgoing (positive Babinski): left Psych: Mental Status: mental status grossly normal Speech and movement: Slowed speech present (Psych) Affect: Animated affect present Attitude: cooperative Thought process: Circumstantial thought process present Thought content: Yes Normal thought content present Insight: Limited insight present (Psych) Judgement: Limited judgement present (Psych) Objective Data Vital Signs Vital Signs: Vital Signs - 24 hr 10/20/20 12:00 10/20/20 14:50 10/20/20 16:00 Temperature 36.3 C L 36.7 C Pulse Rate 94 84 108 H Respiratory Rate 22 H 18 28 H Blood Pressure 154/85 H 184/93 H Pulse Oximetry 100 100 10/20/20 20:23 10/20/20 20:25 10/20/20 20:33 Temperature Pulse Rate 103 H 105 H Respiratory Rate 18 18 Blood Pressure Pulse Oximetry 97 10/20/20 21:39 10/20/20 22:00 10/21/20 02:00 Temperature 36.7 C 36.6 C Pulse Rate 96 113 H 90 Respiratory Rate 20 21 H Blood Pressure 163/75 H 180/82 H Pulse Oximetry 99 100 10/21/20 03:53 10/21/20 04:03 10/21/20 06:00 Temperature 36.2 C L Pulse Rate 91 94 93 Respiratory Rate 18 18 21 H Blood Pressure 158/94 H Pulse Oximetry 100 10/21/20 07:50 10/21/20 07:51 10/21/20 07:56 Temperature Pulse Rate 92 94 Respiratory Rate 18 18 Blood Pressure Pulse Oximetry 98 10/21/20 08:57 10/21/20 08:58 Temperature Pulse Rate 94 94 Respiratory Rate Blood Pressure Pulse Oximetry Intake/Output Intake/Output: Intake & Output 10/18/20 10/19/20 10/20/20 10/21/20 23:59 23:59 23:59 23:59 Intake Total 1400 1012 1758 340 Output Total 1200 1400 925 750 Balance 200 -388 833 -410 Meds/Results Medications: Active Medications Generic Name Dose Route Start Last Admin Trade Name Freq PRN Reason Stop Dose Admin Acetaminophen 650 mg 10/20/20 21:24 10/20/20 21:36 Acetaminophen 325 Mg Tablet PO 650 mg Q4H PRN Administration Pain Albuterol 2 puff 10/12/20 10:08 Albuterol Sulfate (*Sp) Aerosol 1 Puff INHALATION QID
--- NOTE | 2020-10-21 13:29 | PCRCNOTE ---
Pt taken to CT at this time/ no neb given
--- NOTE | 2020-10-21 13:29 | PM.IMPN ---
Progress Note: A&P Assessment and Plan (1) Seizure: Code(s): R56.9 - Unspecified convulsions Status: Acute Assessment and Plan: Patient with new onset seizures.Had a thick left hemiplegia and left facial droop but some improvement every day. Consider CVA causing the seizure and weakness but would also consider Claudy's paralysis from the seizure. (2) Left hemiparesis: Code(s): G81.94 - Hemiplegia, unspecified affecting left nondominant side Status: Acute Assessment and Plan: As above. Pt passed swallow test. (3) Acute respiratory failure with hypoxia: Code(s): J96.01 - Acute respiratory failure with hypoxia Status: Acute Assessment and Plan: Patient is on chronic 2 L at the halfway. Chest x-ray showing atelectasis. on 2 liters of oxygen start breathing treatment continue ertapenem, stop ertapenem today. (4) Sepsis: Code(s): A41.9 - Sepsis, unspecified organism Status: Acute Assessment and Plan: Present on admission with hypotension, tachycardia, leukocytosis, elevated troponins and acute kidney injury. pt started on appropriate abx so started Ertapenem yesterday. WBC slightly elevated - continue to monitor. (5) Encephalopathy: Code(s): G93.40 - Encephalopathy, unspecified Status: Acute Assessment and Plan: Patient with acute encephalopathy. Probably related to sepsis but cannot exclude metabolic causes (6) Acute kidney injury: Code(s): N17.9 - Acute kidney failure, unspecified Status: Acute Assessment and Plan: Pt is off fluids (7) Acute UTI: Code(s): N39.0 - Urinary tract infection, site not specified Status: Acute Assessment and Plan: Patient with complicated acute UTI related to chronic indwelling Moscoso catheter. (8) Elevated troponin: Code(s): R77.8 - Other specified abnormalities of plasma proteins Status: Acute Assessment and Plan: Troponins are mildly elevated but flat. (9) Chronic respiratory failure with hypoxia, on home O2 therapy: Code(s): J96.11 - Chronic respiratory failure with hypoxia; Z99.81 - Dependence on supplemental oxygen Status: Acute Assessment and Plan: Patient with chronic respiratory failure requiring 2 L of oxygen at home. (10) CKD (chronic kidney disease): Qualifiers: Chronic kidney disease stage: stage 3 (moderate) Qualified Code(s): N18.3 - Chronic kidney disease, stage 3 (moderate) Code(s): N18.9 - Chronic kidney disease, unspecified Status: Chronic Assessment and Plan: Baseline creatinine 1.9 (11) Femur fracture, left: Code(s): S72.92XA - Unspecified fracture of left femur, initial encounter for closed fracture Status: Inactive Assessment and Plan: interval history : Patient fell on June 26 and presented to the ED here. X-ray showing acute oblique left distal femoral metadiaphyseal fracture. She was transferred to another facility for surgical repair and had a carmen placed. On follow up, she was found to have the carmen bent so she underwent a 2nd surgery on 09/14. Patient still with nicol in place. Wound did not appear to be infected. (12) Anemia associated with stage 3 chronic renal failure: Code(s): N18.3 - Chronic kidney disease, stage 3 (moderate); D63.1 - Anemia in chronic kidney disease Status: Acute Assessment and Plan: Continue to follow. (13) ALEX (obstructive sleep apnea): Code(s): G47.33 - Obstructive sleep apnea (adult) (pediatric) Status: Acute Assessment and Plan: ABG showing no CO2 retention. Follow. 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 CVID could be c
[2020-10-21] MEDS: hydrALAZINE 10 MG TABLET 20 MG PO (19:57)
[2020-10-21] MEDS: ACETAMINOPHEN 325 MG TABLET 650 MG PO (19:59)
[2020-10-22] VITALS (16 sets, daily range): BP systolic 117–169; BP diastolic 43–81; PULSE 78–94; RESP 16–21; TEMP 36.1–36.6; O2SAT 97–100
[2020-10-22] MEDS: ALBUTEROL SULFATE NEB 2.5 MG/0.5 ML INH INHALATION ×4 (02:27→20:33)
[2020-10-22] MEDS: IPRATROPIUM BR 0.02% INH SOLN 0.5 MG/2.5 ML VIAL INHALATION ×4 (02:28→20:33)
[2020-10-22 05:09] LABS: Hematocrit 24.8 % (37.0-47.0); Hemoglobin 7.4 g/dL (12.0-15.0); Mean Corpuscular HGB Conc 29.8 g/dl (32-36); Mean Corpuscular Hemoglobin 29.4 pg (26-34); Mean Corpuscular Volume 98.4 fl (80-100); Mean Platelet Volume 10.1 fl (7.4-10.4); Platelet Count Result 150 k/mm3 (150-375); Red Blood Count 2.52 M/mm3 (4.2-5.4); Red Cell Distribution Width 17.2 % (11.5-14.5); White Blood Count 12.7 K/mm3 (4.5-10.0)
[2020-10-22 05:25] LABS: Anion Gap 3 mmol/L (8-16); Blood Urea Nitrogen 26 mg/dL (7-17); Calcium 7.9 mg/dL (8.4-10.2); Carbon Dioxide 27 mmol/L (22-30); Chloride 116 mmol/L (98-107); Estimated CRCL calculation 21 ml/min; Estimated Glomerular Filt Rate 25; Glucose 93 mg/dL (65-105); Potassium 3.9 mmol/L (3.4-5.0); Sodium 146 mmol/L (137-145)
[2020-10-22] MEDS: CENTRAL LINE FLUSH 10 ML IV PUSH ×2 (05:53→20:47)
[2020-10-22] MEDS: LEVOTHYROXINE SODIUM 150 MCG TABLET PO (05:54)
[2020-10-22] MEDS: levETIRAcetam 500MG/NACL 100ML 500 MG/100 ML BAG 400 MG IVPB ×2 (08:26→20:47)
[2020-10-22] MEDS: hydrALAZINE 10 MG TABLET PO ×2 (08:29→16:41)
[2020-10-22] MEDS: FUROSEMIDE 40 MG TABLET PO (08:29)
[2020-10-22] MEDS: ASCORBIC ACID 500 MG TABLET 1000 MG PO (08:29)
[2020-10-22] MEDS: POTASSIUM CHLORIDE 10 MEQ TABLET.ER PO (08:29)
[2020-10-22] MEDS: CYANOCOBALAMIN 1,000 MCG TABLET 1000 MCG PO (08:29)
[2020-10-22] MEDS: LOSARTAN POTASSIUM 50 MG TABLET PO (08:29)
[2020-10-22] MEDS: GABAPENTIN 300 MG CAPSULE PO ×2 (08:29→16:41)
[2020-10-22] MEDS: VITAMIN E 400 UNIT CAPSULE PO (08:29)
[2020-10-22] MEDS: METOPROLOL TARTRATE 12.5 MG TABLET PO ×2 (08:29→20:51)
[2020-10-22] MEDS: ASPIRIN 325 MG TABLET PO (08:29)
[2020-10-22] MEDS: HYDROXYCHLOROQUINE SULFATE 200 MG TABLET PO (08:30)
[2020-10-22] MEDS: PANTOPRAZOLE 40 MG TABLET PO ×2 (08:30→16:42)
[2020-10-22] MEDS: HEPARIN SODIUM 5,000 UNITS/ML VIAL 5000 UNITS SUB-Q ×2 (08:30→20:46)
[2020-10-22] MEDS: predniSONE 5 MG TABLET PO (08:30)
[2020-10-22] MEDS: FLUTICASONE PROPIONATE 0.05% NA SPR 16 GM BTL (*BKC) 1 SPRAY NASAL (08:30)
[2020-10-22] MEDS: hydroCHLOROthiazide 25 MG TABLET PO (08:30)
[2020-10-22] MEDS: METOPROLOL SUCCINATE EXT REL 25 MG TABCR PO (08:31)
--- NOTE | 2020-10-22 10:48 | PM.IMPN ---
Progress Note: A&P Assessment and Plan (1) Seizure: Code(s): R56.9 - Unspecified convulsions Status: Acute Assessment and Plan: Patient with new onset seizures.Had a thick left hemiplegia and left facial droop but some improvement every day. Consider CVA causing the seizure and weakness but would also consider Claudy's paralysis from the seizure. 10/22/20 10:48 10/22 patient remains clinically stable was seen by Neurology ordered repeat CT of the head which did not show any acute in injury patient has not had any more seizure while in the hospital, currently patient is sleeping her daughter is present in the room and provide review of symptom, patient passed swallow study, is working with PT/OT and further recommendation to follow. (2) Left hemiparesis: Code(s): G81.94 - Hemiplegia, unspecified affecting left nondominant side Status: Acute Assessment and Plan: As above. Pt passed swallow test. (3) Acute respiratory failure with hypoxia: Code(s): J96.01 - Acute respiratory failure with hypoxia Status: Acute Assessment and Plan: [facility] Chest x-ray showing atelectasis. on 2 liters of oxygen start breathing treatment continue ertapenem, stop ertapenem today. (4) Sepsis: Code(s): A41.9 - Sepsis, unspecified organism Status: Acute Assessment and Plan: Present on admission with hypotension, tachycardia, leukocytosis, elevated troponins and acute kidney injury. pt started on appropriate abx so started Ertapenem yesterday. WBC slightly elevated - continue to monitor. (5) Encephalopathy: Code(s): G93.40 - Encephalopathy, unspecified Status: Acute Assessment and Plan: Patient with acute encephalopathy. Probably related to sepsis but cannot exclude metabolic causes (6) Acute kidney injury: Code(s): N17.9 - Acute kidney failure, unspecified Status: Acute Assessment and Plan: Pt is off fluids (7) Acute UTI: Code(s): N39.0 - Urinary tract infection, site not specified Status: Acute Assessment and Plan: Patient with complicated acute UTI related to chronic indwelling Moscoso catheter. (8) Elevated troponin: Code(s): R77.8 - Other specified abnormalities of plasma proteins Status: Acute Assessment and Plan: Troponins are mildly elevated but flat. (9) Chronic respiratory failure with hypoxia, on home O2 therapy: Code(s): J96.11 - Chronic respiratory failure with hypoxia; Z99.81 - Dependence on supplemental oxygen Status: Acute Assessment and Plan: Patient with chronic respiratory failure requiring 2 L of oxygen at home. (10) CKD (chronic kidney disease): Qualifiers: Chronic kidney disease stage: stage 3 (moderate) Qualified Code(s): N18.3 - Chronic kidney disease, stage 3 (moderate) Code(s): N18.9 - Chronic kidney disease, unspecified Status: Chronic Assessment and Plan: Baseline creatinine 1.9 (11) Femur fracture, left: Code(s): S72.92XA - Unspecified fracture of left femur, initial encounter for closed fracture Status: Inactive Assessment and Plan: interval history : Patient fell on June 26 and presented to the ED here. X-ray showing acute oblique left distal femoral metadiaphyseal fracture. She was transferred to another facility for surgical repair and had a carmen placed. On follow up, she was found to have the carmen bent so she underwent a 2nd surgery on 09/14. Patient still with nciol in place. Wound did not appear to be infected. (12) Anemia associated with stage 3 chronic renal failure: Code(s): N18.3 - Chronic kidney disease, stage 3 (moderate); D63.1 - Anemia in chronic kidney disease Status: Acute Assessment and Plan: Continue to follow. (13) ALEX (obstructive sleep apnea): Code(s): G47.
[2020-10-22] MEDS: HEPARIN SOD FLUSH 500 UNITS/5 ML SYRINGE IV PUSH (17:21)
[2020-10-22] MEDS: WATER FOR IRRIGATION, STERILE 1,000 ML BOTTLE 1000 ML (20:48)
[2020-10-22] MEDS: hydrALAZINE 10 MG TABLET 20 MG PO (20:49)
[2020-10-23] VITALS (16 sets, daily range): BP systolic 109–151; BP diastolic 56–73; PULSE 66–100; RESP 16–22; TEMP 35.8–36.4; O2SAT 89–100
[2020-10-23] MEDS: ALBUTEROL SULFATE NEB 2.5 MG/0.5 ML INH INHALATION ×3 (01:38→20:29)
[2020-10-23] MEDS: IPRATROPIUM BR 0.02% INH SOLN 0.5 MG/2.5 ML VIAL INHALATION ×3 (01:38→20:29)
[2020-10-23 05:30] LABS: Hematocrit 24.1 % (37.0-47.0); Hemoglobin 7.3 g/dL (12.0-15.0); Mean Corpuscular HGB Conc 30.3 g/dl (32-36); Mean Corpuscular Hemoglobin 29.3 pg (26-34); Mean Corpuscular Volume 96.8 fl (80-100); Mean Platelet Volume 10.5 fl (7.4-10.4); Platelet Count Result 172 k/mm3 (150-375); Red Blood Count 2.49 M/mm3 (4.2-5.4); Red Cell Distribution Width 17.2 % (11.5-14.5); White Blood Count 11.6 K/mm3 (4.5-10.0)
[2020-10-23 05:59] LABS: Anion Gap 4 mmol/L (8-16); Blood Urea Nitrogen 33 mg/dL (7-17); Calcium 8.2 mg/dL (8.4-10.2); Carbon Dioxide 30 mmol/L (22-30); Chloride 109 mmol/L (98-107); Estimated CRCL calculation 17 ml/min; Estimated Glomerular Filt Rate 24; Glucose 92 mg/dL (65-105); Phosphorus 3.6 mg/dL (2.5-4.5); Sodium 143 mmol/L (137-145)
[2020-10-23 06:15] LABS: Potassium 4.2 mmol/L (3.4-5.0)
[2020-10-23] MEDS: LEVOTHYROXINE SODIUM 150 MCG TABLET PO (06:25)
[2020-10-23] MEDS: CENTRAL LINE FLUSH 10 ML IV PUSH ×3 (06:25→20:50)
[2020-10-23] MEDS: levETIRAcetam 500MG/NACL 100ML 500 MG/100 ML BAG 400 MG IVPB (09:12)
[2020-10-23] MEDS: FUROSEMIDE 40 MG TABLET PO (09:13)
[2020-10-23] MEDS: CYANOCOBALAMIN 1,000 MCG TABLET 1000 MCG PO (09:13)
[2020-10-23] MEDS: HEPARIN SODIUM 5,000 UNITS/ML VIAL 5000 UNITS SUB-Q ×2 (09:13→20:48)
[2020-10-23] MEDS: ASPIRIN 325 MG TABLET PO (09:13)
[2020-10-23] MEDS: FLUTICASONE PROPIONATE 0.05% NA SPR 16 GM BTL (*BKC) 1 SPRAY NASAL (09:13)
[2020-10-23] MEDS: ASCORBIC ACID 500 MG TABLET 1000 MG PO (09:14)
[2020-10-23] MEDS: METOPROLOL SUCCINATE EXT REL 25 MG TABCR PO (09:15)
[2020-10-23] MEDS: PANTOPRAZOLE 40 MG TABLET PO ×2 (09:15→17:55)
[2020-10-23] MEDS: VITAMIN E 400 UNIT CAPSULE PO (09:15)
[2020-10-23] MEDS: GABAPENTIN 300 MG CAPSULE PO ×2 (09:15→17:55)
[2020-10-23] MEDS: POTASSIUM CHLORIDE 10 MEQ TABLET.ER PO (09:15)
[2020-10-23] MEDS: LOSARTAN POTASSIUM 50 MG TABLET PO (09:15)
[2020-10-23] MEDS: predniSONE 5 MG TABLET PO (09:15)
[2020-10-23] MEDS: HYDROXYCHLOROQUINE SULFATE 200 MG TABLET PO (09:15)
[2020-10-23] MEDS: hydroCHLOROthiazide 25 MG TABLET PO (09:15)
[2020-10-23] MEDS: METOPROLOL TARTRATE 12.5 MG TABLET PO ×2 (10:26→20:48)
[2020-10-23] MEDS: hydrALAZINE 10 MG TABLET PO ×2 (10:27→17:56)
--- NOTE | 2020-10-23 12:25 | PM.IMPN ---
Progress Note: A&P Assessment and Plan (1) Seizure: Code(s): R56.9 - Unspecified convulsions Status: Acute Assessment and Plan: Patient with new onset seizures.Had a thick left hemiplegia and left facial droop but some improvement every day. Consider CVA causing the seizure and weakness but would also consider Claudy's paralysis from the seizure. Pt transitioned to oral keppra, pt to have EEG today. (2) Left hemiparesis: Code(s): G81.94 - Hemiplegia, unspecified affecting left nondominant side Status: Acute Assessment and Plan: As above. Pt passed swallow test. See recommendations, continue PT/ OT/ST here. (3) Acute respiratory failure with hypoxia: Code(s): J96.01 - Acute respiratory failure with hypoxia Status: Acute Assessment and Plan: Patient is on chronic 2 L [facility] the [facility]. Chest x-ray showing atelectasis. on 2 liters of oxygen and breathing treatment prn (4) Sepsis: Code(s): A41.9 - Sepsis, unspecified organism Status: Acute Assessment and Plan: Present on admission with hypotension, tachycardia, leukocytosis, elevated troponins and acute kidney injury. pt started on Ertapenem off now. (5) Encephalopathy: Code(s): G93.40 - Encephalopathy, unspecified Status: Acute Assessment and Plan: Patient with acute encephalopathy. Probably related to sepsis. (6) Acute kidney injury: Code(s): N17.9 - Acute kidney failure, unspecified Status: Acute Assessment and Plan: Pt is off fluids (7) Acute UTI: Code(s): N39.0 - Urinary tract infection, site not specified Status: Acute Assessment and Plan: Patient with complicated acute UTI related to chronic indwelling Moscoso catheter. rpt UA/ UC today (8) Elevated troponin: Code(s): R77.8 - Other specified abnormalities of plasma proteins Status: Acute Assessment and Plan: Troponins are mildly elevated but flat. (9) Chronic respiratory failure with hypoxia, on home O2 therapy: Code(s): J96.11 - Chronic respiratory failure with hypoxia; Z99.81 - Dependence on supplemental oxygen Status: Acute Assessment and Plan: Patient with chronic respiratory failure requiring 2 L of oxygen at home. (10) CKD (chronic kidney disease): Qualifiers: Chronic kidney disease stage: stage 3 (moderate) Qualified Code(s): N18.3 - Chronic kidney disease, stage 3 (moderate) Code(s): N18.9 - Chronic kidney disease, unspecified Status: Chronic Assessment and Plan: Baseline creatinine 2.0 (11) Femur fracture, left: Code(s): S72.92XA - Unspecified fracture of left femur, initial encounter for closed fracture Status: Inactive Assessment and Plan: Interval history : Patient fell on June 26 and presented to the ED here. X-ray showing acute oblique left distal femoral metadiaphyseal fracture. She was transferred to another facility for surgical repair and had a carmen placed. On follow up, she was found to have the carmen bent so she underwent a 2nd surgery on 09/14. Patient still with nicol in place. Wound did not appear to be infected. Pt was in rehab before for 17 days for left femur fracture. Continue PT/ OT here. (12) Anemia associated with stage 3 chronic renal failure: Code(s): N18.3 - Chronic kidney disease, stage 3 (moderate); D63.1 - Anemia in chronic kidney disease Status: Acute Assessment and Plan: Continue to follow. Labs ordered (13) ALEX (obstructive sleep apnea): Code(s): G47.33 - Obstructive sleep apnea (adult) (pediatric) Status: Acute Assessment and Plan: Stable. (14) Common variable immunodeficiency, unspecified: Code(s): D83.9 - Common variable immunodeficiency, unspecified Status: Acute Assessment and Plan: Patient has CVID requiring Hizantra infusions e
--- NOTE | 2020-10-23 12:47 | PCOTNOTE ---
Patient OT therapy frequency increased to 5-7x/wk as patient is making progress and participating more with occupational therapy.
--- NOTE | 2020-10-23 12:48 | PCPTNOTE ---
Order clarification changed to 5-7 days/week as pt's medical status has improved and able to tolerate therapy.
[2020-10-23 14:17] LABS: Add Urine Microscopic? YES; Appearance Urine Cloudy (Clear); Bacteria Urine Trace /hpf; Bilirubin Urine Negative (Negative); Blood Urine Negative (Negative); Budding Yeast Urine Present /hpf; Color Urine Yellow (Yellow); Glucose Urine UA Negative (Negative); Ketones Urine Negative (Negative); Leukocyte Esterase Ur Trace LEU/UL (Negative); Mucus Urine Rare /lpf; Nitrate Urine Negative (Negative); Protein Urine 1+ mg/dL (Negative); RBC Urine 51-75 /hpf (0-2); Squamous Epithelial Cell Urine Occasional /hpf (Few); Urobilinogen Urine Negative mg/dL (<2.0); WBC Urine 16-20 /hpf
[2020-10-23] MEDS: ACETAMINOPHEN 325 MG TABLET 650 MG PO (14:41)
[2020-10-23 20:13] LABS: SARS-CoV-2 RNA PCR Negative
[2020-10-23] MEDS: levETIRAcetam 500 MG TABLET PO (20:49)
[2020-10-23] MEDS: hydrALAZINE 10 MG TABLET 20 MG PO (20:49)
[2020-10-24] VITALS (18 sets, daily range): BP systolic 98–140; BP diastolic 47–74; PULSE 72–95; RESP 16–20; TEMP 36.1–36.9; O2SAT 80–100; BMI 11.0
[2020-10-24] MEDS: IPRATROPIUM BR 0.02% INH SOLN 0.5 MG/2.5 ML VIAL INHALATION ×4 (01:42→20:50)
[2020-10-24] MEDS: ALBUTEROL SULFATE NEB 2.5 MG/0.5 ML INH INHALATION ×4 (01:43→20:50)
[2020-10-24] MEDS: CENTRAL LINE FLUSH 10 ML IV PUSH ×3 (05:11→21:54)
[2020-10-24] MEDS: LEVOTHYROXINE SODIUM 150 MCG TABLET PO (05:12)
[2020-10-24 05:23] LABS: Hematocrit 23.5 % (37.0-47.0); Hemoglobin 7.2 g/dL (12.0-15.0); Mean Corpuscular HGB Conc 30.6 g/dl (32-36); Mean Corpuscular Hemoglobin 29.8 pg (26-34); Mean Corpuscular Volume 97.1 fl (80-100); Mean Platelet Volume 10.2 fl (7.4-10.4); Platelet Count Result 163 k/mm3 (150-375); Red Blood Count 2.42 M/mm3 (4.2-5.4); White Blood Count 9.1 K/mm3 (4.5-10.0)
[2020-10-24 05:34] LABS: Albumin Level 2.8 g/dL (3.5-5.1); Anion Gap 4 mmol/L (8-16); Blood Urea Nitrogen 37 mg/dL (7-17); Calcium 7.7 mg/dL (8.4-10.2); Carbon Dioxide 28 mmol/L (22-30); Chloride 109 mmol/L (98-107); Estimated CRCL calculation 19 ml/min; Estimated Glomerular Filt Rate 23; Glucose 84 mg/dL (65-105); Phosphorus 4.2 mg/dL (2.5-4.5); Potassium 4.6 mmol/L (3.4-5.0); Sodium 141 mmol/L (137-145)
[2020-10-24] MEDS: CYANOCOBALAMIN 1,000 MCG TABLET 1000 MCG PO (10:45)
[2020-10-24] MEDS: FUROSEMIDE 40 MG TABLET PO (10:48)
[2020-10-24] MEDS: hydrALAZINE 10 MG TABLET PO (10:50)
[2020-10-24] MEDS: METOPROLOL SUCCINATE EXT REL 25 MG TABCR PO (10:52)
[2020-10-24] MEDS: levETIRAcetam 500 MG TABLET PO ×2 (10:54→21:54)
[2020-10-24] MEDS: HYDROXYCHLOROQUINE SULFATE 200 MG TABLET PO (10:57)
[2020-10-24] MEDS: LOSARTAN POTASSIUM 50 MG TABLET PO (10:58)
[2020-10-24] MEDS: predniSONE 5 MG TABLET PO (10:58)
[2020-10-24] MEDS: hydroCHLOROthiazide 25 MG TABLET PO (11:00)
[2020-10-24] MEDS: GABAPENTIN 300 MG CAPSULE PO ×2 (11:01→17:46)
[2020-10-24] MEDS: ACETAMINOPHEN 325 MG TABLET 650 MG PO (11:02)
[2020-10-24] MEDS: PANTOPRAZOLE 40 MG TABLET PO ×2 (11:04→17:46)
[2020-10-24] MEDS: POTASSIUM CHLORIDE 10 MEQ TABLET.ER PO (11:05)
[2020-10-24] MEDS: ASCORBIC ACID 500 MG TABLET 1000 MG PO (11:06)
[2020-10-24] MEDS: ASPIRIN 325 MG TABLET PO (11:06)
[2020-10-24] MEDS: HEPARIN SODIUM 5,000 UNITS/ML VIAL 5000 UNITS SUB-Q ×2 (11:08→21:53)
[2020-10-24] MEDS: VITAMIN E 400 UNIT CAPSULE PO (11:08)
[2020-10-24] MEDS: FLUTICASONE PROPIONATE 0.05% NA SPR 16 GM BTL (*BKC) 1 SPRAY NASAL (11:19)
--- NOTE | 2020-10-24 13:34 | PM.IMPN ---
Progress Note: A&P Assessment and Plan (1) Seizure: Code(s): R56.9 - Unspecified convulsions Status: Acute Assessment and Plan: Patient with new onset seizures. She may have had unrecognized seizures on admission. Glucose okay. Head CT 10/14 showing no acute findings. Had a thick left hemiplegia and left facial droop but some improvement every day. Consider CVA causing the seizure and weakness but would also consider Claudy's paralysis from the seizure. Repeat CT head 10/21 again showing no acute process. Can not have MR due to the devices in her abdomen. Pt transitioned to oral keppra. Pt to have EEG today. (2) Left hemiparesis: Code(s): G81.94 - Hemiplegia, unspecified affecting left nondominant side Status: Acute Assessment and Plan: As above. Pt passed swallow test. See recommendations. Continue PT/ OT/ST. Placement being arranged. (3) Acute respiratory failure with hypoxia: Code(s): J96.01 - Acute respiratory failure with hypoxia Status: Acute Assessment and Plan: Patient had an SaO2 of 75% on her chronic 2 L at the [facility]. Chest x-ray showing atelectasis. ABG showing 7.27/38/130. Low pH related to the seizure. Patient has been weaned to room air at times. Will continue monitor. (4) Sepsis: Code(s): A41.9 - Sepsis, unspecified organism Status: Acute Assessment and Plan: Present on admission with hypotension, tachycardia, leukocytosis, elevated troponins and acute kidney injury. Suspect related to UTI but consider other etiologies. Blood cultures NGTD. Urine culture growing EColi. Started on Primaxin but stopped due to seizure risk; no other appropriate abx so started Ertapenem. Currently off abx now. UA and UCx repeated for unclear reasons. She has a chronic indwelling Moscoso. (5) Encephalopathy: Code(s): G93.40 - Encephalopathy, unspecified Status: Acute Assessment and Plan: Patient with acute encephalopathy. Probably related to sepsis but cannot exclude metabolic given her UTI, renal failure and elevated BUN. Consider also lupus cerebritis. Consider also unrecognized seizure that occurred prior to admission. On admission, CT of the brain showing no acute findings. As above. (6) Acute kidney injury: Code(s): N17.9 - Acute kidney failure, unspecified Status: Acute Assessment and Plan: Creatinine 3.4 on admission. Baseline creatinine probably a runs 2.3-2.9 range. With IV fluids, creatinine improved. BUN is also trended downward. Renal ultrasound showing bilateral renal atrophy. IV fluids have been stopped. Cr 2.1 and BUN 37 today. Continue to follow. (7) Acute UTI: Code(s): N39.0 - Urinary tract infection, site not specified Status: Acute Assessment and Plan: Patient with complicated acute UTI related to chronic indwelling Moscoso catheter. UA noted. Urine culture growing EColi sensitive to imipenem. Since she has many allergies and imipenem can cause seizures, we held her abx. Cefepime caused patient to (what sounds like) flail wildly and required her to be moved to ICU. We resumed abx as Ertapenem and she appeartolerated this well. Currently off abx. UA and culture repeated for unclear reasons. Follow up on repeat UCx results.. (8) Elevated troponin: Code(s): R77.8 - Other specified abnormalities of plasma proteins Status: Acute Assessment and Plan: Troponins are mildly elevated but flat. Suspect related to cardiac strain from sepsis. Troponin repeated and still trending down. EKG 10/[address]-T wave changes. Echo showing EF 60-65%, diastolic dysfunction and mild pulmonary HTN but no wall motion abnormality. Continue aspirin. (9) Chronic respiratory failure with hypoxia, on home O2 therapy: Code(s): J96.11 - Chronic respiratory failure with hypoxia; Z99.81 - Dependence on supplemental oxyge
--- NOTE | 2020-10-24 13:39 | PCOTNOTE ---
Patient in procedure at 13:45, will be unavailable for approx. 30 minutes. Will attempt to see patient then if time allows for OT.
[2020-10-25] VITALS (15 sets, daily range): BP systolic 117–144; BP diastolic 48–55; PULSE 74–88; RESP 18–22; TEMP 36.4–36.9; O2SAT 92–100; BMI 10.0
[2020-10-25] MEDS: IPRATROPIUM BR 0.02% INH SOLN 0.5 MG/2.5 ML VIAL INHALATION ×3 (03:04→21:17)
[2020-10-25] MEDS: ALBUTEROL SULFATE NEB 2.5 MG/0.5 ML INH INHALATION ×3 (03:05→21:17)
[2020-10-25 05:51] LABS: Mean Corpuscular Hemoglobin 28.7 pg (26-34); Mean Corpuscular Volume 95.7 fl (80-100); Mean Platelet Volume 10.7 fl (7.4-10.4); Platelet Count Result 194 k/mm3 (150-375); Red Cell Distribution Width 16.9 % (11.5-14.5); White Blood Count 8.8 K/mm3 (4.5-10.0)
[2020-10-25 05:59] LABS: Hemoglobin 6.6 g/dL (12.0-15.0)
[2020-10-25 06:14] LABS: Albumin Level 2.9 g/dL (3.5-5.1); Anion Gap 6 mmol/L (8-16); Blood Urea Nitrogen 43 mg/dL (7-17); Calcium 7.6 mg/dL (8.4-10.2); Carbon Dioxide 28 mmol/L (22-30); Chloride 106 mmol/L (98-107); Estimated CRCL calculation 19 ml/min; Estimated Glomerular Filt Rate 19; Glucose 85 mg/dL (65-105); Magnesium 1.4 mg/dL (1.6-2.3); Phosphorus 4.4 mg/dL (2.5-4.5); Potassium 4.9 mmol/L (3.4-5.0); Sodium 140 mmol/L (137-145)
[2020-10-25] MEDS: LEVOTHYROXINE SODIUM 150 MCG TABLET PO (06:16)
[2020-10-25] MEDS: CENTRAL LINE FLUSH 10 ML IV PUSH ×3 (06:17→21:59)
[2020-10-25] MEDS: MAGNESIUM SULF 1 GM/D5W 100 ML 1 GM/100 ML BAG IVPB (07:35)
[2020-10-25] MEDS: POTASSIUM CHLORIDE 10 MEQ TABLET.ER PO (08:51)
[2020-10-25] MEDS: ASPIRIN 325 MG TABLET PO (08:51)
[2020-10-25] MEDS: ASCORBIC ACID 500 MG TABLET 1000 MG PO (08:52)
[2020-10-25] MEDS: FUROSEMIDE 40 MG TABLET PO (08:53)
[2020-10-25] MEDS: GABAPENTIN 300 MG CAPSULE PO ×2 (08:53→16:43)
[2020-10-25] MEDS: CYANOCOBALAMIN 1,000 MCG TABLET 1000 MCG PO (08:53)
[2020-10-25] MEDS: hydroCHLOROthiazide 25 MG TABLET PO (08:54)
[2020-10-25] MEDS: levETIRAcetam 500 MG TABLET PO ×2 (08:55→21:59)
[2020-10-25] MEDS: LOSARTAN POTASSIUM 50 MG TABLET PO (08:55)
--- NOTE | 2020-10-25 08:55 | PCRCNOTE ---
Pt did not receive resp meds. Rn stated pt eating. Pt not in distress
[2020-10-25] MEDS: PANTOPRAZOLE 40 MG TABLET PO ×2 (08:56→16:43)
[2020-10-25] MEDS: METOPROLOL SUCCINATE EXT REL 25 MG TABCR PO (08:56)
[2020-10-25] MEDS: VITAMIN E 400 UNIT CAPSULE PO (08:57)
[2020-10-25] MEDS: predniSONE 5 MG TABLET PO (08:57)
[2020-10-25] MEDS: HYDROXYCHLOROQUINE SULFATE 200 MG TABLET PO (09:00)
[2020-10-25] MEDS: FLUTICASONE PROPIONATE 0.05% NA SPR 16 GM BTL (*BKC) 1 SPRAY NASAL (09:07)
--- NOTE | 2020-10-25 10:52 | PCNFU ---
Nutrition Follow-Up Complete: Inadequate oral intake related to possible dysphagia as evidenced by NPO diet, awaiting swallow evaluation. Goal: Patient to meet estimated nutritional needs. Patient is consuming 50-75% of all meals. Continue progressing towards goal. Pt current nutrition is a heart healthy diet with soft and bite sized level 6 and mildly thick liquids level 2. Last recorded weight is 97.2 kg. Down 9.9 pounds as of admission on 10/11. Bowel Motility: + BM 10/24 Labs Reviewed: Hgb 6.6, Alb 2.9, GFR 19, BUN 43, Cr 2.4 Meds Noted:Proventil Hfa, Albuterol, Vitamin C, Vitamin B-12, Lasix, Neurontin, Flovent, Heparin Sodium, Vitamin E, Prednisone, Kcl tablet, Protonix, Cozaar, Toprol Xl, Synthroid, Keppra Tablet, Atrovent Neb, Hydralazine Hcl, Hydrochlorothiazide Additional Notes: Followed up with patient. Patient reported enjoying the food, especially the chocolate pudding. She stated she has a good appetite consuming 50-75% of all meals. She is receiving Ensure Enlive TID providing her with an additional 350 calories and 20 grams of protein. Patient had a bedside swallow evaluation done yesterday, 10/24. Follow up every 5 days.
--- NOTE | 2020-10-25 11:05 | PC.NURSE ---
Dr. Rapp on floor requested junior technical writer to put order for stat H/H and have the specimen drawn peripherally.
--- NOTE | 2020-10-25 11:08 | PCNSR ---
On 10/25/20, the student,Rosio Mathew, provided care and completed [facility] documentation on this patient. I have reviewed the student's documentation and agree with the findings.
[2020-10-25 11:27] LABS: Hematocrit 24.1 % (37.0-47.0); Hemoglobin 7.2 g/dL (12.0-15.0)
--- NOTE | 2020-10-25 11:31 | WPDNEUROLOGY ---
Neurology EEG Report General Information Date of Study: 10/24/20 TEST eeg DIAGNOSIS altered mental status with the possibility of seizures CONDITION OF RECORDING awake drowsy and sleep EEG NUMBER [id number] CLINICAL HISTORY patient had a stroke with the possibility of seizures EEG DESCRIPTION background rhythm consists of low to medium voltage 5 to 7 hertz per second theta admixed with intermittent regular EKG artifact. Bilateral symmetrical sleep activity seen with symmetrical sleep spindles. Non paroxysmal. Nonfocal. Nonlateralizing. IMPRESSION Abnormal record due to the absence of the normal background rhythm, And presence of excessive amount of slow activity even though there is no focal seizure-like phenomena .clinical correlation recommend
--- NOTE | 2020-10-25 11:45 | PCCCNOTE ---
Per Care Coordination: pt will need Covid test repeated prior to discharge if does not discharge on 10/25/2020.
--- NOTE | 2020-10-25 11:54 | PM.IMPN ---
Progress Note: A&P Assessment and Plan (1) Seizure: Code(s): R56.9 - Unspecified convulsions Status: Acute Assessment and Plan: Patient with new onset seizures. She may have had unrecognized seizures on admission. Glucose okay. Head CT 10/14 showing no acute findings. Had a thick left hemiplegia and left facial droop but some improvement every day. Consider CVA causing the seizure and weakness but would also consider Claudy's paralysis from the seizure. Repeat CT head 10/21 again showing no acute process. Can not have MR due to the devices in her abdomen. Pt transitioned to oral keppra. Patient had EEG 10/24 showing abnormal record due to the absence of the normal background rhythm and presence of excessive amount of slow activity even though there is no focal seizure-like phenomena. Continue Keppra. Contineu therapy. (2) Anemia associated with stage 3 chronic renal failure: Code(s): N18.3 - Chronic kidney disease, stage 3 (moderate); D63.1 - Anemia in chronic kidney disease Status: Acute Assessment and Plan: Patient with hemoglobin running mostly in the 8-9 range chronically. Appears consistent with anemia of chronic disease probably related to her CKD. Hemoglobin dropped to the 7 range but stable but this morning, Hgb 6.6. This was drawn out of a line and was 7.2 on repeat (peripheral draw). Stool guaiac postiive. Some bruising noted as well. Doubt anemia related to surgery. Continue to monitor HH. Continue Protonix. Continue to follow. GI consult (3) Femur fracture, left: Code(s): S72.92XA - Unspecified fracture of left femur, initial encounter for closed fracture Status: Acute Assessment and Plan: Patient fell on June 26 and presented to the ED here. X-ray showing acute oblique left distal femoral metadiaphyseal fracture. She was transferred to another facility for surgical repair and had a carmen placed. On follow up, she was found to have the carmen bent so she underwent a 2nd surgery on 09/14. Patient still with nicol in place and wound still draining. Suspect hematoma that is . Called the surgeon but awaiting a call back. Continue PT/OT. Continue to monitor. Lio consult ortho here to see if there are other techniques to help slow this drainage. Keep nicol in place. Doubt this is the cause of her anemia. (4) Left hemiparesis: Code(s): G81.94 - Hemiplegia, unspecified affecting left nondominant side Status: Acute Assessment and Plan: As above. Pt passed swallow test. See recommendations. Continue PT/ OT/ST. Placement being arranged. (5) Acute respiratory failure with hypoxia: Code(s): J96.01 - Acute respiratory failure with hypoxia Status: Acute Assessment and Plan: Patient had an SaO2 of 75% on her chronic 2 L at the [facility]. Chest x-ray showing atelectasis. ABG showing 7.27/38/130. Low pH related to the seizure. Continue to wean O2 as tolerated during the day; continue O2 2L at night. Will continue monitor. (6) Sepsis: Code(s): A41.9 - Sepsis, unspecified organism Status: Acute Assessment and Plan: Present on admission with hypotension, tachycardia, leukocytosis, elevated troponins and acute kidney injury. Suspect related to complicated UTI but consider other etiologies. Blood cultures negative. Urine culture growing EColi. Started on Primaxin but stopped due to seizure risk; no other appropriate abx so started Ertapenem and completed a course. Currently off abx now. UA and UCx repeated for unclear reasons showing candidia felt to be a contaminate. She has a chronic indwelling Moscoso. (7) Encephalopathy: Code(s): G93.40 - Encephalopathy, unspecified Status: Acute Assessment and Plan: Patient with acute encephalopathy. Probably related to sepsis but cannot exclude metabolic given her UTI, renal failure and elevated BUN. Consid
[2020-10-25 13:31] LABS: IFOB Positive Control Positive; Immunochemical Fecal Occult Bl Positive (N)
--- NOTE | 2020-10-25 15:01 | PC.NURSE ---
On 10/25/20, the student, [Judy Aguilar ], provided care and completed [facility] documentation on this patient. I have reviewed the student's documentation and agree with the findings.
[2020-10-26] VITALS (23 sets, daily range): BP systolic 108–132; BP diastolic 43–63; PULSE 73–94; RESP 16–20; TEMP 36.1–36.6; O2SAT 91–100
[2020-10-26 02:34] LABS: Hematocrit 22.8 % (37.0-47.0); Mean Corpuscular HGB Conc 30.7 g/dl (32-36); Mean Corpuscular Hemoglobin 29.7 pg (26-34); Mean Corpuscular Volume 96.6 fl (80-100); Mean Platelet Volume 10.8 fl (7.4-10.4); Platelet Count Result 229 k/mm3 (150-375); Red Blood Count 2.36 M/mm3 (4.2-5.4); Red Cell Distribution Width 16.8 % (11.5-14.5); White Blood Count 10.1 K/mm3 (4.5-10.0)
[2020-10-26] MEDS: ALBUTEROL SULFATE NEB 2.5 MG/0.5 ML INH INHALATION ×4 (02:42→20:34)
[2020-10-26] MEDS: IPRATROPIUM BR 0.02% INH SOLN 0.5 MG/2.5 ML VIAL INHALATION ×4 (02:42→20:34)
[2020-10-26 02:46] LABS: Potassium 5.3 mmol/L (3.4-5.0)
[2020-10-26 03:02] LABS: Albumin Level 3.1 g/dL (3.5-5.1); Anion Gap 6 mmol/L (8-16); Blood Urea Nitrogen 45 mg/dL (7-17); Calcium 7.9 mg/dL (8.4-10.2); Carbon Dioxide 29 mmol/L (22-30); Chloride 103 mmol/L (98-107); Estimated CRCL calculation 18 ml/min; Estimated Glomerular Filt Rate 18; Glucose 91 mg/dL (65-105); Magnesium 1.7 mg/dL (1.6-2.3); Phosphorus 4.3 mg/dL (2.5-4.5); Sodium 138 mmol/L (137-145)
[2020-10-26 05:54] LABS: Hematocrit 22.1 % (37.0-47.0); Mean Corpuscular HGB Conc 30.3 g/dl (32-36); Mean Corpuscular Hemoglobin 29.3 pg (26-34); Mean Corpuscular Volume 96.5 fl (80-100); Mean Platelet Volume 10.7 fl (7.4-10.4); Platelet Count Result 212 k/mm3 (150-375); Red Blood Count 2.29 M/mm3 (4.2-5.4); Red Cell Distribution Width 16.5 % (11.5-14.5); White Blood Count 9.8 K/mm3 (4.5-10.0)
[2020-10-26 05:57] LABS: Hemoglobin 6.7 g/dL (12.0-15.0)
[2020-10-26] MEDS: CENTRAL LINE FLUSH 10 ML IV PUSH ×3 (06:51→22:13)
[2020-10-26] MEDS: LEVOTHYROXINE SODIUM 150 MCG TABLET PO (06:51)
--- NOTE | 2020-10-26 09:46 | PM.CNOR ---
Assessment and Plan Assessment and plan (1) Femur fracture, left: Qualifiers: Encounter type: subsequent encounter Femur location: supracondylar without intracondylar extension <JC Lopez - Last Filed: 10/26/20 10:16> Code(s): S72.92XA - Unspecified fracture of left femur, initial encounter for closed fracture <JC Lopez - Last Filed: 10/26/20 10:16> Status: Acute <JC Lopez - Last Filed: 10/26/20 10:16> (2) Wound infection after surgery: Code(s): T81.49XA - Infection following a procedure, other surgical site, initial encounter <JC Lopez - Last Filed: 10/26/20 10:16> Status: Acute <JC Lopez - Last Filed: 10/26/20 10:16> Assessment and Plan: Patient seen and examined by me. Agree with the above documentation. 80-year-old female with a draining wound of the left thigh. Suffered a supracondylar periprosthetic femur fracture. Initially fixed with minimally invasive long plate covering the entire femur. By report the patient had a second surgery September 14 at [facility] due to failure of fixation. The fracture was re- fixed with a plate and also an intramedullary retrograde nail. She was noted to have drainage from the wound on October 02 while at rehab in [place]. She was seen by the surgeon at [facility] on the . She was started on oral antibiotics. Follow-up was arranged for October 24. However she was admitted here on October 11 for urinary tract infection and dehydration. She had seizure-like activity and was diagnosed with a stroke. She is unable to obtain an MRI due to implanted nerve stimulators in the lumbar spine. Also given 1 unit of blood due to anemia. Her mental status seems to have improved although she was somewhat somnolent today. I had an extensive discussion with the patient and her daughter. The extent of the infection is not clear. The thigh is warm and swollen moderately. Her knee motion is quite good without pain. The limb is moving as a unit. Abundant callus is apparent on x-ray and the fracture may in fact be healed. There is a side plate again encompassing the entire femur as well as a retrograde nail which is locked. Her ability to participate in rehab therapy is a concern. She is responsive today and was able to get into the chair with assistance. I watched her perform some exercises with the therapist. Her daughter is considering whether not she will be able to discharge home with her. I think this will be a challenge as the draining wound will continue to cause some issue and she may likely need further surgery. I recommend she reschedule her appointment at [facility] and follow-up as an outpatient. Management of the infection may require extensive surgical debridement and potentially hardware removal. I discussed the significant risk to life and limb with the patient and her daughter. <Terrance Flaherty MD - Last Filed: 10/26/20 17:25> History of Present Illness HPI Consult date: 10/26/20 <JC Lopez - Last Filed: 10/26/20 10:16> 10/26/20 <Terrance Flaherty MD - Last Filed: 10/26/20 17:25> Requesting physician: Mohinder Rapp MD <JC Lopez - Last Filed: 10/26/20 10:16> Consult reason: other <JC Lopez - Last Filed: 10/26/20 10:16> Chief complaint: UTI, kym, elevated troponin <JC Lopez - Last Filed: 10/26/20 10:16> Narrative: Patient was admitted on 10/12/2020 For altered mental status in UTI with chronic Moscoso. While in the hospital she was found to have new onset seizures. She also has anemia chronic kidney disease, CVID, left cammy pre he lists is, acute on chronic respiratory failure. Patient was have found to have a left femur fracture on June 26. She was transferred to [facility] and had surgery. Patient had a revision surgery on 09/14 2020. patient is a poor
--- NOTE | 2020-10-26 09:57 | PM.IMPN ---
Progress Note: A&P Assessment and Plan (1) Seizure: Code(s): R56.9 - Unspecified convulsions Status: Acute Assessment and Plan: Patient with new onset seizures. She may have had unrecognized seizures on admission. Glucose okay. Head CT 10/14 showing no acute findings. Had a thick left hemiplegia and left facial droop but some improvement every day. Consider CVA causing the seizure and weakness but would also consider Claudy's paralysis from the seizure. Repeat CT head 10/21 again showing no acute process. Can not have MR due to the devices in her abdomen. Pt transitioned to oral keppra. Patient had EEG 10/24 showing abnormal record due to the absence of the normal background rhythm and presence of excessive amount of slow activity even though there is no focal seizure-like phenomena. Continue Keppra. Continue therapy. (2) Anemia associated with stage 3 chronic renal failure: Code(s): N18.3 - Chronic kidney disease, stage 3 (moderate); D63.1 - Anemia in chronic kidney disease Status: Acute Assessment and Plan: Patient with hemoglobin running mostly in the 8-9 range chronically. Appears consistent with anemia of chronic disease probably related to her CKD. Hemoglobin dropped to the 7 range but stable but yesterday, Hgb 6.6. This was drawn out of a line and was 7.2 on repeat (peripheral draw). Stool guaiac positive. Hgb again low this morning at 6.7 and transfusion ordered. Continue to monitor HH. Continue Protonix. Continue to follow. GI consult ordered (3) Femur fracture, left: Code(s): S72.92XA - Unspecified fracture of left femur, initial encounter for closed fracture Status: Acute Assessment and Plan: Patient fell on June 26 and presented to the ED here. X-ray showing acute oblique left distal femoral metadiaphyseal fracture. She was transferred to another facility for surgical repair and had a carmen placed. On follow up, she was found to have the carmen bent so she underwent a 2nd surgery on 09/14. Patient still with nicol in place and wound still draining. Suspect hematoma that is . Called her surgeon from [facility] but no call back. Had ortho here evaluate. Continue PT/OT. Continue to monitor. (4) Left hemiparesis: Code(s): G81.94 - Hemiplegia, unspecified affecting left nondominant side Status: Acute Assessment and Plan: As above. Pt passed swallow test. See recommendations. Continue PT/ OT/ST. Placement being arranged. (5) Acute respiratory failure with hypoxia: Code(s): J96.01 - Acute respiratory failure with hypoxia Status: Acute Assessment and Plan: Patient had an SaO2 of 75% on her chronic 2 L at the skilled nursing. Chest x-ray showing atelectasis. ABG showing 7.27/38/130. Low pH related to the seizure. Continue to wean O2 as tolerated during the day; continue O2 2L at night. Will continue monitor. (6) Sepsis: Code(s): A41.9 - Sepsis, unspecified organism Status: Acute Assessment and Plan: Present on admission with hypotension, tachycardia, leukocytosis, elevated troponins and acute kidney injury. Suspect related to complicated UTI but consider other etiologies. Blood cultures negative. Urine culture growing EColi. Started on Primaxin but stopped due to seizure risk; no other appropriate abx so started Ertapenem and completed a course. Currently off abx now. UA and UCx repeated for unclear reasons showing candidia felt to be a contaminate. She has a chronic indwelling Moscoso. (7) Encephalopathy: Code(s): G93.40 - Encephalopathy, unspecified Status: Acute Assessment and Plan: Patient with acute encephalopathy. Probably related to sepsis but cannot exclude metabolic given her UTI, renal failure and elevated BUN. Consider also lupus cerebritis. Consider also unrecognized seizure that occurred prior to admission. On admission, CT of the
[2020-10-26] MEDS: SODIUM CHLORIDE 0.9% IV 250 ML 30 ML IV CONT (11:15)
[2020-10-26] MEDS: ASCORBIC ACID 500 MG TABLET 1000 MG PO (11:28)
[2020-10-26] MEDS: ASPIRIN 325 MG TABLET PO (11:28)
[2020-10-26] MEDS: LOSARTAN POTASSIUM 50 MG TABLET PO (11:28)
[2020-10-26] MEDS: FUROSEMIDE 40 MG TABLET PO (11:28)
[2020-10-26] MEDS: GABAPENTIN 300 MG CAPSULE PO ×2 (11:28→16:45)
[2020-10-26] MEDS: METOPROLOL SUCCINATE EXT REL 25 MG TABCR PO (11:28)
[2020-10-26] MEDS: levETIRAcetam 500 MG TABLET PO ×2 (11:29→22:10)
[2020-10-26] MEDS: predniSONE 5 MG TABLET PO (11:29)
[2020-10-26] MEDS: HYDROXYCHLOROQUINE SULFATE 200 MG TABLET PO (11:29)
[2020-10-26] MEDS: CYANOCOBALAMIN 1,000 MCG TABLET 1000 MCG PO (11:29)
[2020-10-26] MEDS: VITAMIN E 400 UNIT CAPSULE PO (11:29)
[2020-10-26] MEDS: PANTOPRAZOLE 40 MG TABLET PO ×2 (11:29→16:45)
[2020-10-26] MEDS: FLUTICASONE PROPIONATE 0.05% NA SPR 16 GM BTL (*BKC) 1 SPRAY NASAL (11:30)
--- NOTE | 2020-10-26 14:26 | PCOTNOTE ---
Attempted therapy session with patient, but patient refused stating she didn't feel up to it right now and to check back tomorrow.
--- NOTE | 2020-10-26 15:43 | WPDGICN ---
Assessment and Plan Assessment and plan (1) Acute on chronic blood loss anemia: Code(s): D62 - Acute posthemorrhagic anemia Status: Acute Assessment and Plan: chronic anemia but recently hb dropped and required blood transfusion, also positive blood in stools primary team asking to evaluate will do EGD tomorrow to assess if upper gi loss, I won't do colonoscopy (had one about 5-6 years ago when evaluated by Dr Muñiz because chronic anemia) (2) Occult blood in stools: Code(s): R19.5 - Other fecal abnormalities Status: Acute Assessment and Plan: assess with egd, ? perianal (3) Seizure: Code(s): R56.9 - Unspecified convulsions Status: Acute Assessment and Plan: neurology on board (4) Femur fracture, left: Code(s): S72.92XA - Unspecified fracture of left femur, initial encounter for closed fracture Status: Acute Assessment and Plan: reevaluated by orthopedics (5) Left hemiparesis: Code(s): G81.94 - Hemiplegia, unspecified affecting left nondominant side Status: Acute (6) Encephalopathy: Code(s): G93.40 - Encephalopathy, unspecified Status: Acute Assessment and Plan: confused (7) Acute UTI: Code(s): N39.0 - Urinary tract infection, site not specified Status: Acute Assessment and Plan: received antibiotic (8) Common variable immunodeficiency, unspecified: Code(s): D83.9 - Common variable immunodeficiency, unspecified Status: Acute (9) Chronic respiratory failure with hypoxia, on home O2 therapy: Code(s): J96.11 - Chronic respiratory failure with hypoxia; Z99.81 - Dependence on supplemental oxygen Status: Acute (10) CKD (chronic kidney disease): Qualifiers: Chronic kidney disease stage: stage 3 (moderate) Qualified Code(s): N18.3 - Chronic kidney disease, stage 3 (moderate) Code(s): N18.9 - Chronic kidney disease, unspecified Status: Chronic (11) ALEX (obstructive sleep apnea): Code(s): G47.33 - Obstructive sleep apnea (adult) (pediatric) Status: Acute GI Consult Note Consult date/time: 10/26/20 15:43 Reason for consult: fobt +, acute on chronic blood loss anemia HPI: Kellee Arora is a 80 year old female with CKD, recent hip fracture surgery, CVID requiring Hizantra, ALEX, chronic anemia (hb 8-10) actually evaluated by Dr Muñiz in 2015 with colonoscopy, also chronic respiratory failure who was admitted about 2 weeks ago brought in by EMS from [facility] for altered mental status and had several issues during this hospitalization. She had a seizure then developed left hemiplegia, urine retention requiring chronic Moscoso and treated for UTI. Recently more anemic wiht hb 6.6, FOBT positive and hospitalist asking to evaluate patient. She is poor historian, RN did not report obvious GIB Review of Systems Constitutional: Constitutional: Reports weakness Eyes: Eyes: Reports no additional eye complaints ENT: Reports system reviewed and no additional complaints, except as documented Cardiovascular: Cardiovascular: Reports no additional cardiovascular complaints Respiratory: Respiratory: Reports dyspnea on exertion Gastrointestinal: Gastrointestinal: Denies abdominal pain Genitourinary: Genitourinary: Reports dysuria Musculoskeletal: Musculoskeletal: Reports no additional musculoskeletal complaints Integumentary/Breasts: Skin/Breast: Denies dry skin Neurologic: Reports confusion Psychiatric: Psychiatric: Reports anxiety PMFSH Past Medical History Medical History Anemia Arthritis Bronchitis Chronic respiratory failure with hypoxia, on home O2 therapy Home O2 at 2L CKD (chronic kidney disease) Common variable immunodeficiency, unspecified COPD (chronic obstructive pulmonary disease) CPAP (continuous positive airway pressure) dependence DDD (degenerative disc disease)
[2020-10-26 16:32] LABS: Hematocrit 27.1 % (37.0-47.0); Hemoglobin 8.4 g/dL (12.0-15.0)
[2020-10-26 16:40] LABS: Potassium 5.9 mmol/L (3.4-5.0)
[2020-10-26 17:59] LABS: Hematocrit 29.6 % (37.0-47.0); Hemoglobin 9.1 g/dL (12.0-15.0)
[2020-10-27] VITALS (14 sets, daily range): BP systolic 122–138; BP diastolic 50–82; PULSE 66–85; RESP 18–20; TEMP 35.8–36.6; O2SAT 93–100
--- NOTE | 2020-10-27 00:29 | PC.NURSE ---
Addendum entered by Yony Hope RN 10/27/20 04:27: Catheter patent/draining. Will not change at this time. Latex free catheter tip at bedside. Original Note: Pt found to have occluded morris catheter. Pt complains of bladder fullness and distention is palpable. Catheter was irrigated w/ normal saline and is patent/draining. Catheter will be changed when latex free catheter is delivered to floor.
[2020-10-27 01:15] LABS: Hematocrit 25.4 % (37.0-47.0); Hemoglobin 7.8 g/dL (12.0-15.0)
[2020-10-27] MEDS: ALBUTEROL SULFATE NEB 2.5 MG/0.5 ML INH INHALATION ×4 (01:51→20:52)
[2020-10-27] MEDS: IPRATROPIUM BR 0.02% INH SOLN 0.5 MG/2.5 ML VIAL INHALATION ×4 (01:51→20:52)
[2020-10-27 05:37] LABS: Hematocrit 25.1 % (37.0-47.0); Hemoglobin 7.6 g/dL (12.0-15.0); Mean Corpuscular HGB Conc 30.3 g/dl (32-36); Mean Corpuscular Hemoglobin 28.7 pg (26-34); Mean Corpuscular Volume 94.7 fl (80-100); Mean Platelet Volume 10.3 fl (7.4-10.4); Platelet Count Result 238 k/mm3 (150-375); Red Blood Count 2.65 M/mm3 (4.2-5.4); Red Cell Distribution Width 16.2 % (11.5-14.5); White Blood Count 11.1 K/mm3 (4.5-10.0)
[2020-10-27 06:08] LABS: Magnesium 1.6 mg/dL (1.6-2.3)
[2020-10-27] MEDS: LEVOTHYROXINE SODIUM 150 MCG TABLET PO (06:41)
[2020-10-27] MEDS: CENTRAL LINE FLUSH 10 ML IV PUSH ×3 (06:41→20:27)
[2020-10-27 06:42] LABS: Albumin Level 2.8 g/dL (3.5-5.1); Anion Gap 5 mmol/L (8-16); Blood Urea Nitrogen 50 mg/dL (7-17); Calcium 7.9 mg/dL (8.4-10.2); Carbon Dioxide 29 mmol/L (22-30); Chloride 104 mmol/L (98-107); Estimated CRCL calculation 13 ml/min; Estimated Glomerular Filt Rate 17; Glucose 81 mg/dL (65-105); Potassium 5.1 mmol/L (3.4-5.0); Sodium 138 mmol/L (137-145)
[2020-10-27] MEDS: FLUTICASONE PROPIONATE 0.05% NA SPR 16 GM BTL (*BKC) 1 SPRAY NASAL (10:11)
[2020-10-27] MEDS: GABAPENTIN 300 MG CAPSULE PO ×2 (10:53→17:03)
[2020-10-27] MEDS: PANTOPRAZOLE 40 MG TABLET PO ×2 (10:55→17:03)
[2020-10-27] MEDS: METOPROLOL SUCCINATE EXT REL 25 MG TABCR PO (10:56)
[2020-10-27] MEDS: predniSONE 5 MG TABLET PO (10:56)
[2020-10-27] MEDS: ASPIRIN 325 MG TABLET PO (10:57)
[2020-10-27] MEDS: LOSARTAN POTASSIUM 50 MG TABLET PO (10:57)
[2020-10-27] MEDS: VITAMIN E 400 UNIT CAPSULE PO (10:58)
[2020-10-27] MEDS: levETIRAcetam 500 MG TABLET PO ×2 (10:58→20:26)
[2020-10-27] MEDS: HYDROXYCHLOROQUINE SULFATE 200 MG TABLET PO (10:59)
[2020-10-27] MEDS: ASCORBIC ACID 500 MG TABLET 1000 MG PO (11:00)
[2020-10-27] MEDS: CYANOCOBALAMIN 1,000 MCG TABLET 1000 MCG PO (11:02)
[2020-10-27] MEDS: FUROSEMIDE 40 MG TABLET PO (11:04)
--- NOTE | 2020-10-27 14:00 | PC.NURSE ---
On 10/27/20, the student, [Karel Ellis ], provided care and completed [facility] documentation on this patient. I have reviewed the student's documentation and agree with the findings.
--- NOTE | 2020-10-27 14:56 | PM.IMPN ---
Progress Note: A&P Assessment and Plan (1) Seizure: Code(s): R56.9 - Unspecified convulsions Status: Acute Assessment and Plan: Patient with new onset seizures. She may have had unrecognized seizures on admission. Glucose okay. Head CT 10/14 showing no acute findings. Had a thick left hemiplegia and left facial droop but some improvement every day. Consider CVA causing the seizure and weakness but would also consider Claudy's paralysis from the seizure. Repeat CT head 10/21 again showing no acute process. Can not have MR due to the devices in her abdomen. Pt transitioned to oral keppra. Patient had EEG 10/24 showing abnormal record due to the absence of the normal background rhythm and presence of excessive amount of slow activity even though there is no focal seizure-like phenomena. Neurology following. Continue Keppra. Continue therapy. (2) Anemia associated with stage 3 chronic renal failure: Code(s): N18.3 - Chronic kidney disease, stage 3 (moderate); D63.1 - Anemia in chronic kidney disease Status: Acute Assessment and Plan: Patient with hemoglobin running mostly in the 8-9 range chronically. Appears consistent with anemia of chronic disease probably related to her CKD. Hemoglobin dropped to the 7 range and stable until 10/25 when Hgb dropped to 6.6. This was drawn out of her port and was 7.2 on repeat (peripheral draw). Stool guaiac positive. Hgb dropped to 6.7 yesterday and she received 1U PRBC. Hgb 7.6 today. GI consulted with plans for EGD today but family refused. Updated son in the room with patient permission. He was unaware of the guaiac positive stools. He called the patient's dtr and she was unaware of the guaiac positive stools and asked if that could be from the patient's hemorrhoids (and she was told that is possible). The patient had been informed yesterday about this finding but no family in the room at that time. Family now wanting the EGD. Spoke with [employer] who stated the insurance authorization is good until Friday. Continue Protonix. Continue to follow. Appreciate GI input. (3) Femur fracture, left: Qualifiers: Encounter type: subsequent encounter Femur location: supracondylar without intracondylar extension Code(s): S72.92XA - Unspecified fracture of left femur, initial encounter for closed fracture Status: Acute Assessment and Plan: Patient fell on June 26 and presented to the ED here. X-ray showing acute oblique left distal femoral metadiaphyseal fracture. She was transferred to another facility for surgical repair and had a carmen placed. On follow up, she was found to have the carmen bent so she underwent a 2nd surgery on 09/14. Patient still with nicol in place and wound still draining so ortho consulted. Discussed with ortho who was concerned that the wound was infected given the persistent drainage. Son was unaware of this as well but I believe the dtr was informed by ortho. Ortho recommended patient follow up with the patient's surgeon as soon as possible to have this evaluated and may require surgery to remove hardware. Some of the nicol removed. Called her surgeon from [place] the other day but no call back. Continue PT/OT. Continue to monitor. (4) Left hemiparesis: Code(s): G81.94 - Hemiplegia, unspecified affecting left nondominant side Status: Acute Assessment and Plan: As above. Pt passed swallow test. See recommendations. Continue PT/ OT/ST. Placement being arranged. (5) Acute respiratory failure with hypoxia: Code(s): J96.01 - Acute respiratory failure with hypoxia Status: Acute Assessment and Plan: Patient had an SaO2 of 75% on her chronic 2 L at the [facility]. Chest x-ray showing atelectasis. ABG showing 7.27/38/130. Low pH related to the seizure. Continue to wean O2 as tolerated during the day; continue O2 2L at night. Will continue monitor. (
--- NOTE | 2020-10-27 15:17 | PCPTNOTE ---
The PT treatment was unable to be completed today. Will continue per Plan of Care frequency and duration.
--- NOTE | 2020-10-27 17:21 | WPDGIPROGNO ---
Progress Note: A&P Assessment and Plan (1) Occult blood in stools: Code(s): R19.5 - Other fecal abnormalities Status: Acute Assessment and Plan: continue medical treatment with protonix JOSE did not want EGD, if she changes her mind then she can see us in office as outpatient please call us if questions (2) Acute on chronic blood loss anemia: Code(s): D62 - Acute posthemorrhagic anemia Status: Acute Assessment and Plan: chronic anemia and multifactorial (3) Seizure: Code(s): R56.9 - Unspecified convulsions Status: Acute (4) Encephalopathy: Code(s): G93.40 - Encephalopathy, unspecified Status: Acute (5) Chronic respiratory failure with hypoxia, on home O2 therapy: Code(s): J96.11 - Chronic respiratory failure with hypoxia; Z99.81 - Dependence on supplemental oxygen Status: Acute Assessment and Plan: stable (6) Common variable immunodeficiency, unspecified: Code(s): D83.9 - Common variable immunodeficiency, unspecified Status: Acute (7) Wound infection after surgery: Code(s): T81.49XA - Infection following a procedure, other surgical site, initial encounter Status: Acute Subjective Date/time seen: 10/27/20 17:21 Interval history: I was going to do EGD today but JOSE did not want to, RN does not report obvious GIB Review of Systems Review of Systems: All systems reviewed & are unremarkable except as noted in HPI and below Exam Const: General: no acute distress and ill appearing chronically Orientation/consciousness: oriented to person and confusion HENMT: General nose exam: Normal nares present Eyes: Sclera: sclerae normal Neck: Neck: supple Resp: Auscultation: diminished lung sounds Cardio: Rate: regular rate GI: Inspection: non-distended GI Palp: Yes Soft to palpation Auscultation: normal bowel sounds Urinary Catheter: Urinary Catheter: patent and draining Skin: General skin exam: normal color Neuro: Speech: normal speech Extrem: Other: few bruises Psych: Affect: Anxious affect present Objective Data Vital Signs Vital Signs: Vital Signs - 24 hr 10/26/20 18:00 10/26/20 20:37 10/26/20 20:38 Temperature 97.4 F L Pulse Rate 85 83 Respiratory Rate 16 16 Blood Pressure 115/52 L Pulse Oximetry 100 97 10/26/20 20:49 10/26/20 21:45 10/26/20 22:00 Temperature 97.6 F Pulse Rate 87 87 Respiratory Rate 18 20 Blood Pressure 121/63 Pulse Oximetry 97 97 10/27/20 01:47 10/27/20 01:53 10/27/20 02:03 Temperature 97.8 F Pulse Rate 82 82 85 Respiratory Rate 20 18 18 Blood Pressure 138/82 Pulse Oximetry 99 10/27/20 06:00 10/27/20 09:10 10/27/20 09:11 Temperature 97.6 F 96.5 F L Pulse Rate 66 72 77 Respiratory Rate 20 18 18 Blood Pressure 129/61 132/62 Pulse Oximetry 93 95 99 10/27/20 09:19 10/27/20 11:12 10/27/20 13:59 Temperature 96.6 F L Pulse Rate 76 80 73 Respiratory Rate 18 18 20 Blood Pressure 122/50 L Pulse Oximetry 99 10/27/20 14:12 Temperature Pulse Rate 77 Respiratory Rate 20 Blood Pressure Pulse Oximetry Intake/Output Intake/Output: Intake & Output 10/24/20 10/25/20 10/26/20 10/27/20 23:59 23:59 23:59 23:59 Intake Total 730 1240 1010 240 Output Total 1050 4019 019 4850 Balance -320 39 410 -1060 Meds/Results Medications: Active Medications Generic Name Dose Route Start Last Admin Trade Name Freq PRN Reason Stop Dose Admin Acetaminophen 650 mg 10/20/20 21:24 10/24/20 11:02 Acetaminophen 325 Mg Tablet PO 650 mg Q4H PRN Administration Pain Albuterol 2 puff 10/12/20 10:08 Albuterol Sulfate (*Sp) Aerosol 1 Puff INHALATION QID PRN shortness of breath or wheezing Albuterol 2.5 mg 10/27/20 14:00 10/27/20 14:03 Albuterol Sulfate Neb 2.5 Mg/0.5 Ml Inh INHALATION 2.5 mg [id number] JACK Administration Ascorbic Acid 1,000 mg 10/21/20 09:00 10/27/20 11:00 Ascorb
[2020-10-27 19:22] LABS: SARS-CoV-2 RNA PCR Negative
[2020-10-28] VITALS (14 sets, daily range): BP systolic 110–154; BP diastolic 51–77; PULSE 61–114; RESP 16–20; TEMP 36.2–36.7; O2SAT 92–100
[2020-10-28] MEDS: CENTRAL LINE FLUSH 10 ML IV PUSH ×3 (06:21→21:07)
[2020-10-28] MEDS: LEVOTHYROXINE SODIUM 150 MCG TABLET PO (06:21)
[2020-10-28 07:05] LABS: Hematocrit 26.1 % (37.0-47.0); Hemoglobin 7.9 g/dL (12.0-15.0); Mean Corpuscular HGB Conc 30.3 g/dl (32-36); Mean Corpuscular Hemoglobin 29.2 pg (26-34); Mean Corpuscular Volume 96.3 fl (80-100); Mean Platelet Volume 10.5 fl (7.4-10.4); Platelet Count Result 285 k/mm3 (150-375); Red Blood Count 2.71 M/mm3 (4.2-5.4); Red Cell Distribution Width 16.4 % (11.5-14.5); White Blood Count 10.9 K/mm3 (4.5-10.0)
[2020-10-28 07:12] LABS: Albumin Level 3.2 g/dL (3.5-5.1); Anion Gap 7 mmol/L (8-16); Blood Urea Nitrogen 49 mg/dL (7-17); Calcium 8.2 mg/dL (8.4-10.2); Carbon Dioxide 30 mmol/L (22-30); Chloride 100 mmol/L (98-107); Estimated CRCL calculation 13 ml/min; Estimated Glomerular Filt Rate 17; Glucose 85 mg/dL (65-105); Magnesium 1.6 mg/dL (1.6-2.3); Phosphorus 4.6 mg/dL (2.5-4.5); Potassium 5.1 mmol/L (3.4-5.0); Sodium 137 mmol/L (137-145)
[2020-10-28] MEDS: IPRATROPIUM BR 0.02% INH SOLN 0.5 MG/2.5 ML VIAL INHALATION ×3 (07:51→20:51)
[2020-10-28] MEDS: ALBUTEROL SULFATE NEB 2.5 MG/0.5 ML INH INHALATION ×3 (07:52→20:51)
[2020-10-28] MEDS: ASPIRIN 325 MG TABLET PO (08:41)
[2020-10-28] MEDS: VITAMIN E 400 UNIT CAPSULE PO (08:41)
[2020-10-28] MEDS: PANTOPRAZOLE 40 MG TABLET PO ×2 (08:41→17:18)
[2020-10-28] MEDS: HYDROXYCHLOROQUINE SULFATE 200 MG TABLET PO (08:41)
[2020-10-28] MEDS: levETIRAcetam 500 MG TABLET PO ×2 (08:41→21:07)
[2020-10-28] MEDS: predniSONE 5 MG TABLET PO (08:41)
[2020-10-28] MEDS: FLUTICASONE PROPIONATE 0.05% NA SPR 16 GM BTL (*BKC) 1 SPRAY NASAL (08:42)
[2020-10-28] MEDS: METOPROLOL SUCCINATE EXT REL 25 MG TABCR PO (08:42)
[2020-10-28] MEDS: GABAPENTIN 300 MG CAPSULE PO ×2 (08:42→17:18)
[2020-10-28] MEDS: CYANOCOBALAMIN 1,000 MCG TABLET 1000 MCG PO (08:42)
[2020-10-28] MEDS: FUROSEMIDE 20 MG TABLET PO (08:42)
[2020-10-28] MEDS: ASCORBIC ACID 500 MG TABLET 1000 MG PO (08:42)
--- NOTE | 2020-10-28 10:01 | PM.IMPN ---
Progress Note: A&P Assessment and Plan (1) Abdominal pain: Code(s): R10.9 - Unspecified abdominal pain Status: Acute Assessment and Plan: Patietn with abdominal pain and distention. Concern for urine retention from clogged Moscoso. Will flush to see if this improves her symptoms. Consider Obstructive series if Moscoso draining normally. (2) Anemia associated with stage 3 chronic renal failure: Code(s): N18.3 - Chronic kidney disease, stage 3 (moderate); D63.1 - Anemia in chronic kidney disease Status: Acute Assessment and Plan: Patient with hemoglobin running mostly in the 8-9 range chronically. Appears consistent with anemia of chronic disease probably related to her CKD. Hemoglobin dropped to the 7 range and stable until 10/25 when Hgb dropped to 6.6. This was drawn out of her port and was 7.2 on repeat (peripheral draw). Stool guaiac positive. Hgb dropped to 6.7 on 10/26 and she received 1U PRBC. Hgb 7.9 today and stable. GI consulted with plans for EGD on 10/27 but family refused. Family was unaware of the guaiac positive stools. They asked if this could be from the patient's hemorrhoids (and she was told that is possible). Family now wanting the EGD. Spoke with [employer] who stated the insurance authorization is good until Friday. Continue Protonix. Continue to follow. Appreciate GI input. Anticipate EGD on Friday. (3) Seizure: Code(s): R56.9 - Unspecified convulsions Status: Acute Assessment and Plan: Patient with new onset seizures. She may have had unrecognized seizures on admission. Glucose was okay. Head CT 10/14 showed no acute findings. Had a thick left hemiplegia and left facial droop but some improvement every day. We considered CVA causing the seizure and weakness but would also consider Claudy's paralysis from the seizure. Repeat CT head 10/21 again showing no acute process. Can not have MR due to the devices in her abdomen. Pt transitioned to oral Keppra. Patient had EEG 10/24 showed abnormal record due to the absence of the normal background rhythm and presence of excessive amount of slow activity even though there is no focal seizure-like phenomena. Neurology following. Continue Keppra. Continue therapy. (4) Femur fracture, left: Qualifiers: Encounter type: subsequent encounter Femur location: supracondylar without intracondylar extension Code(s): S72.92XA - Unspecified fracture of left femur, initial encounter for closed fracture Status: Acute Assessment and Plan: Patient fell on 06/26/20 and presented to the ED here. X-ray showing acute oblique left distal femoral metadiaphyseal fracture. She was transferred to another facility for surgical repair and had a carmen placed. On follow up, she was found to have the carmen bent so she underwent a 2nd surgery on 09/14/20. Patient presented here still with nicol in place and wound still draining so ortho consulted. Discussed with ortho who was concerned that the wound was infected given the persistent drainage. Ortho recommended patient follow up with the patient's surgeon as soon as possible to have this re-evaluated and may require surgery to remove hardware. Some of the nicol removed. Called her surgeon from [place] the other day but no call back. Continue PT/OT. Continue to monitor. (5) Left hemiparesis: Code(s): G81.94 - Hemiplegia, unspecified affecting left nondominant side Status: Acute Assessment and Plan: As above. Pt passed swallow test. See recommendations. Continue PT/ OT/ST. Placement being arranged. (6) Acute respiratory failure with hypoxia: Code(s): J96.01 - Acute respiratory failure with hypoxia Status: Acute Assessment and Plan: Patient had an SpO2 of 75% on her chronic [facility] L [facility] the [facility]. Chest x-ray showing atelectasis. ABG showing 7.27/38/130. Low pH related to the seizure. Continue to wean O2
[2020-10-29] VITALS (15 sets, daily range): BP systolic 122–152; BP diastolic 51–74; PULSE 72–90; RESP 16–20; TEMP 36.4–36.8; O2SAT 93–100
[2020-10-29 06:09] LABS: Hematocrit 25.3 % (37.0-47.0); Hemoglobin 7.7 g/dL (12.0-15.0); Mean Corpuscular HGB Conc 30.4 g/dl (32-36); Mean Corpuscular Hemoglobin 29.1 pg (26-34); Mean Corpuscular Volume 95.5 fl (80-100); Mean Platelet Volume 10.4 fl (7.4-10.4); Platelet Count Result 304 k/mm3 (150-375); Red Blood Count 2.65 M/mm3 (4.2-5.4); Red Cell Distribution Width 15.9 % (11.5-14.5); White Blood Count 9.3 K/mm3 (4.5-10.0)
[2020-10-29] MEDS: LEVOTHYROXINE SODIUM 150 MCG TABLET PO (06:22)
[2020-10-29 06:24] LABS: Albumin Level 3.2 g/dL (3.5-5.1); Anion Gap 7 mmol/L (8-16); Blood Urea Nitrogen 46 mg/dL (7-17); Calcium 8.1 mg/dL (8.4-10.2); Carbon Dioxide 29 mmol/L (22-30); Chloride 100 mmol/L (98-107); Estimated CRCL calculation 13 ml/min; Estimated Glomerular Filt Rate 16; Glucose 92 mg/dL (65-105); Phosphorus 4.8 mg/dL (2.5-4.5); Potassium 4.8 mmol/L (3.4-5.0); Sodium 136 mmol/L (137-145)
[2020-10-29] MEDS: CENTRAL LINE FLUSH 10 ML IV PUSH ×3 (06:24→22:28)
[2020-10-29] MEDS: IPRATROPIUM BR 0.02% INH SOLN 0.5 MG/2.5 ML VIAL INHALATION ×3 (08:57→20:02)
[2020-10-29] MEDS: ALBUTEROL SULFATE NEB 2.5 MG/0.5 ML INH INHALATION ×3 (08:57→20:02)
[2020-10-29] MEDS: ASCORBIC ACID 500 MG TABLET 1000 MG PO (09:58)
[2020-10-29] MEDS: predniSONE 5 MG TABLET PO (09:58)
[2020-10-29] MEDS: GABAPENTIN 300 MG CAPSULE PO ×2 (09:58→18:09)
[2020-10-29] MEDS: ASPIRIN 81 MG CHEWABLE TABLET PO (09:58)
[2020-10-29] MEDS: PANTOPRAZOLE 40 MG TABLET PO ×2 (09:58→18:09)
[2020-10-29] MEDS: HYDROXYCHLOROQUINE SULFATE 200 MG TABLET PO (09:59)
[2020-10-29] MEDS: CYANOCOBALAMIN 1,000 MCG TABLET 1000 MCG PO (09:59)
[2020-10-29] MEDS: METOPROLOL SUCCINATE EXT REL 25 MG TABCR PO (09:59)
[2020-10-29] MEDS: FUROSEMIDE 20 MG TABLET PO (09:59)
[2020-10-29] MEDS: VITAMIN E 400 UNIT CAPSULE PO (09:59)
[2020-10-29] MEDS: levETIRAcetam 500 MG TABLET PO ×2 (09:59→20:28)
[2020-10-29] MEDS: FLUTICASONE PROPIONATE 0.05% NA SPR 16 GM BTL (*BKC) 1 SPRAY NASAL (10:00)
--- NOTE | 2020-10-29 14:48 | PM.IMPN ---
Progress Note: A&P Assessment and Plan (1) Abdominal pain: Code(s): R10.9 - Unspecified abdominal pain Status: Acute Assessment and Plan: Patietn with abdominal pain and distention yesterday. Concern for urine retention from clogged Moscoso so catheter was flushed. Patient had over 1L return. Continue to monitor frequently. (2) Anemia associated with stage 3 chronic renal failure: Code(s): N18.3 - Chronic kidney disease, stage 3 (moderate); D63.1 - Anemia in chronic kidney disease Status: Acute Assessment and Plan: Patient with hemoglobin running mostly in the 8-9 range chronically. Appears consistent with anemia of chronic disease probably related to her CKD. Hemoglobin dropped to the 7 range and stable until 10/25 when Hgb dropped to 6.6. This was drawn out of her port and was 7.2 on repeat (peripheral draw). Stool guaiac positive. Hgb dropped to 6.7 on 10/26 and she received 1U PRBC. Hgb 7.7 today and stable. GI consulted with plans for EGD on 10/27 but family refused. Family was unaware of the guaiac positive stools. They asked if this could be from the patient's hemorrhoids (and they were told that is possible). Family now wanting the EGD. Spoke with [employer] who stated the insurance authorization is good until Friday. Continue Protonix. Continue to follow. Appreciate GI input. Anticipate EGD on Friday. (3) Seizure: Code(s): R56.9 - Unspecified convulsions Status: Acute Assessment and Plan: Patient with new onset seizures. She may have had unrecognized seizures on admission. Glucose was okay. Head CT 10/14 showed no acute findings. Had a thick left hemiplegia and left facial droop but some improvement every day. We considered CVA causing the seizure and weakness but would also consider Claudy's paralysis from the seizure. Repeat CT head 10/21 again showing no acute process. Can not have MR due to the devices in her abdomen. Pt transitioned to oral Keppra. Patient had EEG 10/24 showed abnormal record due to the absence of the normal background rhythm and presence of excessive amount of slow activity even though there is no focal seizure-like phenomena. Neurology following. Continue Keppra. Continue therapy. (4) Femur fracture, left: Qualifiers: Encounter type: subsequent encounter Femur location: supracondylar without intracondylar extension Code(s): S72.92XA - Unspecified fracture of left femur, initial encounter for closed fracture Status: Acute Assessment and Plan: Patient fell on 06/26/20 and presented to the ED here. X-ray showing acute oblique left distal femoral metadiaphyseal fracture. She was transferred to another facility for surgical repair and had a carmen placed. On follow up, she was found to have the carmen bent so she underwent a 2nd surgery on 09/14/20. Patient presented here still with nicol in place and wound still draining so ortho consulted. Discussed with ortho who was concerned that the wound was infected given the persistent drainage. Ortho recommended patient follow up with the patient's surgeon as soon as possible to have this re-evaluated and may require surgery to remove hardware. Some of the nicol removed. Called her surgeon from [place] the other day but no call back. Continue PT/OT. Continue to monitor. (5) Left hemiparesis: Code(s): G81.94 - Hemiplegia, unspecified affecting left nondominant side Status: Acute Assessment and Plan: As above. Pt passed swallow test. See recommendations. Continue PT/ OT/ST. Placement being arranged. (6) Acute respiratory failure with hypoxia: Code(s): J96.01 - Acute respiratory failure with hypoxia Status: Acute Assessment and Plan: Patient had an SpO2 of 75% on her chronic 2 L at the skilled nursing. Chest x-ray on admission showing atelectasis. ABG showing 7.27/38/130. Low pH related to the seizure. Continue to wea
[2020-10-30] VITALS (9 sets, daily range): BP systolic 116–151; BP diastolic 58–69; PULSE 68–78; RESP 16–20; TEMP 36.6–36.7; O2SAT 92–100
[2020-10-30] MEDS: CENTRAL LINE FLUSH 10 ML IV PUSH ×2 (05:19→13:30)
[2020-10-30 05:34] LABS: Hematocrit 25.2 % (37.0-47.0); Hemoglobin 7.8 g/dL (12.0-15.0); Mean Corpuscular Hemoglobin 29.8 pg (26-34); Mean Corpuscular Volume 96.2 fl (80-100); Platelet Count Result 295 k/mm3 (150-375); Red Blood Count 2.62 M/mm3 (4.2-5.4); Red Cell Distribution Width 16.1 % (11.5-14.5); White Blood Count 9.2 K/mm3 (4.5-10.0)
[2020-10-30 05:47] LABS: Anion Gap 5 mmol/L (8-16); Blood Urea Nitrogen 47 mg/dL (7-17); Calcium 8.2 mg/dL (8.4-10.2); Carbon Dioxide 29 mmol/L (22-30); Chloride 101 mmol/L (98-107); Estimated CRCL calculation 13 ml/min; Estimated Glomerular Filt Rate 16; Glucose 81 mg/dL (65-105); Magnesium 1.7 mg/dL (1.6-2.3); Potassium 4.9 mmol/L (3.4-5.0); Sodium 135 mmol/L (137-145)
--- NOTE | 2020-10-30 08:21 | PC.NURSE ---
pt to GI lab via maria teresa
[2020-10-30] MEDS: LACTATED RINGERS 1,000 ML 150 ML IV CONT (08:32)
--- NOTE | 2020-10-30 08:43 | WPDANESEPPF ---
Anes - Initial Pre Proc Eval Procedure: Operation Date: 10/27/20 15:00 Proposed Procedures p Esophagogastroduodenoscopy - Markie Pruett MD Operation Date: 10/30/20 12:15 Proposed Procedures p Esophagogastroduodenoscopy - Markie Pruett MD Date/Time: 10/30/20 08:43 Surgeon: Carlos Rapp MD Pre Op Diagnosis: UTI, kym, elevated troponin Patient Data Age: 80 Gender: F Height: 5 ft 4 in Weight: 70.7 kg Last Vital Signs Temp 98 F 10/30/20 08:34 Pulse 76 10/30/20 08:34 Resp 18 10/30/20 08:34 BP 151/69 H 10/30/20 08:34 Pulse Ox 96 10/30/20 08:34 Allergies Allergy/AdvReac Type Severity Reaction Status Date / Time cefepime Allergy Intermediate Unknown Verified 10/30/20 08:32 latex Allergy Unknown Rash Verified 10/30/20 08:32 levofloxacin Allergy Unknown Swelling Verified 10/30/20 08:32 Penicillins Allergy Unknown Swelling Verified 10/30/20 08:32 pregabalin Allergy Unknown Unknown Verified 10/30/20 08:32 Quinolones Allergy Unknown Unknown Verified 10/30/20 08:32 Sulfa (Sulfonamide Allergy Unknown Itching Verified 10/30/20 08:32 Antibiotics) Home Medications Medication Instructions Recorded Confirmed Type alendronate 70 mg PO WEEKLY 05/10/19 10/12/20 History ascorbic acid (vitamin C) 1,000 mg PO DAILY 05/10/19 10/12/20 History cyanocobalamin (vitamin B-12) 1,000 mcg PO DAILY 05/10/19 10/12/20 History furosemide [Lasix] 40 mg PO DAILY 05/10/19 10/12/20 History gabapentin 300 mg PO BID 05/10/19 10/12/20 History hydralazine 10 mg PO DAILY 05/10/19 10/12/20 History hydrochlorothiazide 25 mg PO DAILY 05/10/19 10/12/20 History hydroxychloroquine 200 mg PO DAILY 05/10/19 10/12/20 History levothyroxine 150 mcg PO DAILY 05/10/19 10/12/20 History losartan 50 mg PO DAILY 05/10/19 10/12/20 History metoprolol succinate 25 mg PO DAILY 05/10/19 10/12/20 History pantoprazole 40 mg PO BID 05/10/19 10/12/20 History fluticasone propionate 50 1 spray NASAL DAILY #18.2 ml 02/28/20 10/12/20 Rx mcg/actuation nasal spray,suspension albuterol sulfate 90 mcg/actuation 2 puff INHALATION QID PRN #8.5 gm 08/30/20 10/12/20 Rx aerosol inhaler fluticasone furoate 100 1 inh INHALATION Q24H #30 ea 08/30/20 10/12/20 Rx mcg/actuation blister powder for inhalation cholecalciferol (vitamin D3) 25 mcg PO DAILY 10/12/20 10/12/20 History [Vitamin D3] ferrous sulfate 45 mg PO DAILY 10/12/20 10/12/20 History ferrous sulfate 90 mg PO HS 10/12/20 10/12/20 History hydralazine 20 mg PO HS 10/12/20 10/12/20 History potassium 99 mg PO DAILY 10/12/20 10/12/20 History prednisone 5 mg PO DAILY 10/12/20 10/12/20 History vitamin E 400 unit PO DAILY 10/12/20 10/12/20 History Laboratory Tests 10/30/20 10/30/20 05:08 05:08 WBC 9.2 K/mm3 K/mm3 (4.5-10.0) RBC 2.62 M/mm3 L M/mm3 (4.2-5.4) Hgb 7.8 g/dL L g/dL (12.0-15.0) Hct 25.2 % L % (37.0-47.0) MCV 96.2 fl fl (80-100) MCH 29.8 pg pg (26-34) MCHC 31.0 g/dl L g/dl (32-36) RDW 16.1 % H % (11.5-14.5) Plt Count 295 k/mm3 k/mm3 (150-375) MPV 10.0 fl fl (7.4-10.4) Sodium 135 mmol/L L mmol/L (137-145) Potassium 4.9 mmol/L mmol/L (3.4-5.0) Chloride 101 mmol/L mmol/L (98-107) Carbon Dioxide 29 mmol/L mmol/L (22-30) Anion Gap 5 mmol/L L mmol/L (8-16) BUN 47 mg/dL H mg/dL (7-17) Creatinine 2.80 mg/dL H mg/dL (0.7-1.0) Estim Creat Clear Calc 13 ml/min ml/min Estimated GFR 16 L (59 - ) Glucose 81 mg/dL mg/dL (65-105) Calcium 8.2 mg/dL L mg/dL (8.4-10.2) Phosphorus 5.0 mg/dL H mg/dL (2.5-4.5) Magnesium 1.7 mg/dL mg/dL (1.6-2.3) Albumin 3.0 g/dL L g/dL (3.5-5.1) Patient hx anesthesia problems: none Family hx anesthesia problems: none [facility] Past Medical History Medical History (Updated 10/28/20 @ 10:07 by Mohinder Rapp MD) Ac
--- NOTE | 2020-10-30 08:56 | PCRCNOTE ---
Patient did not receive AM breathing treatment and inhaler. Patient in GI lab for procedure.
--- NOTE | 2020-10-30 10:15 | PC.NURSE ---
returned from GI lab, incontinent of medium amount of stool, positioned in bed, daughter here to visit
--- NOTE | 2020-10-30 12:10 | PM.DS ---
DS: Admitting Diagnosis Admitting Diagnosis Admitting Diagnosis: Altered mental status DS: Discharge Diagnosis Discharge Diagnosis (1) Abdominal pain: Code(s): R10.9 - Unspecified abdominal pain Status: Acute Assessment and Plan: Patietn with abdominal pain and distention late in her hospital course and found to have urine retention from clogged Moscoso so catheter was flushed. Will need to continue to monitor frequently after discharge. (2) Anemia associated with stage 3 chronic renal failure: Code(s): N18.3 - Chronic kidney disease, stage 3 (moderate); D63.1 - Anemia in chronic kidney disease Status: Acute Assessment and Plan: Patient with hemoglobin running mostly in the 8-9 range chronically. Appears consistent with anemia of chronic disease probably related to her CKD. Hemoglobin dropped to the 7 range and stable until 10/25 when Hgb dropped to 6.6. This was drawn out of her port and was 7.2 on repeat (peripheral draw). Stool guaiac positive. Hgb dropped to 6.7 on 10/26 and she received 1U PRBC. Hgb 7.8 today and stable. GI consulted with EGD performed 10/30 showing hiatal hernia and gastritis. Guaiac positive stools could be from the patient's hemorrhoids. We continued Protonix BID. (3) Seizure: Code(s): R56.9 - Unspecified convulsions Status: Acute Assessment and Plan: Patient with new onset seizures. She may have had unrecognized seizures on admission causing her altered mental status. Glucose was okay. Head CT 10/14 showed no acute findings. Had a thick left hemiplegia and left facial droop but some improvement every day. We considered CVA causing the seizure and weakness but also Claudy's paralysis from the seizure. Repeat CT head 10/21 again showing no acute process. Can not have MR due to the devices in her abdomen. Pt transitioned to oral Keppra. Patient had EEG 10/24 showed abnormal record due to the absence of the normal background rhythm and presence of excessive amount of slow activity even though there is no focal seizure-like phenomena. Neurology followed along. Therapy worked with the patient. (4) Femur fracture, left: Qualifiers: Encounter type: subsequent encounter Femur location: supracondylar without intracondylar extension Code(s): S72.92XA - Unspecified fracture of left femur, initial encounter for closed fracture Status: Acute Assessment and Plan: Patient fell on 06/26/20 and presented to the ED here. X-ray showing acute oblique left distal femoral metadiaphyseal fracture. She was transferred to another facility for surgical repair and had a carmen placed. On follow up, she was found to have the carmen bent so she underwent a 2nd surgery on 09/14/20. Patient presented here still with nicol in place and wound still draining so ortho consulted. Discussed with ortho who was concerned that the wound was infected given the persistent drainage. Ortho recommended patient follow up with the patient's surgeon as soon as possible to have this re-evaluated and may require surgery to remove hardware. Some of the nicol removed. Called her surgeon from [place] the other day but no call back. Patient worked with therapy here. (5) Left hemiparesis: Code(s): G81.94 - Hemiplegia, unspecified affecting left nondominant side Status: Acute Assessment and Plan: As above. Pt passed swallow test. See recommendations. We continued PT/ OT/ST. (6) Acute respiratory failure with hypoxia: Code(s): J96.01 - Acute respiratory failure with hypoxia Status: Acute Assessment and Plan: Patient had an SpO2 of 75% on her chronic 2 L at the [facility]. Chest x-ray on admission showing atelectasis. ABG showing 7.27/38/130. Low pH related to the seizure. We attempted to wean O2 as tolerated. (7) Sepsis: Code(s): A41.9 - Sepsis, unspecified organism Status: Acute Assessment
[2020-10-30] MEDS: VITAMIN E 400 UNIT CAPSULE PO (12:24)
[2020-10-30] MEDS: predniSONE 5 MG TABLET PO (12:24)
[2020-10-30] MEDS: GABAPENTIN 300 MG CAPSULE PO (12:25)
[2020-10-30] MEDS: METOPROLOL SUCCINATE EXT REL 25 MG TABCR PO (12:25)
[2020-10-30] MEDS: ASPIRIN 81 MG CHEWABLE TABLET PO (12:26)
[2020-10-30] MEDS: HYDROXYCHLOROQUINE SULFATE 200 MG TABLET PO (12:26)
[2020-10-30] MEDS: ASCORBIC ACID 500 MG TABLET 1000 MG PO (12:26)
[2020-10-30] MEDS: PANTOPRAZOLE 40 MG TABLET PO (12:26)
[2020-10-30] MEDS: FLUTICASONE PROPIONATE 0.05% NA SPR 16 GM BTL (*BKC) 1 SPRAY NASAL (12:26)
[2020-10-30] MEDS: FUROSEMIDE 20 MG TABLET PO (12:26)
[2020-10-30] MEDS: CYANOCOBALAMIN 1,000 MCG TABLET 1000 MCG PO (12:26)
[2020-10-30] MEDS: levETIRAcetam 500 MG TABLET PO (12:26)
--- NOTE | 2020-10-30 12:31 | PC.NURSE ---
pt caught up on a.m meds following small meal after EGD
[2020-10-30] MEDS: HEPARIN SOD FLUSH 500 UNITS/5 ML SYRINGE IV PUSH (13:30)
[2020-10-30] MEDS: IPRATROPIUM BR 0.02% INH SOLN 0.5 MG/2.5 ML VIAL INHALATION (14:09)
[2020-10-30] MEDS: ALBUTEROL SULFATE NEB 2.5 MG/0.5 ML INH INHALATION (14:09)
--- NOTE | 2020-10-30 14:41 | PCDIET ---
Nutrition Follow-Up Complete: Inadequate oral intake related to possible dysphagia as evidenced by NPO diet, awaiting swallow evaluation. Patient to meet estimated nutritional needs. Goal: goal met; continue goal Pt current nutrition is level 6 soft and bite sized, 4gm Na diet, moderately thick liquids Nutrition recommendation: agree Last recorded weight is 70.7 kg, down from 76.1kg on assessment Bowel Motility: 2 BMs today Labs Reviewed: PO4 5.0, GFR 16, Na 135, Albumin 3.0, Hgb 7.8 Meds Noted: lasix, b12, Vit E, protonix Additional Notes: Agree with current diet. BMI in good range and pt eating 100% of last three meals. Skin WNL. Bowels moving appropriately. We will continue to monitor every five days.
== END 2020-10-30 15:27 | DRG 698 ==
LOC: ANHED 23:30 → ANHICU 10-12 09:21 → ANHIMU 10-14 10:51 → ANH2MED 10-24 07:05 → ANHICU 10-31 16:53 → ANHIMU 10-31 16:53
PROVIDERS: Family Medicine; Internal Medicine; Internal Medicine Gastroenterology; Admitting Provider Family Medicine; Emergency Provider Emergency Medicine; PCP Family Medicine Adolescent Medicine; Visit Provider Internal Medicine
PROC: 0DJ08ZZ Inspection of Upper Intestinal Tract, Via Natural or Artificial Opening Endoscopic (ICD-10-PCS; CPT 43235; principal; 2020-10-30 12:15)
DX: T83.511A Infection and inflammatory reaction due to indwelling urethral catheter, initial encounter (principal); A41.9 Sepsis, unspecified organism; J96.21 Acute and chronic respiratory failure with hypoxia; G93.41 Metabolic encephalopathy; N17.9 Acute kidney failure, unspecified; D83.9 Common variable immunodeficiency, unspecified; T81.49XA Infection following a procedure, other surgical site, initial encounter; D62 Acute posthemorrhagic anemia; G81.94 Hemiplegia, unspecified affecting left nondominant side; R56.9 Unspecified convulsions; N39.0 Urinary tract infection, site not specified; R19.5 Other fecal abnormalities; T83.091A Other mechanical complication of indwelling urethral catheter, initial encounter; R33.8 Other retention of urine; Z20.822 Contact with and (suspected) exposure to COVID-19; D63.1 Anemia in chronic kidney disease; M32.9 Systemic lupus erythematosus, unspecified; B96.20 Unspecified Escherichia coli [E. coli] as the cause of diseases classified elsewhere; J43.9 Emphysema, unspecified; E03.9 Hypothyroidism, unspecified; I12.9 Hypertensive chronic kidney disease with stage 1 through stage 4 chronic kidney disease, or unspecified chronic kidney disease; N18.30 Chronic kidney disease, stage 3 unspecified; K29.70 Gastritis, unspecified, without bleeding; K44.9 Diaphragmatic hernia without obstruction or gangrene; G47.33 Obstructive sleep apnea (adult) (pediatric); R77.8 Other specified abnormalities of plasma proteins; K21.9 Gastro-esophageal reflux disease without esophagitis; M81.0 Age-related osteoporosis without current pathological fracture; S72.452D Displaced supracondylar fracture without intracondylar extension of lower end of left femur, subsequent encounter for closed fracture with routine healing; Z91.81 History of falling; Z79.899 Other long term (current) drug therapy; Z88.0 Allergy status to penicillin; Z88.2 Allergy status to sulfonamides; Z88.8 Allergy status to other drugs, medicaments and biological substances; Z86.718 Personal history of other venous thrombosis and embolism; Z87.891 Personal history of nicotine dependence; Z95.0 Presence of cardiac pacemaker; Z95.828 Presence of other vascular implants and grafts; Z96.653 Presence of artificial knee joint, bilateral; Z96.82 Presence of neurostimulator; Z98.41 Cataract extraction status, right eye; Z98.42 Cataract extraction status, left eye; Z99.81 Dependence on supplemental oxygen; Z99.89 Dependence on other enabling machines and devices
CPT/HCPCS: 36415; 36430; 36600; 70450; 71045; 73552; 76775; 80048; 80053; 80069; 80076; 81001; 82274; 82375; 82607; 82728; 82746; 82805; 82948; 83050; 83540; 83550; 83605; 83735; 83880; 84100; 84132; 84145; 84443; 84484; 85014; 85018; 85025; 85027; 85610; 85730; 85999; 86140; 86850; 86860; 86870; 86880; 86900; 86901; 86902; 86905; 86922; 86972; 87040; 87077; 87086; 87088; 87186; 88305; 92526; 92610; 92611; 93005; 93306; 94640; 95816; 96360; 97110; 97161; 97162; 97165; 97166; 97530; 97535; 99285; A9270; C9113; C9803; J0131; J0360; J0743; J1335; J1642; J1644; J1953; J2060; J2405; J2704; J3475; J7030; J7042; J7050; J7060; J7120; J7512; P9016; U0003; U0005

== ENCOUNTER 2021-01-06 18:41 | Inpatient (IN) | payer MEDICARE, MEDICAID, SELFPAY ==
--- NOTE | ~2021-01-06 | CT_ITS ---
EXAMINATION: CT cervical spine wo con DATE: 01/06/2021 20:38 INDICATION: Neck pain post fall TECHNIQUE: Computed tomography (CT) of the cervical spine was performed without intravenous contrast. Automated exposure control and iterative reconstruction technique were employed. The dose-length pro duct was 293.24 mGy-cm. 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 Mild cervical dextrocurvature. No significa nt change in 3 mm anterolisthesis C4 on C5. Chronic T2 compression fracture with unchanged 20% anteri or vertebral body height loss. Remainder of the visualized vertebral body heights are normal. No acut e fracture. Severe disc height loss with degenerative endplate changes and severe uncovertebral osteo arthritis at C5-C6 and C6-C7. Moderate disc height loss at C3-C4 and C7-T1. Mild disc height loss at C4-C5. Severe cervical facet osteoarthritis on the right at C4-C5 and C5-C6 and on the left at C4-C5 with fusion across the right C3-C4 facet joint. Disc bulges or posterior disc osteophyte complexes re sulting in mild central canal stenosis at each level from C2-C3 through C6-C7. There is also multilev el mild to moderate neural foraminal stenosis on both the left and right. Atherosclerotic calcificati ons at the bilateral carotid bulbs. Partially visualized right internal jugular central venous port c atheter but appreciated on the mailer apprentice topogram. Mild right apical pleural-parenchymal scarring. IMPRESSION: 1. Chronic mild T2 compression fracture. No acute osseous abnormality in the cervical spine. 2. Severe cervical spondylosis. Reviewed, dictated and finalized at location A. IMPRESSION: 1. Chronic mild T2 compression fracture. No acute osseous abnormality in the ce rvical spine. 2. Severe cervical spondylosis.
--- NOTE | ~2021-01-06 | CT_ITS ---
EXAMINATION: CT brain wo con DATE: 01/06/2021 20:38 INDICATION: Generalized weakness and neck pain post fall TECHNIQUE: Computed tomography (CT) of the head was performed without intravenous contrast. Sagittal and coronal reconstructions were performed. The mA was adjusted according to patient size. Iterative reconstruction technique was employed. The dose-length product was 605.33 mGy-cm. COMPARISON: head CT dated 10/21/20 FINDINGS: No fracture. No acute intracranial hemorrhage, acute infarction or abnormal extra axial fluid collect ion. There is moderate scattered white matter hypoattenuation consistent with chronic small vessel is chemic disease. Ventricles are normal and symmetric. No mass/mass effect. Changes of bilateral intrao cular lens replacement. The orbits, paranasal sinuses and mastoid air cells are normal. Intracranial calcified cerebral atherosclerosis is noted. IMPRESSION: 1. No fracture or acute intracranial process. 2. Moderate scattered white matter hypoattenuation consistent with chronic small vessel ischemic dise ase. Reviewed, dictated and finalized at location A. IMPRESSION: 1. No fracture or acute intracranial process. 2. Moderate scattered white matter hypoattenuation consistent with chronic smal l vessel ischemic disease.
--- NOTE | ~2021-01-06 | XR_ITS ---
EXAMINATION: XR chest 1V DATE: 01/06/2021 20:42 INDICATION: Unwitnessed fall with neck pain and weakness. TECHNIQUE: frontal view of the chest was obtained. COMPARISON: Chest radiograph dated 10/25/2020 FINDINGS: Right internal jugular central venous port catheter with distal tip at the caudal superior vena cava. Horizontal bandlike discoid atelectasis projecting over the apex of the elevated right hemidiaphragm . No other airspace opacities, pulmonary edema, pleural effusion or pneumothorax. Heart size is anali l. Round opacity projecting over the lower thoracic spine consistent with moderate sized hiatal herni a. Spinal stimulator leads project over the mid thoracic spine. Additional tiny density projecting ov er the midthoracic spine likely represents the tip of an intrathecal catheter. Postoperative change o f bilateral distal clavicle resections. IMPRESSION: 1. Elevated right hemidiaphragm with bandlike opacity projecting over the right midlung zone with con figuration favoring discoid atelectasis over pneumonia. 2. Moderate-sized hiatal hernia. Reviewed, dictated and finalized at location A. IMPRESSION: 1. Elevated right hemidiaphragm with bandlike opacity projecting over the right midlung zone with configuration favoring discoid atelectasis over pneumonia. 2. Moderate-sized hiatal hernia.
--- NOTE | ~2021-01-06 | XR_ITS ---
XR chest 2V 01/09/2021 13:25 Indication: Shortness of breath Procedure: AP and lateral views of the chest Comparison: Comparison to multiple prior studies sequentially, with oldest reviewed study dated 10/16. Findings: Moderate cardiomegaly. Port catheter tip in the SVC. Spinal stimulator lead position unchan ged. There is fluid in the minor fissure. Elevated right diaphragm. Posterior basilar airspace diseas e may represent atelectasis or pneumonia. No pneumothorax. There are degenerative changes of the shou lders. There are vertebroplasty changes in multiple lumbar vertebra. There is an IVC filter present. Impression: 1: No infiltrates of the right mid and bilateral lower lungs which may represent atelectasis or pneum onia. 2: Probable fluid in the minor fissure. 3: Moderate cardiomegaly. 4: Hiatal hernia. Reviewed, dictated and finalized at location A. Impression: 1: No infiltrates of the right mid and bilateral lower lungs which may represen t atelectasis or pneumonia. 2: Probable fluid in the minor fissure. 3: Moderate cardiomegaly. 4: Hiatal hernia.
--- NOTE | ~2021-01-06 | US_ITS ---
EXAMINATION: US renal BI EXAM DATE: 01/07/2021 07:45 INDICATION: Acute kidney insufficiency. TECHNIQUE: Multiple grayscale and Doppler images of the kidneys were obtained (by a technologist who performed the scan) and subsequently reviewed. Comparison is made to prior examination from 10/12/2020 . FINDINGS: Bilateral renal cortical thinning. Right kidney: There is normal contour and increased echogenicity. It measures 9.0 x 5.4 x 5.7 centim eters. There are no focal renal lesions identified. There is no hydronephrosis. Left kidney: There is normal contour and increased echogenicity. It measures 9.8 x 5.3 x 4.1 centime ters. There are no focal renal lesions identified. There is no hydronephrosis. Bladder unremarkable. IMPRESSION: 1. Echogenic kidneys with renal cortical thinning, medical renal disease. 2. No hydronephrosis. Reviewed, dictated and finalized at location A.
[2021-01-06 18:45] VITALS: BP 143/58; PULSE 80; RESP 18; TEMP 36.7; O2SAT 95
--- NOTE | 2021-01-06 19:19 | ECG_ITS ---
Measurements Intervals [place] Rate: 73 P: 71 NV: 177 QRS: -39 QRSD: 116 T: 46 QT: 407 QTc: 450 Interpretive Statements SINUS RHYTHM ATRIAL PREMATURE COMPLEX LEFT AXIS DEVIATION INTRAVENTRICULAR CONDUCTION DELAY BASELINE ARTIFACT- I, II, AVL, V4-V5 BORDERLINE ECG Electronically Signed On 01-06-2021 20:05:24 CDT by Mustapha Meléndez D.O.
[2021-01-06 19:45] VITALS: BP 140/6; PULSE 71; RESP 20; O2SAT 95
[2021-01-06 19:49] LABS: Basophils Percent Auto 0.2 % (0.2-1.2); Eosinophils Absolute Auto 0.1 K/mm3 (0-0.3); Hematocrit 24.7 % (37.0-47.0); Hemoglobin 7.5 g/dL (12.0-15.0); Immature Granulocyte Absolute 0.02 K/mm3 (0.00-0.031); Immature Granulocyte Percent A 0.4 % (0-0.5); Lymphocytes Absolute Auto 0.69 K/mm3 (0.9-3.2); Lymphocytes Percent Auto 15.4 % (18.3-44.2); Mean Corpuscular HGB Conc 30.4 g/dl (32-36); Mean Corpuscular Hemoglobin 28.6 pg (26-34); Mean Corpuscular Volume 94.3 fl (80-100); Mean Platelet Volume 9.8 fl (7.4-10.4); Monocytes Absolute Auto 0.3 K/mm3 (0.1-0.6); Monocytes Percent Auto 7.2 % (2.6-8.5); Neutrophils Absolute Auto 3.3 K/mm3 (1.3-6.7); Neutrophils Percent Auto 74.8 % (45.5-73.1); Platelet Count Result 185 k/mm3 (150-375); Red Blood Count 2.62 M/mm3 (4.2-5.4); Red Cell Distribution Width 17.4 % (11.5-14.5); White Blood Count 4.5 K/mm3 (4.5-10.0)
[2021-01-06] MEDS: SODIUM CHLORIDE 0.9% IV 1,000 ML 500 ML IV CONT (19:52)
[2021-01-06 19:53] LABS: Alveolar/Arterial O2 Gradient 35.5 mmHg; Base Excess ABG -8.2 mEq/l (+/-2.0); Fractional Inspired Oxygen 28 %; HCO3 ABG 19.4 mEq/l (22.0-26.0); Oxygen Content ABG 11.9 %vol (16.0-22.0); Oxygen Saturation ABG 96.6 % (95.0-100.0); Oxyhemoglobin 96.6 % THb (90.0-100.0); PCO2 ABG 49.9 mmHg (35.0-45.0); PO2 ABG 105.3 mmHg (80.0-100.0); PO2 FiO2 Ratio Arterial Blood 3.76 %; Total Hemoglobin 8.6 g/dL (12.0-18.0)
[2021-01-06 19:56] LABS: Device NASAL CANNULA; Modified Allen's Test Pass; Site Drawn RIGHT RADIAL; pH ABG 7.207 (7.350-7.450)
[2021-01-06 20:01] LABS: Lactic Acid Reflex 0.9 mmol/L (0.7-2.1)
[2021-01-06 20:02] LABS: Alanine Aminotransferase 10 U/L (4-35); Albumin Level 3.6 g/dL (3.5-5.1); Alkaline Phosphatase 68 U/L (38-126); Anion Gap 13 mmol/L (8-16); Aspartate Amino Transferase 32 U/L (14-36); Bilirubin,Total 0.1 mg/dL (0.2-1.3); Blood Urea Nitrogen 89 mg/dL (7-17); Carbon Dioxide 19 mmol/L (22-30); Chloride 95 mmol/L (98-107); Estimated Glomerular Filt Rate 6; Glucose 109 mg/dL (65-105); Magnesium 1.8 mg/dL (1.6-2.3); Potassium 5.4 mmol/L (3.4-5.0); Sodium 127 mmol/L (137-145)
[2021-01-06 20:14] LABS: NT Pro B Type Natriuretic Pept 17100 pg/mL (5-100); Troponin I 0.015 ng/mL (0.000-0.034)
[2021-01-06 20:27] LABS: Add Urine Microscopic? YES; Appearance Urine Clear (Clear); Bacteria Urine Trace /hpf; Bilirubin Urine Negative (Negative); Blood Urine Negative (Negative); Color Urine Straw (Yellow); Glucose Urine UA Negative (Negative); Ketones Urine Negative (Negative); Leukocyte Esterase Ur Negative LEU/UL (Negative); Nitrate Urine Negative (Negative); Protein Urine 1+ mg/dL (Negative); RBC Urine 0-2 /hpf (0-2); Specific Grav Ur 1.008 (1.001-1.035); Squamous Epithelial Cell Urine Rare /hpf (Few); Urobilinogen Urine Negative mg/dL (<2.0); WBC Urine 0-3 /hpf
[2021-01-06 20:47] VITALS: BP 154/69; PULSE 76; RESP 16; O2SAT 99
--- NOTE | 2021-01-06 21:22 | ED.GENADULT ---
HPI - General Adult General Chief complaint: Unspecified Stated complaint: fell 4 days ago, dont feel right Time Seen by Provider: 01/06/21 19:08 History of Present Illness HPI narrative: Patient 80-year-old female presents emergency department chief complaint of generalized weakness. Patient reports that about 4 days ago she fell and since then has been less active than normal. Patient states she just feels as though her head is swimming and feels extremely weak. Patient states she seen her primary care physician this week but as things have progressed the family was concerned that there may have been a lesion in her brain or may be something else going on patient reports she has history of COPD is on home oxygen she also reports that she has history of renal insufficiency with this been well controlled. Related Data Home Medications Medication Instructions Recorded Confirmed alendronate 70 mg PO WEEKLY 05/10/19 12/04/20 ascorbic acid (vitamin C) 1,000 mg PO DAILY 05/10/19 12/04/20 cyanocobalamin (vitamin B-12) 1,000 mcg PO DAILY 05/10/19 12/04/20 gabapentin 300 mg PO BID 05/10/19 12/04/20 hydroxychloroquine 200 mg PO DAILY 05/10/19 12/04/20 levothyroxine 150 mcg PO DAILY 05/10/19 12/04/20 losartan 100 mg PO DAILY 05/10/19 12/04/20 metoprolol succinate 25 mg PO DAILY 05/10/19 12/04/20 pantoprazole 40 mg PO BID 05/10/19 12/04/20 cholecalciferol (vitamin D3) 25 mcg PO DAILY 10/12/20 12/04/20 [Vitamin D3] prednisone 5 mg PO DAILY 10/12/20 12/04/20 vitamin E 400 unit PO DAILY 10/12/20 12/04/20 polysaccharide iron complex 150 mg PO DAILY 11/06/20 12/04/20 Allergies Allergy/AdvReac Type Severity Reaction Status Date / Time cefepime Allergy Intermediate Unknown Verified 12/04/20 10:38 latex Allergy Unknown Rash Verified 12/04/20 10:38 levofloxacin Allergy Unknown Swelling Verified 12/04/20 10:38 Penicillins Allergy Unknown Swelling Verified 12/04/20 10:38 pregabalin Allergy Unknown Unknown Verified 12/04/20 10:38 Quinolones Allergy Unknown Unknown Verified 12/04/20 10:38 Sulfa (Sulfonamide Allergy Unknown Itching Verified 12/04/20 10:38 Antibiotics) Review of Systems Review of Systems: Narrative: A 10 system review of systems was completed on the patient and is negative except for what is stated in the HPI. Nursing and ancillary documentation was reviewed. [facility] Past Medical History Medical History Acute on chronic blood loss anemia Anemia Arthritis Bronchitis Chronic respiratory failure with hypoxia, on home O2 therapy Home O2 at 2L CKD (chronic kidney disease) Common variable immunodeficiency, unspecified COPD (chronic obstructive pulmonary disease) CPAP (continuous positive airway pressure) dependence DDD (degenerative disc disease) Diverticulitis DVT (deep venous thrombosis) Emphysema of lung Femur fracture, left s/p surgical repair in Jun 2020 GERD (gastroesophageal reflux disease) HTN (hypertension) Hypothyroid Lupus Occult blood in stools Osteoporosis Pneumonia Port-A-Cath in place Sleep apnea Spinal cord stimulator status UTI (urinary tract infection) Surgical History Surgical History H/O bilateral cataract extraction H/O exploratory laparotomy H/O repair of rotator cuff right H/O: hysterectomy History of carpal tunnel release History of total bilateral knee replacement Hx of appendectomy Hx of tonsillectomy S/P IVC filter S/P spinal surgery Family History Family History Sibling Hypertension Malignant neoplasm of prostate Father Hypertension Cerebrovascular accident Mother Family history of Alzheimer's disease Social History Social History Smoking packs per day: 2 Smoking cigarettes per day: 40.0 Y
[2021-01-06] MEDS: SODIUM BICARBONATE 8.4% 150 MEQ in DEXTROSE 5% 1,000 ML 950 ML 100 MEQ IV CONT (21:45)
[2021-01-06 21:46] VITALS: BP 131/64; PULSE 75; RESP 14; O2SAT 99
[2021-01-07] VITALS (17 sets, daily range): BP systolic 132–163; BP diastolic 54–90; PULSE 74–85; RESP 14–20; TEMP 36.1–36.7; O2SAT 90–100; BMI 28.8
[2021-01-07] MEDS: CALCIUM GLUC 1,000 MG/NS 50 ML 1,000 MG/50 ML BAG 100 MG IVPB (00:54)
[2021-01-07] MEDS: SODIUM CHLORIDE 0.9% IV 1,000 ML 125 ML IV CONT ×2 (00:54→02:48)
--- NOTE | 2021-01-07 01:15 | PC.NURSE ---
This patient, Kellee Arora, was admitted to [facility] Room 205-02 on 01/07/21 at 2347. Patient/family oriented to hospital policies and general routines including ID bracelet, bed and alarms, visiting hours, pain management, procedures, bathroom and other care routines, personal items, smoking policy, room service/diet, and visiting hours. Information on how to activate the Rapid Response Team has been discussed. Patient/Family are encouraged to report perceived risks to care and to ask questions if they do not understand what they are told or what they should do.
--- NOTE | 2021-01-07 01:20 | PM.IMHP ---
H&P: HPI History of Present Illness Date/Time: 01/07/21 01:20 Chief Complaint: ALTERED MENTAL STATUS Narrative: THIS IS AN 80-YEAR-OLD FEMALE WITH PAST MEDICAL HISTORY SIGNIFICANT FOR CHRONIC KIDNEY DISEASE, HYPERTENSION, SEIZURE DISORDER, SYSTEMIC LUPUS ERYTHEMATOSUS, OSTEOPOROSIS, COPD ON SUPPLEMENTAL OXYGEN AT HOME, CONGESTIVE HEART FAILURE DIASTOLIC TYPE 1. PATIENT WAS BROUGHT TO THE EMERGENCY ROOM AFTER SHE HAS BEEN COMPLAINING OF HER MENTATION TO BE LIKE IN A FOG AND HAD A FALL WITH NO LOSS OF CONSCIOUSNESS. PATIENT DENIES ANY FEVERS RIGORS OR CHILLS NO NAUSEA NO VOMITING NO DIARRHEA NO CONSTIPATION NO CHEST PAIN NO SHORTNESS OF BREATH NO COUGH NO SPUTUM PRODUCTION NO SYNCOPE OR NEAR SYNCOPE. PATIENT WAS FOUND TO HAVE AN ELEVATED CREATININE LEVEL IN CHEMISTRY PANEL. CT OF HEAD CERVICAL AND CHEST X-RAY WERE NONSIGNIFICANT FOR ACUTE FINDINGS. Review of Systems Review of Systems: Narrative: MY MIND IS IN A FOG Constitutional: Constitutional: Denies chills, Denies fever(s), Denies malaise, Denies night sweats and Denies weakness Eyes: Eyes: Denies change in vision ENT: Denies nasal congestion, Denies nasal discharge and Denies nasal obstruction Cardiovascular: Cardiovascular: Denies chest pain, Denies syncope, Denies claudication, Denies leg edema, Denies lightheadedness, Denies radiating jaw, neck or arm pain, Denies palpitations and Denies dyspnea on exertion Respiratory: Respiratory: Denies cough and Denies dyspnea Gastrointestinal: Gastrointestinal: Denies abdominal pain, Denies diarrhea, Denies nausea and Denies vomiting Genitourinary: Genitourinary: Reports no additional female genitourinary complaints Musculoskeletal: Musculoskeletal: Denies arthralgias, Denies joint swelling and Denies muscle weakness Integumentary/Breasts: Skin/Breast: Denies rash Neurologic: Denies Sensory deficit (Neuro) Psychiatric: Psychiatric: Reports no additional psychiatric complaints Endocrine: Endocrine: Reports no additional endocrine complaints Hematologic/Lymphatic: Hematologic/Lymphatic: Reports no additional hematologic/lymphatic complaints Allergic/Immunologic: Allergic/Immunologic: Reports no additional allergic/immunologic complaints PMFSH Past Medical History Medical History Acute on chronic blood loss anemia Anemia Arthritis Bronchitis Chronic respiratory failure with hypoxia, on home O2 therapy Home O2 at 2L CKD (chronic kidney disease) Common variable immunodeficiency, unspecified COPD (chronic obstructive pulmonary disease) CPAP (continuous positive airway pressure) dependence DDD (degenerative disc disease) Diverticulitis DVT (deep venous thrombosis) Emphysema of lung Femur fracture, left s/p surgical repair in Jun 2020 GERD (gastroesophageal reflux disease) HTN (hypertension) Hypothyroid Lupus Occult blood in stools Osteoporosis Pneumonia Port-A-Cath in place Sleep apnea Spinal cord stimulator status UTI (urinary tract infection) Surgical History Surgical History H/O bilateral cataract extraction H/O exploratory laparotomy H/O repair of rotator cuff right H/O: hysterectomy History of carpal tunnel release History of total bilateral knee replacement Hx of appendectomy Hx of tonsillectomy S/P IVC filter S/P spinal surgery Family History Family History (Updated 01/07/21 @ 00:19 by Geetha Early RN) Sibling Malignant neoplasm of prostate Hypertension Father Hypertension Cerebrovascular accident Acute myocardial infarction Mother Family history of Alzheimer's disease Social History Social History Smoking packs per day: 2 Smoking cigarettes per day: 40.0 Years smoked: 14 Smoking pack-years: 28.00 Smoking status: Former smoker Tobacco type: cigarettes Alcoho
[2021-01-07] MEDS: LEVOTHYROXINE SODIUM 150 MCG TABLET PO (05:53)
[2021-01-07 05:58] LABS: Basophils Percent Auto 0.3 % (0.2-1.2); Eosinophils Absolute Auto 0.2 K/mm3 (0-0.3); Hemoglobin 7.2 g/dL (12.0-15.0); Immature Granulocyte Absolute 0.01 K/mm3 (0.00-0.031); Immature Granulocyte Percent A 0.2 % (0-0.5); Lymphocytes Absolute Auto 1.17 K/mm3 (0.9-3.2); Lymphocytes Percent Auto 19.6 % (18.3-44.2); Mean Corpuscular HGB Conc 31.3 g/dl (32-36); Mean Corpuscular Hemoglobin 28.5 pg (26-34); Mean Corpuscular Volume 90.9 fl (80-100); Monocytes Absolute Auto 0.7 K/mm3 (0.1-0.6); Monocytes Percent Auto 11.6 % (2.6-8.5); Neutrophils Absolute Auto 3.9 K/mm3 (1.3-6.7); Neutrophils Percent Auto 65.3 % (45.5-73.1); Platelet Count Result 177 k/mm3 (150-375); Red Blood Count 2.53 M/mm3 (4.2-5.4); Red Cell Distribution Width 16.9 % (11.5-14.5)
[2021-01-07 06:11] LABS: Anion Gap 12 mmol/L (8-16); Blood Urea Nitrogen 85 mg/dL (7-17); Calcium 7.9 mg/dL (8.4-10.2); Carbon Dioxide 23 mmol/L (22-30); Chloride 95 mmol/L (98-107); Estimated Glomerular Filt Rate 7; Glucose 122 mg/dL (65-105); Potassium 4.3 mmol/L (3.4-5.0); Sodium 130 mmol/L (137-145)
--- NOTE | 2021-01-07 09:25 | PM.IMPN ---
Progress Note: A&P Assessment and Plan (1) Acute kidney injury: Code(s): N17.9 - Acute kidney failure, unspecified Status: Acute Assessment and Plan: HOLDING LASIX HOLDING HYDROCHLOROTHIAZIDE HOLDING LOSARTAN ALMEIDA IN RENAL ULTRASOUND 01/07 with cortical thinning, c/w medical renal disease IV FLUIDS F/U LAB (2) Metabolic acidosis: Code(s): E87.2 - Acidosis Status: Acute Assessment and Plan: LIKELY SECONDARY TO RENAL FAILURE IMPROVED WITH BICARB DRIP OVERNIGHT BICARB PO F/u LAB (3) Encephalopathy: Code(s): G93.40 - Encephalopathy, unspecified Status: Acute Assessment and Plan: Likely due to ERIC Seems to be near baseline now. PT/OT (4) Chronic respiratory failure with hypoxia, on home O2 therapy: Code(s): J96.11 - Chronic respiratory failure with hypoxia; Z99.81 - Dependence on supplemental oxygen Status: Acute Assessment and Plan: STABLE CONTINUE SUPPLEMENTAL OXYGEN (5) ALEX (obstructive sleep apnea): Code(s): G47.33 - Obstructive sleep apnea (adult) (pediatric) Status: Acute Assessment and Plan: CPAP AT NIGHTTIME (6) SLE (systemic lupus erythematosus related syndrome): Code(s): M32.9 - Systemic lupus erythematosus, unspecified Status: Chronic Assessment and Plan: STABLE CONTINUE HYDROXYCHLOROQUINE (7) Left hemiparesis: Code(s): G81.94 - Hemiplegia, unspecified affecting left nondominant side Status: Acute Assessment and Plan: CHRONIC FALL PRECAUTIONS Subjective Date/time seen: 01/07/21 09:25 Interval history: 80 y/o f admitted with ERIC superimposed on CKD4. 01/07: Feels stronger. Appetite poor. Denied pain. No sob at rest. Chronic CAN. No swelling. Constipated, chronic. Review of Systems Review of Systems: All systems reviewed & are unremarkable except as noted in HPI and below Exam Narrative: Exam Narrative: HEENT: PERRL, sclerae nonicteric, pharyngeal mucosa pink and intact NECK: No JVD, adenopathy, or thyromegaly CHEST: Clear to auscultation. Normal effort. Increased APD with prolonged expiratory phase HEART: NL S1/S2, regular, no murmur ABDOMEN: BS+, soft, nontender, no mass, no bruits EXTREMITIES: No cyanosis, edema, or clubbing NEUROLOGIC: CN intact and symmetric to inspection. MUSCULOSKELETAL: Tone and strength symmetric. PSYCH: Alert. Oriented to person, place, and time (year, month, but not day) Objective Data Vital Signs Vital Signs: Vital Signs - 24 hr 01/06/21 18:45 01/06/21 19:45 01/06/21 20:47 Temperature 98.1 F Pulse Rate 80 71 76 Respiratory Rate 18 20 16 Blood Pressure 143/58 H 140/6 L 154/69 H Pulse Oximetry 95 95 99 01/06/21 21:46 01/07/21 00:00 01/07/21 00:05 Temperature 96.9 F L Pulse Rate 75 79 76 Respiratory Rate 14 16 Blood Pressure 131/64 132/54 L Pulse Oximetry 99 99 99 01/07/21 02:00 01/07/21 03:17 01/07/21 03:58 Temperature 97.2 F L Pulse Rate 78 78 Respiratory Rate 18 Blood Pressure 163/65 H Pulse Oximetry 99 98 01/07/21 04:00 01/07/21 06:00 01/07/21 08:00 Temperature 97.8 F Pulse Rate 78 78 79 Respiratory Rate 14 Blood Pressure 150/61 H Pulse Oximetry 100 01/07/21 08:38 Temperature Pulse Rate Respiratory Rate Blood Pressure Pulse Oximetry 90 Intake/Output Intake/Output: Intake & Output 01/04/21 01/05/21 01/06/21 01/07/21 23:59 23:59 23:59 23:59 Intake Total 3750 Output Total 700 Balance -700 3750 Meds/Results Medications: Active Medications Generic Name Dose Route Start Last Admin Trade Name Freq PRN Reason Stop Dose Admin Acetaminophen 650 mg 01/07/21 01:16 Acetaminophen 325 Mg Tablet PO Q4H PRN Pain Albuterol 2 puff 01/07/21 01:16 Albuterol Sulfate (*Sp) Aerosol 1 Puff INHALATION QID PRN shortness of breath or wheezing Calcium Carbonate 500 mg 01/07/21 09:00 Calcium/Vitamin D 500 Mg Tab
--- NOTE | 2021-01-07 10:04 | PM.CNNEP ---
Assessment and Plan Assessment and plan (1) Chronic kidney disease, stage 4 (severe): Code(s): N18.4 - Chronic kidney disease, stage 4 (severe) Status: Acute Assessment and Plan: the patient has chronic kidney disease stage 4. This is due to hypertension and nephrosclerosis. Her baseline GFR seems to be running in the high teens. In November however her GFR was down a little bit into the low teens and now her GFR is only 7. (2) Acute renal failure: Qualifiers: Acute renal failure type: unspecified Qualified Code(s): N17.9 - Acute kidney failure, unspecified Code(s): N17.9 - Acute kidney failure, unspecified Status: Acute Assessment and Plan: the patient's creatinine is higher. This could be due to several things. She has not been eating for about 4 days. She continues to take her diuretics. Perhaps she is dehydrated. She did receive some IV fluids and her creatinine came down a little bit. Another possibility is that this is chronic progression of her underlying kidney disease and the lack of appetite is due to uremia and the swiminess is as well. Will review the chart and order tests for acute kidney injury. She will get urine electrolytes and an eosinophil. She will also get a renal ultrasound. Diuretics are being held. Will hold losartan as well. And will hold potassium. (3) Metabolic acidosis: Code(s): E87.2 - Acidosis Status: Acute Assessment and Plan: The patient's bicarbonate was low on admission. This has improved. (4) SLE (systemic lupus erythematosus related syndrome): Code(s): M32.9 - Systemic lupus erythematosus, unspecified Status: Chronic Assessment and Plan: The patient has lupus. There is no evidence of this in the kidneys. (5) Essential hypertension: Code(s): I10 - Essential (primary) hypertension Status: Acute Assessment and Plan: Blood pressure is running 130-150. (6) Chronic respiratory failure with hypoxia, on home O2 therapy: Code(s): J96.11 - Chronic respiratory failure with hypoxia; Z99.81 - Dependence on supplemental oxygen Status: Acute Assessment and Plan: the patient has chronic obstructive pulmonary disease home oxygen. She used to smoke but does not anymore. (7) ALEX (obstructive sleep apnea): Code(s): G47.33 - Obstructive sleep apnea (adult) (pediatric) Status: Acute Assessment and Plan: She has sleep apnea and uses a CPAP mask. (8) Hypothyroid: Code(s): E03.9 - Hypothyroidism, unspecified Status: Acute Assessment and Plan: She is on supplements for this. History of Present Illness Reason for Consult Consult date: 01/07/21 Chief Complaint Chief complaint: Acute Renal Failure, Metabolic Acidosis History of Present Illness Narrative: Kellee is a very pleasant 80-year-old lady who has multiple medical problems including Acute on chronic blood loss anemia Anemia, CKD, Common variable immunodeficiency, Diverticulosis, DVT, Emphysema, GERD (gastroesophageal reflux disease), HTN (hypertension), Hypothyroid, Lupus, Sleep apnea. the patient sees Dr. Frank in the office for chronic kidney disease. The patient's creatinine has gradually risen over the last couple of years. Earlier this year it seemed to stabilize at around 2.8. In November the creatinine was between 3.6 and 4. the patient says that about 4 days ago she stopped eating. She lost her appetite. Two days ago the patient started feeling swimming in her head. Just foggy. She does not have any specific symptoms otherwise. She denies any nausea or vomiting. No diarrhea. She does take diuretics and continue to take those even though she was not eating. Because of this woman is the patient decided to come to the emergency room. In the ER she was evaluated found to have a higher creatinine than usual so she was admitted. She has been given I
[2021-01-07] MEDS: SODIUM BICARBONATE TAB 650 MG TABLET PO ×2 (10:19→18:01)
[2021-01-07] MEDS: FERROUS SULFATE DRIED 142 MG TABCR PO (10:19)
[2021-01-07] MEDS: HYDROXYCHLOROQUINE SULFATE 200 MG TABLET PO (10:19)
[2021-01-07] MEDS: METOPROLOL SUCCINATE EXT REL 25 MG TABCR PO (10:20)
[2021-01-07] MEDS: predniSONE 5 MG TABLET PO (10:21)
[2021-01-07] MEDS: PANTOPRAZOLE 40 MG TABLET PO ×2 (10:21→18:00)
[2021-01-07] MEDS: FLUTICASONE PROPIONATE 0.05% NA SPR 16 GM BTL (*BKC) 1 SPRAY NASAL (10:23)
[2021-01-07] MEDS: GABAPENTIN 300 MG CAPSULE PO ×2 (10:23→21:53)
[2021-01-07] MEDS: hydrALAZINE 10 MG TABLET PO (10:23)
[2021-01-07 10:50] LABS: Reticulocyte Hemoglobin Conten 31.3 pg (28.2-35.7); Reticulocyte Percent 1.11 % (0.7-4.3); Reticulocytes Absolute 0.03 B/L (32.2-175.7)
[2021-01-07] MEDS: EPOETIN ALFA-EPBX 10,000 UNITS/ML VIAL 10000 UNITS SUB-Q (13:33)
[2021-01-07 13:44] LABS: Creatine Kinase 125 U/L (30-135)
[2021-01-07 13:45] LABS: Albumin Level 3.3 g/dL (3.5-5.1); Anion Gap 13 mmol/L (8-16); Blood Urea Nitrogen 82 mg/dL (7-17); Calcium 7.6 mg/dL (8.4-10.2); Carbon Dioxide 23 mmol/L (22-30); Chloride 94 mmol/L (98-107); Estimated Glomerular Filt Rate 7; Glucose 121 mg/dL (65-105); Potassium 4.2 mmol/L (3.4-5.0); Sodium 130 mmol/L (137-145)
[2021-01-07 14:42] LABS: Iron 142 ug/dL (37-170)
[2021-01-07 14:51] LABS: Percent Iron Saturation 119 % (20-50)
--- NOTE | 2021-01-07 14:58 | PC.NURSE ---
This patient, Kellee Arora, was received from [[facility]] on 01/07/21 at 1500. Patient/family oriented to unit policies and routines
--- NOTE | 2021-01-07 17:05 | PC.NURSE ---
This patient, Kellee Arora, was transferred to [[facility] ] on 01/07/21 at 1455. Personal belongings sent with patient. Report given to [Kenna ]. Appropriate documentation sent with patient.
[2021-01-07] MEDS: SODIUM CHLORIDE 0.9% IV 1,000 ML 75 ML IV CONT (17:58)
[2021-01-07] MEDS: FERROUS SULFATE DRIED 142 MG TABCR 284 MG PO (18:00)
[2021-01-07] MEDS: hydrALAZINE 10 MG TABLET 20 MG PO (18:01)
[2021-01-07] MEDS: TAMSULOSIN HCL 0.4 MG CAPSULE PO (21:54)
[2021-01-07] MEDS: SENNOSIDES 8.6 MG TABLET PO (21:54)
[2021-01-08] VITALS (8 sets, daily range): BP systolic 152–176; BP diastolic 69–80; PULSE 81–88; RESP 16–18; TEMP 36.4–36.6; O2SAT 91–98
[2021-01-08 06:35] LABS: Hematocrit 22.5 % (37.0-47.0); Mean Corpuscular HGB Conc 30.7 g/dl (32-36); Mean Corpuscular Hemoglobin 27.9 pg (26-34); Mean Corpuscular Volume 91.1 fl (80-100); Mean Platelet Volume 11.2 fl (7.4-10.4); Platelet Count Result 182 k/mm3 (150-375); Red Blood Count 2.47 M/mm3 (4.2-5.4); White Blood Count 6.2 K/mm3 (4.5-10.0)
[2021-01-08 06:48] LABS: Hemoglobin 6.9 g/dL (12.0-15.0)
[2021-01-08 06:51] LABS: Albumin Level 3.3 g/dL (3.5-5.1); Anion Gap 12 mmol/L (8-16); Blood Urea Nitrogen 81 mg/dL (7-17); Calcium 7.6 mg/dL (8.4-10.2); Carbon Dioxide 23 mmol/L (22-30); Chloride 98 mmol/L (98-107); Estimated Glomerular Filt Rate 7; Glucose 83 mg/dL (65-105); Phosphorus 5.5 mg/dL (2.5-4.5); Potassium 4.3 mmol/L (3.4-5.0); Sodium 133 mmol/L (137-145)
[2021-01-08] MEDS: LEVOTHYROXINE SODIUM 150 MCG TABLET PO (06:52)
[2021-01-08 07:00] LABS: Iron 143 ug/dL (37-170)
[2021-01-08 07:09] LABS: Percent Iron Saturation 97 % (20-50)
[2021-01-08 07:54] LABS: Vitamin B12 > 1000.0 pg/mL (239-931)
[2021-01-08] MEDS: SODIUM CHLORIDE 0.9% IV 1,000 ML 75 ML IV CONT (10:21)
[2021-01-08] MEDS: GABAPENTIN 300 MG CAPSULE PO (10:22)
[2021-01-08] MEDS: SODIUM BICARBONATE TAB 650 MG TABLET PO ×2 (10:22→18:00)
[2021-01-08] MEDS: FERROUS SULFATE DRIED 142 MG TABCR PO (10:23)
[2021-01-08] MEDS: METOPROLOL SUCCINATE EXT REL 25 MG TABCR PO (10:23)
[2021-01-08] MEDS: HYDROXYCHLOROQUINE SULFATE 200 MG TABLET PO (10:23)
[2021-01-08] MEDS: FLUTICASONE PROPIONATE 0.05% NA SPR 16 GM BTL (*BKC) 1 SPRAY NASAL (10:23)
[2021-01-08] MEDS: hydrALAZINE 10 MG TABLET PO (10:23)
[2021-01-08] MEDS: predniSONE 5 MG TABLET PO (10:24)
[2021-01-08] MEDS: PANTOPRAZOLE 40 MG TABLET PO ×2 (10:24→18:01)
[2021-01-08 12:31] LABS: Sodium Urine Random 68 meq/L; Total Protein Urine Random 39 mg/dL; Ur Ttl Prot Creatinine Ratio 2.17 mg/mg (0-0.20)
[2021-01-08 12:43] LABS: Eosinophil Urine 1 % (None Seen)
--- NOTE | 2021-01-08 13:13 | P.CDI_ITS ---
CDI Query Clarification Request -Encephalopathy and likely due to ERIC has been documented Please further specify type of encephalopathy: * Metabolic * Toxic * Hypertensive * Hepatic * Other * Unable to determine
--- NOTE | 2021-01-08 13:13 | WPDCDIQUERY2 ---
CDI Query Clarification Request -Encephalopathy and likely due to ERIC has been documented Please further specify type of encephalopathy: Metabolic Toxic Hypertensive Hepatic Other Unable to determine
--- NOTE | 2021-01-08 14:32 | PM.PNNEP ---
Progress Note: A&P Assessment and Plan (1) Chronic kidney disease, stage 4 (severe): Code(s): N18.4 - Chronic kidney disease, stage 4 (severe) Status: Acute Assessment and Plan: the patient has chronic kidney disease stage 4. This is due to hypertension and nephrosclerosis. Her baseline GFR seems to be running in the high teens. In November however her GFR was down a little bit into the low teens and now her GFR is only 7. (2) Acute renal failure: Qualifiers: Acute renal failure type: unspecified Qualified Code(s): N17.9 - Acute kidney failure, unspecified Code(s): N17.9 - Acute kidney failure, unspecified Status: Acute Assessment and Plan: the patient's creatinine is higher. This could be due to several things. Shows echogenic kidneys and no hydro. CPK is okay. Urine electrolytes are non pre renal. Urine eosinophils are negative. Urinalysis is bland. Most likely this is acute on chronic renal failure because of poor intake at home. Continue IV fluids for another day. (3) Metabolic acidosis: Code(s): E87.2 - Acidosis Status: Acute Assessment and Plan: Resolved (4) SLE (systemic lupus erythematosus related syndrome): Code(s): M32.9 - Systemic lupus erythematosus, unspecified Status: Chronic Assessment and Plan: The patient has lupus. There is no evidence of this in the kidneys. (5) Essential hypertension: Code(s): I10 - Essential (primary) hypertension Status: Acute Assessment and Plan: Blood pressure is running 130-160. will add amlodipine (6) Chronic respiratory failure with hypoxia, on home O2 therapy: Code(s): J96.11 - Chronic respiratory failure with hypoxia; Z99.81 - Dependence on supplemental oxygen Status: Acute Assessment and Plan: the patient has chronic obstructive pulmonary disease home oxygen. She used to smoke but does not anymore. (7) ALEX (obstructive sleep apnea): Code(s): G47.33 - Obstructive sleep apnea (adult) (pediatric) Status: Acute Assessment and Plan: She has sleep apnea and uses a CPAP mask. (8) Hypothyroid: Code(s): E03.9 - Hypothyroidism, unspecified Status: Acute Assessment and Plan: She is on supplements for this. Subjective Date/time seen: 01/08/21 14:32 Interval history: Kellee is feeling about the same today. No unusual shortness of breath. Eyes knows not Ali because she has no [place] and she is incontinent/depends. Review of Systems Cardiovascular: Cardiovascular: Reports no additional cardiovascular complaints Respiratory: Respiratory: Reports no additional respiratory complaints Gastrointestinal: Gastrointestinal: Reports no additional gastrointestinal complaints Genitourinary: Genitourinary: Reports no additional female genitourinary complaints Exam Narrative: Exam Narrative: WDWN in NAD skin no rash head ncat lungs clear bilaterally with decreased breath sounds throughout. No wheezes. cor reg no rub abd BS+ nontender and soft ext no edema. Objective Data Vital Signs Vital Signs: Vital Signs - 24 hr 01/07/21 16:00 01/07/21 20:00 01/07/21 22:00 Temperature 36.7 C 36.7 C Pulse Rate 74 83 83 Respiratory Rate 20 16 16 Blood Pressure 145/74 H 145/74 H Pulse Oximetry 90 97 97 01/07/21 23:40 01/08/21 00:06 01/08/21 05:50 Temperature 36.4 C Pulse Rate 87 Respiratory Rate 16 Blood Pressure 160/76 H Pulse Oximetry 98 95 98 01/08/21 08:00 01/08/21 09:18 01/08/21 10:23 Temperature Pulse Rate 88 88 Respiratory Rate 16 Blood Pressure Pulse Oximetry 98 98 Intake/Output Intake/Output: Intake & Output 01/05/21 01/06/21 01/07/21 01/08/21 23:59 23:59 23:59 23:59 Intake Total 5270 1640 Output Total 700 250 Balance -700 5270 1390 Meds/Results Medications: Active Medications Generic Name Dose Route Start Last Admin
--- NOTE | 2021-01-08 15:39 | PM.IMPN ---
Progress Note: A&P Assessment and Plan (1) Acute kidney injury: Code(s): N17.9 - Acute kidney failure, unspecified Status: Acute Assessment and Plan: HOLDING LASIX HOLDING HYDROCHLOROTHIAZIDE HOLDING LOSARTAN ALMEIDA IN RENAL ULTRASOUND 01/07 with cortical thinning, c/w medical renal disease (2) Metabolic acidosis: Code(s): E87.2 - Acidosis Status: Acute Assessment and Plan: LIKELY SECONDARY TO RENAL FAILURE IMPROVED WITH BICARB DRIP OVERNIGHT BICARB PO seen by nephrology (3) Encephalopathy: Code(s): G93.40 - Encephalopathy, unspecified Status: Acute Assessment and Plan: Likely due to ERIC Seems to be near baseline now. PT/OT (4) Chronic respiratory failure with hypoxia, on home O2 therapy: Code(s): J96.11 - Chronic respiratory failure with hypoxia; Z99.81 - Dependence on supplemental oxygen Status: Acute Assessment and Plan: STABLE CONTINUE SUPPLEMENTAL OXYGEN (5) ALEX (obstructive sleep apnea): Code(s): G47.33 - Obstructive sleep apnea (adult) (pediatric) Status: Acute Assessment and Plan: CPAP AT NIGHTTIME (6) SLE (systemic lupus erythematosus related syndrome): Code(s): M32.9 - Systemic lupus erythematosus, unspecified Status: Chronic Assessment and Plan: STABLE CONTINUE HYDROXYCHLOROQUINE (7) Left hemiparesis: Code(s): G81.94 - Hemiplegia, unspecified affecting left nondominant side Status: Acute Assessment and Plan: CHRONIC FALL PRECAUTIONS Subjective Date/time seen: 01/08/21 15:39 Interval history: 80 y/o f admitted with ERIC superimposed on CKD4. 01/07: Feels stronger. Appetite poor. Denied pain. No sob at rest. Chronic CAN. No swelling. Constipated, chronic. 01/08: HB is low pt will need blood transfusion otherwise much the same as yesterday Review of Systems Review of Systems: All systems reviewed & are unremarkable except as noted in HPI and below Exam Narrative: Exam Narrative: elderly frail lady NECK: No JVD, adenopathy, or thyromegaly CHEST: Clear to auscultation. Normal effort. Increased APD with prolonged expiratory phase HEART: NL S1/S2, regular, no murmur ABDOMEN: BS+, soft, nontender, no mass, no bruits EXTREMITIES: No cyanosis, edema, or clubbing NEUROLOGIC: CN intact and symmetric to inspection. MUSCULOSKELETAL: Tone and strength symmetric. PSYCH: Alert. Oriented to person, place, and time Objective Data Vital Signs Vital Signs: Vital Signs - 24 hr 01/07/21 16:00 01/07/21 20:00 01/07/21 22:00 Temperature 36.7 C 36.7 C Pulse Rate 74 83 83 Respiratory Rate 20 16 16 Blood Pressure 145/74 H 145/74 H Pulse Oximetry 90 97 97 01/07/21 23:40 01/08/21 00:06 01/08/21 05:50 Temperature 36.4 C Pulse Rate 87 Respiratory Rate 16 Blood Pressure 160/76 H Pulse Oximetry 98 95 98 01/08/21 08:00 01/08/21 09:18 01/08/21 10:23 Temperature Pulse Rate 88 88 Respiratory Rate 16 Blood Pressure Pulse Oximetry 98 98 01/08/21 14:00 Temperature 36.6 C Pulse Rate 81 Respiratory Rate 18 Blood Pressure 152/69 H Pulse Oximetry 97 Intake/Output Intake/Output: Intake & Output 01/05/21 01/06/21 01/07/21 01/08/21 23:59 23:59 23:59 23:59 Intake Total 5270 1640 Output Total 700 250 Balance -700 5270 1390 Meds/Results Medications: Active Medications Generic Name Dose Route Start Last Admin Trade Name Freq PRN Reason Stop Dose Admin Acetaminophen 650 mg 01/07/21 01:16 Acetaminophen 325 Mg Tablet PO Q4H PRN Pain Albuterol 2 puff 01/07/21 01:16 Albuterol Sulfate (*Sp) Aerosol 1 Puff INHALATION QID PRN shortness of breath or wheezing Amlodipine Besylate 2.5 mg 01/09/21 09:00 Amlodipine Besylate 2.5 Mg Tablet PO QAM FOR[facility], [facility]–1983 Calcium Carbonate 500 mg 01/07/21 09:00 01/08/21 10:23 Calcium/Vitamin D 500 Mg Tablet PO 02/06/21 09:01 500 mg BID JACK
[2021-01-08] MEDS: CENTRAL LINE FLUSH 10 ML IV PUSH ×2 (16:48→22:00)
[2021-01-08] MEDS: hydrALAZINE 10 MG TABLET 20 MG PO (18:00)
[2021-01-08] MEDS: FERROUS SULFATE DRIED 142 MG TABCR 284 MG PO (18:01)
[2021-01-08] MEDS: TAMSULOSIN HCL 0.4 MG CAPSULE PO (22:01)
[2021-01-08] MEDS: SENNOSIDES 8.6 MG TABLET PO (22:05)
[2021-01-09] VITALS (9 sets, daily range): BP systolic 152–186; BP diastolic 67–90; PULSE 88–94; RESP 18–20; TEMP 36.3–36.8; O2SAT 93–100
[2021-01-09] MEDS: SODIUM CHLORIDE 0.9% IV 1,000 ML 75 ML IV CONT ×2 (01:56→15:15)
[2021-01-09] MEDS: LEVOTHYROXINE SODIUM 150 MCG TABLET PO (06:42)
[2021-01-09 07:44] LABS: Hematocrit 24.5 % (37.0-47.0); Hemoglobin 7.5 g/dL (12.0-15.0); Mean Corpuscular HGB Conc 30.6 g/dl (32-36); Mean Corpuscular Volume 94.6 fl (80-100); Mean Platelet Volume 10.4 fl (7.4-10.4); Platelet Count Result 170 k/mm3 (150-375); Red Blood Count 2.59 M/mm3 (4.2-5.4); Red Cell Distribution Width 17.5 % (11.5-14.5); White Blood Count 5.1 K/mm3 (4.5-10.0)
[2021-01-09 07:55] LABS: Albumin Level 3.4 g/dL (3.5-5.1); Anion Gap 13 mmol/L (8-16); Blood Urea Nitrogen 74 mg/dL (7-17); Calcium 7.7 mg/dL (8.4-10.2); Carbon Dioxide 22 mmol/L (22-30); Chloride 100 mmol/L (98-107); Estimated Glomerular Filt Rate 7; Glucose 90 mg/dL (65-105); Phosphorus 5.2 mg/dL (2.5-4.5); Potassium 4.1 mmol/L (3.4-5.0); Sodium 135 mmol/L (137-145)
[2021-01-09] MEDS: FLUTICASONE PROPIONATE 0.05% NA SPR 16 GM BTL (*BKC) 1 SPRAY NASAL (09:45)
[2021-01-09] MEDS: ACETAMINOPHEN 325 MG TABLET 650 MG PO ×2 (09:46→23:36)
[2021-01-09] MEDS: GABAPENTIN 300 MG CAPSULE PO ×2 (09:47→22:05)
[2021-01-09] MEDS: METOPROLOL SUCCINATE EXT REL 25 MG TABCR PO (09:48)
[2021-01-09] MEDS: FERROUS SULFATE DRIED 142 MG TABCR PO (09:48)
[2021-01-09] MEDS: amLODIPine BESYLATE 2.5 MG TABLET PO (09:49)
[2021-01-09] MEDS: hydrALAZINE 10 MG TABLET PO (09:49)
[2021-01-09] MEDS: SODIUM BICARBONATE TAB 650 MG TABLET PO ×2 (09:49→17:15)
[2021-01-09] MEDS: PANTOPRAZOLE 40 MG TABLET PO ×2 (09:49→17:15)
[2021-01-09] MEDS: predniSONE 5 MG TABLET PO (09:49)
[2021-01-09] MEDS: HYDROXYCHLOROQUINE SULFATE 200 MG TABLET PO (09:49)
[2021-01-09] MEDS: CENTRAL LINE FLUSH 10 ML IV PUSH ×3 (09:51→22:05)
[2021-01-09] MEDS: EPOETIN ALFA-EPBX 10,000 UNITS/ML VIAL 10000 UNITS SUB-Q (09:51)
--- NOTE | 2021-01-09 12:44 | PC.NURSE ---
Called Dr. Hancock to verify an ordered that was from 01/08/21 @ 1552 due to patient's Hgb 6.9. Patient's Hgb today is 7.5. stated to call and ask Dr. Alcala's opinion on order & to check about Epogen. Patient is on Retacrit TuThSa. Dr. Alcala suggested to hold off on the unit of blood due to recent Hgb levels, no signs & symptoms of bleeding, and patient already on Retacrit. Called Dr. Hancock to update her with what Dr. Alclaa stated.
--- NOTE | 2021-01-09 13:38 | PM.IMPN ---
Progress Note: A&P Assessment and Plan (1) Acute kidney injury: Code(s): N17.9 - Acute kidney failure, unspecified Status: Acute Assessment and Plan: HOLDING LASIX HOLDING HYDROCHLOROTHIAZIDE HOLDING LOSARTAN ALMEIDA IN RENAL ULTRASOUND 01/07 with cortical thinning, c/w medical renal disease (2) Metabolic acidosis: Code(s): E87.2 - Acidosis Status: Acute Assessment and Plan: LIKELY SECONDARY TO RENAL FAILURE IMPROVED WITH BICARB DRIP OVERNIGHT BICARB PO seen by nephrology (3) Encephalopathy: Code(s): G93.40 - Encephalopathy, unspecified Status: Acute Assessment and Plan: Likely due to ERIC Seems to be near baseline now. PT/OT (4) Chronic respiratory failure with hypoxia, on home O2 therapy: Code(s): J96.11 - Chronic respiratory failure with hypoxia; Z99.81 - Dependence on supplemental oxygen Status: Acute Assessment and Plan: STABLE CONTINUE SUPPLEMENTAL OXYGEN (5) ALEX (obstructive sleep apnea): Code(s): G47.33 - Obstructive sleep apnea (adult) (pediatric) Status: Acute Assessment and Plan: CPAP AT NIGHTTIME (6) SLE (systemic lupus erythematosus related syndrome): Code(s): M32.9 - Systemic lupus erythematosus, unspecified Status: Chronic Assessment and Plan: STABLE CONTINUE HYDROXYCHLOROQUINE (7) Left hemiparesis: Code(s): G81.94 - Hemiplegia, unspecified affecting left nondominant side Status: Acute Assessment and Plan: CHRONIC FALL PRECAUTIONS Subjective Date/time seen: 01/09/21 13:38 Interval history: 80 y/o f admitted with ERIC superimposed on CKD4. 01/07: Feels stronger. Appetite poor. Denied pain. No sob at rest. Chronic CAN. No swelling. Constipated, chronic. 01/08: HB is low PT RECEIVES EPOGEN SHOTS 01/09: Much the same tired and weak Review of Systems Review of Systems: All systems reviewed & are unremarkable except as noted in HPI and below Exam Narrative: Exam Narrative: elderly frail lady NECK: No JVD, adenopathy, or thyromegaly CHEST: Clear to auscultation. Normal effort. Increased APD with prolonged expiratory phase HEART: NL S1/S2, regular, no murmur ABDOMEN: BS+, soft, nontender, no mass, no bruits EXTREMITIES: No cyanosis, edema, or clubbing NEUROLOGIC: CN intact and symmetric to inspection. MUSCULOSKELETAL: Tone and strength symmetric. PSYCH: Alert. Oriented to person, place, and time Objective Data Vital Signs Vital Signs: Vital Signs - 24 hr 01/08/21 14:00 01/08/21 22:00 01/08/21 23:31 Temperature 36.6 C 36.4 C Pulse Rate 81 84 Respiratory Rate 18 18 Blood Pressure 152/69 H 176/80 H Pulse Oximetry 97 97 91 01/09/21 06:00 01/09/21 09:23 01/09/21 09:40 Temperature 36.3 C L Pulse Rate 89 Respiratory Rate 18 Blood Pressure 161/80 H Pulse Oximetry 100 93 97 01/09/21 09:48 Temperature Pulse Rate 94 Respiratory Rate Blood Pressure Pulse Oximetry Intake/Output Intake/Output: Intake & Output 01/06/21 01/07/21 01/08/21 01/09/21 23:59 23:59 23:59 23:59 Intake Total 5270 3330 390 Output Total 700 250 150 Balance -700 5270 3080 240 Meds/Results Medications: Active Medications Generic Name Dose Route Start Last Admin Trade Name Freq PRN Reason Stop Dose Admin Acetaminophen 650 mg 01/07/21 01:16 01/09/21 09:46 Acetaminophen 325 Mg Tablet PO 650 mg Q4H PRN Administration Pain Albuterol 2 puff 01/07/21 01:16 Albuterol Sulfate (*Sp) Aerosol 1 Puff INHALATION QID PRN shortness of breath or wheezing Amlodipine Besylate 2.5 mg 01/09/21 09:00 01/09/21 09:49 Amlodipine Besylate 2.5 Mg Tablet PO 2.5 mg QAM JACK Administration Calcium Carbonate 500 mg 01/07/21 09:00 01/09/21 09:48 Calcium/Vitamin D 500 Mg Tablet PO 02/06/21 09:01 500 mg BID JACK Administration Epoetin Lobito-epbx 10,000 units 01/09/21 09:00 01/09/21 09:51 Epoetin Joe
--- NOTE | 2021-01-09 16:17 | PM.PNNEP ---
Progress Note: A&P Assessment and Plan (1) Chronic kidney disease, stage 4 (severe): Code(s): N18.4 - Chronic kidney disease, stage 4 (severe) Status: Acute Assessment and Plan: the patient has chronic kidney disease stage 4. This is due to hypertension and nephrosclerosis. Her baseline GFR seems to be running in the high teens. In November however her GFR was down a little bit into the low teens and now her GFR is only 7. her gfr isnt improving with fluids. now demonstrates volume overload. will stop fluids and give a dose of bumex. check a cxr. (2) Acute renal failure: Qualifiers: Acute renal failure type: unspecified Qualified Code(s): N17.9 - Acute kidney failure, unspecified Code(s): N17.9 - Acute kidney failure, unspecified Status: Acute Assessment and Plan: the patient's creatinine is higher. This could be due to several things. Shows echogenic kidneys and no hydro. CPK is okay. Urine electrolytes are non pre renal. Urine eosinophils are negative. Urinalysis is bland. Most likely this is acute on chronic renal failure because of poor intake at home. this may be a new baseline for her. we discussed that she may need dialysis down the line. (3) Metabolic acidosis: Code(s): E87.2 - Acidosis Status: Acute Assessment and Plan: Resolved (4) SLE (systemic lupus erythematosus related syndrome): Code(s): M32.9 - Systemic lupus erythematosus, unspecified Status: Chronic Assessment and Plan: The patient has lupus. There is no evidence of this in the kidneys. (5) Essential hypertension: Code(s): I10 - Essential (primary) hypertension Status: Acute Assessment and Plan: Blood pressure is a little better with the amlodipine (6) Chronic respiratory failure with hypoxia, on home O2 therapy: Code(s): J96.11 - Chronic respiratory failure with hypoxia; Z99.81 - Dependence on supplemental oxygen Status: Acute Assessment and Plan: the patient has chronic obstructive pulmonary disease home oxygen. She used to smoke but does not anymore. (7) ALEX (obstructive sleep apnea): Code(s): G47.33 - Obstructive sleep apnea (adult) (pediatric) Status: Acute Assessment and Plan: She has sleep apnea and uses a CPAP mask. (8) Hypothyroid: Code(s): E03.9 - Hypothyroidism, unspecified Status: Acute Assessment and Plan: She is on supplements for this. Subjective Date/time seen: 01/09/21 16:17 Interval history: Kellee is feeling about the same today. she is more sob today Exam Narrative: Exam Narrative: WDWN in NAD skin no rash head ncat lungs rare crackles bilaterally with decreased breath sounds throughout. No wheezes. cor reg no rub abd BS+ nontender and soft ext no edema. Objective Data Vital Signs Vital Signs: Vital Signs - 24 hr 01/08/21 22:00 01/08/21 23:31 01/09/21 06:00 Temperature 36.4 C 36.3 C L Pulse Rate 84 89 Respiratory Rate 18 18 Blood Pressure 176/80 H 161/80 H Pulse Oximetry 97 91 100 01/09/21 09:23 01/09/21 09:40 01/09/21 09:48 Temperature Pulse Rate 94 Respiratory Rate Blood Pressure Pulse Oximetry 93 97 01/09/21 14:00 Temperature 36.8 C Pulse Rate 91 Respiratory Rate 20 Blood Pressure 152/67 H Pulse Oximetry 94 Intake/Output Intake/Output: Intake & Output 01/06/21 01/07/21 01/08/21 01/09/21 23:59 23:59 23:59 23:59 Intake Total 5270 3330 1630 Output Total 700 250 150 Balance -700 5270 3080 1480 Meds/Results Medications: Active Medications Generic Name Dose Route Start Last Admin Trade Name Freq PRN Reason Stop Dose Admin Acetaminophen 650 mg 01/07/21 01:16 01/09/21 09:46 Acetaminophen 325 Mg Tablet PO 650 mg Q4H PRN Administration Pain Albuterol 2 puff 01/07/21 01:16 Albuterol Sulfate (*Sp) Aerosol 1 Puff INHALATION QID P
[2021-01-09] MEDS: BUMETANIDE INJ 1 MG/4 ML VIAL 2 MG IV PUSH (16:29)
[2021-01-09] MEDS: FERROUS SULFATE DRIED 142 MG TABCR 284 MG PO (17:15)
[2021-01-09] MEDS: hydrALAZINE 10 MG TABLET 20 MG PO (17:16)
[2021-01-09] MEDS: SENNOSIDES 8.6 MG TABLET PO (22:05)
[2021-01-09] MEDS: TAMSULOSIN HCL 0.4 MG CAPSULE PO (22:05)
[2021-01-10] VITALS (8 sets, daily range): BP systolic 139–182; BP diastolic 66–87; PULSE 87–98; RESP 20; TEMP 36.4–36.6; O2SAT 93–100
[2021-01-10] MEDS: CENTRAL LINE FLUSH 10 ML IV PUSH ×3 (06:06→20:13)
[2021-01-10] MEDS: LEVOTHYROXINE SODIUM 150 MCG TABLET PO (06:06)
[2021-01-10 06:15] LABS: Hematocrit 23.3 % (37.0-47.0); Hemoglobin 7.1 g/dL (12.0-15.0); Mean Corpuscular HGB Conc 30.5 g/dl (32-36); Mean Corpuscular Hemoglobin 28.9 pg (26-34); Mean Corpuscular Volume 94.7 fl (80-100); Mean Platelet Volume 10.3 fl (7.4-10.4); Platelet Count Result 173 k/mm3 (150-375); Red Blood Count 2.46 M/mm3 (4.2-5.4); Red Cell Distribution Width 17.5 % (11.5-14.5); White Blood Count 10.6 K/mm3 (4.5-10.0)
[2021-01-10 06:32] LABS: Albumin Level 3.2 g/dL (3.5-5.1); Anion Gap 11 mmol/L (8-16); Blood Urea Nitrogen 69 mg/dL (7-17); Calcium 7.7 mg/dL (8.4-10.2); Carbon Dioxide 24 mmol/L (22-30); Chloride 99 mmol/L (98-107); Estimated Glomerular Filt Rate 8; Glucose 97 mg/dL (65-105); Phosphorus 4.6 mg/dL (2.5-4.5); Potassium 3.9 mmol/L (3.4-5.0); Sodium 134 mmol/L (137-145)
[2021-01-10] MEDS: amLODIPine BESYLATE 2.5 MG TABLET PO (09:09)
[2021-01-10] MEDS: GABAPENTIN 300 MG CAPSULE PO ×2 (09:09→20:12)
[2021-01-10] MEDS: hydrALAZINE 10 MG TABLET PO (09:10)
[2021-01-10] MEDS: SODIUM BICARBONATE TAB 650 MG TABLET PO ×2 (09:10→17:12)
[2021-01-10] MEDS: METOPROLOL SUCCINATE EXT REL 25 MG TABCR PO (09:10)
[2021-01-10] MEDS: FERROUS SULFATE DRIED 142 MG TABCR PO (09:10)
[2021-01-10] MEDS: HYDROXYCHLOROQUINE SULFATE 200 MG TABLET PO (09:10)
[2021-01-10] MEDS: FLUTICASONE PROPIONATE 0.05% NA SPR 16 GM BTL (*BKC) 1 SPRAY NASAL (09:10)
[2021-01-10] MEDS: predniSONE 5 MG TABLET PO (09:10)
[2021-01-10] MEDS: PANTOPRAZOLE 40 MG TABLET PO ×2 (09:10→17:12)
--- NOTE | 2021-01-10 14:07 | PM.IMPN ---
Progress Note: A&P Assessment and Plan (1) Acute kidney injury: Code(s): N17.9 - Acute kidney failure, unspecified Status: Acute Assessment and Plan: diuresis today Dc jomar continue to watch kidney function may need dialysis if kidney function does not improve ALMEIDA IN RENAL ULTRASOUND 01/07 with cortical thinning, c/w medical renal disease (2) Metabolic acidosis: Code(s): E87.2 - Acidosis Status: Resolved Assessment and Plan: LIKELY SECONDARY TO RENAL FAILURE IMPROVED WITH BICARB DRIP OVERNIGHT BICARB PO seen by nephrology (3) Encephalopathy: Code(s): G93.40 - Encephalopathy, unspecified Status: Resolved Assessment and Plan: Likely due to ERIC Seems to be near baseline now. PT/OT (4) Chronic respiratory failure with hypoxia, on home O2 therapy: Code(s): J96.11 - Chronic respiratory failure with hypoxia; Z99.81 - Dependence on supplemental oxygen Status: Chronic Assessment and Plan: STABLE CONTINUE SUPPLEMENTAL OXYGEN (5) ALEX (obstructive sleep apnea): Code(s): G47.33 - Obstructive sleep apnea (adult) (pediatric) Status: Chronic Assessment and Plan: CPAP AT NIGHTTIME (6) SLE (systemic lupus erythematosus related syndrome): Code(s): M32.9 - Systemic lupus erythematosus, unspecified Status: Chronic Assessment and Plan: STABLE CONTINUE HYDROXYCHLOROQUINE (7) Left hemiparesis: Code(s): G81.94 - Hemiplegia, unspecified affecting left nondominant side Status: Chronic Assessment and Plan: CHRONIC FALL PRECAUTIONS Subjective Date/time seen: 01/10/21 14:07 Interval history: 80 y/o f admitted with ERIC superimposed on CKD4. 01/07: Feels stronger. Appetite poor. Denied pain. No sob at rest. Chronic CAN. No swelling. Constipated, chronic. 01/08: HB is low PT RECEIVES EPOGEN SHOTS 01/09: Much the same tired and weak 01/10: Volume overloaded today swollen Review of Systems Review of Systems: All systems reviewed & are unremarkable except as noted in HPI and below Exam Narrative: Exam Narrative: elderly frail lady NECK: No JVD, adenopathy, or thyromegaly CHEST: Clear to auscultation. Normal effort. Increased APD with prolonged expiratory phase HEART: NL S1/S2, regular, no murmur ABDOMEN: BS+, soft, nontender, no mass, no bruits EXTREMITIES: No cyanosis, edema, or clubbing NEUROLOGIC: CN intact and symmetric to inspection. MUSCULOSKELETAL: Tone and strength symmetric. PSYCH: Alert. Oriented to person, place, and time Objective Data Vital Signs Vital Signs: Vital Signs - 24 hr 01/09/21 17:45 01/09/21 20:00 01/09/21 21:13 Temperature 36.4 C Pulse Rate 88 88 Respiratory Rate 20 20 Blood Pressure 186/81 H Pulse Oximetry 94 98 98 01/09/21 22:19 01/10/21 06:00 01/10/21 09:10 Temperature 36.5 C Pulse Rate 98 95 Respiratory Rate 20 Blood Pressure 160/90 H 182/87 H Pulse Oximetry 95 01/10/21 09:22 01/10/21 10:30 Temperature Pulse Rate Respiratory Rate Blood Pressure Pulse Oximetry 100 98 Intake/Output Intake/Output: Intake & Output 01/07/21 01/08/21 01/09/21 01/10/21 23:59 23:59 23:59 23:59 Intake Total 5270 3330 2385 760 Output Total 250 150 200 Balance 5270 3080 2235 560 Meds/Results Medications: Active Medications Generic Name Dose Route Start Last Admin Trade Name Freq PRN Reason Stop Dose Admin Acetaminophen 650 mg 01/07/21 01:16 01/09/21 23:36 Acetaminophen 325 Mg Tablet PO 650 mg Q4H PRN Administration Pain Albuterol 2 puff 01/07/21 01:16 Albuterol Sulfate (*Sp) Aerosol 1 Puff INHALATION QID PRN shortness of breath or wheezing Amlodipine Besylate 2.5 mg 01/09/21 09:00 01/10/21 09:09 Amlodipine Besylate 2.5 Mg Tablet PO 2.5 mg QAM JACK Administration Calcium Carbonate 500 mg 01/07/21 09:00 01/10/21 09:09 Calcium/Vitamin D 500 Mg Tablet PO 02/06/21 09:
--- NOTE | 2021-01-10 15:47 | PM.PNNEP ---
Progress Note: A&P Assessment and Plan (1) Chronic kidney disease, stage 4 (severe): Code(s): N18.4 - Chronic kidney disease, stage 4 (severe) Status: Acute Assessment and Plan: the patient has chronic kidney disease stage 4. This is due to hypertension and nephrosclerosis. Her baseline GFR seems to be running in the high teens. In November however her GFR was down a little bit into the low teens and now her GFR is only 7. she had volume overload yesterday so received some diuretics and today is better. Interestingly, her creatinine improved with the diuretics. (2) Acute renal failure: Qualifiers: Acute renal failure type: unspecified Qualified Code(s): N17.9 - Acute kidney failure, unspecified Code(s): N17.9 - Acute kidney failure, unspecified Status: Acute Assessment and Plan: the patient's creatinine is A little better. Shows echogenic kidneys and no hydro. CPK is okay. Urine electrolytes are non pre renal. Urine eosinophils are negative. Urinalysis is bland. Will give some more diuretics gingerly. We discussed that the patient may need dialysis if things do not improve. I would start at this level if I knew they were not going to improve. So will give her a chance. (3) Metabolic acidosis: Code(s): E87.2 - Acidosis Status: Resolved Assessment and Plan: Resolved (4) SLE (systemic lupus erythematosus related syndrome): Code(s): M32.9 - Systemic lupus erythematosus, unspecified Status: Chronic Assessment and Plan: The patient has lupus. There is no evidence of this in the kidneys. (5) Essential hypertension: Code(s): I10 - Essential (primary) hypertension Status: Acute Assessment and Plan: Blood pressure is doing well. (6) Chronic respiratory failure with hypoxia, on home O2 therapy: Code(s): J96.11 - Chronic respiratory failure with hypoxia; Z99.81 - Dependence on supplemental oxygen Status: Chronic Assessment and Plan: the patient has chronic obstructive pulmonary disease home oxygen. She used to smoke but does not anymore. (7) ALEX (obstructive sleep apnea): Code(s): G47.33 - Obstructive sleep apnea (adult) (pediatric) Status: Chronic Assessment and Plan: She has sleep apnea and uses a CPAP mask. (8) Hypothyroid: Code(s): E03.9 - Hypothyroidism, unspecified Status: Acute Assessment and Plan: She is on supplements for this. Subjective Date/time seen: 01/10/21 15:47 Interval history: Kellee is better. Less short of breath. She says she made a lot of urine yesterday. Exam Narrative: Exam Narrative: WDWN in NAD skin no rash Or subcu nodules head ncat lungs rare crackles bilaterally with decreased breath sounds throughout. No wheezes. cor reg no rub or gallop abd BS+ nontender and soft ext no edema. Objective Data Vital Signs Vital Signs: Vital Signs - 24 hr 01/09/21 17:45 01/09/21 20:00 01/09/21 21:13 Temperature 36.4 C Pulse Rate 88 88 Respiratory Rate 20 20 Blood Pressure 186/81 H Pulse Oximetry 94 98 98 01/09/21 22:19 01/10/21 06:00 01/10/21 09:10 Temperature 36.5 C Pulse Rate 98 95 Respiratory Rate 20 Blood Pressure 160/90 H 182/87 H Pulse Oximetry 95 01/10/21 09:22 01/10/21 10:30 01/10/21 14:00 Temperature 36.6 C Pulse Rate 87 Respiratory Rate 20 Blood Pressure 139/66 Pulse Oximetry 100 98 94 Intake/Output Intake/Output: Intake & Output 01/07/21 01/08/21 01/09/21 01/10/21 23:59 23:59 23:59 23:59 Intake Total 5270 3330 2385 760 Output Total 250 150 200 Balance 5270 3080 2235 560 Meds/Results Medications: Active Medications Generic Name Dose Route Start Last Admin Trade Name Freq PRN Reason Stop Dose Admin Acetaminophen 650 mg 01/07/21 01:16 01/09/21 23:36 Acetaminophen 325 Mg Tablet PO 650 mg Q4H PRN Administ
[2021-01-10] MEDS: hydrALAZINE 10 MG TABLET 20 MG PO (17:11)
[2021-01-10] MEDS: FERROUS SULFATE DRIED 142 MG TABCR 284 MG PO (17:11)
[2021-01-10] MEDS: BUMETANIDE INJ 1 MG/4 ML VIAL IV PUSH (17:11)
[2021-01-10] MEDS: ACETAMINOPHEN 325 MG TABLET 650 MG PO (20:12)
[2021-01-10] MEDS: SENNOSIDES 8.6 MG TABLET PO (20:12)
[2021-01-10] MEDS: TAMSULOSIN HCL 0.4 MG CAPSULE PO (20:13)
[2021-01-11] VITALS (8 sets, daily range): BP systolic 154–169; BP diastolic 66–76; PULSE 88–95; RESP 18–20; TEMP 36.4–37.2; O2SAT 95–100
[2021-01-11 04:42] LABS: Hematocrit 23.7 % (37.0-47.0); Hemoglobin 7.1 g/dL (12.0-15.0); Mean Corpuscular Hemoglobin 28.2 pg (26-34); Mean Platelet Volume 9.9 fl (7.4-10.4); Platelet Count Result 187 k/mm3 (150-375); Red Blood Count 2.52 M/mm3 (4.2-5.4); Red Cell Distribution Width 17.6 % (11.5-14.5); White Blood Count 8.6 K/mm3 (4.5-10.0)
[2021-01-11 04:54] LABS: Anion Gap 12 mmol/L (8-16); Blood Urea Nitrogen 67 mg/dL (7-17); Carbon Dioxide 25 mmol/L (22-30); Chloride 97 mmol/L (98-107); Estimated Glomerular Filt Rate 9; Glucose 105 mg/dL (65-105); Potassium 3.8 mmol/L (3.4-5.0); Sodium 134 mmol/L (137-145)
[2021-01-11] MEDS: CENTRAL LINE FLUSH 10 ML IV PUSH ×3 (06:23→23:40)
[2021-01-11] MEDS: LEVOTHYROXINE SODIUM 150 MCG TABLET PO (06:23)
[2021-01-11] MEDS: FERROUS SULFATE DRIED 142 MG TABCR PO (08:51)
[2021-01-11] MEDS: amLODIPine BESYLATE 2.5 MG TABLET PO (08:51)
[2021-01-11] MEDS: FLUTICASONE PROPIONATE 0.05% NA SPR 16 GM BTL (*BKC) 1 SPRAY NASAL (08:52)
[2021-01-11] MEDS: BUMETANIDE INJ 1 MG/4 ML VIAL IV PUSH ×2 (08:52→17:57)
[2021-01-11] MEDS: GABAPENTIN 300 MG CAPSULE PO (08:52)
[2021-01-11] MEDS: hydrALAZINE 10 MG TABLET PO (08:53)
[2021-01-11] MEDS: HYDROXYCHLOROQUINE SULFATE 200 MG TABLET PO (08:54)
[2021-01-11] MEDS: METOPROLOL SUCCINATE EXT REL 25 MG TABCR PO (08:54)
[2021-01-11] MEDS: predniSONE 5 MG TABLET PO (08:55)
[2021-01-11] MEDS: PANTOPRAZOLE 40 MG TABLET PO ×2 (08:55→17:58)
[2021-01-11] MEDS: SODIUM BICARBONATE TAB 650 MG TABLET PO ×2 (08:55→17:58)
[2021-01-11] MEDS: EPOETIN ALFA-EPBX 10,000 UNITS/ML VIAL 10000 UNITS SUB-Q (09:01)
[2021-01-11 11:35] LABS: Albumin Level 3.6 g/dL (3.5-5.1); Anion Gap 17 mmol/L (8-16); Blood Urea Nitrogen 73 mg/dL (7-17); Calcium 8.5 mg/dL (8.4-10.2); Carbon Dioxide 18 mmol/L (22-30); Chloride 103 mmol/L (98-107); Estimated Glomerular Filt Rate 9; Glucose 122 mg/dL (65-105); Phosphorus 4.4 mg/dL (2.5-4.5); Potassium 4.6 mmol/L (3.4-5.0); Sodium 138 mmol/L (137-145)
--- NOTE | 2021-01-11 14:00 | PM.IMPN ---
Progress Note: A&P Assessment and Plan (1) Acute kidney injury: Code(s): N17.9 - Acute kidney failure, unspecified Status: Acute Assessment and Plan: diuresis today Dc jomar continue to watch kidney function may need dialysis if kidney function does not improve ALMEIDA IN RENAL ULTRASOUND 01/07 with cortical thinning, c/w medical renal disease (2) Metabolic acidosis: Code(s): E87.2 - Acidosis Status: Resolved Assessment and Plan: LIKELY SECONDARY TO RENAL FAILURE IMPROVED WITH BICARB DRIP OVERNIGHT BICARB PO seen by nephrology (3) Encephalopathy: Code(s): G93.40 - Encephalopathy, unspecified Status: Resolved Assessment and Plan: Likely due to ERIC Seems to be near baseline now. PT/OT (4) Chronic respiratory failure with hypoxia, on home O2 therapy: Code(s): J96.11 - Chronic respiratory failure with hypoxia; Z99.81 - Dependence on supplemental oxygen Status: Chronic Assessment and Plan: STABLE CONTINUE SUPPLEMENTAL OXYGEN (5) ALEX (obstructive sleep apnea): Code(s): G47.33 - Obstructive sleep apnea (adult) (pediatric) Status: Chronic Assessment and Plan: CPAP AT NIGHTTIME (6) SLE (systemic lupus erythematosus related syndrome): Code(s): M32.9 - Systemic lupus erythematosus, unspecified Status: Chronic Assessment and Plan: STABLE CONTINUE HYDROXYCHLOROQUINE (7) Left hemiparesis: Code(s): G81.94 - Hemiplegia, unspecified affecting left nondominant side Status: Chronic Assessment and Plan: CHRONIC FALL PRECAUTIONS Subjective Date/time seen: 01/11/21 14:00 Interval history: 80 y/o f admitted with ERIC superimposed on CKD4. 01/07: Feels stronger. Appetite poor. Denied pain. No sob at rest. Chronic CAN. No swelling. Constipated, chronic. 01/08: HB is low PT RECEIVES EPOGEN SHOTS 01/09: Much the same tired and weak 01/10: Volume overloaded today swollen 01/11: continue to monitor kidney function as per nephrology Review of Systems Review of Systems: All systems reviewed & are unremarkable except as noted in HPI and below Exam Narrative: Exam Narrative: elderly frail lady NECK: No JVD, adenopathy, or thyromegaly CHEST: Clear to auscultation. Normal effort. Increased APD with prolonged expiratory phase HEART: NL S1/S2, regular, no murmur ABDOMEN: BS+, soft, nontender, no mass, no bruits EXTREMITIES: No cyanosis, edema, or clubbing NEUROLOGIC: CN intact and symmetric to inspection. MUSCULOSKELETAL: Tone and strength symmetric. PSYCH: Alert. Oriented to person, place, and time Objective Data Vital Signs Vital Signs: Vital Signs - 24 hr 01/10/21 20:00 01/10/21 21:20 01/10/21 22:00 Temperature 36.4 C Pulse Rate 87 Respiratory Rate 20 Blood Pressure 169/78 H Pulse Oximetry 93 93 96 01/11/21 05:03 01/11/21 06:00 01/11/21 08:54 Temperature 36.4 C L Pulse Rate 95 95 Respiratory Rate 20 Blood Pressure 164/76 H Pulse Oximetry 96 01/11/21 10:12 Temperature Pulse Rate Respiratory Rate Blood Pressure Pulse Oximetry 95 Intake/Output Intake/Output: Intake & Output 01/08/21 01/09/21 01/10/21 01/11/21 23:59 23:59 23:59 23:59 Intake Total 3330 2385 2100 610 Output Total 250 150 200 Balance 3080 2235 1900 610 Meds/Results Medications: Active Medications Generic Name Dose Route Start Last Admin Trade Name Freq PRN Reason Stop Dose Admin Acetaminophen 650 mg 01/07/21 01:16 01/10/21 20:12 Acetaminophen 325 Mg Tablet PO 650 mg Q4H PRN Administration Pain Albuterol 2 puff 01/07/21 01:16 Albuterol Sulfate (*Sp) Aerosol 1 Puff INHALATION QID PRN shortness of breath or wheezing Amlodipine Besylate 2.5 mg 01/09/21 09:00 01/11/21 08:51 Amlodipine Besylate 2.5 Mg Tablet PO 2.5 mg QAM JACK Administration Bumetanide 1 mg 01/10/21 17:00 01/11/21 08:52 Bumetanide Inj 1 Mg/4 Ml Vial
--- NOTE | 2021-01-11 15:59 | PM.PNNEP ---
Progress Note: A&P Assessment and Plan (1) Chronic kidney disease, stage 4 (severe): Code(s): N18.4 - Chronic kidney disease, stage 4 (severe) Status: Acute Assessment and Plan: the patient has chronic kidney disease stage 4. This is due to hypertension and nephrosclerosis. Her baseline GFR seems to be running in the high teens. In November however her GFR was down a little bit into the low teens. Recently her creatinine has improved such that her GFR is up to 9. No uremic symptoms. (2) Acute renal failure: Qualifiers: Acute renal failure type: unspecified Qualified Code(s): N17.9 - Acute kidney failure, unspecified Code(s): N17.9 - Acute kidney failure, unspecified Status: Acute Assessment and Plan: the patient's creatinine is A little better. Shows echogenic kidneys and no hydro. CPK is okay. Urine electrolytes are non pre renal. Urine eosinophils are negative. Urinalysis is bland. The patient is on Bumex 1 mg b.i.d.. She is doing pretty well at this dose. (3) Metabolic acidosis: Code(s): E87.2 - Acidosis Status: Resolved Assessment and Plan: Resolved (4) SLE (systemic lupus erythematosus related syndrome): Code(s): M32.9 - Systemic lupus erythematosus, unspecified Status: Chronic Assessment and Plan: The patient has lupus. There is no evidence of this in the kidneys. (5) Essential hypertension: Code(s): I10 - Essential (primary) hypertension Status: Acute Assessment and Plan: Blood pressure is doing well. (6) Chronic respiratory failure with hypoxia, on home O2 therapy: Code(s): J96.11 - Chronic respiratory failure with hypoxia; Z99.81 - Dependence on supplemental oxygen Status: Chronic Assessment and Plan: the patient has chronic obstructive pulmonary disease home oxygen. She used to smoke but does not anymore. Volume considerations cause some extra shortness of breath the other day but this is resolved. (7) ALEX (obstructive sleep apnea): Code(s): G47.33 - Obstructive sleep apnea (adult) (pediatric) Status: Chronic Assessment and Plan: She has sleep apnea and uses a CPAP mask. (8) Hypothyroid: Code(s): E03.9 - Hypothyroidism, unspecified Status: Acute Assessment and Plan: She is on supplements for this. Subjective Date/time seen: 01/11/21 15:59 Interval history: Kellee is better. lying flat in bed. Eager for discharge soon. Back to her baseline breathing. Exam Narrative: Exam Narrative: WDWN in NAD skin no rash Or subcu nodules head ncat lungs rare crackles bilaterally with decreased breath sounds throughout. No wheezes. cor reg no rub or gallop abd BS+ nontender and soft ext no edema. Objective Data Vital Signs Vital Signs: Vital Signs - 24 hr 01/10/21 20:00 01/10/21 21:20 01/10/21 22:00 Temperature 36.4 C Pulse Rate 87 Respiratory Rate 20 Blood Pressure 169/78 H Pulse Oximetry 93 93 96 01/11/21 05:03 01/11/21 06:00 01/11/21 08:54 Temperature 36.4 C L Pulse Rate 95 95 Respiratory Rate 20 Blood Pressure 164/76 H Pulse Oximetry 96 01/11/21 10:12 01/11/21 14:00 Temperature 37.2 C Pulse Rate 92 Respiratory Rate 18 Blood Pressure 154/66 H Pulse Oximetry 95 97 Intake/Output Intake/Output: Intake & Output 01/08/21 01/09/21 01/10/21 01/11/21 23:59 23:59 23:59 23:59 Intake Total 3330 2385 2100 850 Output Total 250 150 200 Balance 3080 2235 1900 850 Meds/Results Medications: Active Medications Generic Name Dose Route Start Last Admin Trade Name Freq PRN Reason Stop Dose Admin Acetaminophen 650 mg 01/07/21 01:16 01/10/21 20:12 Acetaminophen 325 Mg Tablet PO 650 mg Q4H PRN Administration Pain Albuterol 2 puff 01/07/21 01:16 Albuterol Sulfate (*Sp) Aerosol 1 Puff INHALATION QID PRN shortness of stepan
[2021-01-11] MEDS: FERROUS SULFATE DRIED 142 MG TABCR 284 MG PO (17:58)
[2021-01-11] MEDS: hydrALAZINE 10 MG TABLET 20 MG PO (17:59)
[2021-01-12] VITALS (8 sets, daily range): BP systolic 140–164; BP diastolic 65–67; PULSE 91–102; RESP 18–22; TEMP 36.1–36.6; O2SAT 90–97
[2021-01-12] MEDS: LEVOTHYROXINE SODIUM 150 MCG TABLET PO (05:20)
[2021-01-12] MEDS: CENTRAL LINE FLUSH 10 ML IV PUSH ×3 (05:21→20:40)
[2021-01-12 06:00] LABS: Hematocrit 24.3 % (37.0-47.0); Hemoglobin 7.4 g/dL (12.0-15.0); Mean Corpuscular HGB Conc 30.5 g/dl (32-36); Mean Corpuscular Hemoglobin 28.8 pg (26-34); Mean Corpuscular Volume 94.6 fl (80-100); Mean Platelet Volume 11.3 fl (7.4-10.4); Platelet Count Result 238 k/mm3 (150-375); Red Blood Count 2.57 M/mm3 (4.2-5.4); Red Cell Distribution Width 17.5 % (11.5-14.5); White Blood Count 7.6 K/mm3 (4.5-10.0)
--- NOTE | 2021-01-12 09:05 | PCPTNOTE ---
Attempted to see patient at 8:58 for PT, however patient states that she needs to eat first. Patient's food tray arrived as SPORTS PHOTOGRAPHER talking to patient. Will attempt later on as appropriate. Belle Lozoya, SPORTS PHOTOGRAPHER
[2021-01-12] MEDS: FERROUS SULFATE DRIED 142 MG TABCR PO (09:21)
[2021-01-12] MEDS: amLODIPine BESYLATE 2.5 MG TABLET PO (09:21)
[2021-01-12] MEDS: FLUTICASONE PROPIONATE 0.05% NA SPR 16 GM BTL (*BKC) 1 SPRAY NASAL (09:22)
[2021-01-12] MEDS: BUMETANIDE INJ 1 MG/4 ML VIAL IV PUSH (09:22)
[2021-01-12] MEDS: hydrALAZINE 10 MG TABLET PO (09:23)
[2021-01-12] MEDS: GABAPENTIN 300 MG CAPSULE PO ×2 (09:23→20:40)
[2021-01-12] MEDS: HYDROXYCHLOROQUINE SULFATE 200 MG TABLET PO (09:24)
[2021-01-12] MEDS: METOPROLOL SUCCINATE EXT REL 25 MG TABCR PO (09:24)
[2021-01-12] MEDS: PANTOPRAZOLE 40 MG TABLET PO ×2 (09:27→17:48)
[2021-01-12] MEDS: SODIUM BICARBONATE TAB 650 MG TABLET PO ×2 (09:27→17:48)
[2021-01-12] MEDS: predniSONE 5 MG TABLET PO (09:27)
[2021-01-12] MEDS: polyethylene glycoL 3350 17 GM POWD.PACK PO (12:06)
[2021-01-12] MEDS: SENNA/DOCUSATE SODIUM TABLET 1 TAB PO (12:06)
--- NOTE | 2021-01-12 12:06 | PCNWS ---
Weekly nutritional screen. Patient is tolerating current diet with adequate intake. No weight loss reported. No nutritional needs at this time.There is no documented BM in chart since admission. Patient confirmed that she has not had a bowel movement and is speaking with her nurse about it today 01/12/2021.
--- NOTE | 2021-01-12 14:25 | PM.IMPN ---
Progress Note: A&P Assessment and Plan (1) Acute kidney injury: Code(s): N17.9 - Acute kidney failure, unspecified Status: Acute Assessment and Plan: diuresis today Dc sat continue to watch kidney function may need dialysis if kidney function does not improve ALMEIDA IN RENAL ULTRASOUND 01/07 with cortical thinning, c/w medical renal disease (2) Metabolic acidosis: Code(s): E87.2 - Acidosis Status: Resolved Assessment and Plan: LIKELY SECONDARY TO RENAL FAILURE IMPROVED WITH BICARB DRIP OVERNIGHT BICARB PO seen by nephrology (3) Encephalopathy: Code(s): G93.40 - Encephalopathy, unspecified Status: Resolved Assessment and Plan: Likely due to ERIC Seems to be near baseline now. PT/OT (4) Chronic respiratory failure with hypoxia, on home O2 therapy: Code(s): J96.11 - Chronic respiratory failure with hypoxia; Z99.81 - Dependence on supplemental oxygen Status: Chronic Assessment and Plan: STABLE CONTINUE SUPPLEMENTAL OXYGEN (5) ALEX (obstructive sleep apnea): Code(s): G47.33 - Obstructive sleep apnea (adult) (pediatric) Status: Chronic Assessment and Plan: CPAP AT NIGHTTIME (6) SLE (systemic lupus erythematosus related syndrome): Code(s): M32.9 - Systemic lupus erythematosus, unspecified Status: Chronic Assessment and Plan: STABLE CONTINUE HYDROXYCHLOROQUINE (7) Left hemiparesis: Code(s): G81.94 - Hemiplegia, unspecified affecting left nondominant side Status: Chronic Assessment and Plan: CHRONIC FALL PRECAUTIONS Subjective Date/time seen: 01/12/21 14:25 Interval history: 80 y/o f admitted with ERIC superimposed on CKD4. 01/07: Feels stronger. Appetite poor. Denied pain. No sob at rest. Chronic CAN. No swelling. Constipated, chronic. 01/08: HB is low PT RECEIVES EPOGEN SHOTS 01/09: Much the same tired and weak 01/10: Volume overloaded today swollen 01/11: continue to monitor kidney function as per nephrology 01/12 : continue to diuresis and help with bowel movement hopeful DC tomorrow Review of Systems Review of Systems: All systems reviewed & are unremarkable except as noted in HPI and below Exam Narrative: Exam Narrative: elderly frail lady NECK: No JVD, adenopathy, or thyromegaly CHEST: Clear to auscultation. HEART: NL S1/S2, regular, no murmur ABDOMEN: BS+, soft, slightly bloated EXTREMITIES: No cyanosis, edema, or clubbing NEUROLOGIC: CN intact and symmetric to inspection. MUSCULOSKELETAL: Tone and strength symmetric. PSYCH: Alert. Oriented to person, place, and time Objective Data Vital Signs Vital Signs: Vital Signs - 24 hr 01/11/21 20:00 01/11/21 20:55 01/11/21 21:55 Temperature 36.5 C Pulse Rate 88 88 Respiratory Rate 20 20 Blood Pressure 169/71 H Pulse Oximetry 100 97 100 01/12/21 05:29 01/12/21 08:00 01/12/21 09:24 Temperature 36.6 C Pulse Rate 91 102 H Respiratory Rate 20 Blood Pressure 164/67 H Pulse Oximetry 90 97 01/12/21 10:17 Temperature Pulse Rate Respiratory Rate Blood Pressure Pulse Oximetry 97 Intake/Output Intake/Output: Intake & Output 01/09/21 01/10/21 01/11/21 01/12/21 23:59 23:59 23:59 23:59 Intake Total 2385 2100 1640 360 Output Total 150 200 Balance 2235 1900 1640 360 Meds/Results Medications: Active Medications Generic Name Dose Route Start Last Admin Trade Name Freq PRN Reason Stop Dose Admin Acetaminophen 650 mg 01/07/21 01:16 01/10/21 20:12 Acetaminophen 325 Mg Tablet PO 650 mg Q4H PRN Administration Pain Albuterol 2 puff 01/07/21 01:16 Albuterol Sulfate (*Sp) Aerosol 1 Puff INHALATION QID PRN shortness of breath or wheezing Amlodipine Besylate 2.5 mg 01/09/21 09:00 01/12/21 09:21 Amlodipine Besylate 2.5 Mg Tablet PO 2.5 mg QAM JACK Administration Bumetanide 1 mg 01/10/21 17:00 01/12/21 09:22 Bumetanide Inj 1
--- NOTE | 2021-01-12 16:37 | PM.PNNEP ---
Progress Note: A&P Assessment and Plan (1) Chronic kidney disease, stage 4 (severe): Code(s): N18.4 - Chronic kidney disease, stage 4 (severe) Status: Acute Assessment and Plan: the patient has chronic kidney disease stage 4. This is due to hypertension and nephrosclerosis. Her baseline GFR seems to be running in the high teens. In November however her GFR was down a little bit into the low teens. Will check a renal panel in the morning. No uremic symptoms. (2) Acute renal failure: Qualifiers: Acute renal failure type: unspecified Qualified Code(s): N17.9 - Acute kidney failure, unspecified Code(s): N17.9 - Acute kidney failure, unspecified Status: Acute Assessment and Plan: the patient's creatinine is A little better. Shows echogenic kidneys and no hydro. CPK is okay. Urine electrolytes are non pre renal. Urine eosinophils are negative. Urinalysis is bland. The patient is on Bumex 1 mg b.i.d.. Will switch this to p.o.. (3) Metabolic acidosis: Code(s): E87.2 - Acidosis Status: Resolved Assessment and Plan: Resolved (4) SLE (systemic lupus erythematosus related syndrome): Code(s): M32.9 - Systemic lupus erythematosus, unspecified Status: Chronic Assessment and Plan: The patient has lupus. There is no evidence of this in the kidneys. (5) Essential hypertension: Code(s): I10 - Essential (primary) hypertension Status: Acute Assessment and Plan: Blood pressure is doing well. (6) Chronic respiratory failure with hypoxia, on home O2 therapy: Code(s): J96.11 - Chronic respiratory failure with hypoxia; Z99.81 - Dependence on supplemental oxygen Status: Chronic Assessment and Plan: the patient has chronic obstructive pulmonary disease home oxygen. She used to smoke but does not anymore. Volume considerations cause some extra shortness of breath the other day but this is resolved. (7) ALEX (obstructive sleep apnea): Code(s): G47.33 - Obstructive sleep apnea (adult) (pediatric) Status: Chronic Assessment and Plan: She has sleep apnea and uses a CPAP mask. (8) Hypothyroid: Code(s): E03.9 - Hypothyroidism, unspecified Status: Acute Assessment and Plan: She is on supplements for this. Subjective Date/time seen: 01/12/21 16:37 Interval history: Kellee is better. lying flat in bed. Had a good bowel movement today. Back to her baseline breathing. Hoping for discharge tomorrow. Exam Narrative: Exam Narrative: WDWN in NAD skin no rash Or subcu nodules head ncat lungs rare crackles bilaterally with decreased breath sounds throughout. No wheezes. cor reg no rub or gallop abd BS+ nontender and soft ext no edema. Objective Data Vital Signs Vital Signs: Vital Signs - 24 hr 01/11/21 20:00 01/11/21 20:55 01/11/21 21:55 Temperature 36.5 C Pulse Rate 88 88 Respiratory Rate 20 20 Blood Pressure 169/71 H Pulse Oximetry 100 97 100 01/12/21 05:29 01/12/21 08:00 01/12/21 09:24 Temperature 36.6 C Pulse Rate 91 102 H Respiratory Rate 20 Blood Pressure 164/67 H Pulse Oximetry 90 97 01/12/21 10:17 01/12/21 14:00 Temperature 36.1 C L Pulse Rate 91 Respiratory Rate 18 Blood Pressure 143/67 H Pulse Oximetry 97 94 Intake/Output Intake/Output: Intake & Output 01/09/21 01/10/21 01/11/21 01/12/21 23:59 23:59 23:59 23:59 Intake Total 2385 2100 1640 360 Output Total 150 200 Balance 2235 1900 1640 360 Meds/Results Medications: Active Medications Generic Name Dose Route Start Last Admin Trade Name Freq PRN Reason Stop Dose Admin Acetaminophen 650 mg 01/07/21 01:16 01/10/21 20:12 Acetaminophen 325 Mg Tablet PO 650 mg Q4H PRN Administration Pain Albuterol 2 puff 01/07/21 01:16 Albuterol Sulfate (*Sp) Aerosol 1 Puff INHALATION QID PRN
[2021-01-12] MEDS: FERROUS SULFATE DRIED 142 MG TABCR 284 MG PO (17:48)
[2021-01-12] MEDS: BUMETANIDE 1 MG TABLET PO (17:54)
[2021-01-12] MEDS: FLUTICASONE PROP 44 MCG (*SP) 10.6 GM 1 PUFF INHALATION (20:30)
[2021-01-12] MEDS: SENNOSIDES 8.6 MG TABLET PO (20:39)
[2021-01-12] MEDS: TAMSULOSIN HCL 0.4 MG CAPSULE PO (20:40)
[2021-01-12 21:31] LABS: IFOB Positive Control Positive; Immunochemical Fecal Occult Bl Negative (N)
[2021-01-13 04:21] LABS: Albumin Level 1.4 g/dL (3.5-5.1); Anion Gap 3 mmol/L (8-16); Blood Urea Nitrogen 32 mg/dL (7-17); Carbon Dioxide 16 mmol/L (22-30); Chloride 121 mmol/L (98-107); Estimated Glomerular Filt Rate 21; Glucose 51 mg/dL (65-105); Phosphorus 1.7 mg/dL (2.5-4.5); Sodium 140 mmol/L (137-145)
--- NOTE | 2021-01-13 04:41 | PC.NURSE ---
0421: Lab notified SN that 2 criticals were for above patient. Results: GLUCOSE 51, POTASSIUM 2.0. Dr. Hdez notified and aware. Blood glucose taken at bedside w/ results to read 96 mg/dl. Dr. Hdez notified and ordered a Stat Renal as it is suspected that initial draw from Port-a-cath was contaminated and to draw peripherally for stat draw. Lab notified and aware and venipuncture performed without incident. Awaiting results at this time.
[2021-01-13 05:21] LABS: Albumin Level 3.4 g/dL (3.5-5.1); Anion Gap 10 mmol/L (8-16); Blood Urea Nitrogen 61 mg/dL (7-17); Calcium 8.5 mg/dL (8.4-10.2); Carbon Dioxide 29 mmol/L (22-30); Chloride 96 mmol/L (98-107); Estimated Glomerular Filt Rate 10; Glucose 101 mg/dL (65-105); Phosphorus 3.1 mg/dL (2.5-4.5); Sodium 135 mmol/L (137-145)
[2021-01-13 05:39] LABS: Glucose Point of Care 96 mg/dl (65-105)
[2021-01-13] MEDS: LEVOTHYROXINE SODIUM 150 MCG TABLET PO (05:50)
[2021-01-13] MEDS: CENTRAL LINE FLUSH 10 ML IV PUSH ×2 (05:51→09:50)
[2021-01-13 06:00] VITALS: BP 154/68; PULSE 98; RESP 20; TEMP 36.2; O2SAT 94
[2021-01-13 07:44] VITALS: PULSE 95; O2SAT 95
[2021-01-13 09:44] VITALS: PULSE 89
[2021-01-13] MEDS: GABAPENTIN 300 MG CAPSULE PO ×2 (09:44→21:10)
[2021-01-13] MEDS: predniSONE 5 MG TABLET PO (09:44)
[2021-01-13] MEDS: hydrALAZINE 10 MG TABLET PO (09:44)
[2021-01-13] MEDS: PANTOPRAZOLE 40 MG TABLET PO ×2 (09:44→17:30)
[2021-01-13] MEDS: SODIUM BICARBONATE TAB 650 MG TABLET PO ×2 (09:44→17:30)
[2021-01-13] MEDS: METOPROLOL SUCCINATE EXT REL 25 MG TABCR PO (09:44)
[2021-01-13] MEDS: HYDROXYCHLOROQUINE SULFATE 200 MG TABLET PO (09:44)
[2021-01-13] MEDS: polyethylene glycoL 3350 17 GM POWD.PACK PO (09:45)
[2021-01-13] MEDS: FERROUS SULFATE DRIED 142 MG TABCR PO (09:45)
[2021-01-13] MEDS: amLODIPine BESYLATE 2.5 MG TABLET PO (09:45)
[2021-01-13] MEDS: EPOETIN ALFA-EPBX 10,000 UNITS/ML VIAL 10000 UNITS SUB-Q (09:45)
[2021-01-13] MEDS: BUMETANIDE 1 MG TABLET PO ×2 (09:45→17:30)
[2021-01-13] MEDS: FLUTICASONE PROPIONATE 0.05% NA SPR 16 GM BTL (*BKC) 1 SPRAY NASAL (09:46)
[2021-01-13] MEDS: FLUTICASONE PROP 44 MCG (*SP) 10.6 GM 1 PUFF INHALATION (09:47)
[2021-01-13] MEDS: SENNA/DOCUSATE SODIUM TABLET 1 TAB PO (09:49)
[2021-01-13 10:14] VITALS: O2SAT 98
--- NOTE | 2021-01-13 13:11 | PM.IMPN ---
Progress Note: A&P Assessment and Plan (1) Acute kidney injury: Code(s): N17.9 - Acute kidney failure, unspecified Status: Acute Assessment and Plan: diuresis today continue to watch kidney function may need dialysis if kidney function does not improve ALMEIDA IN RENAL ULTRASOUND 01/07 with cortical thinning, c/w medical renal disease (2) Metabolic acidosis: Code(s): E87.2 - Acidosis Status: Resolved Assessment and Plan: LIKELY SECONDARY TO RENAL FAILURE (3) Encephalopathy: Code(s): G93.40 - Encephalopathy, unspecified Status: Resolved Assessment and Plan: Likely due to ERIC Seems to be near baseline now. PT/OT (4) Chronic respiratory failure with hypoxia, on home O2 therapy: Code(s): J96.11 - Chronic respiratory failure with hypoxia; Z99.81 - Dependence on supplemental oxygen Status: Chronic Assessment and Plan: STABLE CONTINUE SUPPLEMENTAL OXYGEN (5) ALEX (obstructive sleep apnea): Code(s): G47.33 - Obstructive sleep apnea (adult) (pediatric) Status: Chronic Assessment and Plan: CPAP AT NIGHTTIME (6) SLE (systemic lupus erythematosus related syndrome): Code(s): M32.9 - Systemic lupus erythematosus, unspecified Status: Chronic Assessment and Plan: STABLE CONTINUE HYDROXYCHLOROQUINE (7) Left hemiparesis: Code(s): G81.94 - Hemiplegia, unspecified affecting left nondominant side Status: Chronic Assessment and Plan: CHRONIC FALL PRECAUTIONS Subjective Date/time seen: 01/13/21 13:11 Interval history: 80 y/o f admitted with ERIC superimposed on CKD4. 01/07: Feels stronger. Appetite poor. Denied pain. No sob at rest. Chronic CAN. No swelling. Constipated, chronic. 01/08: HB is low PT RECEIVES EPOGEN SHOTS 01/09: Much the same tired and weak 01/10: Volume overloaded today swollen 01/11: continue to monitor kidney function as per nephrology 01/12 : continue to diuresis and help with bowel movement hopeful DC tomorrow 01/13: bowel movement today hopeful DC tomorrow Review of Systems Review of Systems: All systems reviewed & are unremarkable except as noted in HPI and below Exam Narrative: Exam Narrative: elderly frail lady NECK: No JVD, adenopathy, or thyromegaly CHEST: Clear to auscultation. HEART: NL S1/S2, regular, no murmur ABDOMEN: BS+, soft, slightly bloated EXTREMITIES: No cyanosis, edema, or clubbing NEUROLOGIC: CN intact and symmetric to inspection. MUSCULOSKELETAL: Tone and strength symmetric. PSYCH: Alert. Oriented to person, place, and time Objective Data Vital Signs Vital Signs: Vital Signs - 24 hr 01/12/21 14:00 01/12/21 20:33 01/12/21 20:34 Temperature 36.1 C L Pulse Rate 91 97 97 Respiratory Rate 18 Blood Pressure 143/67 H Pulse Oximetry 94 93 01/12/21 22:00 01/13/21 06:00 01/13/21 07:44 Temperature 36.3 C L 36.2 C L Pulse Rate 100 98 95 Respiratory Rate 22 H 20 Blood Pressure 140/65 154/68 H Pulse Oximetry 96 94 95 01/13/21 09:44 01/13/21 10:14 Temperature Pulse Rate 89 Respiratory Rate Blood Pressure Pulse Oximetry 98 Intake/Output Intake/Output: Intake & Output 01/10/21 01/11/21 01/12/21 01/13/21 23:59 23:59 23:59 23:59 Intake Total 2100 1640 850 230 Output Total 200 400 Balance 1900 1640 450 230 Meds/Results Medications: Active Medications Generic Name Dose Route Start Last Admin Trade Name Freq PRN Reason Stop Dose Admin Acetaminophen 650 mg 01/07/21 01:16 01/10/21 20:12 Acetaminophen 325 Mg Tablet PO 650 mg Q4H PRN Administration Pain Albuterol 2 puff 01/07/21 01:16 Albuterol Sulfate (*Sp) Aerosol 1 Puff INHALATION QID PRN shortness of breath or wheezing Amlodipine Besylate 2.5 mg 01/09/21 09:00 01/13/21 09:45 Amlodipine Besylate 2.5 Mg Tablet PO 2.5 mg QAM JACK Administration Bumetanide 1 mg 01/12/21 17:00 01/13/21 09:45 Bumet
--- NOTE | 2021-01-13 13:29 | PM.PNNEP ---
Progress Note: A&P Assessment and Plan (1) Chronic kidney disease, stage 4 (severe): Code(s): N18.4 - Chronic kidney disease, stage 4 (severe) Status: Acute Assessment and Plan: the patient has chronic kidney disease stage 4. This is due to hypertension and nephrosclerosis. Her baseline GFR seems to be running in the high teens. current GFR is 10. No uremic symptoms. Will need dialysis education and consultation with Dr. Frank on an outpatient basis about the possibility of starting dialysis if she would wish for this. (2) Acute renal failure: Qualifiers: Acute renal failure type: unspecified Qualified Code(s): N17.9 - Acute kidney failure, unspecified Code(s): N17.9 - Acute kidney failure, unspecified Status: Acute Assessment and Plan: the patient's creatinine is A little better. Shows echogenic kidneys and no hydro. CPK is okay. Urine electrolytes are non pre renal. Urine eosinophils are negative. Urinalysis is bland. On oral Bumex now. (3) Metabolic acidosis: Code(s): E87.2 - Acidosis Status: Resolved Assessment and Plan: Resolved (4) SLE (systemic lupus erythematosus related syndrome): Code(s): M32.9 - Systemic lupus erythematosus, unspecified Status: Chronic Assessment and Plan: The patient has lupus. There is no evidence of this in the kidneys. (5) Essential hypertension: Code(s): I10 - Essential (primary) hypertension Status: Acute Assessment and Plan: Blood pressure is doing well. (6) Chronic respiratory failure with hypoxia, on home O2 therapy: Code(s): J96.11 - Chronic respiratory failure with hypoxia; Z99.81 - Dependence on supplemental oxygen Status: Chronic Assessment and Plan: the patient has chronic obstructive pulmonary disease home oxygen. She used to smoke but does not anymore. Volume considerations cause some extra shortness of breath the other day but this is resolved. (7) ALEX (obstructive sleep apnea): Code(s): G47.33 - Obstructive sleep apnea (adult) (pediatric) Status: Chronic Assessment and Plan: She has sleep apnea and uses a CPAP mask. (8) Hypothyroid: Code(s): E03.9 - Hypothyroidism, unspecified Status: Acute Assessment and Plan: She is on supplements for this. Subjective Date/time seen: 01/13/21 13:29 Interval history: Kellee is better. Comfortable in bed. She denies shortness of breath. Exam Narrative: Exam Narrative: WDWN in NAD skin no rash Or subcu nodules head ncat lungs rare crackles bilaterally with decreased breath sounds throughout. No wheezes. cor reg no rub abd BS+ nontender and soft ext no edema or cyanosis. Objective Data Vital Signs Vital Signs: Vital Signs - 24 hr 01/12/21 14:00 01/12/21 20:33 01/12/21 20:34 Temperature 36.1 C L Pulse Rate 91 97 97 Respiratory Rate 18 Blood Pressure 143/67 H Pulse Oximetry 94 93 01/12/21 22:00 01/13/21 06:00 01/13/21 07:44 Temperature 36.3 C L 36.2 C L Pulse Rate 100 98 95 Respiratory Rate 22 H 20 Blood Pressure 140/65 154/68 H Pulse Oximetry 96 94 95 01/13/21 09:44 01/13/21 10:14 Temperature Pulse Rate 89 Respiratory Rate Blood Pressure Pulse Oximetry 98 Intake/Output Intake/Output: Intake & Output 01/10/21 01/11/21 01/12/21 01/13/21 23:59 23:59 23:59 23:59 Intake Total 2100 1640 850 230 Output Total 200 400 Balance 1900 1640 450 230 Meds/Results Medications: Active Medications Generic Name Dose Route Start Last Admin Trade Name Freq PRN Reason Stop Dose Admin Acetaminophen 650 mg 01/07/21 01:16 01/10/21 20:12 Acetaminophen 325 Mg Tablet PO 650 mg Q4H PRN Administration Pain Albuterol 2 puff 01/07/21 01:16 Albuterol Sulfate (*Sp) Aerosol 1 Puff INHALATION QID PRN shortness of breath or wheezing Amlodipine Bes
[2021-01-13 14:00] VITALS: BP 148/64; PULSE 85; RESP 18; TEMP 37; O2SAT 99
[2021-01-13] MEDS: FERROUS SULFATE DRIED 142 MG TABCR 284 MG PO (17:30)
[2021-01-13] MEDS: hydrALAZINE 10 MG TABLET 20 MG PO (17:30)
[2021-01-13] MEDS: TAMSULOSIN HCL 0.4 MG CAPSULE PO (21:00)
[2021-01-13] MEDS: SENNOSIDES 8.6 MG TABLET PO (21:10)
[2021-01-13 22:00] VITALS: BP 138/76; PULSE 84; RESP 20; TEMP 36.6; O2SAT 96
[2021-01-14] VITALS (8 sets, daily range): BP systolic 145–174; BP diastolic 58–84; PULSE 53–96; RESP 18–20; TEMP 36.6–36.9; O2SAT 94–100
[2021-01-14 04:32] LABS: Hematocrit 24.7 % (37.0-47.0); Hemoglobin 7.2 g/dL (12.0-15.0); Mean Corpuscular HGB Conc 29.1 g/dl (32-36); Mean Corpuscular Hemoglobin 27.8 pg (26-34); Mean Corpuscular Volume 95.4 fl (80-100); Mean Platelet Volume 9.6 fl (7.4-10.4); Platelet Count Result 257 k/mm3 (150-375); Red Blood Count 2.59 M/mm3 (4.2-5.4); Red Cell Distribution Width 18.2 % (11.5-14.5); White Blood Count 8.9 K/mm3 (4.5-10.0)
[2021-01-14 04:36] LABS: Anion Gap 10 mmol/L (8-16); Blood Urea Nitrogen 58 mg/dL (7-17); Calcium 8.5 mg/dL (8.4-10.2); Carbon Dioxide 29 mmol/L (22-30); Chloride 98 mmol/L (98-107); Estimated Glomerular Filt Rate 9; Glucose 90 mg/dL (65-105); Potassium 3.8 mmol/L (3.4-5.0); Sodium 137 mmol/L (137-145)
[2021-01-14] MEDS: LEVOTHYROXINE SODIUM 150 MCG TABLET PO (05:55)
--- NOTE | 2021-01-14 08:47 | PM.PNNEP ---
Progress Note: A&P Assessment and Plan (1) Chronic kidney disease, stage 4 (severe): Code(s): N18.4 - Chronic kidney disease, stage 4 (severe) Status: Acute Assessment and Plan: the patient has chronic kidney disease stage 4. This is due to hypertension and nephrosclerosis. Her baseline GFR seems to be running in the high teens. current GFR is 10. No uremic symptoms. Will need dialysis education and consultation with Dr. Frank on an outpatient basis. she should see Dr. Frank in 2 week once she goes home. (2) Acute renal failure: Qualifiers: Acute renal failure type: unspecified Qualified Code(s): N17.9 - Acute kidney failure, unspecified Code(s): N17.9 - Acute kidney failure, unspecified Status: Acute Assessment and Plan: the patient's creatinine is A little better. Shows echogenic kidneys and no hydro. CPK is okay. Urine electrolytes are non pre renal. Urine eosinophils are negative. Urinalysis is bland. On oral Bumex now. (3) Metabolic acidosis: Code(s): E87.2 - Acidosis Status: Resolved Assessment and Plan: Resolved (4) SLE (systemic lupus erythematosus related syndrome): Code(s): M32.9 - Systemic lupus erythematosus, unspecified Status: Chronic Assessment and Plan: The patient has lupus. There is no evidence of this in the kidneys. (5) Essential hypertension: Code(s): I10 - Essential (primary) hypertension Status: Acute Assessment and Plan: Blood pressure is doing well. (6) Chronic respiratory failure with hypoxia, on home O2 therapy: Code(s): J96.11 - Chronic respiratory failure with hypoxia; Z99.81 - Dependence on supplemental oxygen Status: Chronic Assessment and Plan: the patient has chronic obstructive pulmonary disease home oxygen. She used to smoke but does not anymore. (7) ALEX (obstructive sleep apnea): Code(s): G47.33 - Obstructive sleep apnea (adult) (pediatric) Status: Chronic Assessment and Plan: She has sleep apnea and uses a CPAP mask. (8) Hypothyroid: Code(s): E03.9 - Hypothyroidism, unspecified Status: Acute Assessment and Plan: She is on supplements for this. Subjective Date/time seen: 01/14/21 08:47 Interval history: Kellee is better. Comfortable in bed. She denies shortness of breath. Exam Narrative: Exam Narrative: WDWN in NAD skin no rash Or subcu nodules head ncat lungs rare crackles bilaterally with decreased breath sounds throughout. No wheezes. cor reg no rub or gallop abd BS+ and nontender extremities no edema Objective Data Vital Signs Vital Signs: Vital Signs - 24 hr 01/13/21 09:44 01/13/21 10:14 01/13/21 14:00 Temperature 37.0 C Pulse Rate 89 85 Respiratory Rate 18 Blood Pressure 148/64 H Pulse Oximetry 98 99 01/13/21 22:00 01/14/21 01:32 01/14/21 06:00 Temperature 36.6 C 36.6 C Pulse Rate 84 87 Respiratory Rate 20 20 Blood Pressure 138/76 174/84 H Pulse Oximetry 96 96 94 Intake/Output Intake/Output: Intake & Output 01/11/21 01/12/21 01/13/21 01/14/21 23:59 23:59 23:59 23:59 Intake Total 1640 850 870 10 Output Total 400 Balance 1640 450 870 10 Meds/Results Medications: Active Medications Generic Name Dose Route Start Last Admin Trade Name Freq PRN Reason Stop Dose Admin Acetaminophen 650 mg 01/07/21 01:16 01/10/21 20:12 Acetaminophen 325 Mg Tablet PO 650 mg Q4H PRN Administration Pain Albuterol 2 puff 01/07/21 01:16 Albuterol Sulfate (*Sp) Aerosol 1 Puff INHALATION QID PRN shortness of breath or wheezing Amlodipine Besylate 2.5 mg 01/09/21 09:00 01/13/21 09:45 Amlodipine Besylate 2.5 Mg Tablet PO 2.5 mg QAM JACK Administration Bumetanide 1 mg 01/12/21 17:00 01/13/21 17:30 Bumetanide 1 Mg Tablet PO 1 mg BID JACK Administration Calcium Carbo
[2021-01-14] MEDS: SODIUM BICARBONATE TAB 650 MG TABLET PO ×2 (09:29→17:29)
[2021-01-14] MEDS: SENNA/DOCUSATE SODIUM TABLET 1 TAB PO (09:29)
[2021-01-14] MEDS: hydrALAZINE 10 MG TABLET PO (09:29)
[2021-01-14] MEDS: FERROUS SULFATE DRIED 142 MG TABCR PO (09:29)
[2021-01-14] MEDS: amLODIPine BESYLATE 2.5 MG TABLET PO (09:29)
[2021-01-14] MEDS: predniSONE 5 MG TABLET PO (09:29)
[2021-01-14] MEDS: BUMETANIDE 1 MG TABLET PO ×2 (09:30→17:29)
[2021-01-14] MEDS: PANTOPRAZOLE 40 MG TABLET PO ×2 (09:30→17:29)
[2021-01-14] MEDS: HYDROXYCHLOROQUINE SULFATE 200 MG TABLET PO (09:30)
[2021-01-14] MEDS: METOPROLOL SUCCINATE EXT REL 25 MG TABCR PO (09:30)
[2021-01-14] MEDS: FLUTICASONE PROPIONATE 0.05% NA SPR 16 GM BTL (*BKC) 1 SPRAY NASAL (09:30)
[2021-01-14] MEDS: GABAPENTIN 300 MG CAPSULE PO ×2 (09:31→20:51)
[2021-01-14] MEDS: FLUTICASONE PROP 44 MCG (*SP) 10.6 GM 1 PUFF INHALATION ×2 (09:31→20:49)
[2021-01-14] MEDS: CENTRAL LINE FLUSH 10 ML IV PUSH ×2 (09:32→20:52)
--- NOTE | 2021-01-14 14:32 | PM.IMPN ---
Progress Note: A&P Assessment and Plan (1) Acute kidney injury: Code(s): N17.9 - Acute kidney failure, unspecified Status: Acute Assessment and Plan: Transfer to [facility] TOMORROW continue to watch kidney function may need dialysis if kidney function does not improve [place] IN RENAL ULTRASOUND 01/07 with cortical thinning, c/w medical renal disease (2) Metabolic acidosis: Code(s): E87.2 - Acidosis Status: Resolved Assessment and Plan: LIKELY SECONDARY TO RENAL FAILURE (3) Encephalopathy: Code(s): G93.40 - Encephalopathy, unspecified Status: Resolved Assessment and Plan: Likely due to ERIC Seems to be near baseline now. PT/OT (4) Chronic respiratory failure with hypoxia, on home O2 therapy: Code(s): J96.11 - Chronic respiratory failure with hypoxia; Z99.81 - Dependence on supplemental oxygen Status: Chronic Assessment and Plan: STABLE CONTINUE SUPPLEMENTAL OXYGEN (5) ALEX (obstructive sleep apnea): Code(s): G47.33 - Obstructive sleep apnea (adult) (pediatric) Status: Chronic Assessment and Plan: CPAP AT NIGHTTIME (6) SLE (systemic lupus erythematosus related syndrome): Code(s): M32.9 - Systemic lupus erythematosus, unspecified Status: Chronic Assessment and Plan: STABLE CONTINUE HYDROXYCHLOROQUINE (7) Left hemiparesis: Code(s): G81.94 - Hemiplegia, unspecified affecting left nondominant side Status: Chronic Assessment and Plan: CHRONIC FALL PRECAUTIONS Subjective Date/time seen: 01/14/21 14:32 Interval history: 80 y/o f admitted with ERIC superimposed on CKD4. 01/07: Feels stronger. Appetite poor. Denied pain. No sob at rest. Chronic CAN. No swelling. Constipated, chronic. 01/08: HB is low PT RECEIVES EPOGEN SHOTS 01/09: Much the same tired and weak 01/10: Volume overloaded today swollen 01/11: continue to monitor kidney function as per nephrology 01/12 : continue to diuresis and help with bowel movement hopeful DC tomorrow 01/13& 01/14: bowel movement today hopeful DC tomorrow to [facility] after insurance Review of Systems Review of Systems: All systems reviewed & are unremarkable except as noted in HPI and below Exam Narrative: Exam Narrative: elderly frail lady NECK: No JVD, adenopathy, or thyromegaly CHEST: Clear to auscultation. HEART: NL S1/S2, regular, no murmur ABDOMEN: BS+, soft, slightly bloated EXTREMITIES: No cyanosis, edema, or clubbing NEUROLOGIC: CN intact and symmetric to inspection. MUSCULOSKELETAL: Tone and strength symmetric. PSYCH: Alert. Oriented to person, place, and time Objective Data Vital Signs Vital Signs: Vital Signs - 24 hr 01/13/21 22:00 01/14/21 01:32 01/14/21 06:00 Temperature 36.6 C 36.6 C Pulse Rate 84 87 Respiratory Rate 20 20 Blood Pressure 138/76 174/84 H Pulse Oximetry 96 96 94 01/14/21 09:30 01/14/21 09:39 Temperature Pulse Rate 96 Respiratory Rate Blood Pressure Pulse Oximetry 98 Intake/Output Intake/Output: Intake & Output 01/11/21 01/12/21 01/13/21 01/14/21 23:59 23:59 23:59 23:59 Intake Total 1640 850 870 370 Output Total 400 Balance 1640 450 870 370 Meds/Results Medications: Active Medications Generic Name Dose Route Start Last Admin Trade Name Freq PRN Reason Stop Dose Admin Acetaminophen 650 mg 01/07/21 01:16 01/10/21 20:12 Acetaminophen 325 Mg Tablet PO 650 mg Q4H PRN Administration Pain Albuterol 2 puff 01/07/21 01:16 Albuterol Sulfate (*Sp) Aerosol 1 Puff INHALATION QID PRN shortness of breath or wheezing Amlodipine Besylate 2.5 mg 01/09/21 09:00 01/14/21 09:29 Amlodipine Besylate 2.5 Mg Tablet PO 2.5 mg QAM JACK Administration Bumetanide 1 mg 01/12/21 17:00 01/14/21 09:30 Bumetanide 1 Mg Tablet PO 1 mg BID JACK Administration Calcium Carbonate 500 mg 01/07/21 09:00 01/14/21 09:30 Gerardo
[2021-01-14] MEDS: FERROUS SULFATE DRIED 142 MG TABCR 284 MG PO (17:29)
[2021-01-14] MEDS: hydrALAZINE 10 MG TABLET 20 MG PO (17:29)
[2021-01-14] MEDS: TAMSULOSIN HCL 0.4 MG CAPSULE PO (20:51)
[2021-01-14] MEDS: SENNOSIDES 8.6 MG TABLET PO (20:51)
[2021-01-15 02:44] LABS: Hematocrit 24.1 % (37.0-47.0); Hemoglobin 7.1 g/dL (12.0-15.0); Mean Corpuscular HGB Conc 29.5 g/dl (32-36); Mean Corpuscular Hemoglobin 28.1 pg (26-34); Mean Corpuscular Volume 95.3 fl (80-100); Mean Platelet Volume 9.2 fl (7.4-10.4); Platelet Count Result 250 k/mm3 (150-375); Red Blood Count 2.53 M/mm3 (4.2-5.4); Red Cell Distribution Width 18.1 % (11.5-14.5); White Blood Count 7.1 K/mm3 (4.5-10.0)
[2021-01-15 02:58] LABS: Anion Gap 10 mmol/L (8-16); Blood Urea Nitrogen 60 mg/dL (7-17); Calcium 8.6 mg/dL (8.4-10.2); Carbon Dioxide 29 mmol/L (22-30); Chloride 95 mmol/L (98-107); Estimated Glomerular Filt Rate 9; Glucose 93 mg/dL (65-105); Potassium 4.1 mmol/L (3.4-5.0); Sodium 134 mmol/L (137-145)
--- NOTE | 2021-01-15 05:57 | PM.PNNEP ---
Progress Note: A&P Assessment and Plan (1) Chronic kidney disease, stage 4 (severe): Code(s): N18.4 - Chronic kidney disease, stage 4 (severe) Status: Acute Assessment and Plan: the patient has chronic kidney disease stage 4. This is due to hypertension and nephrosclerosis. Her baseline GFR seems to be running in the high teens. current GFR is 10. creatinine slightly higher. will cut bumex to one a day. No uremic symptoms. Will need dialysis education and consultation with Dr. Frank on an outpatient basis. Dr Frank returns tomorrow. If pt goes home have her f/u with him in 2 weeks. (2) Acute renal failure: Qualifiers: Acute renal failure type: unspecified Qualified Code(s): N17.9 - Acute kidney failure, unspecified Code(s): N17.9 - Acute kidney failure, unspecified Status: Acute Assessment and Plan: the patient's creatinine is A little better. Shows echogenic kidneys and no hydro. CPK is okay. Urine electrolytes are non pre renal. Urine eosinophils are negative. Urinalysis is bland. On oral Bumex now. reduce dose/. (3) Metabolic acidosis: Code(s): E87.2 - Acidosis Status: Resolved Assessment and Plan: Resolved co2 a bit high. will stop the bicarb. (4) SLE (systemic lupus erythematosus related syndrome): Code(s): M32.9 - Systemic lupus erythematosus, unspecified Status: Chronic Assessment and Plan: The patient has lupus. There is no evidence of this in the kidneys. (5) Essential hypertension: Code(s): I10 - Essential (primary) hypertension Status: Acute Assessment and Plan: Blood pressure is ranging from 140 to 170. increase hydralazine to 20 bid (6) Chronic respiratory failure with hypoxia, on home O2 therapy: Code(s): J96.11 - Chronic respiratory failure with hypoxia; Z99.81 - Dependence on supplemental oxygen Status: Chronic Assessment and Plan: the patient has chronic obstructive pulmonary disease home oxygen. She used to smoke but does not anymore. (7) ALEX (obstructive sleep apnea): Code(s): G47.33 - Obstructive sleep apnea (adult) (pediatric) Status: Chronic Assessment and Plan: She has sleep apnea and uses a CPAP mask. (8) Hypothyroid: Code(s): E03.9 - Hypothyroidism, unspecified Status: Acute Assessment and Plan: She is on supplements for this. Subjective Date/time seen: 01/15/21 05:57 Interval history: Kellee is feeling okay slept well. no sob. Exam Narrative: Exam Narrative: WDWN in NAD skin no rash Or subcu nodules head ncat lungs rare crackles bilaterally with decreased breath sounds throughout. No wheezes. cor reg no rub or gallop abd BS+ and soft. extremities no edema Objective Data Vital Signs Vital Signs: Vital Signs - 24 hr 01/14/21 06:00 01/14/21 09:30 01/14/21 09:39 Temperature 36.6 C Pulse Rate 87 96 Respiratory Rate 20 Blood Pressure 174/84 H Pulse Oximetry 94 98 01/14/21 14:00 01/14/21 20:00 01/14/21 21:23 Temperature 36.9 C Pulse Rate 53 L 85 83 Respiratory Rate 18 20 Blood Pressure 145/58 H Pulse Oximetry 100 99 97 01/14/21 21:40 Temperature 36.7 C Pulse Rate 85 Respiratory Rate 20 Blood Pressure 160/69 H Pulse Oximetry 99 Intake/Output Intake/Output: Intake & Output 01/12/21 01/13/21 01/14/21 01/15/21 23:59 23:59 23:59 23:59 Intake Total 827 685 5826 Output Total 400 100 Balance 657 474 2912 Meds/Results Medications: Active Medications Generic Name Dose Route Start Last Admin Trade Name Freq PRN Reason Stop Dose Admin Acetaminophen 650 mg 01/07/21 01:16 01/10/21 20:12 Acetaminophen 325 Mg Tablet PO 650 mg Q4H PRN Administration Pain Albuterol 2 puff 01/07/21 01:16 Albuterol Sulfate (*Sp) Aerosol 1 Puff INHALATION QID PRN shortness of breath or wheezing A
[2021-01-15 06:00] VITALS: BP 160/85; PULSE 78; RESP 20; TEMP 36.2; O2SAT 97
[2021-01-15] MEDS: LEVOTHYROXINE SODIUM 150 MCG TABLET PO (06:20)
[2021-01-15] MEDS: CENTRAL LINE FLUSH 10 ML IV PUSH ×3 (06:20→23:41)
[2021-01-15 08:00] VITALS: O2SAT 94
[2021-01-15] MEDS: FERROUS SULFATE DRIED 142 MG TABCR PO (08:20)
[2021-01-15] MEDS: SENNA/DOCUSATE SODIUM TABLET 1 TAB PO (08:21)
[2021-01-15] MEDS: METOPROLOL SUCCINATE EXT REL 25 MG TABCR PO (08:21)
[2021-01-15] MEDS: hydrALAZINE 10 MG TABLET 20 MG PO ×2 (08:21→17:01)
[2021-01-15] MEDS: predniSONE 5 MG TABLET PO (08:21)
[2021-01-15] MEDS: amLODIPine BESYLATE 2.5 MG TABLET PO (08:22)
[2021-01-15] MEDS: FLUTICASONE PROPIONATE 0.05% NA SPR 16 GM BTL (*BKC) 1 SPRAY NASAL (08:22)
[2021-01-15] MEDS: HYDROXYCHLOROQUINE SULFATE 200 MG TABLET PO (08:22)
[2021-01-15] MEDS: GABAPENTIN 300 MG CAPSULE PO ×2 (08:22→23:41)
[2021-01-15] MEDS: polyethylene glycoL 3350 17 GM POWD.PACK PO (08:22)
[2021-01-15] MEDS: PANTOPRAZOLE 40 MG TABLET PO ×2 (08:22→17:02)
[2021-01-15] MEDS: FLUTICASONE PROP 44 MCG (*SP) 10.6 GM 1 PUFF INHALATION (08:23)
[2021-01-15] MEDS: BUMETANIDE 1 MG TABLET PO (08:24)
[2021-01-15 11:56] VITALS: O2SAT 98
[2021-01-15 14:00] VITALS: BP 163/65; PULSE 75; RESP 20; TEMP 36.7; O2SAT 100
--- NOTE | 2021-01-15 14:55 | PM.IMPN ---
Progress Note: A&P Assessment and Plan (1) Acute kidney injury: Code(s): N17.9 - Acute kidney failure, unspecified Status: Acute Assessment and Plan: Dc to [facility] TOMORROW continue to watch kidney function may need dialysis if kidney function does not improve [place] IN RENAL ULTRASOUND 01/07 with cortical thinning, c/w medical renal disease (2) Metabolic acidosis: Code(s): E87.2 - Acidosis Status: Resolved Assessment and Plan: LIKELY SECONDARY TO RENAL FAILURE (3) Encephalopathy: Code(s): G93.40 - Encephalopathy, unspecified Status: Resolved Assessment and Plan: Likely due to ERIC Seems to be near baseline now. PT/OT (4) Chronic respiratory failure with hypoxia, on home O2 therapy: Code(s): J96.11 - Chronic respiratory failure with hypoxia; Z99.81 - Dependence on supplemental oxygen Status: Chronic Assessment and Plan: STABLE CONTINUE SUPPLEMENTAL OXYGEN (5) ALEX (obstructive sleep apnea): Code(s): G47.33 - Obstructive sleep apnea (adult) (pediatric) Status: Chronic Assessment and Plan: CPAP AT NIGHTTIME (6) SLE (systemic lupus erythematosus related syndrome): Code(s): M32.9 - Systemic lupus erythematosus, unspecified Status: Chronic Assessment and Plan: STABLE CONTINUE HYDROXYCHLOROQUINE (7) Left hemiparesis: Code(s): G81.94 - Hemiplegia, unspecified affecting left nondominant side Status: Chronic Assessment and Plan: CHRONIC FALL PRECAUTIONS Subjective Date/time seen: 01/15/21 14:55 Interval history: 80 y/o f admitted with ERIC superimposed on CKD4. 01/07: Feels stronger. Appetite poor. Denied pain. No sob at rest. Chronic CAN. No swelling. Constipated, chronic. 01/08: HB is low PT RECEIVES EPOGEN SHOTS 01/09: Much the same tired and weak 01/10: Volume overloaded today swollen 01/11: continue to monitor kidney function as per nephrology 01/12 : continue to diuresis and help with bowel movement hopeful DC tomorrow 01/14 & 01/15: hopeful DC tomorrow to [facility] after insurance Review of Systems Review of Systems: All systems reviewed & are unremarkable except as noted in HPI and below Exam Narrative: Exam Narrative: elderly frail lady NECK: No JVD, adenopathy, or thyromegaly CHEST: Clear to auscultation. HEART: NL S1/S2, regular, no murmur ABDOMEN: BS+, soft, slightly bloated EXTREMITIES: No cyanosis, edema, or clubbing NEUROLOGIC: CN intact and symmetric to inspection. MUSCULOSKELETAL: Tone and strength symmetric. PSYCH: Alert. Oriented to person, place, and time Objective Data Vital Signs Vital Signs: Vital Signs - 24 hr 01/14/21 20:00 01/14/21 21:23 01/14/21 21:40 Temperature 36.7 C Pulse Rate 85 83 85 Respiratory Rate 20 20 Blood Pressure 160/69 H Pulse Oximetry 99 97 99 01/15/21 06:00 01/15/21 08:00 01/15/21 11:56 Temperature 36.2 C L Pulse Rate 78 Respiratory Rate 20 Blood Pressure 160/85 H Pulse Oximetry 97 94 98 01/15/21 14:00 Temperature 36.7 C Pulse Rate 75 Respiratory Rate 20 Blood Pressure 163/65 H Pulse Oximetry 100 Intake/Output Intake/Output: Intake & Output 01/12/21 01/13/21 01/14/21 01/15/21 23:59 23:59 23:59 23:59 Intake Total 167 221 1773 460 Output Total 400 100 Balance 620 677 0115 460 Meds/Results Medications: Active Medications Generic Name Dose Route Start Last Admin Trade Name Freq PRN Reason Stop Dose Admin Acetaminophen 650 mg 01/07/21 01:16 01/10/21 20:12 Acetaminophen 325 Mg Tablet PO 650 mg Q4H PRN Administration Pain Albuterol 2 puff 01/07/21 01:16 Albuterol Sulfate (*Sp) Aerosol 1 Puff INHALATION QID PRN shortness of breath or wheezing Amlodipine Besylate 2.5 mg 01/09/21 09:00 01/15/21 08:22 Amlodipine Besylate 2.5 Mg Tablet PO 2.5 mg QAM JACK Administration Bumetanide 1 mg 01/15/21 09:00 01/15/21 08:24
[2021-01-15] MEDS: FERROUS SULFATE DRIED 142 MG TABCR 284 MG PO (17:02)
[2021-01-15 20:00] VITALS: PULSE 75; RESP 20; O2SAT 100
[2021-01-15 22:00] VITALS: BP 131/65; PULSE 76; RESP 20; TEMP 36.2; O2SAT 96
[2021-01-15] MEDS: SENNOSIDES 8.6 MG TABLET PO (23:41)
[2021-01-15] MEDS: TAMSULOSIN HCL 0.4 MG CAPSULE PO (23:41)
[2021-01-16 06:00] VITALS: BP 141/61; PULSE 81; RESP 20; TEMP 36.1; O2SAT 96
[2021-01-16] MEDS: LEVOTHYROXINE SODIUM 150 MCG TABLET PO (06:06)
[2021-01-16] MEDS: CENTRAL LINE FLUSH 10 ML IV PUSH (06:06)
[2021-01-16 06:12] LABS: Basophils Percent Auto 0.2 % (0.2-1.2); Eosinophils Absolute Auto 0.2 K/mm3 (0-0.3); Eosinophils Percent Auto 2.3 % (0-4.4); Hematocrit 24.3 % (37.0-47.0); Hemoglobin 7.1 g/dL (12.0-15.0); Immature Granulocyte Absolute 0.08 K/mm3 (0.00-0.031); Lymphocytes Absolute Auto 1.15 K/mm3 (0.9-3.2); Lymphocytes Percent Auto 13.7 % (18.3-44.2); Mean Corpuscular HGB Conc 29.2 g/dl (32-36); Mean Corpuscular Hemoglobin 28.1 pg (26-34); Mean Platelet Volume 10.4 fl (7.4-10.4); Monocytes Absolute Auto 1.1 K/mm3 (0.1-0.6); Monocytes Percent Auto 13.2 % (2.6-8.5); Neutrophils Absolute Auto 5.8 K/mm3 (1.3-6.7); Neutrophils Percent Auto 69.6 % (45.5-73.1); Nucleated Red Blood Cells Perc 0.2 % (0.0-0.2); Platelet Count Result 254 k/mm3 (150-375); Red Blood Count 2.53 M/mm3 (4.2-5.4); Red Cell Distribution Width 18.1 % (11.5-14.5); White Blood Count 8.4 K/mm3 (4.5-10.0)
[2021-01-16 06:25] LABS: Albumin Level 3.2 g/dL (3.5-5.1); Anion Gap 10 mmol/L (8-16); Blood Urea Nitrogen 60 mg/dL (7-17); Calcium 8.6 mg/dL (8.4-10.2); Carbon Dioxide 29 mmol/L (22-30); Chloride 96 mmol/L (98-107); Estimated Glomerular Filt Rate 10; Glucose 93 mg/dL (65-105); Potassium 3.9 mmol/L (3.4-5.0); Sodium 135 mmol/L (137-145)
[2021-01-16 06:40] LABS: Platelet Estimate Adequate (Adequate)
[2021-01-16 06:41] LABS: Hypochromasia 2+ (NORMAL)
[2021-01-16] MEDS: SENNA/DOCUSATE SODIUM TABLET 1 TAB PO (08:18)
[2021-01-16] MEDS: PANTOPRAZOLE 40 MG TABLET PO (08:18)
[2021-01-16] MEDS: hydrALAZINE 10 MG TABLET 20 MG PO (08:18)
[2021-01-16] MEDS: amLODIPine BESYLATE 2.5 MG TABLET PO (08:19)
[2021-01-16] MEDS: GABAPENTIN 300 MG CAPSULE PO (08:19)
[2021-01-16] MEDS: FERROUS SULFATE DRIED 142 MG TABCR PO (08:19)
[2021-01-16] MEDS: predniSONE 5 MG TABLET PO (08:21)
[2021-01-16] MEDS: HYDROXYCHLOROQUINE SULFATE 200 MG TABLET PO (08:21)
[2021-01-16] MEDS: BUMETANIDE 1 MG TABLET PO (08:21)
[2021-01-16] MEDS: FLUTICASONE PROP 44 MCG (*SP) 10.6 GM 1 PUFF INHALATION (08:22)
[2021-01-16] MEDS: FLUTICASONE PROPIONATE 0.05% NA SPR 16 GM BTL (*BKC) 1 SPRAY NASAL (08:22)
[2021-01-16] MEDS: METOPROLOL SUCCINATE EXT REL 25 MG TABCR PO (08:23)
[2021-01-16] MEDS: polyethylene glycoL 3350 17 GM POWD.PACK PO (08:25)
[2021-01-16] MEDS: EPOETIN ALFA-EPBX 10,000 UNITS/ML VIAL 10000 UNITS SUB-Q (08:38)
--- NOTE | 2021-01-16 09:28 | PM.PNNEP ---
Progress Note: A&P Assessment and Plan (1) Acute renal failure: Qualifiers: Acute renal failure type: unspecified Qualified Code(s): N17.9 - Acute kidney failure, unspecified Code(s): N17.9 - Acute kidney failure, unspecified Status: Acute Assessment and Plan: creatinine still elevated above baseline (see #2) evaluation to date: - renal ultrasound with echogenic kidneys and no hydronephrosis - CPK normal - urine electrolytes non-prerenal - urine eosinophils negative - urinalysis is bland follow trend of repeat labs and UOP (2) Chronic kidney disease, stage 4 (severe): Code(s): N18.4 - Chronic kidney disease, stage 4 (severe) Status: Acute Assessment and Plan: due to hypertension and nephrosclerosis baseline creatinine runs ~ 2.3 - 2.9mg/dl in the last year currently creatinine may represent evidence of disease progression bumex just reduced to once a day no uremic symptoms or critical electrolytes at this time will need outpatient education regarding dialysis - she appears to be leaning toward in-center HD (3) Metabolic acidosis: Code(s): E87.2 - Acidosis Status: Resolved Assessment and Plan: resolved off sodium bicarbonate (4) Essential hypertension: Code(s): I10 - Essential (primary) hypertension Status: Acute Assessment and Plan: reasonable control follow trend of hemodynamics (5) Chronic respiratory failure with hypoxia, on home O2 therapy: Code(s): J96.11 - Chronic respiratory failure with hypoxia; Z99.81 - Dependence on supplemental oxygen Status: Chronic Assessment and Plan: due to chronic obstructive pulmonary disease on home oxygen Will continue to follow. Subjective Date/time seen: 01/16/21 09:28 Appears to be doing reasonably well; noted plans for discharge; no apparent distress voiced at the time of my visit; daughter at bedside and we discussed the situation; no events/issues overnight or earlier this AM. Exam Narrative: Exam Narrative: General: WD/WN female in NAD Heart: normal S1 and S2; no rub Lungs: coarse with decreased breath sounds at bases Abdomen: soft, nontender, nondistended, positive bowel sounds Extremities: no cyanosis or clubbing; no edema Skin: warm and dry Objective Data Vital Signs Vital Signs: Vital Signs Temp Pulse Resp BP Pulse Ox 01/16/21 06:00 36.1 C L 81 20 141/61 H 96 01/15/21 22:00 36.2 C L 76 20 131/65 96 01/15/21 20:00 75 20 100 01/15/21 14:00 36.7 C 75 20 163/65 H 100 01/15/21 11:56 98 Intake/Output Intake/Output: Intake & Output 01/13/21 01/14/21 01/15/21 01/16/21 23:59 23:59 23:59 23:59 Intake Total 870 1150 1480 0 Output Total 100 350 Balance 870 1050 1130 0 Meds/Results Medications: Active Medications Generic Name Dose Route Start Last Admin Trade Name Freq PRN Reason Stop Dose Admin Acetaminophen 650 mg 01/07/21 01:16 01/10/21 20:12 Acetaminophen 325 Mg Tablet PO 650 mg Q4H PRN Administration Pain Albuterol 2 puff 01/07/21 01:16 Albuterol Sulfate (*Sp) Aerosol 1 Puff INHALATION QID PRN shortness of breath or wheezing Amlodipine Besylate 2.5 mg 01/09/21 09:00 01/16/21 08:19 Amlodipine Besylate 2.5 Mg Tablet PO 2.5 mg QAM JACK Administration Bumetanide 1 mg 01/15/21 09:00 01/16/21 08:21 Bumetanide 1 Mg Tablet PO 1 mg DAILY JACK Administration Calcium Carbonate 500 mg 01/07/21 09:00 01/16/21 08:18 Calcium/Vitamin D 500 Mg Tablet PO 02/06/21 09:01 500 mg BID JACK Administration Epoetin Lobito-epbx 10,000 units 01/09/21 09:00 01/16/21 08:38 Epoetin Lobito-Epbx 10,000 Units/Ml Vial SUB-Q 10,000 units TuThSa@0900 [facility] Administration Ferrous Sulfate 284 mg 01/07/21 18:00 01/15/21 17:02 Ferrous Sulfate Dried 142 Mg Tabcr PO 28
--- NOTE | 2021-01-16 10:05 | PM.DS ---
DS: Admitting Diagnosis Admitting Diagnosis Admitting Diagnosis: Chief Complaint: ALTERED MENTAL STATUS DS: Discharge Diagnosis Discharge Diagnosis (1) Acute kidney injury: Code(s): N17.9 - Acute kidney failure, unspecified Status: Acute Assessment and Plan: Dc to [facility] TOMORROW continue to watch kidney function may need dialysis if kidney function does not improve [place] IN RENAL ULTRASOUND 01/07 with cortical thinning, c/w medical renal disease (2) Metabolic acidosis: Code(s): E87.2 - Acidosis Status: Resolved Assessment and Plan: LIKELY SECONDARY TO RENAL FAILURE (3) Encephalopathy: Code(s): G93.40 - Encephalopathy, unspecified Status: Resolved Assessment and Plan: Likely due to ERIC Seems to be near baseline now. PT/OT (4) Chronic respiratory failure with hypoxia, on home O2 therapy: Code(s): J96.11 - Chronic respiratory failure with hypoxia; Z99.81 - Dependence on supplemental oxygen Status: Chronic Assessment and Plan: STABLE CONTINUE SUPPLEMENTAL OXYGEN (5) ALEX (obstructive sleep apnea): Code(s): G47.33 - Obstructive sleep apnea (adult) (pediatric) Status: Chronic Assessment and Plan: CPAP AT NIGHTTIME (6) SLE (systemic lupus erythematosus related syndrome): Code(s): M32.9 - Systemic lupus erythematosus, unspecified Status: Chronic Assessment and Plan: STABLE CONTINUE HYDROXYCHLOROQUINE (7) Left hemiparesis: Code(s): G81.94 - Hemiplegia, unspecified affecting left nondominant side Status: Chronic Assessment and Plan: CHRONIC FALL PRECAUTIONS DS: Summary Hospital Course Reason for hospitalization: Chief Complaint: ALTERED MENTAL STATUS Narrative: THIS IS AN 80-YEAR-OLD FEMALE WITH PAST MEDICAL HISTORY SIGNIFICANT FOR CHRONIC KIDNEY DISEASE, HYPERTENSION, SEIZURE DISORDER, SYSTEMIC LUPUS ERYTHEMATOSUS, OSTEOPOROSIS, COPD ON SUPPLEMENTAL OXYGEN AT HOME, CONGESTIVE HEART FAILURE DIASTOLIC TYPE 1. PATIENT WAS BROUGHT TO THE EMERGENCY ROOM AFTER SHE HAS BEEN COMPLAINING OF HER MENTATION TO BE LIKE IN A FOG AND HAD A FALL WITH NO LOSS OF CONSCIOUSNESS. PATIENT DENIES ANY FEVERS RIGORS OR CHILLS NO NAUSEA NO VOMITING NO DIARRHEA NO CONSTIPATION NO CHEST PAIN NO SHORTNESS OF BREATH NO COUGH NO SPUTUM PRODUCTION NO SYNCOPE OR NEAR SYNCOPE. PATIENT WAS FOUND TO HAVE AN ELEVATED CREATININE LEVEL IN CHEMISTRY PANEL. CT OF HEAD CERVICAL AND CHEST X-RAY WERE NONSIGNIFICANT FOR ACUTE FINDINGS. Hospital Course: patient presented with rising creatinine patient was seen by Nephrology had renal ultrasound showed echogenic kidneys and no hydronephrosis, there is no improvement in patient kidney function patient will eventually need dialysis, patient Education for hemodialysis as well as peritoneal dialysis and patient will decide, patient is clinically stable will discharge the patient to follow-up with nephrology. Status at Discharge Functional status at discharge: uses cane/walker Overall status at discharge: patient is back to baseline Time Spent with Patient Time attestation: Total time spent providing and/or coordinating discharge services:Patient was seen and examined at the time of the discharge Condition at discharge is stable Code status: Full code. Time spent preparing discharge summary, discharge medications, discussing discharge planning with corrections caseworker and patient is 35 minutes. Time spent: Greater than 30 minutes Exam Narrative: Exam Narrative: elderly frail lady NECK: No JVD, adenopathy, or thyromegaly CHEST: Clear to auscultation. HEART: NL S1/S2, regular, no murmur ABDOMEN: BS+, soft, slightly bloated EXTREMITIES: No cyanosis, edema, or clubbing NEUROLOGIC: CN intact and symmetric to inspection. MUSCULOSKELETAL: Tone and strength symmetric. PSYCH: Alert. Oriented to person, place, and time DS: Data Data Completed and Pending Labs on day of discharge:
[2021-01-16] MEDS: HEPARIN SOD FLUSH 500 UNITS/5 ML SYRINGE IV PUSH (10:56)
[2021-01-16] MEDS: ACETAMINOPHEN 325 MG TABLET 650 MG PO (11:08)
--- NOTE | 2021-01-16 12:25 | P.CDI_ITS ---
CDI Query Clarification Request -Encephalopathy and likely due to ERIC has been documented Please further specify type of encephalopathy: * Metabolic * Toxic * Hypertensive * Hepatic * Other * Unable to determine <Kellee Hinojosa RN - Last Filed: 01/16/21 12:26>
--- NOTE | 2021-01-16 12:25 | WPDCDIQUERY2 ---
CDI Query Clarification Request -Encephalopathy and likely due to ERIC has been documented Please further specify type of encephalopathy: Metabolic Toxic Hypertensive Hepatic Other Unable to determine <Kellee Hinojosa RN - Last Filed: 01/16/21 12:26>
== END 2021-01-16 12:20 | DRG 682 ==
LOC: ANHED 21:54 → ANHIMU 01-07 01:25 → ANH3MEDSUR 01-13 12:13 → ANHIMU 01-18 08:34
PROVIDERS: Family Medicine; Internal Medicine; Internal Medicine Nephrology; Admitting Provider Internal Medicine; Emergency Provider Emergency Medicine; PCP Family Medicine Adolescent Medicine; Visit Provider Family Medicine
DX: N17.9 Acute kidney failure, unspecified (principal); I50.33 Acute on chronic diastolic (congestive) heart failure; E87.2 Acidosis; J96.11 Chronic respiratory failure with hypoxia; G93.40 Encephalopathy, unspecified; G81.94 Hemiplegia, unspecified affecting left nondominant side; I13.0 Hypertensive heart and chronic kidney disease with heart failure and stage 1 through stage 4 chronic kidney disease, or unspecified chronic kidney disease; N18.4 Chronic kidney disease, stage 4 (severe); D50.0 Iron deficiency anemia secondary to blood loss (chronic); E87.5 Hyperkalemia; J43.9 Emphysema, unspecified; G40.909 Epilepsy, unspecified, not intractable, without status epilepticus; M32.9 Systemic lupus erythematosus, unspecified; M81.0 Age-related osteoporosis without current pathological fracture; G47.33 Obstructive sleep apnea (adult) (pediatric); E03.9 Hypothyroidism, unspecified; Z79.899 Other long term (current) drug therapy; Z99.81 Dependence on supplemental oxygen; Z86.718 Personal history of other venous thrombosis and embolism; Z87.891 Personal history of nicotine dependence; Z98.42 Cataract extraction status, left eye; Z98.41 Cataract extraction status, right eye
CPT/HCPCS: 36415; 36600; 51701; 70450; 71045; 71046; 72125; 76775; 80048; 80053; 80069; 81001; 82274; 82550; 82570; 82607; 82728; 82746; 82805; 82948; 83540; 83550; 83605; 83735; 83880; 84156; 84300; 84484; 85025; 85027; 85046; 85999; 86850; 86860; 86870; 86880; 86900; 86901; 86902; 86922; 86971; 93005; 94640; 96361; 96374; 97110; 97116; 97161; 97165; 97530; 97535; 99285; A9270; J0610; J1642; J7030; J7070; J7512; Q5106

== ENCOUNTER 2021-02-07 18:11 | Emergency (ER) | payer MEDICARE, MEDICAID, SELFPAY ==
[2021-02-07 18:22] VITALS: BP 152/62; PULSE 78; RESP 14; TEMP 36.4; O2SAT 99
[2021-02-07 19:26] LABS: Alanine Aminotransferase 7 U/L (4-35); Albumin Level 3.8 g/dL (3.5-5.1); Alkaline Phosphatase 71 U/L (38-126); Anion Gap 10 mmol/L (8-16); Aspartate Amino Transferase 22 U/L (14-36); Bilirubin,Total 0.1 mg/dL (0.2-1.3); Blood Urea Nitrogen 72 mg/dL (7-17); Calcium 8.6 mg/dL (8.4-10.2); Carbon Dioxide 24 mmol/L (22-30); Chloride 98 mmol/L (98-107); Estimated CRCL calculation 9 ml/min; Estimated Glomerular Filt Rate 11; Glucose 97 mg/dL (65-105); Potassium 4.7 mmol/L (3.4-5.0); Sodium 132 mmol/L (137-145)
[2021-02-07 19:41] LABS: Basophils Percent Auto 0.3 % (0.2-1.2); Eosinophils Absolute Auto 0.1 K/mm3 (0-0.3); Hematocrit 27.3 % (37.0-47.0); Hemoglobin 7.5 g/dL (12.0-15.0); Immature Granulocyte Absolute 0.03 K/mm3 (0.00-0.031); Immature Granulocyte Percent A 0.5 % (0-0.5); Lymphocytes Absolute Auto 0.81 K/mm3 (0.9-3.2); Lymphocytes Percent Auto 13.6 % (18.3-44.2); Mean Corpuscular HGB Conc 27.5 g/dl (32-36); Mean Corpuscular Hemoglobin 26.9 pg (26-34); Mean Corpuscular Volume 97.8 fl (80-100); Mean Platelet Volume 10.6 fl (7.4-10.4); Monocytes Absolute Auto 0.7 K/mm3 (0.1-0.6); Monocytes Percent Auto 10.9 % (2.6-8.5); Neutrophils Absolute Auto 4.3 K/mm3 (1.3-6.7); Neutrophils Percent Auto 72.7 % (45.5-73.1); Platelet Count Result 269 k/mm3 (150-375); Red Blood Count 2.79 M/mm3 (4.2-5.4); Red Cell Distribution Width 17.5 % (11.5-14.5)
[2021-02-07 19:56] LABS: Platelet Estimate Adequate (Adequate)
[2021-02-07 19:57] LABS: Stomatocytes 2+ (NORMAL); Tear Drop Cells 1+ (NORMAL)
[2021-02-07 21:30] LABS: Add Urine Microscopic? YES; Appearance Urine Cloudy (Clear); Bacteria Urine Trace /hpf; Bilirubin Urine Negative (Negative); Color Urine Yellow (Yellow); Glucose Urine UA Negative (Negative); Ketones Urine Negative (Negative); Leukocyte Esterase Ur 3+ LEU/UL (Negative); Mucus Urine Rare /lpf; Nitrate Urine Negative (Negative); Protein Urine 1+ mg/dL (Negative); Specific Grav Ur 1.008 (1.001-1.035); Squamous Epithelial Cell Urine Rare /hpf (Few); Urobilinogen Urine Negative mg/dL (<2.0); WBC Urine >75 /hpf
[2021-02-07 21:47] LABS: Blood Urine Negative (Negative)
[2021-02-07 22:58] VITALS: BP 152/52; PULSE 75; TEMP 36.6; O2SAT 100
[2021-02-07 23:20] VITALS: BP 177/71; PULSE 78; O2SAT 100
--- NOTE | 2021-02-07 23:31 | ED.GENADULT ---
HPI - General Adult General Chief complaint: Urogenital-Female Stated complaint: CONFUSION, HX FREQ UTI'S Time Seen by Provider: 02/07/21 23:21 Source: patient and family Mode of arrival: wheelchair Limitations: no limitations History of Present Illness HPI narrative: 80-year-old COPD on home O2, here with complaints of visual hallucinations for last 2 days. Patient states that anytime she has the symptoms she thinks she may be having urinary tract infection. She denies any fever or chills no history of any abdominal pain, nausea or vomiting. Onset (ago): day(s) (2) Severity: mild Exacerbating factors: none Associated symptoms: denies other symptoms Related Data Home Medications Medication Instructions Recorded Confirmed ascorbic acid (vitamin C) 1,000 mg PO DAILY 05/10/19 02/07/21 cyanocobalamin (vitamin B-12) 1,000 mcg PO DAILY 05/10/19 02/07/21 gabapentin 300 mg PO BID 05/10/19 02/07/21 hydroxychloroquine 200 mg PO DAILY 05/10/19 02/07/21 levothyroxine 150 mcg PO DAILY 05/10/19 02/07/21 metoprolol succinate 25 mg PO DAILY 05/10/19 02/07/21 pantoprazole 40 mg PO BID 05/10/19 02/07/21 cholecalciferol (vitamin D3) 25 mcg PO QPM 10/12/20 02/07/21 [Vitamin D3] prednisone 5 mg PO DAILY 10/12/20 02/07/21 vitamin E 800 unit PO QPM 10/12/20 02/07/21 Arnuity Ellipta 100 mcg INHALATION DAILY 01/07/21 02/07/21 Calcium 600 + D(3) 1 cap PO BID 01/07/21 02/07/21 Slow Fe See Rx Instructions .ROUTE .COMPLEX 01/07/21 02/07/21 hydralazine 10 mg PO QAM 01/07/21 02/07/21 tamsulosin 0.4 mg PO HS 01/07/21 02/07/21 Allergies Allergy/AdvReac Type Severity Reaction Status Date / Time cefepime Allergy Intermediate Unknown Verified 02/07/21 11:57 apixaban [From Eliquis] Allergy Unknown Other Verified 02/07/21 11:57 latex Allergy Unknown Rash Verified 02/07/21 11:57 levofloxacin Allergy Unknown Swelling Verified 02/07/21 11:57 Penicillins Allergy Unknown Swelling Verified 02/07/21 11:57 pregabalin Allergy Unknown Unknown Verified 02/07/21 11:57 Quinolones Allergy Unknown Unknown Verified 02/07/21 11:57 Sulfa (Sulfonamide Allergy Unknown Itching Verified 02/07/21 11:57 Antibiotics) Review of Systems Review of Systems: All systems reviewed & are unremarkable except as noted in HPI and below Constitutional: Constitutional: Reports no additional constitutional complaints Eyes: Eyes: Reports no additional eye complaints ENT: Reports system reviewed and no additional complaints, except as documented Cardiovascular: Cardiovascular: Reports no additional cardiovascular complaints Respiratory: Respiratory: Reports no additional respiratory complaints Gastrointestinal: Gastrointestinal: Reports no additional gastrointestinal complaints Musculoskeletal: Musculoskeletal: Reports no additional musculoskeletal complaints Psychiatric: Psychiatric: Reports as per HPI [facility] Past Medical History Medical History Acute on chronic blood loss anemia Anemia Arthritis Bronchitis Chronic kidney disease, stage 4 (severe) Chronic respiratory failure with hypoxia, on home O2 therapy Home O2 at 2L CKD (chronic kidney disease) Common variable immunodeficiency, unspecified COPD (chronic obstructive pulmonary disease) CPAP (continuous positive airway pressure) dependence DDD (degenerative disc disease) Diverticulitis DVT (deep venous thrombosis) Emphysema of lung Essential hypertension Femur fracture, left s/p surgical repair in Jun 2020 GERD (gastroesophageal reflux disease) HTN (hypertension) Hypothyroid Lupus Occult blood in stools Osteoporosis Pneumonia Port-A-Cath in place Sleep apnea Spinal cord stimulator status UTI (urinary tract infection) Surgical History Surgical History H/O bilateral cataract extraction H/O exploratory laparotomy H/O repair of rotator cuff right H/O: hysterectomy History of carpal tunnel release History
[2021-02-07] MEDS: CEPHALEXIN 500 MG CAPSULE PO (23:51)
[2021-02-08 00:39] VITALS: BP 153/66; PULSE 80; O2SAT 100
== END 2021-02-08 00:37 | disposition home or self-care (01) ==
LOC: ANHED 02-08 00:19
PROVIDERS: Emergency Provider Family Medicine; PCP Family Medicine Adolescent Medicine
DX: N30.00 Acute cystitis without hematuria (principal); J96.11 Chronic respiratory failure with hypoxia; I12.9 Hypertensive chronic kidney disease with stage 1 through stage 4 chronic kidney disease, or unspecified chronic kidney disease; N18.4 Chronic kidney disease, stage 4 (severe); J43.9 Emphysema, unspecified; K21.9 Gastro-esophageal reflux disease without esophagitis; E03.9 Hypothyroidism, unspecified; M19.90 Unspecified osteoarthritis, unspecified site; M81.0 Age-related osteoporosis without current pathological fracture; G47.30 Sleep apnea, unspecified; Z99.81 Dependence on supplemental oxygen; Z86.718 Personal history of other venous thrombosis and embolism; Z87.440 Personal history of urinary (tract) infections; Z98.42 Cataract extraction status, left eye; Z98.41 Cataract extraction status, right eye; Z96.653 Presence of artificial knee joint, bilateral; Z87.891 Personal history of nicotine dependence
CPT/HCPCS: 36415; 80053; 81001; 85025; 87077; 87086; 87186; 96372; 99283; A9270; Q5106

== ENCOUNTER 2021-03-03 10:03 | Emergency (ER) | payer MEDICARE, MEDICAID, SELFPAY ==
[2021-03-03 10:12] VITALS: BP 141/59; PULSE 72; RESP 20; TEMP 36.9; O2SAT 100
--- NOTE | 2021-03-03 10:18 | ED.GENADULT ---
HPI - General Adult General Chief complaint: Urogenital-Female Stated complaint: possible uti Time Seen by Provider: 03/03/21 10:16 Source: patient Mode of arrival: ambulatory Limitations: no limitations History of Present Illness HPI narrative: Patient presents for evaluation of urinary symptoms. She indicates she is experienced urinary frequency, hesitancy, dribbling with a cloudy appearance for the last week. She has had some problems with word finding and memory for the same duration of times. No fever, chills, nausea, vomiting, abdominal pain. She states she has had similar symptoms in the past with a urinary tract infection. She has multiple drug allergies but was seen here last month and was treated with Keflex for urinary tract infection. She tolerated that medication despite her allergy to cefepime. Denies any lateralizing deficits, difficulty with speech/swallowing. No additional complaints or concerns. Her daughter, with whom she lives, is here in the emergency department with her today. Related Data Home Medications Medication Instructions Recorded Confirmed ascorbic acid (vitamin C) 1,000 mg PO DAILY 05/10/19 02/07/21 cyanocobalamin (vitamin B-12) 1,000 mcg PO DAILY 05/10/19 02/07/21 gabapentin 300 mg PO BID 05/10/19 02/07/21 hydroxychloroquine 200 mg PO DAILY 05/10/19 02/07/21 levothyroxine 150 mcg PO DAILY 05/10/19 02/07/21 metoprolol succinate 25 mg PO DAILY 05/10/19 02/07/21 pantoprazole 40 mg PO BID 05/10/19 02/07/21 cholecalciferol (vitamin D3) 25 mcg PO QPM 10/12/20 02/07/21 [Vitamin D3] prednisone 5 mg PO DAILY 10/12/20 02/07/21 vitamin E 800 unit PO QPM 10/12/20 02/07/21 Arnuity Ellipta 100 mcg INHALATION DAILY 01/07/21 02/07/21 Calcium 600 + D(3) 1 cap PO BID 01/07/21 02/07/21 Slow Fe See Rx Instructions .ROUTE .COMPLEX 01/07/21 02/07/21 hydralazine 10 mg PO QAM 01/07/21 02/07/21 tamsulosin 0.4 mg PO HS 01/07/21 02/07/21 alendronate mg PO WEEKLY 03/03/21 ciprofloxacin HCl 03/03/21 clonidine HCl 03/03/21 Allergies Allergy/AdvReac Type Severity Reaction Status Date / Time cefepime Allergy Intermediate Unknown Verified 03/03/21 10:27 apixaban [From Eliquis] Allergy Unknown Other Verified 03/03/21 10:27 latex Allergy Unknown Rash Verified 03/03/21 10:27 levofloxacin Allergy Unknown Swelling Verified 03/03/21 10:27 Penicillins Allergy Unknown Swelling Verified 03/03/21 10:27 pregabalin Allergy Unknown Unknown Verified 03/03/21 10:27 Quinolones Allergy Unknown Unknown Verified 03/03/21 10:27 Sulfa (Sulfonamide Allergy Unknown Itching Verified 03/03/21 10:27 Antibiotics) Review of Systems Review of Systems: . CONSTITUTIONAL: Denies fever, chills, or sweats. EYES: Denies visual changes, redness, or discharge. ENT: Denies rhinorrhea, congestion, sore throat, or otalgia. CARDIOVASCULAR: Denies chest pain, palpitations, or edema. RESPIRATORY: Denies cough or dyspnea. GASTROINTESTINAL: Denies abdominal pain, nausea, vomiting, or diarrhea. GENITOURINARY: Reports urinary frequency, hesitancy, dribbling with a cloudy appearance to the urine. SKIN: Denies rash or itching. MUSCULOSKELETAL: Denies back pain, joint pain, or myalgia. NEUROLOGIC: Reports some problems with word finding and memory over the course the last week. Denies headache, numbness, dizziness, or weakness. PSYCHIATRIC: Denies anxiety or depression. [facility] Past Medical History Medical History Acute on chronic blood loss anemia Anemia Arthritis Bronchitis Chronic kidney disease, stage 4 (severe) Chronic respiratory failure with hypoxia, on home O2 therapy Home O2 at 2L CKD (chronic kidney disease) Common variable immunodeficiency, unspecified COPD (chronic obstructive pulmonary disease) CPAP (continuous positive airway pressure) dependence DDD (degenerative disc disease) Diverticulitis DVT (deep venous thrombosis) Emphysema of lung Essential hypertension Femur fracture, le
[2021-03-03 10:58] LABS: Add Urine Microscopic? YES; Appearance Urine Cloudy (Clear); Bacteria Urine 1+ /hpf; Bilirubin Urine Negative (Negative); Blood Urine Negative (Negative); Color Urine Yellow (Yellow); Glucose Urine UA Negative (Negative); Ketones Urine Negative (Negative); Leukocyte Esterase Ur 3+ LEU/UL (Negative); Nitrate Urine Negative (Negative); Protein Urine 1+ mg/dL (Negative); Specific Grav Ur 1.008 (1.001-1.035); Squamous Epithelial Cell Urine Rare /hpf (Few); Urobilinogen Urine Negative mg/dL (<2.0); WBC Clumps Urine Present /HPF; WBC Urine >75 /hpf
[2021-03-03] MEDS: CEPHALEXIN 500 MG CAPSULE PO (11:23)
[2021-03-03 12:22] VITALS: BP 159/75; PULSE 67; RESP 18; O2SAT 100
== END 2021-03-03 12:24 | disposition home or self-care (01) ==
PROVIDERS: Emergency Medicine; Emergency Provider Nurse Practitioner; PCP Family Medicine Adolescent Medicine
DX: N30.00 Acute cystitis without hematuria (principal); I12.9 Hypertensive chronic kidney disease with stage 1 through stage 4 chronic kidney disease, or unspecified chronic kidney disease; N18.4 Chronic kidney disease, stage 4 (severe); J96.11 Chronic respiratory failure with hypoxia; Z99.81 Dependence on supplemental oxygen; J43.9 Emphysema, unspecified; D64.9 Anemia, unspecified; K21.9 Gastro-esophageal reflux disease without esophagitis; E03.9 Hypothyroidism, unspecified; M81.0 Age-related osteoporosis without current pathological fracture; M19.90 Unspecified osteoarthritis, unspecified site; Z86.718 Personal history of other venous thrombosis and embolism; Z87.01 Personal history of pneumonia (recurrent)
CPT/HCPCS: 51701; 81001; 87077; 87086; 87186; 99283; A9270

== ENCOUNTER 2021-03-09 07:05 | Outpatient (RCR) | payer MEDICARE, OTHER, SELFPAY ==
[2021-03-09] MEDS: ACETAMINOPHEN 325 MG TABLET 650 MG PO (08:26)
[2021-03-09 08:55] VITALS: BP 142/65; PULSE 64; RESP 18; TEMP 36.3; O2SAT 100
[2021-03-09 09:10] VITALS: BP 156/66; PULSE 60; RESP 20; TEMP 36.1; O2SAT 100
[2021-03-09 10:10] VITALS: BP 163/67; PULSE 62; RESP 20; TEMP 36.1; O2SAT 100
[2021-03-09 11:10] VITALS: BP 172/73; PULSE 63; RESP 20; TEMP 36.3; O2SAT 100
[2021-03-09 12:10] VITALS: BP 159/84; PULSE 69; RESP 18; TEMP 36.2; O2SAT 100
[2021-03-09] MEDS: HEPARIN SODIUM LOCK FLUSH 500 UNITS/5 ML VIAL (12:30)
[2021-03-09 18:17] LABS: Hepatitis B Surface Antigen Negative (Negative)
[2021-03-09 18:34] LABS: HIV 1/2 Ab P24 Ag Result Negative (Negative); Hepatitis C Virus Antibody Negative (Negative)
== END 2021-05-06 23:59 | disposition home or self-care (01) ==
LOC: ANHCPCTRAN 07:05
PROVIDERS: PCP Family Medicine Adolescent Medicine; Visit Provider Internal Medicine Hematology & Oncology
DX: N18.4 Chronic kidney disease, stage 4 (severe) (principal); D63.1 Anemia in chronic kidney disease; Z11.4 Encounter for screening for human immunodeficiency virus [HIV]
CPT/HCPCS: 36415; 36430; 86703; 86803; 86850; 86860; 86870; 86880; 86900; 86901; 86902; 86922; 87340; A9270; G0432; J1642; J7050; P9016

== ENCOUNTER 2021-03-11 06:19 | Emergency (ER) | payer MEDICARE, MEDICAID, SELFPAY ==
--- NOTE | ~2021-03-11 | CT_ITS ---
EXAMINATION: CT brain wo con INDICATION: Headache and lower limb weakness COMPARISON: 01/06/2021 TECHNIQUE: Standard unenhanced head CT. The dose-length product (DLP) was 605.33 mGy-cm. The mA was a djusted according to patient size. Iterative reconstruction technique was employed. FINDINGS: There is no acute intraparenchymal hemorrhage. No evidence of mass lesion. No evidence of a cute infarction. There is moderate periventricular and subcortical hypodensity probably related to sm all vessel ischemic disease. There is moderate prominence of the sulci and ventricles related to cere bral atrophy. Intracranial calcified cerebral atherosclerosis is noted. There are no extra-axial es ections. There is no mass effect or midline shift. Changes in the globes are likely from ocular lens surgery. The visualized sinuses and mastoid air cells are well aerated. IMPRESSION: 1. No acute intracranial abnormality. 2. Age related findings. Reviewed, dictated and finalized at location A.
--- NOTE | 2021-03-11 06:23 | ECG_ITS ---
Measurements Intervals [place] Rate: 73 P: 54 SC: 180 QRS: -39 QRSD: 116 T: 10 QT: 418 QTc: 463 Interpretive Statements SINUS RHYTHM LEFT AXIS DEVIATION INTRAVENTRICULAR CONDUCTION DELAY LEFT VENTRICULAR HYPERTROPHY BORDERLINE R WAVE PROGRESSION, ANTERIOR LEADS BORDERLINE T WAVE ABNORMALITY- INFERIOR LEADS BASELINE ARTIFACT- V3-V6 BORDERLINE ECG Electronically Signed On 03-11-2021 6:58:22 CDT by Mustapha Meléndez D.O.
[2021-03-11 06:24] VITALS: BP 190/66; PULSE 74; RESP 18; TEMP 36.3; O2SAT 100
[2021-03-11 07:10] LABS: Basophils Percent Auto 0.4 % (0.2-1.2); Eosinophils Absolute Auto 0.2 K/mm3 (0-0.3); Eosinophils Percent Auto 3.1 % (0-4.4); Hematocrit 30.4 % (37.0-47.0); Hemoglobin 9.1 g/dL (12.0-15.0); Immature Granulocyte Absolute 0.02 K/mm3 (0.00-0.031); Immature Granulocyte Percent A 0.4 % (0-0.5); Lymphocytes Absolute Auto 0.95 K/mm3 (0.9-3.2); Lymphocytes Percent Auto 17.3 % (18.3-44.2); Mean Corpuscular HGB Conc 29.9 g/dl (32-36); Mean Corpuscular Hemoglobin 27.5 pg (26-34); Mean Corpuscular Volume 91.8 fl (80-100); Monocytes Absolute Auto 0.7 K/mm3 (0.1-0.6); Monocytes Percent Auto 11.8 % (2.6-8.5); Neutrophils Absolute Auto 3.7 K/mm3 (1.3-6.7); Platelet Count Result 136 k/mm3 (150-375); Red Blood Count 3.31 M/mm3 (4.2-5.4); Red Cell Distribution Width 17.1 % (11.5-14.5); White Blood Count 5.5 K/mm3 (4.5-10.0)
[2021-03-11 07:21] LABS: Alanine Aminotransferase 8 U/L (4-35); Albumin Level 3.9 g/dL (3.5-5.1); Alkaline Phosphatase 113 U/L (38-126); Anion Gap 4 mmol/L (8-16); Aspartate Amino Transferase 26 U/L (14-36); Bilirubin,Total 0.4 mg/dL (0.2-1.3); Blood Urea Nitrogen 53 mg/dL (7-17); Calcium 8.8 mg/dL (8.4-10.2); Carbon Dioxide 27 mmol/L (22-30); Chloride 101 mmol/L (98-107); Estimated CRCL calculation 10 ml/min; Estimated Glomerular Filt Rate 13; Glucose 93 mg/dL (65-110); Potassium 3.8 mmol/L (3.4-5.0); Sodium 132 mmol/L (137-145)
--- NOTE | 2021-03-11 07:24 | PC.NURSE ---
report from carmel mares. care assumed at this time.
[2021-03-11 07:34] LABS: Hypochromasia 2+ (NORMAL); Ovalocytes 1+ (NORMAL)
[2021-03-11 07:35] LABS: Helmet Cells 1+ (NORMAL); Stomatocytes 1+ (NORMAL)
[2021-03-11 07:56] LABS: Add Urine Microscopic? YES; Appearance Urine Clear (Clear); Bilirubin Urine Negative (Negative); Blood Urine Negative (Negative); Color Urine Straw (Yellow); Glucose Urine UA Negative (Negative); Ketones Urine Negative (Negative); Leukocyte Esterase Ur Negative LEU/UL (Negative); Nitrate Urine Negative (Negative); Protein Urine 1+ mg/dL (Negative); RBC Urine 0-2 /hpf (0-2); Specific Grav Ur 1.006 (1.001-1.035); Urobilinogen Urine Negative mg/dL (<2.0); WBC Urine 0-3 /hpf
[2021-03-11 08:15] LABS: Creatine Kinase 56 U/L (30-135)
--- NOTE | 2021-03-11 08:15 | ED.GENADULT ---
HPI - General Adult General Chief complaint: Weakness Stated complaint: gen weakness Time Seen by Provider: 03/11/21 07:28 Source: patient and family Limitations: no limitations History of Present Illness HPI narrative: Patient is 80 years old white female came from home with her daughter was taking care of her for the last 24 hours. The daughter is telling me that patient complained of numbness of both feet and pain started 1 hour prior to arrival to the emergency room. Patient is telling me that she have numbness of her right thigh on the. Patient on the second course of antibiotic for urinary tract infection. Currently patient complaining of dry mouth and headache. Patient denies any fever, chills, nausea, vomiting, diarrhea. Patient is fully vaccinated for COVID-19. Related Data Home Medications Medication Instructions Recorded Confirmed albuterol sulfate 2 puff INHALATION DAILY 03/07/21 03/07/21 alendronate 70 mg PO WEEKLY 03/07/21 03/07/21 amlodipine 2.5 mg PO DAILY 03/07/21 03/07/21 ascorbic acid (vitamin C) [Vitamin 1 g PO DAILY 03/07/21 03/07/21 C With Kenna Hips] calcium carbonate-vitamin D3 1 cap PO BID 03/07/21 03/07/21 [Calcium 600 + D(3)] ciprofloxacin 500 mg PO DAILY 03/07/21 03/07/21 clonidine HCl 0.1 mg PO BID 03/07/21 03/07/21 fluticasone furoate [Arnuity 1 inh INHALATION EVERY OTHER DAY 03/07/21 03/07/21 Ellipta] fluticasone propionate 1 spray INTRANASAL DAILY 03/07/21 03/07/21 gabapentin 300 mg PO BID 03/07/21 03/07/21 hydroxychloroquine 200 mg PO DAILY 03/07/21 03/07/21 iron See Rx Instructions .ROUTE .COMPLEX 03/07/21 03/07/21 levothyroxine 150 mcg PO DAILY 03/07/21 03/07/21 mecobalamin (vitamin B12) [B12 1,000 mcg PO DAILY 03/07/21 03/07/21 Active] metoprolol succinate 25 mg PO DAILY 03/07/21 03/07/21 pantoprazole 40 mg PO BID 03/07/21 03/07/21 prednisone 5 mg PO DAILY 03/07/21 03/07/21 vitamin E 800 unit PO DAILY 03/07/21 03/07/21 Allergies Allergy/AdvReac Type Severity Reaction Status Date / Time cefepime Allergy Intermediate Unknown Verified 03/07/21 11:44 apixaban [From Eliquis] Allergy Unknown Other Verified 03/07/21 11:44 latex Allergy Unknown Rash Verified 03/07/21 11:44 levofloxacin Allergy Unknown Swelling Verified 03/07/21 11:44 Penicillins Allergy Unknown Swelling Verified 03/07/21 11:44 pregabalin Allergy Unknown Unknown Verified 03/07/21 11:44 Quinolones Allergy Unknown Unknown Verified 03/07/21 11:44 Sulfa (Sulfonamide Allergy Unknown Itching Verified 03/07/21 11:44 Antibiotics) Review of Systems Review of Systems: CONSTITUTIONAL: Denies fever, chills, or sweats. EYES: Denies visual changes, redness, or discharge. ENT: Denies rhinorrhea, congestion, sore throat, or otalgia. CARDIOVASCULAR: Denies chest pain, palpitations, or edema. RESPIRATORY: Denies cough or dyspnea. GASTROINTESTINAL: Denies abdominal pain, nausea, vomiting, or diarrhea. GENITOURINARY: Denies dysuria or hematuria. SKIN: Denies rash or itching. MUSCULOSKELETAL: Denies back pain, joint pain, or myalgia. NEUROLOGIC: Denies headache, numbness, or weakness. PSYCHIATRIC: Denies anxiety or depression. [facility] Past Medical History Medical History Acute on chronic blood loss anemia Anemia Arthritis Bronchitis Chronic kidney disease, stage 4 (severe) Chronic respiratory failure with hypoxia, on home O2 therapy Home O2 at 2L CKD (chronic kidney disease) Common variable immunodeficiency, unspecified COPD (chronic obstructive pulmonary disease) CPAP (continuous positive airway pressure) dependence DDD (degenerative disc disease) Diverticulitis DVT (deep venous thrombosis) Emphysema of lung Essential hypertension Femur fracture, left s/p surgical repair in Jun 2020 GERD (gastroesophageal reflux disease) HTN (hypertension) Hypothyroid Lupus Occult blood in stools Osteoporosis Pneumonia Port-A-Cath in place Sleep apnea Spinal cord stimulator status UTI (u
[2021-03-11] MEDS: ACETAMINOPHEN 325 MG TABLET 650 MG PO (09:20)
--- NOTE | 2021-03-11 09:40 | PC.NURSE ---
pt requesting to leave. pt stating Can you just mail me my report
[2021-03-11] MEDS: HEPARIN SODIUM LOCK FLUSH 500 UNITS/5 ML VIAL (09:59)
[2021-03-11 10:00] VITALS: BP 188/78; PULSE 88; RESP 16; O2SAT 100
== END 2021-03-11 10:27 | disposition home or self-care (01) ==
PROVIDERS: Emergency Medicine; Emergency Provider Emergency Medicine; PCP Family Medicine Adolescent Medicine
DX: M79.605 Pain in left leg (principal); M79.604 Pain in right leg; I12.9 Hypertensive chronic kidney disease with stage 1 through stage 4 chronic kidney disease, or unspecified chronic kidney disease; N18.4 Chronic kidney disease, stage 4 (severe); J43.9 Emphysema, unspecified; E03.9 Hypothyroidism, unspecified; Z86.718 Personal history of other venous thrombosis and embolism; Z87.891 Personal history of nicotine dependence
CPT/HCPCS: 36415; 70450; 80053; 81001; 82550; 84443; 85025; 93005; 99284; A9270; J1642; J2270; J2405

== ENCOUNTER 2021-03-29 02:22 | Inpatient (IN) | payer MEDICARE, MEDICAID, SELFPAY ==
[2021-03-29] VITALS (13 sets, daily range): BP systolic 105–190; BP diastolic 57–90; PULSE 67–84; RESP 15–20; TEMP 36.1–36.7; O2SAT 95–100; BMI 24.5; BMI 10.0
--- NOTE | ~2021-03-29 | XR_ITS ---
EXAMINATION: XR tibia fibula LT 2V INDICATION: Left lower limb. TECHNIQUE: Two views of the left tibia and fibula are obtained on three radiographs. COMPARISON: None available FINDINGS: Soft tissue swelling is seen medial to the distal tibia without evidence of underlying osse ous abnormality. There are changes of total knee arthroplasty. In addition, there are partially image d changes of plate and screw fixation of the distal femur. No acute fracture is identified. Calcified atherosclerosis is noted. IMPRESSION: 1. Soft tissue swelling medial to the distal tibia without underlying osseous abnormality. Reviewed, dictated and finalized at location A. IMPRESSION: 1. Soft tissue swelling medial to the distal tibia without underlying osseous a bnormality.
--- NOTE | ~2021-03-29 | XR_ITS ---
EXAMINATION: XR chest 1V portable INDICATION: Leukocytosis TECHNIQUE: Portable AP chest at 1502 hours COMPARISON: 04/03/2021 FINDINGS: Right basilar airspace opacities persist but have improved. Left basilar airspace opacities have developed. There is no pneumothorax. No definite pleural effusion is identified. The cardiomedi astinal silhouette is stable. A right internal jugular Port-A-Cath ends with its tip in the distal shen perior vena cava. Neurostimulator leads project over the midthoracic spine. Vertebroplasty change is noted in the lower thoracic spine. IMPRESSION: 1. Improved opacities of the right lung base and worsening opacities in the left lung base, consisten t with atelectasis versus pneumonia. Reviewed, dictated and finalized at location A. IMPRESSION: 1. Improved opacities of the right lung base and worsening opacities in the lef t lung base, consistent with atelectasis versus pneumonia.
--- NOTE | ~2021-03-29 | XR_ITS ---
EXAMINATION: XR chest 1V portable EXAM DATE: 04/03/2021 16:04 INDICATION: Aspiration? TECHNIQUE: Portable AP frontal chest x-ray was obtained. Comparison is made to prior examination from 01/09/2021. FINDINGS: There is right-sided portacatheter. Spine stimulator leads. Needle like foreign body projec ting over right upper quadrant. There is an IVC filter. Treated lumbar compression fractures. Some bi basilar linear opacities, atelectasis an/or pneumonia. Cardiomediastinal silhouette is normal. There is no pneumothorax suspected. There are no pleural effusions. The bones are osteopenic. There are b kasandra degenerative changes. Chronic right hemidiaphragm elevation. IMPRESSION: 1. Subsegmental scattered bibasilar atelectasis an/or pneumonia. Reviewed, dictated and finalized at location A.
--- NOTE | ~2021-03-29 | CT_ITS ---
EXAMINATION: CT brain & sinus wo con DATE: 04/03/2021 16:53 INDICATION: Seizures. TECHNIQUE: Computed tomography (CT) of the brain and sinuses was performed without intravenous contra st. The dose-length product was 681.00 mGy-cm. Automated exposure control and iterative reconstructio n technique were employed. COMPARISON: CT dated 03/11/2021 FINDINGS: Generalized atrophy. There are scattered moderate periventricular and subcortical white mat ter changes, most likely related to small vessel ischemic disease (microangiopathy). Basilar cisterns are patent. No ventriculomegaly or midline shift. No acute intracranial hemorrhage, infarction, mass or mass effect. Paranasal sinuses are unremarkable without significant mucosal thickening or abnorma l fluid. Mastoids are pneumatized. Mild rightward nasal septal deviation. Ostiomeatal units are paten t. IMPRESSION: 1. No acute intracranial abnormality. 2: Chronic age-related findings. Reviewed, dictated and finalized at location A.
--- NOTE | ~2021-03-29 | CT_ITS ---
EXAMINATION: CT chest abdomen pelvis wo con EXAM DATE: 04/07/2021 10:07 INDICATION: Abnormal masses/malignancy/infiltrate? TECHNIQUE: Spiral CT of the chest, abdomen and pelvis was performed without contrast. Axial, whitlock l and sagittal images chest, abdomen and pelvis were reviewed. Coronal maximum intensity pixel image s of chest reviewed. The dose-length product (DLP) for this examination was 631.02 mGy-cm. The expo sure was tailored according to patient size (auto mA exposure control), and iterative reconstruction (ASIR) was used as additional dose reduction technique. Comparison is made to prior examination from 06/18/2017. FINDINGS: CHEST: There is a right-sided portacatheter. There is large amount of endobronchial debris, at the c syed and filling the left mainstem bronchus, lingular and lower lobe segmental bronchi. There is lef t lower lobe segmental atelectasis. No suspicion of pneumonia. Small pericardial effusion. There is no mediastinal, hilar or axillary lymphadenopathy. There is no pneumothorax. Cardiomegaly. Prob able coronary artery stents. ABDOMEN PELVIS: There is IVC filter. The liver, spleen, adrenal glands and pancreas are unremarkable . The gallbladder is distended but otherwise unremarkable. There is no biliary duct dilation. Ther e is no nephrolithiasis or hydronephrosis. Lobular renal contours again noted. Exophytic 12 mm left r enal cyst. The uterus is not identified and has likely been surgically resected. The bladder is dis tended but otherwise unremarkable. There is no retroperitoneal or pelvic lymphadenopathy. There is moderate scattered arteriosclerotic disease. There are no findings to suggest appendicitis. There is severe sigmoid colonic diverticulosis. Ther e is no adjacent inflammatory change to suggest diverticulitis. There is moderate-sized gastroesophag eal hiatal hernia. There is moderate amount of colonic stool. No free intraperitoneal gas. Bilateral L5 spondylolysis with grade 2 anterolisthesis L5 on S1. Lumbar compression fractures L1-L4, treated with methylmethacrylate injection. Advanced thoracolumbar disc disease. There are no osteobl astic or osteolytic lesions identified. Spine stimulator pack, leads. Pain pump pack, catheter. Treat ed sacral insufficiency fractures. Left femoral hardware. Moderate thoracolumbar scoliosis. Left lowe r rib fractures of varying ages. One of these appears relatively acute. Skin induration over the sacr um. IMPRESSION: 1. Large amount of endobronchial debris. Left basilar segmental atelectasis. 2. Extensive sigmoid diverticulosis. 3. Distended bladder. 4. Moderate hiatal hernia. 5. Treated sacral insufficiency fractures, lumbar compression fractures. 6. Left posterior rib fractures of varying ages. Reviewed, dictated and finalized at location A.
--- NOTE | ~2021-03-29 | XR_ITS ---
EXAMINATION: XR ankle LT min 3V DATE: 03/29/2021 03:10 INDICATION: Left ankle pain TECHNIQUE: Anteroposterior, lateral, mortise, and additional oblique view of the ankle were obtained. COMPARISON: None. FINDINGS: Soft tissue swelling is seen medial to the distal tibial shaft. Bone alignment is normal. T here is no fracture. 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 Calcified atherosclerosis is noted. IMPRESSION: 1. Soft tissue swelling medial to the distal tibia without acute osseous abnormality identified. Reviewed, dictated and finalized at location A. IMPRESSION: 1. Soft tissue swelling medial to the distal tibia without acute osseous abnorm ality identified.
[2021-03-29 04:05] LABS: Add Urine Microscopic? YES; Appearance Urine Cloudy (Clear); Bacteria Urine Trace /hpf; Bilirubin Urine Negative (Negative); Blood Urine Negative (Negative); Glucose Urine UA Negative (Negative); Ketones Urine Negative (Negative); Leukocyte Esterase Ur 3+ LEU/UL (Negative); Nitrate Urine Negative (Negative); Protein Urine 1+ mg/dL (Negative); RBC Urine 21-50 /hpf (0-2); Specific Grav Ur 1.005 (1.001-1.035); Squamous Epithelial Cell Urine Rare /hpf (Few); Urobilinogen Urine Negative mg/dL (<2.0); WBC Urine >75 /hpf
[2021-03-29 04:05] LABS: Basophils Percent Auto 0.2 % (0.2-1.2); Eosinophils Absolute Auto 0.2 K/mm3 (0-0.3); Eosinophils Percent Auto 2.9 % (0-4.4); Hematocrit 30.6 % (37.0-47.0); Hemoglobin 9.2 g/dL (12.0-15.0); Immature Granulocyte Absolute 0.03 K/mm3 (0.00-0.031); Immature Granulocyte Percent A 0.5 % (0-0.5); Lymphocytes Absolute Auto 1.13 K/mm3 (0.9-3.2); Lymphocytes Percent Auto 19.5 % (18.3-44.2); Mean Corpuscular HGB Conc 30.1 g/dl (32-36); Mean Corpuscular Hemoglobin 28.4 pg (26-34); Mean Corpuscular Volume 94.4 fl (80-100); Mean Platelet Volume 9.8 fl (7.4-10.4); Monocytes Absolute Auto 0.5 K/mm3 (0.1-0.6); Monocytes Percent Auto 8.8 % (2.6-8.5); Neutrophils Percent Auto 68.1 % (45.5-73.1); Platelet Count Result 184 k/mm3 (150-375); Red Blood Count 3.24 M/mm3 (4.2-5.4); White Blood Count 5.8 K/mm3 (4.5-10.0)
[2021-03-29 04:16] LABS: Color Urine Light Yellow (Yellow)
[2021-03-29 04:19] LABS: Anion Gap 13 mmol/L (8-16); Blood Urea Nitrogen 41 mg/dL (7-17); Calcium 8.7 mg/dL (8.4-10.2); Carbon Dioxide 24 mmol/L (22-30); Chloride 94 mmol/L (98-107); Estimated CRCL calculation 9 ml/min; Estimated Glomerular Filt Rate 13; Glucose 103 mg/dL (65-110); Potassium 4.3 mmol/L (3.4-5.0); Sodium 131 mmol/L (137-145)
--- NOTE | 2021-03-29 05:08 | ED.GENADULT ---
HPI - General Adult General Chief complaint: Extremity Injury, Lower Stated complaint: Hematoma on Leg Time Seen by Provider: 03/29/21 02:26 History of Present Illness HPI narrative: Patient is an 80-year-old female who presents ER with left leg pain. She was attempting in bed when she struck her leg on the bed. She developed a hematoma over her distal/medial carbone. She was able to bear weight. She did not fall or strike her head. Pain is worse with palpation. Patient is oriented x2 and caregiver reports that she feels patient has been like this for a month and it is related to UTI. Chart review shows patient has had ESBL positive E. coli recently. She is not treated appropriately. Related Data Home Medications Medication Instructions Recorded Confirmed albuterol sulfate 2 puff INHALATION DAILY 03/07/21 03/22/21 alendronate 70 mg PO WEEKLY 03/07/21 03/22/21 amlodipine 2.5 mg PO DAILY 03/07/21 03/22/21 ascorbic acid (vitamin C) [Vitamin 1 g PO DAILY 03/07/21 03/22/21 C With Kenna Hips] calcium carbonate-vitamin D3 1 cap PO BID 03/07/21 03/22/21 [Calcium 600 + D(3)] ciprofloxacin 500 mg PO DAILY 03/07/21 03/22/21 clonidine HCl 0.1 mg PO BID 03/07/21 03/22/21 fluticasone furoate [Arnuity 1 inh INHALATION EVERY OTHER DAY 03/07/21 03/22/21 Ellipta] fluticasone propionate 1 spray INTRANASAL DAILY 03/07/21 03/22/21 gabapentin 300 mg PO BID 03/07/21 03/22/21 hydroxychloroquine 200 mg PO DAILY 03/07/21 03/22/21 iron See Rx Instructions .ROUTE .COMPLEX 03/07/21 03/22/21 levothyroxine 150 mcg PO DAILY 03/07/21 03/22/21 mecobalamin (vitamin B12) [B12 1,000 mcg PO DAILY 03/07/21 03/22/21 Active] metoprolol succinate 25 mg PO DAILY 03/07/21 03/22/21 pantoprazole 40 mg PO BID 03/07/21 03/22/21 prednisone 5 mg PO DAILY 03/07/21 03/22/21 vitamin E 800 unit PO DAILY 03/07/21 03/22/21 Allergies Allergy/AdvReac Type Severity Reaction Status Date / Time cefepime Allergy Intermediate Unknown Verified 03/29/21 02:35 apixaban [From Eliquis] Allergy Unknown Other Verified 03/29/21 02:35 latex Allergy Unknown Rash Verified 03/29/21 02:35 levofloxacin Allergy Unknown Swelling Verified 03/29/21 02:35 Penicillins Allergy Unknown Swelling Verified 03/29/21 02:35 pregabalin Allergy Unknown Unknown Verified 03/29/21 02:35 Quinolones Allergy Unknown Unknown Verified 03/29/21 02:35 Sulfa (Sulfonamide Allergy Unknown Itching Verified 03/29/21 02:35 Antibiotics) Review of Systems Review of Systems: ROS unobtainable: Yes unobtainable due to mental status PMFSH Past Medical History Medical History Acute on chronic blood loss anemia Anemia Arthritis Bronchitis Chronic kidney disease, stage 4 (severe) Chronic respiratory failure with hypoxia, on home O2 therapy Home O2 at 2L CKD (chronic kidney disease) Common variable immunodeficiency, unspecified COPD (chronic obstructive pulmonary disease) CPAP (continuous positive airway pressure) dependence DDD (degenerative disc disease) Diverticulitis DVT (deep venous thrombosis) Emphysema of lung Essential hypertension Femur fracture, left s/p surgical repair in Jun 2020 GERD (gastroesophageal reflux disease) HTN (hypertension) Hypothyroid Lupus Occult blood in stools Osteoporosis Pneumonia Port-A-Cath in place Sleep apnea Spinal cord stimulator status UTI (urinary tract infection) Surgical History Surgical History H/O bilateral cataract extraction H/O exploratory laparotomy H/O repair of rotator cuff right H/O: hysterectomy History of carpal tunnel release History of total bilateral knee replacement Hx of appendectomy Hx of tonsillectomy S/P IVC filter S/P spinal surgery Family History Family History Sibling Malignant neoplasm of prostate Hypertension Father Hypertension Cerebrovascular accident
[2021-03-29] MEDS: ERTAPENEM 1 GM/NS 50 ML 1 GM/50 ML BAG IVPB (05:50)
--- NOTE | 2021-03-29 06:21 | PC.NURSE ---
This patient, Kellee Arora, was admitted to 3 [facility] Surg Room 329-01 @0620. Patient/family oriented to hospital policies and general routines including ID bracelet, bed and alarms, visiting hours, pain management, procedures, bathroom and other care routines, personal items, smoking policy, room service/diet, and visiting hours. Information on how to activate the Rapid Response Team has been discussed. Patient/Family are encouraged to report perceived risks to care and to ask questions if they do not understand what they are told or what they should do.
--- NOTE | 2021-03-29 06:53 | PC.NURSE ---
patient stated upon admission that she has a right sided pain pump and a left sided pain stimulator so she is not supposed to have anything stronger than tylenol for pain
[2021-03-29] MEDS: ACETAMINOPHEN 325 MG TABLET 650 MG PO ×2 (06:55→14:06)
[2021-03-29] MEDS: GABAPENTIN 300 MG CAPSULE PO ×2 (12:35→20:09)
[2021-03-29] MEDS: CYANOCOBALAMIN 1,000 MCG TABLET 1000 MCG PO (12:35)
[2021-03-29] MEDS: amLODIPine BESYLATE 2.5 MG TABLET PO (12:35)
[2021-03-29] MEDS: VITAMIN E 400 UNIT CAPSULE 800 UNIT PO (12:35)
[2021-03-29] MEDS: predniSONE 5 MG TABLET PO (12:36)
[2021-03-29] MEDS: ASCORBIC ACID 500 MG TABLET 1000 MG PO (12:36)
[2021-03-29] MEDS: METOPROLOL SUCCINATE EXT REL 25 MG TABCR PO (12:36)
[2021-03-29] MEDS: FLUTICASONE PROPIONATE 0.05% NA SPR 16 GM BTL (*BKC) 1 SPRAY NASAL (12:37)
[2021-03-29] MEDS: ALBUTEROL SULFATE (*SP) AEROSOL 1 PUFF 2 PUFF INHALATION (12:50)
[2021-03-29] MEDS: HYDROXYCHLOROQUINE SULFATE 200 MG TABLET PO (14:06)
[2021-03-29] MEDS: CENTRAL LINE FLUSH 10 ML IV PUSH ×4 (14:07→20:10)
--- NOTE | 2021-03-29 14:24 | PM.IMHP ---
H&P: HPI History of Present Illness Date/Time: 03/29/21 14:24 patient 80-year-old female was brought emergency department by her daughter, patient is a poor historian unable to provide history or review of symptoms, I spoke with patient's daughter states the patient while getting into the bed hit her right leg against a railing now patient has wound and bruising, painful to ambulate, patient also has a history of UTI ESBL E coli multidrug resistant,with recently discharge with antibiotic, patient does complaint of dysuria and states is a persisting UTI, patient urine has >wbc and most likely patient has persistent UTI, patient is being treated with ertapenem, will follow on culture and sensitivity, has no fever or chills, there is no abdominal pain nausea or vomiting, will continue to monitor will have a PT OT evaluate the patient and further recommendation to follow. Chief Complaint: right leg wound, UTI Review of Systems Review of Systems: ROS unobtainable: Yes unobtainable due to medical condition PMFSH Past Medical History Medical History Acute on chronic blood loss anemia Anemia Arthritis Bronchitis Chronic kidney disease, stage 4 (severe) Chronic respiratory failure with hypoxia, on home O2 therapy Home O2 at 2L CKD (chronic kidney disease) Common variable immunodeficiency, unspecified COPD (chronic obstructive pulmonary disease) CPAP (continuous positive airway pressure) dependence DDD (degenerative disc disease) Diverticulitis DVT (deep venous thrombosis) Emphysema of lung Essential hypertension Femur fracture, left s/p surgical repair in Jun 2020 GERD (gastroesophageal reflux disease) HTN (hypertension) Hypothyroid Lupus Occult blood in stools Osteoporosis Pneumonia Port-A-Cath in place Sleep apnea Spinal cord stimulator status UTI (urinary tract infection) Surgical History Surgical History H/O bilateral cataract extraction H/O exploratory laparotomy H/O repair of rotator cuff right H/O: hysterectomy History of carpal tunnel release History of total bilateral knee replacement Hx of appendectomy Hx of tonsillectomy S/P IVC filter S/P spinal surgery Family History Family History Sibling Malignant neoplasm of prostate Hypertension Father Hypertension Cerebrovascular accident Acute myocardial infarction Mother Family history of Alzheimer's disease Social History Social History Smoking packs per day: 2 Smoking cigarettes per day: 40.0 Years smoked: 14 Smoking pack-years: 28.00 Smoking status: Former smoker Tobacco type: cigarettes Alcohol intake: former Substance use: never Substance use type: does not use Gender identity (if verbalized by the patient): Female Spiritual care concerns: No Meds Home Medications and Allergies Home Medications Medication Instructions Recorded Confirmed Type albuterol sulfate 2 puff INHALATION DAILY 03/07/21 03/29/21 History alendronate 70 mg PO WEEKLY 03/07/21 03/29/21 History amlodipine 2.5 mg PO DAILY 03/07/21 03/29/21 History ascorbic acid (vitamin C) [Vitamin 1 g PO DAILY 03/07/21 03/29/21 History C With Kenna Hips] calcium carbonate-vitamin D3 1 cap PO BID 03/07/21 03/29/21 History [Calcium 600 + D(3)] ciprofloxacin 500 mg PO DAILY 03/07/21 03/29/21 History clonidine HCl 0.1 mg PO BID 03/07/21 03/29/21 History fluticasone furoate [Arnuity 1 inh INHALATION EVERY OTHER DAY 03/07/21 03/29/21 History Ellipta] fluticasone propionate 1 spray INTRANASAL DAILY 03/07/21 03/29/21 History gabapentin 300 mg PO BID 03/07/21 03/29/21 History hydroxychloroquine 200 mg PO DAILY 03/07/21 03/29/21 History iron See Rx Instructions .ROUTE .COMPLEX 03/07/21 03/29/21 History levothyroxine 150 mcg PO D
[2021-03-29] MEDS: PANTOPRAZOLE 40 MG TABLET PO (17:24)
[2021-03-29] MEDS: FERROUS SULFATE 324 MG TABLET PO (17:24)
[2021-03-29] MEDS: cloNIDine HCL 0.1 MG TABLET PO (17:24)
[2021-03-29] MEDS: FLUTICASONE PROP 110 MCG INHALER 12 GM (*SP) 1 PUFF INHALATION (20:47)
[2021-03-30] VITALS (7 sets, daily range): BP systolic 147–176; BP diastolic 55–83; PULSE 66–74; RESP 10–18; TEMP 36.2–36.3; O2SAT 95–100
[2021-03-30] MEDS: ERTAPENEM SODIUM 0.5 GM in SODIUM CHLORIDE 0.9% IV 50 ML IVPB (05:15)
[2021-03-30] MEDS: CENTRAL LINE FLUSH 10 ML IV PUSH ×7 (05:16→20:58)
[2021-03-30] MEDS: LEVOTHYROXINE SODIUM 150 MCG TABLET PO (05:52)
[2021-03-30] MEDS: FLUTICASONE PROPIONATE 0.05% NA SPR 16 GM BTL (*BKC) 1 SPRAY NASAL (08:32)
[2021-03-30] MEDS: FERROUS SULFATE 324 MG TABLET PO (08:35)
[2021-03-30] MEDS: GABAPENTIN 300 MG CAPSULE PO ×2 (08:35→19:44)
[2021-03-30] MEDS: METOPROLOL SUCCINATE EXT REL 25 MG TABCR PO (08:36)
[2021-03-30] MEDS: predniSONE 5 MG TABLET PO (08:36)
[2021-03-30] MEDS: amLODIPine BESYLATE 2.5 MG TABLET PO (08:37)
[2021-03-30] MEDS: CYANOCOBALAMIN 1,000 MCG TABLET 1000 MCG PO (08:37)
[2021-03-30] MEDS: PANTOPRAZOLE 40 MG TABLET PO ×2 (08:38→17:39)
[2021-03-30] MEDS: cloNIDine HCL 0.1 MG TABLET PO ×2 (08:38→17:39)
[2021-03-30] MEDS: ASCORBIC ACID 500 MG TABLET 1000 MG PO (08:38)
[2021-03-30] MEDS: VITAMIN E 400 UNIT CAPSULE 800 UNIT PO (08:39)
[2021-03-30] MEDS: ACETAMINOPHEN 325 MG TABLET 650 MG PO ×2 (08:40→14:44)
[2021-03-30] MEDS: ALBUTEROL SULFATE (*SP) AEROSOL 1 PUFF 2 PUFF INHALATION (09:03)
[2021-03-30] MEDS: FLUTICASONE PROP 110 MCG INHALER 12 GM (*SP) 1 PUFF INHALATION ×2 (09:03→19:36)
[2021-03-30] MEDS: HYDROXYCHLOROQUINE SULFATE 200 MG TABLET PO (10:43)
--- NOTE | 2021-03-30 11:26 | PM.IMPN ---
Progress Note: A&P Assessment and Plan (1) Acute UTI: Code(s): N39.0 - Urinary tract infection, site not specified Status: Acute Assessment and Plan: 03/30/21 11:26 patient 80-year-old female was brought emergency department by her daughter, patient is a poor historian unable to provide history or review of symptoms, I spoke with patient's daughter states the patient while getting into the bed hit her right leg against a railing now patient has wound and bruising, painful to ambulate, patient also has a history of UTI ESBL E coli multidrug resistant,with recently discharge with antibiotic, patient does complaint of dysuria and states is a persisting UTI, patient urine has >wbc and most likely patient has persistent UTI, patient is being treated with ertapenem, will follow on culture and sensitivity, has no fever or chills, there is no abdominal pain nausea or vomiting, will continue to monitor will have a PT OT evaluate the patient and further recommendation to follow. 03/30/2021 patient remains clinically stable does complaint difficulty with urination will do the bladder scan and further recommendation to follow, with a history of persistent UTI with E coli ESBL being treated ertapenem, will continue to monitor urine culture and further recommendation to follow, will have a PT OT evaluate the patient, patient will benefit from rehab as outpatient or inpatient. (2) Essential hypertension: Code(s): I10 - Essential (primary) hypertension Status: Acute Assessment and Plan: upon arrival patient blood pressure was significantly elevated most likely secondary to stress and pain and patient may have not take home medication, will resume home medication her blood pressure is trending down will continue to monitor. (3) Wound of right lower extremity: Code(s): S81.801A - Unspecified open wound, right lower leg, initial encounter Status: Acute Assessment and Plan: will have nursing staff change the dressing (4) Chronic kidney disease, stage 4 (severe): Code(s): N18.4 - Chronic kidney disease, stage 4 (severe) Status: Acute Assessment and Plan: patient with chronic kidney disease, serum creatinine is stable, patient is on antibiotic will monitor Subjective Date/time seen: 03/30/21 11:26 patient 80-year-old female was brought emergency department by her daughter, patient is a poor historian unable to provide history or review of symptoms, I spoke with patient's daughter states the patient while getting into the bed hit her right leg against a railing now patient has wound and bruising, painful to ambulate, patient also has a history of UTI ESBL E coli multidrug resistant,with recently discharge with antibiotic, patient does complaint of dysuria and states is a persisting UTI, patient urine has >wbc and most likely patient has persistent UTI, patient is being treated with ertapenem, will follow on culture and sensitivity, has no fever or chills, there is no abdominal pain nausea or vomiting, will continue to monitor will have a PT OT evaluate the patient and further recommendation to follow. 03/30/2021 patient remains clinically stable does complaint difficulty with urination will do the bladder scan and further recommendation to follow, with a history of persistent UTI with E coli ESBL being treated ertapenem, will continue to monitor urine culture and further recommendation to follow, will have a PT OT evaluate the patient, patient will benefit from rehab as outpatient or inpatient. Review of Systems Review of Systems: ROS unobtainable: Yes unobtainable due to medical condition Exam Narrative: elderly frail Patient is comfortable, NAD HEENT: eyes are clear and none icteric LUNGS:CTA HEART: RR S1S2 ABD:distended Lower extremities: patent right extremity wounds are covered with dressing, there is some burising but no eryhma or drainage. SKIN: nonjaundiced Neuro: g
--- NOTE | 2021-03-30 13:33 | PC.NURSE ---
1250 PT RETURNED TO BED AFTER LUNCH. BLADDER SCANNER DONE. RESULTS CALLED TO DR. CONDON. ORDER RECIEVED
[2021-03-30] MEDS: TAMSULOSIN HCL 0.4 MG CAPSULE PO (17:39)
[2021-03-30] MEDS: ONDANSETRON INJ 4 MG/2 ML VIAL IV PUSH (17:42)
[2021-03-31] VITALS (7 sets, daily range): BP systolic 155–163; BP diastolic 54–74; PULSE 66–77; RESP 16; TEMP 36.2–36.6; O2SAT 96–100
[2021-03-31] MEDS: ERTAPENEM SODIUM 0.5 GM in SODIUM CHLORIDE 0.9% IV 50 ML IVPB (05:40)
[2021-03-31] MEDS: CENTRAL LINE FLUSH 10 ML IV PUSH ×6 (05:42→20:44)
[2021-03-31] MEDS: LEVOTHYROXINE SODIUM 150 MCG TABLET PO (05:42)
[2021-03-31 05:57] LABS: Hematocrit 29.8 % (37.0-47.0); Mean Corpuscular HGB Conc 30.2 g/dl (32-36); Mean Corpuscular Hemoglobin 28.1 pg (26-34); Mean Corpuscular Volume 93.1 fl (80-100); Mean Platelet Volume 9.1 fl (7.4-10.4); Platelet Count Result 147 k/mm3 (150-375); Red Cell Distribution Width 18.6 % (11.5-14.5); White Blood Count 4.7 K/mm3 (4.5-10.0)
[2021-03-31] MEDS: FLUTICASONE PROP 110 MCG INHALER 12 GM (*SP) 1 PUFF INHALATION ×2 (08:31→20:45)
[2021-03-31] MEDS: ALBUTEROL SULFATE (*SP) AEROSOL 1 PUFF 2 PUFF INHALATION (08:31)
[2021-03-31] MEDS: CYANOCOBALAMIN 1,000 MCG TABLET 1000 MCG PO (09:33)
[2021-03-31] MEDS: ASCORBIC ACID 500 MG TABLET 1000 MG PO (09:33)
[2021-03-31] MEDS: VITAMIN E 400 UNIT CAPSULE 800 UNIT PO (09:33)
[2021-03-31] MEDS: HYDROXYCHLOROQUINE SULFATE 200 MG TABLET PO (09:33)
[2021-03-31] MEDS: amLODIPine BESYLATE 2.5 MG TABLET PO (09:34)
[2021-03-31] MEDS: PANTOPRAZOLE 40 MG TABLET PO ×2 (09:34→18:26)
[2021-03-31] MEDS: FERROUS SULFATE 324 MG TABLET PO (09:34)
[2021-03-31] MEDS: GABAPENTIN 300 MG CAPSULE PO ×2 (09:34→20:44)
[2021-03-31] MEDS: TAMSULOSIN HCL 0.4 MG CAPSULE PO (09:34)
[2021-03-31] MEDS: predniSONE 5 MG TABLET PO (09:35)
[2021-03-31] MEDS: METOPROLOL SUCCINATE EXT REL 25 MG TABCR PO (09:35)
[2021-03-31] MEDS: FLUTICASONE PROPIONATE 0.05% NA SPR 16 GM BTL (*BKC) 1 SPRAY NASAL (09:35)
[2021-03-31] MEDS: cloNIDine HCL 0.1 MG TABLET PO ×2 (09:35→18:27)
--- NOTE | 2021-03-31 14:22 | PM.IMPN ---
Progress Note: A&P Assessment and Plan (1) Acute UTI: Code(s): N39.0 - Urinary tract infection, site not specified Status: Acute Assessment and Plan: 03/30/21 11:26 patient 80-year-old female was brought emergency department by her daughter, patient is a poor historian unable to provide history or review of symptoms, I spoke with patient's daughter states the patient while getting into the bed hit her right leg against a railing now patient has wound and bruising, painful to ambulate, patient also has a history of UTI ESBL E coli multidrug resistant,with recently discharge with antibiotic, patient does complaint of dysuria and states is a persisting UTI, patient urine has >wbc and most likely patient has persistent UTI, patient is being treated with ertapenem, will follow on culture and sensitivity, has no fever or chills, there is no abdominal pain nausea or vomiting, will continue to monitor will have a PT OT evaluate the patient and further recommendation to follow. 03/30/2021 patient remains clinically stable does complaint difficulty with urination will do the bladder scan and further recommendation to follow, with a history of persistent UTI with E coli ESBL being treated ertapenem, will continue to monitor urine culture and further recommendation to follow, will have a PT OT evaluate the patient, patient will benefit from rehab as outpatient or inpatient. (2) Essential hypertension: Code(s): I10 - Essential (primary) hypertension Status: Acute Assessment and Plan: upon arrival patient blood pressure was significantly elevated most likely secondary to stress and pain and patient may have not take home medication, will resume home medication her blood pressure is trending down will continue to monitor. (3) Wound of right lower extremity: Code(s): S81.801A - Unspecified open wound, right lower leg, initial encounter Status: Acute Assessment and Plan: will have nursing staff change the dressing (4) Chronic kidney disease, stage 4 (severe): Code(s): N18.4 - Chronic kidney disease, stage 4 (severe) Status: Acute Assessment and Plan: patient with chronic kidney disease, serum creatinine is stable, patient is on antibiotic will monitor Subjective Date/time seen: 03/31/21 14:22 Objective Data Vital Signs Vital Signs: Vital Signs - 24 hr 03/30/21 19:38 03/30/21 19:46 03/30/21 22:00 Temperature 97.2 F L Pulse Rate 66 Respiratory Rate 16 Blood Pressure 147/61 H Pulse Oximetry 96 96 98 03/31/21 06:00 03/31/21 08:00 03/31/21 08:32 Temperature 97.1 F L Pulse Rate 68 70 Respiratory Rate 16 16 Blood Pressure 160/70 H Pulse Oximetry 100 96 96 03/31/21 09:35 03/31/21 13:44 Temperature 97.6 F Pulse Rate 70 66 Respiratory Rate 16 Blood Pressure 163/54 H Pulse Oximetry 100 Intake/Output Intake/Output: Intake & Output 03/28/21 03/29/21 03/30/21 03/31/21 23:59 23:59 23:59 23:59 Intake Total 590 2100 440 Output Total 2200 1000 1150 Balance -1610 1100 -710 Meds/Results Medications: Active Medications Generic Name Dose Route Start Last Admin Trade Name Freq PRN Reason Stop Dose Admin Acetaminophen 650 mg 03/29/21 04:54 03/30/21 14:44 Acetaminophen 325 Mg Tablet PO 650 mg Q4H PRN Administration Mild Pain (1-3) or Fever Hydrocodone Bitart/Acetaminophen 1 tab 03/29/21 04:54 Hydrocodone/Acetaminophen (*Crx) 5-325 Mg Tablet PO Q4H PRN Pain Rated 4-6 Albuterol 2 puff 03/29/21 08:00 03/31/21 08:31 Albuterol Sulfate (*Sp) Aerosol 1 Puff INHALATION 2 puff DAILYRT JACK Administration Alendronate Sodium 70 mg 04/01/21 21:00 Alendronate Sodium 70 Mg Tablet PO Pinedo@2100 [facility] Amlodipine Besylate 2.5 mg 03/29/21 09:00 03/31/21 09:34 Amlodipine Besylate 2.5 Mg Tablet PO 2.5 mg DAILY JACK Administration Ascorbic Acid 1,000 mg 03/29/21 09:00 03/31/21 09:33
[2021-04-01] VITALS (11 sets, daily range): BP systolic 142–187; BP diastolic 76–91; PULSE 75–82; RESP 16–20; TEMP 36.6; O2SAT 98–100
[2021-04-01 06:48] LABS: Hematocrit 31.9 % (37.0-47.0); Hemoglobin 9.6 g/dL (12.0-15.0); Mean Corpuscular HGB Conc 30.1 g/dl (32-36); Mean Corpuscular Hemoglobin 28.1 pg (26-34); Mean Corpuscular Volume 93.3 fl (80-100); Mean Platelet Volume 8.2 fl (7.4-10.4); Platelet Count Result 122 k/mm3 (150-375); Red Blood Count 3.42 M/mm3 (4.2-5.4); Red Cell Distribution Width 18.5 % (11.5-14.5); White Blood Count 5.6 K/mm3 (4.5-10.0)
[2021-04-01] MEDS: LEVOTHYROXINE SODIUM 150 MCG TABLET PO (06:52)
[2021-04-01] MEDS: CENTRAL LINE FLUSH 10 ML IV PUSH ×6 (06:52→21:14)
[2021-04-01] MEDS: ERTAPENEM SODIUM 0.5 GM in SODIUM CHLORIDE 0.9% IV 50 ML IVPB (06:52)
[2021-04-01] MEDS: FLUTICASONE PROP 110 MCG INHALER 12 GM (*SP) 1 PUFF INHALATION ×2 (08:45→20:17)
[2021-04-01] MEDS: ALBUTEROL SULFATE (*SP) AEROSOL 1 PUFF 2 PUFF INHALATION (08:46)
--- NOTE | 2021-04-01 09:02 | PM.IMPN ---
Progress Note: A&P Assessment and Plan (1) Acute UTI: Code(s): N39.0 - Urinary tract infection, site not specified Status: Acute Assessment and Plan: 03/30/21 11:26 patient 80-year-old female was brought emergency department by her daughter, patient is a poor historian unable to provide history or review of symptoms, I spoke with patient's daughter states the patient while getting into the bed hit her right leg against a railing now patient has wound and bruising, painful to ambulate, patient also has a history of UTI ESBL E coli multidrug resistant,with recently discharge with antibiotic, patient does complaint of dysuria and states is a persisting UTI, patient urine has >wbc and most likely patient has persistent UTI, patient is being treated with ertapenem, will follow on culture and sensitivity, has no fever or chills, there is no abdominal pain nausea or vomiting, will continue to monitor will have a PT OT evaluate the patient and further recommendation to follow. 03/30/2021 patient remains clinically stable does complaint difficulty with urination will do the bladder scan and further recommendation to follow, with a history of persistent UTI with E coli ESBL being treated ertapenem, will continue to monitor urine culture and further recommendation to follow, will have a PT OT evaluate the patient, patient will benefit from rehab as outpatient or inpatient. 04/01: Day 3 of 7 ertapenem (2) Essential hypertension: Code(s): I10 - Essential (primary) hypertension Status: Acute Assessment and Plan: upon arrival patient blood pressure was significantly elevated most likely secondary to stress and pain and patient may have not take home medication, will continue home medication 04/01 BP removed and control improved (142/90) (3) Wound of right lower extremity: Code(s): S81.801A - Unspecified open wound, right lower leg, initial encounter Status: Acute Assessment and Plan: Continue dressing changes (4) Chronic kidney disease, stage 4 (severe): Code(s): N18.4 - Chronic kidney disease, stage 4 (severe) Status: Acute Assessment and Plan: Serum creatinine is stable monitor 04/01 creatinine 3.4, stable Subjective Date/time seen: 04/01/21 09:02 Interval history: Admitted with UTI, ESBL e. coli. 04/01 visit: Appetite improved. Denied pain. Admits fatigue. Denied cp, sob, gi/gu changes, bleeding. Review of Systems Review of Systems: ROS unobtainable: Yes unobtainable due to medical condition Exam Narrative: Elderly frail Patient is comfortable, NAD HEENT: eyes are clear and none icteric LUNGS:CTA HEART: RR NL S1,S2 ABD:protuberant, BS+, soft, nontender, w/o mass Lower extremities: patent right extremity wounds are covered with dressing, there is some bruising but no erythema or drainage. SKIN: nonjaundiced Neuro: CN 3-12 intact to inspection Objective Data Vital Signs Vital Signs: Vital Signs - 24 hr 03/31/21 09:35 03/31/21 13:44 03/31/21 20:00 Temperature 97.6 F Pulse Rate 70 66 Respiratory Rate 16 Blood Pressure 163/54 H Pulse Oximetry 100 100 03/31/21 22:00 04/01/21 06:00 04/01/21 06:57 Temperature 97.8 F 97.9 F Pulse Rate 77 78 Respiratory Rate 16 18 Blood Pressure 155/74 H 180/91 H 142/90 H Pulse Oximetry 100 100 04/01/21 08:46 Temperature Pulse Rate Respiratory Rate Blood Pressure Pulse Oximetry 98 Intake/Output Intake/Output: Intake & Output 03/29/21 03/30/21 03/31/21 04/01/21 23:59 23:59 23:59 23:59 Intake Total 590 2100 610 150 Output Total 2200 1000 1550 Balance -1610 1100 -940 150 Meds/Results Medications: Active Medications Generic Name Dose Route Start Last Admin Trade Name Freq PRN Reason Stop Dose Admin Acetaminophen 650 mg 03/29/21 04:54 03/30/21 14:44 Acetaminophen 325 Mg Tablet PO 650 mg Q4H PRN Administration Mild Pain (1-3) or Fever Hydrocodone
[2021-04-01] MEDS: GABAPENTIN 300 MG CAPSULE PO ×2 (10:21→21:12)
[2021-04-01] MEDS: VITAMIN E 400 UNIT CAPSULE 800 UNIT PO (10:22)
[2021-04-01] MEDS: HYDROXYCHLOROQUINE SULFATE 200 MG TABLET PO (10:22)
[2021-04-01] MEDS: ASCORBIC ACID 500 MG TABLET 1000 MG PO (10:22)
[2021-04-01] MEDS: FERROUS SULFATE 324 MG TABLET PO (10:22)
[2021-04-01] MEDS: predniSONE 5 MG TABLET PO (10:22)
[2021-04-01] MEDS: cloNIDine HCL 0.1 MG TABLET PO ×2 (10:22→17:42)
[2021-04-01] MEDS: amLODIPine BESYLATE 2.5 MG TABLET PO (10:22)
[2021-04-01] MEDS: CYANOCOBALAMIN 1,000 MCG TABLET 1000 MCG PO (10:23)
[2021-04-01] MEDS: PANTOPRAZOLE 40 MG TABLET PO ×2 (10:23→17:42)
[2021-04-01] MEDS: METOPROLOL SUCCINATE EXT REL 25 MG TABCR PO (10:23)
[2021-04-01] MEDS: TAMSULOSIN HCL 0.4 MG CAPSULE PO (10:23)
[2021-04-01] MEDS: FLUTICASONE PROPIONATE 0.05% NA SPR 16 GM BTL (*BKC) 1 SPRAY NASAL (10:24)
[2021-04-01] MEDS: ALENDRONATE SODIUM 70 MG TABLET PO (21:14)
[2021-04-02] VITALS (10 sets, daily range): BP systolic 164–180; BP diastolic 70–82; PULSE 68–78; RESP 16–20; TEMP 36.1–36.5; O2SAT 94–99
[2021-04-02] MEDS: ERTAPENEM SODIUM 0.5 GM in SODIUM CHLORIDE 0.9% IV 50 ML IVPB (05:01)
[2021-04-02] MEDS: CENTRAL LINE FLUSH 10 ML IV PUSH ×6 (05:02→22:12)
[2021-04-02] MEDS: LEVOTHYROXINE SODIUM 150 MCG TABLET PO (05:03)
[2021-04-02 05:31] LABS: Hematocrit 30.6 % (37.0-47.0); Hemoglobin 9.2 g/dL (12.0-15.0); Mean Corpuscular HGB Conc 30.1 g/dl (32-36); Mean Corpuscular Volume 93.3 fl (80-100); Mean Platelet Volume 8.4 fl (7.4-10.4); Platelet Count Result 114 k/mm3 (150-375); Red Blood Count 3.28 M/mm3 (4.2-5.4); Red Cell Distribution Width 18.4 % (11.5-14.5); White Blood Count 3.9 K/mm3 (4.5-10.0)
[2021-04-02] MEDS: FLUTICASONE PROP 110 MCG INHALER 12 GM (*SP) 1 PUFF INHALATION ×2 (08:15→20:52)
[2021-04-02] MEDS: ALBUTEROL SULFATE (*SP) AEROSOL 1 PUFF 2 PUFF INHALATION (08:15)
[2021-04-02] MEDS: TAMSULOSIN HCL 0.4 MG CAPSULE PO (09:51)
[2021-04-02] MEDS: METOPROLOL SUCCINATE EXT REL 25 MG TABCR PO (09:51)
[2021-04-02] MEDS: GABAPENTIN 300 MG CAPSULE PO ×2 (09:51→22:11)
[2021-04-02] MEDS: VITAMIN E 400 UNIT CAPSULE 800 UNIT PO (09:51)
[2021-04-02] MEDS: amLODIPine BESYLATE 2.5 MG TABLET PO (09:51)
[2021-04-02] MEDS: HYDROXYCHLOROQUINE SULFATE 200 MG TABLET PO (09:52)
[2021-04-02] MEDS: PANTOPRAZOLE 40 MG TABLET PO ×2 (09:52→17:52)
[2021-04-02] MEDS: ASCORBIC ACID 500 MG TABLET 1000 MG PO (09:52)
[2021-04-02] MEDS: CYANOCOBALAMIN 1,000 MCG TABLET 1000 MCG PO (09:52)
[2021-04-02] MEDS: FLUTICASONE PROPIONATE 0.05% NA SPR 16 GM BTL (*BKC) 1 SPRAY NASAL (09:52)
[2021-04-02] MEDS: cloNIDine HCL 0.1 MG TABLET PO ×2 (09:52→17:51)
[2021-04-02] MEDS: predniSONE 5 MG TABLET PO (09:52)
[2021-04-02] MEDS: FERROUS SULFATE 324 MG TABLET PO (09:52)
--- NOTE | 2021-04-02 12:34 | PM.IMPN ---
Progress Note: A&P Assessment and Plan (1) Acute UTI: Code(s): N39.0 - Urinary tract infection, site not specified Status: Acute Assessment and Plan: 04/02/21 12:34 patient 80-year-old female was brought emergency department by her daughter, patient is a poor historian unable to provide history or review of symptoms, I spoke with patient's daughter states the patient while getting into the bed hit her right leg against a railing now patient has wound and bruising, painful to ambulate, patient also has a history of UTI ESBL E coli multidrug resistant,with recently discharge with antibiotic, patient does complaint of dysuria and states is a persisting UTI, patient urine has >wbc and most likely patient has persistent UTI, patient is being treated with ertapenem, will follow on culture and sensitivity, has no fever or chills, there is no abdominal pain nausea or vomiting, will continue to monitor will have a PT OT evaluate the patient and further recommendation to follow. 03/30/2021 patient remains clinically stable does complaint difficulty with urination will do the bladder scan and further recommendation to follow, with a history of persistent UTI with E coli ESBL being treated ertapenem, will continue to monitor urine culture and further recommendation to follow, will have a PT OT evaluate the patient, patient will benefit from rehab as outpatient or inpatient. 04/02 patient with complaint difficulty with urination and dysuria upon arrival with history of the coli with ESBL, repeat urine culture shows patient has E coli ESBL sensitive her ertapenem, patient has persistent history of E coli ESBL patient will need 10-14 days of IV antibiotic, 10/04, today patient denies any dysuria frequency abdominal pain nausea or vomiting, will continue to monitor patient will benefit from PT OT. (2) Essential hypertension: Code(s): I10 - Essential (primary) hypertension Status: Acute Assessment and Plan: upon arrival patient blood pressure was significantly elevated most likely secondary to stress and pain and patient may have not take home medication, will resume home medication her blood pressure is trending down will continue to monitor. (3) Wound of right lower extremity: Code(s): S81.801A - Unspecified open wound, right lower leg, initial encounter Status: Acute Assessment and Plan: will have nursing staff change the dressing (4) Chronic kidney disease, stage 4 (severe): Code(s): N18.4 - Chronic kidney disease, stage 4 (severe) Status: Acute Assessment and Plan: patient with chronic kidney disease, serum creatinine is stable, patient is on antibiotic will monitor Subjective Date/time seen: 04/02/21 12:34 patient 80-year-old female was brought emergency department by her daughter, patient is a poor historian unable to provide history or review of symptoms, I spoke with patient's daughter states the patient while getting into the bed hit her right leg against a railing now patient has wound and bruising, painful to ambulate, patient also has a history of UTI ESBL E coli multidrug resistant,with recently discharge with antibiotic, patient does complaint of dysuria and states is a persisting UTI, patient urine has >wbc and most likely patient has persistent UTI, patient is being treated with ertapenem, will follow on culture and sensitivity, has no fever or chills, there is no abdominal pain nausea or vomiting, will continue to monitor will have a PT OT evaluate the patient and further recommendation to follow. 03/30/2021 patient remains clinically stable does complaint difficulty with urination will do the bladder scan and further recommendation to follow, with a history of persistent UTI with E coli ESBL being treated ertapenem, will continue to monitor urine culture and further recommendation to follow, will have a PT OT evaluate the patient, patient will benefit from rehab as
[2021-04-03] VITALS (10 sets, daily range): BP systolic 143–226; BP diastolic 74–94; PULSE 73–131; RESP 16–18; TEMP 36.4–36.7; O2SAT 95–100
[2021-04-03 04:52] LABS: Hematocrit 29.7 % (37.0-47.0); Hemoglobin 8.9 g/dL (12.0-15.0); Mean Corpuscular Hemoglobin 28.2 pg (26-34); Mean Platelet Volume 8.8 fl (7.4-10.4); Platelet Count Result 97 k/mm3 (150-375); Red Blood Count 3.16 M/mm3 (4.2-5.4); Red Cell Distribution Width 18.3 % (11.5-14.5); White Blood Count 6.2 K/mm3 (4.5-10.0)
[2021-04-03 05:02] LABS: Anion Gap 5 mmol/L (8-16); Blood Urea Nitrogen 44 mg/dL (7-17); Calcium 8.3 mg/dL (8.4-10.2); Carbon Dioxide 29 mmol/L (22-30); Chloride 100 mmol/L (98-107); Estimated CRCL calculation 11 ml/min; Estimated Glomerular Filt Rate 18; Glucose 93 mg/dL (65-110); Potassium 4.3 mmol/L (3.4-5.0); Sodium 134 mmol/L (137-145)
[2021-04-03] MEDS: CENTRAL LINE FLUSH 10 ML IV PUSH ×5 (05:02→21:35)
[2021-04-03] MEDS: ERTAPENEM SODIUM 0.5 GM in SODIUM CHLORIDE 0.9% IV 50 ML IVPB (05:02)
[2021-04-03] MEDS: LEVOTHYROXINE SODIUM 150 MCG TABLET PO (05:50)
--- NOTE | 2021-04-03 07:38 | PCOTNOTE ---
The OT treatment on 04/02/21 was unable to be completed due to the holiday. Will continue plan of care.
[2021-04-03] MEDS: amLODIPine BESYLATE 2.5 MG TABLET PO (08:23)
[2021-04-03] MEDS: VITAMIN E 400 UNIT CAPSULE 800 UNIT PO (08:23)
[2021-04-03] MEDS: CYANOCOBALAMIN 1,000 MCG TABLET 1000 MCG PO (08:23)
[2021-04-03] MEDS: predniSONE 5 MG TABLET PO (08:23)
[2021-04-03] MEDS: ASCORBIC ACID 500 MG TABLET 1000 MG PO (08:23)
[2021-04-03] MEDS: METOPROLOL SUCCINATE EXT REL 25 MG TABCR PO (08:24)
[2021-04-03] MEDS: TAMSULOSIN HCL 0.4 MG CAPSULE PO (08:24)
[2021-04-03] MEDS: cloNIDine HCL 0.1 MG TABLET PO (08:24)
[2021-04-03] MEDS: PANTOPRAZOLE 40 MG TABLET PO (08:24)
[2021-04-03] MEDS: HYDROXYCHLOROQUINE SULFATE 200 MG TABLET PO (08:24)
[2021-04-03] MEDS: GABAPENTIN 300 MG CAPSULE PO (08:24)
[2021-04-03] MEDS: FERROUS SULFATE 324 MG TABLET PO (08:24)
[2021-04-03] MEDS: FLUTICASONE PROPIONATE 0.05% NA SPR 16 GM BTL (*BKC) 1 SPRAY NASAL (09:10)
[2021-04-03] MEDS: ALBUTEROL SULFATE (*SP) AEROSOL 1 PUFF 2 PUFF INHALATION (09:41)
[2021-04-03] MEDS: FLUTICASONE PROP 110 MCG INHALER 12 GM (*SP) 1 PUFF INHALATION ×2 (09:46→21:03)
--- NOTE | 2021-04-03 14:42 | PC.NURSE ---
On 04/03/21, the student, [Laurita Andersen ], provided care and completed [facility] documentation on this patient. I have reviewed the student's documentation and agree with the findings.
--- NOTE | 2021-04-03 15:34 | PM.IMPN ---
Progress Note: A&P Assessment and Plan (1) Seizure: Code(s): R56.9 - Unspecified convulsions Status: Acute Assessment and Plan: Approximately 2:15 p.m., 9-7, nursing staff noted patient was tensing up, and having some convulsions, and foaming of the mouth, and bladder leakage Episode lasted about less than 1 minutes, and followed by some post ictal decline in responsiveness Spoke in detail with patient's daughter, says that patient has been on Keppra years ago, but was stopped because deemed unnecessary Will restart Keppra starting at 750 b.i.d. IV Keep patient NPO, and obtain formal swallow eval with speech therapy Obtain prolactin Head CT-no MRI given implanted equipment Neurology on consult CXR as concern for aspiration event Also discussed code status in detail with daughter, who is POA. She says that patient's wishes to be made do not intubate, however would like to proceed with CPR and other interventions short of intubation. Code status changed in chart. (2) Acute UTI: Code(s): N39.0 - Urinary tract infection, site not specified Status: Acute Assessment and Plan: 04/02/21 12:34 patient 80-year-old female was brought emergency department by her daughter, patient is a poor historian unable to provide history or review of symptoms, I spoke with patient's daughter states the patient while getting into the bed hit her right leg against a railing now patient has wound and bruising, painful to ambulate, patient also has a history of UTI ESBL E coli multidrug resistant,with recently discharge with antibiotic, patient does complaint of dysuria and states is a persisting UTI, patient urine has >wbc and most likely patient has persistent UTI, patient is being treated with ertapenem, will follow on culture and sensitivity, has no fever or chills, there is no abdominal pain nausea or vomiting, will continue to monitor will have a PT OT evaluate the patient and further recommendation to follow. 03/30/2021 patient remains clinically stable does complaint difficulty with urination will do the bladder scan and further recommendation to follow, with a history of persistent UTI with E coli ESBL being treated ertapenem, will continue to monitor urine culture and further recommendation to follow, will have a PT OT evaluate the patient, patient will benefit from rehab as outpatient or inpatient. 04/02 patient with complaint difficulty with urination and dysuria upon arrival with history of the coli with ESBL, repeat urine culture shows patient has E coli ESBL sensitive her ertapenem, patient has persistent history of E coli ESBL patient will need 10-14 days of IV antibiotic, 10/04, today patient denies any dysuria frequency abdominal pain nausea or vomiting, will continue to monitor patient will benefit from PT OT. (3) Essential hypertension: Code(s): I10 - Essential (primary) hypertension Status: Acute Assessment and Plan: upon arrival patient blood pressure was significantly elevated most likely secondary to stress and pain and patient may have not take home medication, will resume home medication her blood pressure is trending down will continue to monitor. (4) Wound of right lower extremity: Code(s): S81.801A - Unspecified open wound, right lower leg, initial encounter Status: Acute Assessment and Plan: will have nursing staff change the dressing (5) Chronic kidney disease, stage 4 (severe): Code(s): N18.4 - Chronic kidney disease, stage 4 (severe) Status: Acute Assessment and Plan: patient with chronic kidney disease, serum creatinine is stable, patient is on antibiotic will monitor Time Spent With Patient Time with patient: 15 - 25 minutes Subjective Date/time seen: 04/03/21 15:34 Seen in the morning, able to answer simple questions like name, location, year. Seen later in the day, as nursing staff noted patient was having possible seizure while on
--- NOTE | 2021-04-03 15:47 | PC.NURSE ---
1445 Pt called out stating she needed to have BM. Pt moderate assist to dangling position. Gait belt placed, two person assit with tech standby to commode. Pt began straining to have BM and became stiff with suspected seizure activity. Transferred patient to bed immediately and positioned patient on rt side pt unresponsive to verbal stimuli. Dentures removed, head supported with pillows. Dr Mckee to bedside. BP with automated cuff 226/94, 100% on 2LNC. Pt remains unresponsive.
--- NOTE | 2021-04-03 15:54 | PC.NURSE ---
1453 patient remains unresponsive with audible grunting noted. Dr Corona to call patients daughter. Seizure pads placed on rails at bedside. BP219/74, 99% on 2L/NC. December RN updated on patients condition and preceding events. Tech remains at bedside.
--- NOTE | 2021-04-03 16:03 | PC.NURSE ---
1500 Tech remains at bedside, patient beginning to have purposeful movement, following voices and making direct eye contact. Still unable to vocalize words but appears to attempt to nod when asked closed ended questions.
--- NOTE | 2021-04-03 16:05 | PC.NURSE ---
1517 BP 217/92, 99% remains on 2 L NC. Pt condition continues to improve. Starting to move upper and lower extremities. Nods no, when asked if she is in pain. Safety precautions in place, bed low/locked, alarm on and call acevedo at bedside. Continue to monitor closely.
--- NOTE | 2021-04-03 16:09 | PC.NURSE ---
1533 daughter facetimed with patient and patient continues to show improvement. Able to mouth that she loves her. Will continue to monitor. Delfina ENG updated.
[2021-04-03] MEDS: MORPHINE SULFATE (*CRX) 4 MG/ML INJ IV PUSH (20:15)
[2021-04-03] MEDS: levETIRAcetam IV 750 MG in DEXTROSE 5% 100 ML 430 MG IVPB (21:34)
[2021-04-04] VITALS (13 sets, daily range): BP systolic 141–172; BP diastolic 62–96; PULSE 55–85; RESP 16–18; TEMP 36.2–36.5; O2SAT 93–100
--- NOTE | 2021-04-04 03:30 | PC.NURSE ---
Called Dr. Hdez about her BP trend. She ordered a one time dose of Catapres for persistently elevated SBP. Pt. denied headaches or other symptoms r/t HTN and rested peaceful through the night.
[2021-04-04] MEDS: cloNIDine HCL 0.1 MG TABLET PO ×2 (04:14→09:19)
[2021-04-04] MEDS: ERTAPENEM SODIUM 0.5 GM in SODIUM CHLORIDE 0.9% IV 50 ML IVPB (05:59)
[2021-04-04] MEDS: CENTRAL LINE FLUSH 10 ML IV PUSH ×6 (05:59→21:01)
[2021-04-04] MEDS: LEVOTHYROXINE SODIUM 150 MCG TABLET PO (06:01)
[2021-04-04 06:34] LABS: Basophils Percent Auto 0.7 % (0.2-1.2); Eosinophils Absolute Auto 0.1 K/mm3 (0-0.3); Hemoglobin 8.6 g/dL (12.0-15.0); Immature Granulocyte Absolute 0.01 K/mm3 (0.00-0.031); Immature Granulocyte Percent A 0.2 % (0-0.5); Lymphocytes Absolute Auto 0.96 K/mm3 (0.9-3.2); Lymphocytes Percent Auto 23.7 % (18.3-44.2); Mean Corpuscular HGB Conc 29.7 g/dl (32-36); Mean Corpuscular Hemoglobin 28.1 pg (26-34); Mean Corpuscular Volume 94.8 fl (80-100); Mean Platelet Volume 8.6 fl (7.4-10.4); Monocytes Absolute Auto 0.4 K/mm3 (0.1-0.6); Monocytes Percent Auto 10.9 % (2.6-8.5); Neutrophils Absolute Auto 2.5 K/mm3 (1.3-6.7); Neutrophils Percent Auto 61.5 % (45.5-73.1); Platelet Count Result 89 k/mm3 (150-375); Red Blood Count 3.06 M/mm3 (4.2-5.4); Red Cell Distribution Width 18.4 % (11.5-14.5); White Blood Count 4.1 K/mm3 (4.5-10.0)
[2021-04-04 06:53] LABS: Alanine Aminotransferase 7 U/L (4-35); Albumin Level 3.3 g/dL (3.5-5.1); Alkaline Phosphatase 69 U/L (38-126); Anion Gap 6 mmol/L (8-16); Aspartate Amino Transferase 20 U/L (14-36); Bilirubin,Total 0.4 mg/dL (0.2-1.3); Blood Urea Nitrogen 45 mg/dL (7-17); Calcium 8.1 mg/dL (8.4-10.2); Carbon Dioxide 29 mmol/L (22-30); Chloride 99 mmol/L (98-107); Estimated CRCL calculation 12 ml/min; Estimated Glomerular Filt Rate 19; Glucose 92 mg/dL (65-110); Magnesium 1.9 mg/dL (1.6-2.3); Phosphorus 4.4 mg/dL (2.5-4.5); Potassium 4.4 mmol/L (3.4-5.0); Sodium 134 mmol/L (137-145)
[2021-04-04] MEDS: ALBUTEROL SULFATE (*SP) AEROSOL 1 PUFF 2 PUFF INHALATION (09:02)
[2021-04-04] MEDS: FLUTICASONE PROP 110 MCG INHALER 12 GM (*SP) 1 PUFF INHALATION ×2 (09:03→21:18)
[2021-04-04] MEDS: FLUTICASONE PROPIONATE 0.05% NA SPR 16 GM BTL (*BKC) 1 SPRAY NASAL (09:15)
[2021-04-04] MEDS: amLODIPine BESYLATE 2.5 MG TABLET PO (09:18)
[2021-04-04] MEDS: ASCORBIC ACID 500 MG TABLET 1000 MG PO (09:18)
[2021-04-04] MEDS: CYANOCOBALAMIN 1,000 MCG TABLET 1000 MCG PO (09:20)
[2021-04-04] MEDS: METOPROLOL SUCCINATE EXT REL 25 MG TABCR PO (09:21)
[2021-04-04] MEDS: GABAPENTIN 300 MG CAPSULE PO ×2 (09:21→20:43)
[2021-04-04] MEDS: HYDROXYCHLOROQUINE SULFATE 200 MG TABLET PO (09:21)
[2021-04-04] MEDS: PANTOPRAZOLE 40 MG TABLET PO (09:23)
[2021-04-04] MEDS: predniSONE 5 MG TABLET PO (09:23)
[2021-04-04] MEDS: TAMSULOSIN HCL 0.4 MG CAPSULE PO (09:24)
[2021-04-04] MEDS: VITAMIN E 400 UNIT CAPSULE 800 UNIT PO (09:24)
[2021-04-04] MEDS: levETIRAcetam IV 750 MG in DEXTROSE 5% 100 ML 430 MG IVPB ×2 (09:33→20:43)
--- NOTE | 2021-04-04 09:46 | WPDNEUROLOGY ---
Neurology EEG Report General Information Date of Study: 04/04/21 TEST eeg DIAGNOSIS seizures CONDITION OF RECORDING drowsy and sleep EEG NUMBER [id number] CLINICAL HISTORY Patient slept throughout the tracing with no particular history available. Patient had an EEG done less than 6 months ago for the same symptomatology. EEG DESCRIPTION background rhythm consists of low to medium voltage 5 to 7 hertz per 2nd theta activity admixed with and superimposed by low-voltage 15 to 18 hertz per 2nd beta activity. bilateral symmetrical sleep activity seen in addition to multiple movement and muscle artifacts .hyperventilation not done. Photic stimulation not done. Non paroxysmal. Nonfocal. Nonlateralizing. IMPRESSION Abnormal record due to the absence of normal background rhythm. There is no evidence of any focal seizure-like phenomenon. Clinical correlation recommended these abnormalities could be suggestive of underlying organic or metabolic encephalopathy or else neuro degenerative process.
--- NOTE | 2021-04-04 10:18 | PCNFU ---
Nutrition Follow-Up Complete: Inadequate oral intake related to reduced appetite as evidence by unintended wt loss of 9lbs Goal: PO intake of 50% or greater of meals to meet nutrition needs and halt further unintended wt loss Patient is working towards goal. No new goal at this time. Pt current nutrition is NPO. Last recorded weight is 57 kg. Recommend re-weighing prior to discharge. Bowel Motility: + BM 03/30/2021 Labs Reviewed: Hgb 8.6, Hct 29.0, Alb 3.3, Na 134, GFR 19, BUN 45, Cr 2.4 Meds Noted: Albuterol, Fosamax, Norvasc, Vitamin C, Calcium Carbonate, Vitamin B-12, Ferrous Sulfate, Neurontin, Flovent, Synthroid, Toprol Xl, Protonix, Prednisone, Vitamin E, Flomax, Additional Notes: Swallow evaluation is ordered for today, 04/04/2021. When asking nurse about it she stated patient is doing just fine. She had a seizure yesterday, 04/03/2021, which she believes is the reason for the NPO following a swallow evaluation. She took her pills this morning with water and did just fine. Prior to NPO she had a low meal consumption of on average 25%. She was receiving Ensure Enlive providing an additional 350 calories and 20 grams of protein. PO intake, wt, labs, diet every 5 days.
--- NOTE | 2021-04-04 13:01 | PM.IMPN ---
Progress Note: A&P Assessment and Plan (1) Seizure: Code(s): R56.9 - Unspecified convulsions Status: Acute Assessment and Plan: Approximately 2:15 p.m., 9-7, nursing staff noted patient was tensing up, and having some convulsions, and foaming of the mouth, and bladder leakage Episode lasted about less than 1 minutes, and followed by some post ictal decline in responsiveness Spoke in detail with patient's daughter, says that patient has been on Keppra years ago, but was stopped because deemed unnecessary Will restart Keppra starting at 750 b.i.d. IV Pending formal swallow evaluation with speech therapy pending prolactin Head CT- showed no acute process to explain episode Neurology on consult, appreciate recommendations CXR as concern for aspiration event, did not show any aspiration event EEG showing no normal background rhythm, although no 5 event dense of focal seizure-like activity at the time of exam Also discussed code status in detail with daughter, who is POA. She says that patient's wishes to be made do not intubate, however would like to proceed with CPR and other interventions short of intubation. Code status changed in chart. (2) Acute UTI: Code(s): N39.0 - Urinary tract infection, site not specified Status: Acute Assessment and Plan: 04/02/21 12:34 patient 80-year-old female was brought emergency department by her daughter, patient is a poor historian unable to provide history or review of symptoms, I spoke with patient's daughter states the patient while getting into the bed hit her right leg against a railing now patient has wound and bruising, painful to ambulate, patient also has a history of UTI ESBL E coli multidrug resistant,with recently discharge with antibiotic, patient does complaint of dysuria and states is a persisting UTI, patient urine has >wbc and most likely patient has persistent UTI, patient is being treated with ertapenem, will follow on culture and sensitivity, has no fever or chills, there is no abdominal pain nausea or vomiting, will continue to monitor will have a PT OT evaluate the patient and further recommendation to follow. 03/30/2021 patient remains clinically stable does complaint difficulty with urination will do the bladder scan and further recommendation to follow, with a history of persistent UTI with E coli ESBL being treated ertapenem, will continue to monitor urine culture and further recommendation to follow, will have a PT OT evaluate the patient, patient will benefit from rehab as outpatient or inpatient. 04/02 patient with complaint difficulty with urination and dysuria upon arrival with history of the coli with ESBL, repeat urine culture shows patient has E coli ESBL sensitive her ertapenem, patient has persistent history of E coli ESBL patient will need 10-14 days of IV antibiotic, 10/04, (3) Essential hypertension: Code(s): I10 - Essential (primary) hypertension Status: Acute Assessment and Plan: upon arrival patient blood pressure was significantly elevated most likely secondary to stress and pain and patient may have not take home medication, will resume home medication her blood pressure is trending down will continue to monitor. (4) Wound of right lower extremity: Code(s): S81.801A - Unspecified open wound, right lower leg, initial encounter Status: Acute Assessment and Plan: will have nursing staff change the dressing (5) Chronic kidney disease, stage 4 (severe): Code(s): N18.4 - Chronic kidney disease, stage 4 (severe) Status: Acute Assessment and Plan: patient with chronic kidney disease, serum creatinine is stable, patient is on antibiotic will monitor Time Spent With Patient Time with patient: less than 15 minutes Subjective Date/time seen: 04/04/21 13:01 limited interview as patient is lethargic. However able to convey that she is not in acute distress. Oriented to concepción
--- NOTE | 2021-04-04 13:44 | PCSTNOTE ---
Patient was brought to Radiology for Modified Barium Swallow study however patient was very sleepy, sitting with eyes closed in a somewhat hunched over position making it difficult to see the pharynx and epiglottis on the screen. police service technician and this therapist attempted to wake up patient to participate however she immediately closed eyes on each attempt. Due to her fatigue and inability to stay awake, it was determined that it would be unsafe to place food or liquid in her mouth so no testing was attempted or completed. Therapist informed both Dr. Mckee and ALBERTINA Mathis, concerning this and informed that we would try later today or, preferably, tomorrow morning.
--- NOTE | 2021-04-04 15:24 | WPDNEURCNPN ---
Assessment and Plan Additional Plan evaluation up until now documented her CBC with no leukocytosis hemoglobin only 8.6 with platelet count of only 89 INR of 1.1 and BMP with sodium 134 BUN 45 creatinine 2.40 GFR only 19 UA abnormal and patient is receiving Cipro 500 mg p.o. daily will follow the patient and re-evaluate Consult date: 04/04/21 Time Seen: 11:30 HPI: Kellee Arora is a 81 year old female 80 years old right-handed female has been admitted to [facility] through the emergency room. As per the information available from the daughter to the initial physician while she was getting into the bed hit her right leg against a railing sustained a bruising became difficult to ambulate and was admitted to the hospital for further evaluation particularly for the right leg wound along with the possibility of UTI Review of Systems Review of Systems: All systems reviewed & are unremarkable except as noted in HPI and below PMFSH Past Medical History Medical History Acute on chronic blood loss anemia Anemia Arthritis Bronchitis Chronic kidney disease, stage 4 (severe) Chronic respiratory failure with hypoxia, on home O2 therapy Home O2 at 2L CKD (chronic kidney disease) Common variable immunodeficiency, unspecified COPD (chronic obstructive pulmonary disease) CPAP (continuous positive airway pressure) dependence DDD (degenerative disc disease) Diverticulitis DVT (deep venous thrombosis) Emphysema of lung Essential hypertension Femur fracture, left s/p surgical repair in Jun 2020 GERD (gastroesophageal reflux disease) HTN (hypertension) Hypothyroid Lupus Occult blood in stools Osteoporosis Pneumonia Port-A-Cath in place Sleep apnea Spinal cord stimulator status UTI (urinary tract infection) Surgical History Surgical History H/O bilateral cataract extraction H/O exploratory laparotomy H/O repair of rotator cuff right H/O: hysterectomy History of carpal tunnel release History of total bilateral knee replacement Hx of appendectomy Hx of tonsillectomy S/P IVC filter S/P spinal surgery Family History Family History Sibling Malignant neoplasm of prostate Hypertension Father Hypertension Cerebrovascular accident Acute myocardial infarction Mother Family history of Alzheimer's disease Social History Social History Smoking packs per day: 2 Smoking cigarettes per day: 40.0 Years smoked: 14 Smoking pack-years: 28.00 Smoking status: Former smoker Tobacco type: cigarettes Alcohol intake: former Substance use: never Substance use type: does not use Gender identity (if verbalized by the patient): Female Spiritual care concerns: No Meds Home Medications and Allergies Home Medications Medication Instructions Recorded Confirmed Type albuterol sulfate 2 puff INHALATION DAILY 03/07/21 03/29/21 History alendronate 70 mg PO WEEKLY 03/07/21 03/29/21 History amlodipine 2.5 mg PO DAILY 03/07/21 03/29/21 History ascorbic acid (vitamin C) [Vitamin 1 g PO DAILY 03/07/21 03/29/21 History C With Kenna Hips] calcium carbonate-vitamin D3 1 cap PO BID 03/07/21 03/29/21 History [Calcium 600 + D(3)] ciprofloxacin 500 mg PO DAILY 03/07/21 03/29/21 History clonidine HCl 0.1 mg PO BID 03/07/21 03/29/21 History fluticasone furoate [Arnuity 1 inh INHALATION EVERY OTHER DAY 03/07/21 03/29/21 History Ellipta] fluticasone propionate 1 spray INTRANASAL DAILY 03/07/21 03/29/21 History gabapentin 300 mg PO BID 03/07/21 03/29/21 History hydroxychloroquine 200 mg PO DAILY 03/07/21 03/29/21 History iron See Rx Instructions .ROUTE .COMPLEX 03/07/21 03/29/21 History levothyroxine 150 mcg PO DAILY 03/07/21 03/29/21 History mecobalamin (vitamin B12) [B12 1,000 mcg PO DAILY
[2021-04-05] VITALS (12 sets, daily range): BP systolic 142–195; BP diastolic 64–90; PULSE 69–100; RESP 14–18; TEMP 36–36.6; O2SAT 92–99
[2021-04-05] MEDS: CENTRAL LINE FLUSH 10 ML IV PUSH ×5 (06:21→21:29)
[2021-04-05] MEDS: ERTAPENEM SODIUM 0.5 GM in SODIUM CHLORIDE 0.9% IV 50 ML IVPB (06:21)
[2021-04-05] MEDS: LEVOTHYROXINE SODIUM 150 MCG TABLET PO (06:32)
[2021-04-05 06:42] LABS: Basophils Percent Auto 0.4 % (0.2-1.2); Eosinophils Absolute Auto 0.1 K/mm3 (0-0.3); Eosinophils Percent Auto 2.1 % (0-4.4); Hematocrit 34.1 % (37.0-47.0); Immature Granulocyte Absolute 0.01 K/mm3 (0.00-0.031); Immature Granulocyte Percent A 0.2 % (0-0.5); Lymphocytes Absolute Auto 0.98 K/mm3 (0.9-3.2); Lymphocytes Percent Auto 18.5 % (18.3-44.2); Mean Corpuscular HGB Conc 29.3 g/dl (32-36); Mean Corpuscular Hemoglobin 27.9 pg (26-34); Mean Corpuscular Volume 95.3 fl (80-100); Mean Platelet Volume 10.2 fl (7.4-10.4); Monocytes Absolute Auto 0.5 K/mm3 (0.1-0.6); Monocytes Percent Auto 9.5 % (2.6-8.5); Neutrophils Absolute Auto 3.7 K/mm3 (1.3-6.7); Neutrophils Percent Auto 69.3 % (45.5-73.1); Platelet Count Result 111 k/mm3 (150-375); Red Blood Count 3.58 M/mm3 (4.2-5.4); Red Cell Distribution Width 18.1 % (11.5-14.5); White Blood Count 5.3 K/mm3 (4.5-10.0)
[2021-04-05 07:11] LABS: Alanine Aminotransferase 7 U/L (4-35); Albumin Level 3.8 g/dL (3.5-5.1); Alkaline Phosphatase 84 U/L (38-126); Anion Gap 8 mmol/L (8-16); Aspartate Amino Transferase 22 U/L (14-36); Bilirubin,Total 0.5 mg/dL (0.2-1.3); Blood Urea Nitrogen 47 mg/dL (7-17); Carbon Dioxide 28 mmol/L (22-30); Chloride 98 mmol/L (98-107); Estimated CRCL calculation 11 ml/min; Estimated Glomerular Filt Rate 18; Glucose 95 mg/dL (65-110); Magnesium 1.9 mg/dL (1.6-2.3); Phosphorus 5.1 mg/dL (2.5-4.5); Potassium 4.6 mmol/L (3.4-5.0); Sodium 134 mmol/L (137-145)
[2021-04-05 08:56] LABS: Acanthocytes 1+ (NORMAL); Anisocytosis 1+ (NORMAL); Hypochromasia 1+ (NORMAL)
--- NOTE | 2021-04-05 09:29 | PM.IMPN ---
Progress Note: A&P Assessment and Plan (1) Delirium: Code(s): R41.0 - Disorientation, unspecified Status: Acute Assessment and Plan: waxing and waning mentation at times alert/orientedx4, talking with medical staff and daughter on the phone at other times generally lethargic, able to eat and drink and nods to questions, but not much else Tried to obtain barium swallow, seen by speech therapist, but not really participating by their recommendation will attempt pureed diet t osee if she can tolerate, then we can try barium swallow a little later to further investigate viability of advancing diet (2) Seizure: Code(s): R56.9 - Unspecified convulsions Status: Acute Assessment and Plan: Approximately 2:15 p.m., 9-7, nursing staff noted patient was tensing up, and having some convulsions, and foaming of the mouth, and bladder leakage Episode lasted about less than 1 minutes, and followed by some post ictal decline in responsiveness Spoke in detail with patient's daughter, says that patient has been on Keppra years ago, but was stopped because deemed unnecessary Will restart Keppra starting at 750 b.i.d. IV Pending formal swallow evaluation with speech therapy pending prolactin Head CT- showed no acute process to explain episode Neurology on consult, appreciate recommendations CXR as concern for aspiration event, did not show any aspiration event EEG showing no normal background rhythm, although no 5 event dense of focal seizure-like activity at the time of exam Also discussed code status in detail with daughter, who is POA. She says that patient's wishes to be made do not intubate, however would like to proceed with CPR and other interventions short of intubation. Code status changed in chart. (3) Acute UTI: Code(s): N39.0 - Urinary tract infection, site not specified Status: Acute Assessment and Plan: 04/02/21 12:34 patient 80-year-old female was brought emergency department by her daughter, patient is a poor historian unable to provide history or review of symptoms, I spoke with patient's daughter states the patient while getting into the bed hit her right leg against a railing now patient has wound and bruising, painful to ambulate, patient also has a history of UTI ESBL E coli multidrug resistant,with recently discharge with antibiotic, patient does complaint of dysuria and states is a persisting UTI, patient urine has >wbc and most likely patient has persistent UTI, patient is being treated with ertapenem, will follow on culture and sensitivity, has no fever or chills, there is no abdominal pain nausea or vomiting, will continue to monitor will have a PT OT evaluate the patient and further recommendation to follow. 03/30/2021 patient remains clinically stable does complaint difficulty with urination will do the bladder scan and further recommendation to follow, with a history of persistent UTI with E coli ESBL being treated ertapenem, will continue to monitor urine culture and further recommendation to follow, will have a PT OT evaluate the patient, patient will benefit from rehab as outpatient or inpatient. 04/02 patient with complaint difficulty with urination and dysuria upon arrival with history of the coli with ESBL, repeat urine culture shows patient has E coli ESBL sensitive her ertapenem, patient has persistent history of E coli ESBL patient will need 10-14 days of IV antibiotic, 10/04, (4) Essential hypertension: Code(s): I10 - Essential (primary) hypertension Status: Acute Assessment and Plan: sbp up to 190s today currently on amlodipine 2.5, metoprolool and clonidine will add 30 XL nifedipine (5) Wound of right lower extremity: Code(s): S81.801A - Unspecified open wound, right lower leg, initial encounter Status: Acute Assessment and Plan: will have nursing staff change the dressing (6) Chronic kidney disease, stage 4 (severe):
--- NOTE | 2021-04-05 09:47 | PCSTNOTE ---
Patient was seen at bedside for swallowing evaluation prior to Modified Barium Swallow study. She participated and stayed awake however when transporters came to take patient to Radiology for the Modified Barium Swallow study, patient would not keep eyes open for longer than 5 seconds and it appeared that she was back to sleep in between our attempts to wake her. As a result MBS was canceled. See Evaluation for recommendations.
[2021-04-05] MEDS: ALBUTEROL SULFATE (*SP) AEROSOL 1 PUFF 2 PUFF INHALATION (10:39)
[2021-04-05] MEDS: FLUTICASONE PROP 110 MCG INHALER 12 GM (*SP) 1 PUFF INHALATION ×2 (10:39→20:17)
[2021-04-05] MEDS: levETIRAcetam IV 750 MG in DEXTROSE 5% 100 ML 430 MG IVPB (11:35)
[2021-04-05] MEDS: predniSONE 5 MG TABLET PO (11:42)
[2021-04-05] MEDS: FLUTICASONE PROPIONATE 0.05% NA SPR 16 GM BTL (*BKC) 1 SPRAY NASAL (11:42)
[2021-04-05] MEDS: PANTOPRAZOLE 40 MG TABLET PO ×2 (11:43→18:41)
[2021-04-05] MEDS: METOPROLOL SUCCINATE EXT REL 25 MG TABCR PO (11:43)
[2021-04-05] MEDS: GABAPENTIN 300 MG CAPSULE PO (11:43)
[2021-04-05] MEDS: HYDROXYCHLOROQUINE SULFATE 200 MG TABLET PO (11:43)
[2021-04-05] MEDS: cloNIDine HCL 0.1 MG TABLET PO ×2 (11:44→18:41)
[2021-04-05] MEDS: NIFEdipine 30 MG TAB.ER.24 PO (11:45)
[2021-04-05] MEDS: amLODIPine BESYLATE 2.5 MG TABLET PO (11:45)
[2021-04-05] MEDS: FERROUS SULFATE 324 MG TABLET PO (15:37)
--- NOTE | 2021-04-05 16:00 | PCSTNOTE ---
Therapist attempted to see patient this afternoon; nurse wanted to offer pill however patient would not wake up even briefly for nurse to safely offer pill. She stated that she had given her pills with water earlier today and patient tolerated them without coughing, only one minor throat clearing, and she took several bites of various pureed foods at lunch without signs of aspiration. Will continue tomorrow.
[2021-04-05] MEDS: levETIRAcetam IV 750 MG in DEXTROSE 5% 100 ML 400 MG IVPB (21:29)
[2021-04-06] VITALS (12 sets, daily range): BP systolic 105–190; BP diastolic 52–93; PULSE 72–111; RESP 12–20; TEMP 36.3–37.9; O2SAT 94–98
[2021-04-06] MEDS: ERTAPENEM SODIUM 0.5 GM in SODIUM CHLORIDE 0.9% IV 50 ML IVPB (05:33)
[2021-04-06] MEDS: CENTRAL LINE FLUSH 10 ML IV PUSH ×4 (05:34→13:33)
[2021-04-06 06:04] LABS: Basophils Percent Auto 0.6 % (0.2-1.2); Eosinophils Absolute Auto 0.1 K/mm3 (0-0.3); Eosinophils Percent Auto 2.1 % (0-4.4); Hematocrit 28.6 % (37.0-47.0); Hemoglobin 8.4 g/dL (12.0-15.0); Immature Granulocyte Absolute 0.01 K/mm3 (0.00-0.031); Immature Granulocyte Percent A 0.2 % (0-0.5); Lymphocytes Absolute Auto 1.08 K/mm3 (0.9-3.2); Lymphocytes Percent Auto 20.7 % (18.3-44.2); Mean Corpuscular HGB Conc 29.4 g/dl (32-36); Mean Corpuscular Hemoglobin 27.4 pg (26-34); Mean Corpuscular Volume 93.2 fl (80-100); Mean Platelet Volume 9.3 fl (7.4-10.4); Monocytes Absolute Auto 0.5 K/mm3 (0.1-0.6); Monocytes Percent Auto 9.8 % (2.6-8.5); Neutrophils Absolute Auto 3.5 K/mm3 (1.3-6.7); Neutrophils Percent Auto 66.6 % (45.5-73.1); Platelet Count Result 113 k/mm3 (150-375); Red Blood Count 3.07 M/mm3 (4.2-5.4); Red Cell Distribution Width 17.4 % (11.5-14.5); White Blood Count 5.2 K/mm3 (4.5-10.0)
[2021-04-06 06:19] LABS: Alanine Aminotransferase 6 U/L (4-35); Albumin Level 3.2 g/dL (3.5-5.1); Alkaline Phosphatase 67 U/L (38-126); Anion Gap 6 mmol/L (8-16); Aspartate Amino Transferase 19 U/L (14-36); Bilirubin,Total 0.4 mg/dL (0.2-1.3); Blood Urea Nitrogen 51 mg/dL (7-17); Calcium 8.4 mg/dL (8.4-10.2); Carbon Dioxide 28 mmol/L (22-30); Chloride 99 mmol/L (98-107); Estimated CRCL calculation 10 ml/min; Estimated Glomerular Filt Rate 16; Glucose 95 mg/dL (65-110); Phosphorus 4.9 mg/dL (2.5-4.5); Potassium 4.8 mmol/L (3.4-5.0); Sodium 133 mmol/L (137-145)
[2021-04-06 07:25] LABS: Anisocytosis 1+ (NORMAL); Hypochromasia 1+ (NORMAL); Platelet Estimate Decreased (Adequate); Poikilocytosis 1+ (NORMAL)
[2021-04-06] MEDS: levETIRAcetam IV 750 MG in DEXTROSE 5% 100 ML 400 MG IVPB (09:18)
[2021-04-06] MEDS: FLUTICASONE PROP 110 MCG INHALER 12 GM (*SP) 1 PUFF INHALATION ×2 (09:27→21:00)
[2021-04-06] MEDS: ALBUTEROL SULFATE (*SP) AEROSOL 1 PUFF 2 PUFF INHALATION (09:28)
--- NOTE | 2021-04-06 10:18 | PCSTNOTE ---
This patient would not awaken for ST attempt; nurse reports she did not awaken to attempt breakfast or pills. No further attempts will be made to work with patient until nursing reports patient is awakening for them.
--- NOTE | 2021-04-06 10:21 | PM.IMPN ---
Progress Note: A&P Assessment and Plan (1) Delirium: Code(s): R41.0 - Disorientation, unspecified Status: Acute Assessment and Plan: Waxing and waning mentation Currently obtunded with minimal interaction Report is that at times she is alert and oriented Check ABG Check thyroid level Obtain blood cultures from her port Unable to do MRI brain given her stimulator. Question of PRES. Will work on better control of blood pressure. Tried to obtain barium swallow, seen by speech therapist, but not really participating by their recommendation will attempt pureed diet to see if she can tolerate, then we can try barium swallow a little later to further investigate viability of advancing diet (2) Seizure: Code(s): R56.9 - Unspecified convulsions Status: Acute Assessment and Plan: Approximately 2:15 p.m., 9-7, nursing staff noted patient was tensing up, and having some convulsions, and foaming of the mouth, and bladder leakage Episode lasted about less than 1 minutes, and followed by some post ictal decline in responsiveness Spoke in detail with patient's daughter, says that patient has been on Keppra years ago, but was stopped because deemed unnecessary Keppra was restarted at 750 b.i.d. IV, given her low renal function, and that she is obtunded, suspect high-level of Keppra and her blood, discussed with Pharmacy, decrease the dose to 250 mg b.i.d., hold tonight's dose and monitor closely. Pending formal swallow evaluation with speech therapy Head CT- showed no acute process to explain episode Neurology consulted, appreciate recommendations EEG showing abnormal background rhythm, although no evidence of focal seizure-like activity at the time of exam (3) Acute UTI: Code(s): N39.0 - Urinary tract infection, site not specified Status: Acute Assessment and Plan: She presented with symptoms consistent with UTI. On 03/29 urine culture grew E coli, ESBL, which was sensitive to ertapenem, which was initiated on 03/30. Plan a 10 day course. (4) Essential hypertension: Code(s): I10 - Essential (primary) hypertension Status: Acute Assessment and Plan: Blood pressure remains above target. Increase amlodipine to 10 mg daily. Continue metoprolol and clonidine, and titrate. (5) Wound of right lower extremity: Code(s): S81.801A - Unspecified open wound, right lower leg, initial encounter Status: Acute Assessment and Plan: Continue dressing changes (6) Chronic kidney disease, stage 4 (severe): Code(s): N18.4 - Chronic kidney disease, stage 4 (severe) Status: Acute Assessment and Plan: Baseline creatinine is the 3-range. Creatinine currently close to baseline. Continue to monitor Additional Plan Code status: Code status discussed in detail with daughter, who is POA. She says that patient's wishes to be made do not intubate, however would like to proceed with CPR and other interventions short of intubation. [place] code. Subjective Date/time seen: 04/06/21 10:21 No major change overnight. No reported seizure activity. Remains obtunded. Opens eyes to command but closes them. No further response. Review of Systems Review of Systems: All systems reviewed & are unremarkable except as noted in HPI and below Exam Narrative: Gen: Obtain, opens eyes to command Abd: Soft, NT, ND Heart: RRR Lungs: CTAB Ext: No lower extremity edema Objective Data Vital Signs Vital Signs: Vital Signs - 24 hr 04/05/21 10:40 04/05/21 11:43 04/05/21 12:00 Temperature Pulse Rate 100 96 Respiratory Rate Blood Pressure Pulse Oximetry 95 04/05/21 14:00 04/05/21 16:00 04/05/21 20:00 Temperature 96.8 F L Pulse Rate 83 73 87 Respiratory Rate 14 Blood Pressure 142/64 H Pulse Oximetry 95 99 04/05/21 20:19 04/05/21 22:00 04/06/21 00:00 Temperature 97.2 F L Pulse Rate 86 85 Respiratory Rate 18 Blood Pressure
--- NOTE | 2021-04-06 10:34 | WPDNEUROPN ---
Progress Note: A&P Additional Plan treatment as such Review of Systems Review of Systems: All systems reviewed & are unremarkable except as noted in HPI and below Exam Narrative: remains in comfortable position with no acute distress arousable with deep sternal rub with no evident signs of meningitis lungs with no rhonchi abdomen is soft and neuro examination with arousable symmetrical facial grimace, able to move upper and lower extremities and with questionable plantar response Objective Data Vital Signs Vital Signs: Vital Signs - 24 hr 04/05/21 10:40 04/05/21 11:43 04/05/21 12:00 Temperature Pulse Rate 100 96 Respiratory Rate Blood Pressure Pulse Oximetry 95 04/05/21 14:00 04/05/21 16:00 04/05/21 20:00 Temperature 36.0 C L Pulse Rate 83 73 87 Respiratory Rate 14 Blood Pressure 142/64 H Pulse Oximetry 95 99 04/05/21 20:19 04/05/21 22:00 04/06/21 00:00 Temperature 36.2 C L Pulse Rate 86 85 Respiratory Rate 18 Blood Pressure 178/87 H Pulse Oximetry 96 99 04/06/21 04:00 04/06/21 06:00 04/06/21 09:28 Temperature 36.3 C L Pulse Rate 72 78 Respiratory Rate 16 Blood Pressure 134/52 L Pulse Oximetry 98 96 Intake/Output Intake/Output: Intake & Output 04/03/21 04/04/21 04/05/21 04/06/21 23:59 23:59 23:59 23:59 Intake Total 1457.5 265.0 265.0 170 Output Total 500 Balance 957.5 265.0 265.0 170 Meds/Results Medications: Active Medications Generic Name Dose Route Start Last Admin Trade Name Freq PRN Reason Stop Dose Admin Acetaminophen 650 mg 03/29/21 04:54 03/30/21 14:44 Acetaminophen 325 Mg Tablet PO 650 mg Q4H PRN Administration Mild Pain (1-3) or Fever Hydrocodone Bitart/Acetaminophen 1 tab 03/29/21 04:54 Hydrocodone/Acetaminophen (*Crx) 5-325 Mg Tablet PO Q4H PRN Pain Rated 4-6 Albuterol 2 puff 03/29/21 08:00 04/06/21 09:28 Albuterol Sulfate (*Sp) Aerosol 1 Puff INHALATION 2 puff DAILYRT JACK Administration Alendronate Sodium 70 mg 04/01/21 21:00 04/01/21 21:14 Alendronate Sodium 70 Mg Tablet PO 70 mg Pinedo@2100 JACK Administration Amlodipine Besylate 10 mg 04/06/21 10:35 Amlodipine Besylate 5 Mg Tablet PO DAILY JACK Ascorbic Acid 1,000 mg 03/29/21 09:00 04/04/21 09:18 Ascorbic Acid 500 Mg Tablet PO 1,000 mg DAILY JACK Administration Calcium Carbonate 500 mg 03/29/21 17:00 04/04/21 17:42 Calcium/Vitamin D 500 Mg Tablet PO 04/28/21 17:01 Not Given BID JACK Clonidine HCl 0.1 mg 03/29/21 17:00 04/05/21 18:41 Clonidine Hcl 0.1 Mg Tablet PO 0.1 mg BID JACK Administration Cyanocobalamin 1,000 mcg 03/29/21 09:00 04/04/21 09:20 Cyanocobalamin 1,000 Mcg Tablet PO 04/29/21 09:01 1,000 mcg DAILY JACK Administration Ferrous Sulfate 324 mg 03/29/21 09:00 04/05/21 15:37 Ferrous Sulfate 324 Mg Tablet PO 324 mg QAM JACK Administration Fluticasone Propionate 1 spray 03/29/21 09:00 04/05/21 11:42 Fluticasone Propionate 0.05% Na Spr 16 Gm Btl (*Bkc) NASAL 1 spray DAILY JACK Administration Fluticasone Propionate 1 puff 03/29/21 20:00 04/06/21 09:27 Fluticasone Prop 110 Mcg Inhaler 12 Gm (*Sp) INHALATION 1 puff Q12HRT JACK Administration Gabapentin 300 mg 03/29/21 11:35 04/05/21 21:25 Gabapentin 300 Mg Capsule PO Not Given Q12HR JACK Heparin Sodium (Beef Lung) 50 units 03/30/21 09:00 04/05/21 15:46 Heparin Flush 50 Units/5 Ml Syringe IV PUSH Not Given QAM JACK Heparin Sodium (Beef Lung) 50 units 03/29/21 11:11 04/05/21 15:44 Heparin Flush 50 Units/5 Ml Syringe IV PUSH 50 units PRN PRN Administration after intermittent infusion Heparin Sodium (Beef Lung) 50 units 03/29/21 11:11 04/03/21 04:04 Heparin Flush 50 Units/5 Ml Syringe IV PUSH 50 units PRN PRN Administration after blood draws Heparin Sodium (Porcine) 500 units 03/29/21 11:11 Heparin Sodium Lock Flush 500 Units/
--- NOTE | 2021-04-06 13:40 | PCSTNOTE ---
Due to patient's consistent inability to awaken and stay awake after several attempts yesterday following the first bedside swallow evaluation, and today, along with nurse reports that patient is not awakening for pills or meals, patient is being discharged from any further formal Speech Therapy attempts. Nursing today was asked to consult Speech Therapy or have physician request formal re-evaluation for any additional Speech Therapy evaluation/consults.
--- NOTE | 2021-04-06 13:59 | PCOTNOTE ---
Attempted to see patient this pm, however unable to arouse patient at this time. Lunch tray at bedside, encouraged patient to eat, however patient had no response. Pt sounds very garbled with breathing at this time. RN notified and aware of patient's status. Pt not seen for this reason.
--- NOTE | 2021-04-06 14:42 | PCPTNOTE ---
PT attempted to see patient today for therapy. Patient only responded to when asked to squeeze my hand. Patient kept eyes closed and did not verbalize. Attempts made to perform LE exercises however patient did not participate after several reps of PROM. RN notified of decreased participation.
[2021-04-06 17:03] LABS: Base Excess ABG 1.1 mEq/l (+/-2.0); Fractional Inspired Oxygen 28 %; Oxyhemoglobin 84.6 % THb (90.0-100.0); PCO2 ABG 42.9 mmHg (35.0-45.0); Total Hemoglobin 10.6 g/dL (12.0-18.0); pH ABG 7.401 (7.350-7.450)
[2021-04-06 17:11] LABS: Device NASAL CANNULA; Modified Allen's Test Pass; Site Drawn LEFT RADIAL
[2021-04-06 17:12] LABS: Ammonia < 9 umol/L (9-30)
[2021-04-06] MEDS: FLUTICASONE PROPIONATE 0.05% NA SPR 16 GM BTL (*BKC) 1 SPRAY NASAL (17:27)
[2021-04-06 17:43] LABS: Thyroid Stimulating Hormone 0.801 uIU/mL (0.465-4.680)
[2021-04-07] VITALS (13 sets, daily range): BP systolic 155–203; BP diastolic 75–116; PULSE 82–107; RESP 20–22; TEMP 35.9–37.4; O2SAT 90–99
[2021-04-07 01:16] LABS: Glucose Point of Care 87 mg/dl (65-105)
[2021-04-07 01:16] LABS: Glucose Point of Care 85 mg/dl (65-105)
[2021-04-07 04:30] LABS: Basophils Percent Auto 0.5 % (0.2-1.2); Eosinophils Absolute Auto 0.1 K/mm3 (0-0.3); Eosinophils Percent Auto 2.3 % (0-4.4); Hematocrit 30.9 % (37.0-47.0); Immature Granulocyte Absolute 0.02 K/mm3 (0.00-0.031); Immature Granulocyte Percent A 0.3 % (0-0.5); Lymphocytes Absolute Auto 1.08 K/mm3 (0.9-3.2); Lymphocytes Percent Auto 18.1 % (18.3-44.2); Mean Corpuscular HGB Conc 29.1 g/dl (32-36); Mean Platelet Volume 10.7 fl (7.4-10.4); Monocytes Absolute Auto 0.6 K/mm3 (0.1-0.6); Monocytes Percent Auto 10.6 % (2.6-8.5); Neutrophils Absolute Auto 4.1 K/mm3 (1.3-6.7); Neutrophils Percent Auto 68.2 % (45.5-73.1); Platelet Count Result 133 k/mm3 (150-375); Red Blood Count 3.22 M/mm3 (4.2-5.4); Red Cell Distribution Width 17.5 % (11.5-14.5)
[2021-04-07 04:49] LABS: Anion Gap 11 mmol/L (8-16); Blood Urea Nitrogen 60 mg/dL (7-17); Calcium 8.6 mg/dL (8.4-10.2); Carbon Dioxide 26 mmol/L (22-30); Chloride 100 mmol/L (98-107); Estimated CRCL calculation 10 ml/min; Estimated Glomerular Filt Rate 15; Glucose 87 mg/dL (65-110); Potassium 4.4 mmol/L (3.4-5.0); Sodium 137 mmol/L (137-145)
[2021-04-07 04:54] LABS: Hypochromasia 1+ (NORMAL)
[2021-04-07 04:55] LABS: Anisocytosis 1+ (NORMAL)
--- NOTE | 2021-04-07 04:59 | PC.NURSE ---
Daughter (JOSE) called olga to check in and was very concerned over the fact that her mom missed a monthly dose of gamma guard 40 on friday.. I was not sure what she was referring to, she was also concerned that her mom has not gotten her blood shot from Dr. Jeter... she was not able to elaborate on what this was or why she needed it, the patient does has an extensive hx of being treated for anemia.. I told her that we are monitoring her blood work very closely and that I would pass on this information to the day shift so someone can look into it. -AEW RN
[2021-04-07] MEDS: ERTAPENEM SODIUM 0.5 GM in SODIUM CHLORIDE 0.9% IV 50 ML IVPB (05:35)
[2021-04-07] MEDS: SODIUM CHLORIDE 0.9% IVPB (09:04)
[2021-04-07] MEDS: LEVETIRACETAM IVPB (09:04)
--- NOTE | 2021-04-07 09:07 | PM.IMPN ---
Progress Note: A&P Assessment and Plan (1) Acute encephalopathy: Code(s): G93.40 - Encephalopathy, unspecified Status: Acute Assessment and Plan: Waxing and waning mentation, question of delirium component Currently obtunded with minimal interaction ABG, ammonia, thyroid no sig abnormalities Blood cultures ending Unable to do MRI brain given her stimulator. Question of PRES. Will work on better control of blood pressure. Given fever and abdominal distension will scan chest abd pelvis Given fever, appreciate help of Neurology is to with her LP would be helpful Tried to obtain barium swallow, seen by speech therapist, but not really participating by their recommendation will attempt pureed diet to see if she can tolerate, then we can try barium swallow a little later to further investigate viability of advancing diet (2) Seizure: Code(s): R56.9 - Unspecified convulsions Status: Acute Assessment and Plan: Approximately 2:15 p.m., 97, nursing staff noted patient was tensing up, and having some convulsions, and foaming of the mouth, and bladder leakage Episode lasted about less than 1 minutes, and followed by some post ictal decline in responsiveness Spoke in detail with patient's daughter, says that patient has been on Keppra years ago, but was stopped because deemed unnecessary Keppra was restarted at 750 b.i.d. IV, now decrease the dose to 250 mg b.i.d. based on renal function, on further discussion with daughter Liliam, who the patient lives with prior to hospitalization, she has had Keppra in the past and she is very sensitive to it, was always sleepy when she was on it years ago and it was discontinued. Will discontinue Keppra and I discussed this with Dr. Shelton, will monitor off Keppra currently, and I also discussed this with her daughter. Pending formal swallow evaluation with speech therapy Head CT- showed no acute process to explain episode Neurology consulted, appreciate recommendations EEG showing abnormal background rhythm, although no evidence of focal seizure-like activity at the time of exam (3) Acute UTI: Code(s): N39.0 - Urinary tract infection, site not specified Status: Acute Assessment and Plan: She presented with symptoms consistent with UTI. On 03/29 urine culture grew E coli, ESBL, which was sensitive to ertapenem, which was initiated on 03/30. Plan a 10 day course. (4) Essential hypertension: Code(s): I10 - Essential (primary) hypertension Status: Acute Assessment and Plan: Blood pressure remains above target. Increase amlodipine to 10 mg daily. Continue metoprolol and clonidine, and titrate. Given she is not taking p.o. currently, albuterol IV with parameters, resume home medications when she can eat. (5) Wound of right lower extremity: Code(s): S81.801A - Unspecified open wound, right lower leg, initial encounter Status: Acute Assessment and Plan: Continue dressing changes (6) Chronic kidney disease, stage 4 (severe): Code(s): N18.4 - Chronic kidney disease, stage 4 (severe) Status: Acute Assessment and Plan: Baseline creatinine is the 3-4 range. Creatinine currently close to baseline. Continue to monitor (7) Rib fracture: Code(s): S22.39XA - Fracture of one rib, unspecified side, initial encounter for closed fracture Status: Acute Assessment and Plan: This was evident on CT scan 04/07, fractures of multiple ages. I discussed this with her daughter. She reported that she had a recent fall prior to her hospital stay with concern for rib fractures but was told not have any on x-ray at that time. Will monitor closely and treat pain as needed. 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 Cory
--- NOTE | 2021-04-07 11:10 | PCOTNOTE ---
Per RN due to pt having difficulty to be aroused, pt is not appropriate to be seen for therapy at this time. Will continue per poc duration/frequency when appropriate.
[2021-04-07 12:59] LABS: Prolactin 25.6 ng/mL (***)
[2021-04-07] MEDS: SODIUM CHLORIDE 0.9% IV 1,000 ML 50 ML IV CONT (13:39)
[2021-04-07] MEDS: methylPREDNISolone SOD SUCC 40 MG VIAL 20 MG IV PUSH (14:33)
[2021-04-07] MEDS: LABETALOL HCL INJ 100 MG/20 ML VIAL 10 MG IV PUSH ×2 (14:48→15:41)
[2021-04-07] MEDS: LABETALOL HCL INJ 100 MG/20 ML VIAL 20 MG IV PUSH (16:59)
[2021-04-07] MEDS: FLUTICASONE PROP 110 MCG INHALER 12 GM (*SP) 1 PUFF INHALATION (21:00)
[2021-04-08] VITALS (17 sets, daily range): BP systolic 161–199; BP diastolic 70–84; PULSE 82–99; RESP 12–32; TEMP 36.1–37.2; O2SAT 88–95
[2021-04-08] MEDS: LABETALOL HCL INJ 100 MG/20 ML VIAL 20 MG IV PUSH ×4 (00:21→16:58)
[2021-04-08] MEDS: ERTAPENEM SODIUM 0.5 GM in SODIUM CHLORIDE 0.9% IV 50 ML IVPB (05:42)
[2021-04-08] MEDS: SODIUM CHLORIDE 0.9% IV 1,000 ML 50 ML IV CONT (05:59)
[2021-04-08 06:34] LABS: Anion Gap 13 mmol/L (8-16); Blood Urea Nitrogen 71 mg/dL (7-17); Calcium 8.5 mg/dL (8.4-10.2); Carbon Dioxide 23 mmol/L (22-30); Chloride 104 mmol/L (98-107); Estimated CRCL calculation 10 ml/min; Estimated Glomerular Filt Rate 15; Glucose 110 mg/dL (65-110); Potassium 4.6 mmol/L (3.4-5.0); Sodium 140 mmol/L (137-145)
[2021-04-08] MEDS: FLUTICASONE PROPIONATE 0.05% NA SPR 16 GM BTL (*BKC) 1 SPRAY NASAL (08:35)
[2021-04-08] MEDS: methylPREDNISolone SOD SUCC 40 MG VIAL 20 MG IV PUSH (08:36)
--- NOTE | 2021-04-08 09:29 | PM.IMPN ---
Progress Note: A&P Assessment and Plan (1) Acute encephalopathy: Code(s): G93.40 - Encephalopathy, unspecified Status: Acute Assessment and Plan: Waxing and waning mentation, question of delirium component Currently obtunded with minimal interaction ABG, ammonia, thyroid no sig abnormalities Blood cultures negative to date Unable to do MRI brain given her pain pump. Question of PRES. Will work on better control of blood pressure. Given fever, appreciate help of Neurology is to with her LP would be helpful She maybe slowly improving off of keppra, will need swallow eval if she is alert enough for oral inatke (2) Seizure: Code(s): R56.9 - Unspecified convulsions Status: Acute Assessment and Plan: On 04/03 nursing staff noted patient was tensing up, and having some convulsions, and foaming of the mouth, and bladder leakage Episode lasted about less than 1 minutes, and followed by some post ictal decline in responsiveness Keppra was started at 750 b.i.d. IV, had it for few days but patient became unresponsive, on further discussion with daughter Liliam, who the patient lives with prior to hospitalization, patient has had Keppra in the past and she is very sensitive to it, was always sleepy when she was on it years ago and it was discontinued. Will discontinue Keppra and I discussed this with Dr. Shelton, will monitor off Keppra currently, and I also discussed this with her daughter. Head CT- showed no acute process to explain episode Neurology consulted, appreciate recommendations EEG showing abnormal background rhythm, although no evidence of focal seizure-like activity at the time of exam (3) Acute UTI: Code(s): N39.0 - Urinary tract infection, site not specified Status: Acute Assessment and Plan: She presented with symptoms consistent with UTI. On 03/29 urine culture grew E coli, ESBL, which was sensitive to ertapenem, which was initiated on 03/30. Finished a 10 day course. (4) Essential hypertension: Code(s): I10 - Essential (primary) hypertension Status: Acute Assessment and Plan: Blood pressure remains above target. Increase amlodipine to 10 mg daily. Continue metoprolol and clonidine, and titrate. Given she is not taking p.o. currently, labetalol IV with parameters, hydralazine PRN, resume home medications when she can eat. (5) Wound of right lower extremity: Code(s): S81.801A - Unspecified open wound, right lower leg, initial encounter Status: Acute Assessment and Plan: Continue dressing changes (6) Chronic kidney disease, stage 4 (severe): Code(s): N18.4 - Chronic kidney disease, stage 4 (severe) Status: Acute Assessment and Plan: Baseline creatinine is the 3-4 range. Creatinine currently at baseline. Continue to monitor Continue to ensure meds are dosed to her level of kidney function (7) Rib fracture: Code(s): S22.39XA - Fracture of one rib, unspecified side, initial encounter for closed fracture Status: Acute Assessment and Plan: This was evident on CT scan 04/07, fractures of multiple ages. I discussed this with her daughter. She reported that she had a recent fall prior to her hospital stay with concern for rib fractures but was told did not have any on x-ray at that time. Will monitor closely and treat pain as needed. 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 Indication is not clear but daughter reports that she has had recurrent pneumonias for which she has been on it. This is on hold currently during the hospitalization and can be resumed in the outpatient setting. (9) SLE (systemic lupus erythematosus related syndrome): Code(s): M32.9 - Systemic lupus erythematosus, unspecified Status: [facility]
[2021-04-08] MEDS: SODIUM CHLOR 3% 15 ML NEB (RESPIRATORY THERAPY) 6 ML INHALATION (09:35)
[2021-04-08] MEDS: FLUTICASONE PROP 110 MCG INHALER 12 GM (*SP) 1 PUFF INHALATION (09:36)
--- NOTE | 2021-04-08 13:22 | PCPTNOTE ---
Per RN patient is unable to be aroused and is not appropriate at this time to be seen for PT.
[2021-04-08] MEDS: hydrALAZINE HCL 20 MG/ML VIAL 10 MG IV PUSH (14:11)
[2021-04-09] VITALS (17 sets, daily range): BP systolic 124–160; BP diastolic 54–60; PULSE 72–100; RESP 16–24; TEMP 36.4–36.6; O2SAT 93–99
[2021-04-09] MEDS: SODIUM CHLOR 3% 15 ML NEB (RESPIRATORY THERAPY) 6 ML INHALATION ×3 (00:31→16:47)
[2021-04-09] MEDS: SODIUM CHLORIDE 0.9% IV 1,000 ML 50 ML IV CONT ×2 (01:59→21:59)
[2021-04-09 05:56] LABS: Anion Gap 11 mmol/L (8-16); Blood Urea Nitrogen 74 mg/dL (7-17); Calcium 8.3 mg/dL (8.4-10.2); Carbon Dioxide 24 mmol/L (22-30); Chloride 109 mmol/L (98-107); Estimated CRCL calculation 10 ml/min; Estimated Glomerular Filt Rate 16; Glucose 108 mg/dL (65-110); Potassium 4.3 mmol/L (3.4-5.0); Sodium 144 mmol/L (137-145)
[2021-04-09 06:35] LABS: Basophils Percent Auto 0.2 % (0.2-1.2); Eosinophils Absolute Auto 0.1 K/mm3 (0-0.3); Eosinophils Percent Auto 0.7 % (0-4.4); Hematocrit 29.7 % (37.0-47.0); Hemoglobin 8.7 g/dL (12.0-15.0); Immature Granulocyte Absolute 0.12 K/mm3 (0.00-0.031); Immature Granulocyte Percent A 0.6 % (0-0.5); Lymphocytes Percent Auto 4.6 % (18.3-44.2); Mean Corpuscular HGB Conc 29.3 g/dl (32-36); Mean Corpuscular Volume 95.5 fl (80-100); Mean Platelet Volume 11.1 fl (7.4-10.4); Monocytes Absolute Auto 0.9 K/mm3 (0.1-0.6); Monocytes Percent Auto 4.4 % (2.6-8.5); Neutrophils Absolute Auto 17.6 K/mm3 (1.3-6.7); Neutrophils Percent Auto 89.5 % (45.5-73.1); Platelet Count Result 175 k/mm3 (150-375); Red Blood Count 3.11 M/mm3 (4.2-5.4); Red Cell Distribution Width 17.4 % (11.5-14.5); White Blood Count 19.6 K/mm3 (4.5-10.0)
[2021-04-09 07:40] LABS: Platelet Estimate Adequate (Adequate)
[2021-04-09 07:41] LABS: Anisocytosis 2+ (NORMAL); Hypochromasia 2+ (NORMAL); Microcytosis 2+ (NORMAL)
[2021-04-09] MEDS: FLUTICASONE PROP 110 MCG INHALER 12 GM (*SP) 1 PUFF INHALATION (08:15)
[2021-04-09] MEDS: ALBUTEROL SULFATE (*SP) AEROSOL 1 PUFF 2 PUFF INHALATION ×2 (08:16→21:12)
[2021-04-09] MEDS: methylPREDNISolone SOD SUCC 40 MG VIAL 20 MG IV PUSH (09:03)
[2021-04-09] MEDS: cloNIDine HCL 0.1 MG TABLET PO ×2 (09:09→17:25)
[2021-04-09] MEDS: amLODIPine BESYLATE 5 MG TABLET 10 MG PO (09:10)
[2021-04-09] MEDS: PANTOPRAZOLE 40 MG TABLET PO ×2 (09:11→17:25)
[2021-04-09] MEDS: METOPROLOL SUCCINATE EXT REL 25 MG TABCR PO (09:12)
[2021-04-09] MEDS: GABAPENTIN 300 MG CAPSULE PO ×2 (09:12→21:22)
[2021-04-09] MEDS: FERROUS SULFATE 324 MG TABLET PO (09:12)
--- NOTE | 2021-04-09 10:22 | WPDNEUROPN ---
Progress Note: A&P Additional Plan treatment will be continued as such Review of Systems Review of Systems: All systems reviewed & are unremarkable except as noted in HPI and below Exam Narrative: awake alert does not follow all the verbal commands appropriately head normocephalic ears nose throat exam normal neck supple with no meningeal signs no cervical bruit no thyromegaly no lymphadenopathy heart regular lungs clear with occasional rhonchi abdomen is soft nontender normal bowel sounds neurological is she is awake alert does not follow all the verbal commands appropriately but definitely more alert cranial examination grossly normal reflexes sluggish and motor examination he has decreased plantars are downgoing Objective Data Vital Signs Vital Signs: Vital Signs - 24 hr 04/08/21 11:21 04/08/21 12:00 04/08/21 15:02 Temperature 37.2 C Pulse Rate 99 82 86 Respiratory Rate 12 Blood Pressure 162/70 H Pulse Oximetry 95 04/08/21 16:00 04/08/21 16:58 04/08/21 20:00 Temperature Pulse Rate 96 90 90 Respiratory Rate Blood Pressure Pulse Oximetry 91 04/08/21 22:00 04/09/21 00:00 04/09/21 00:32 Temperature 36.6 C Pulse Rate 88 91 92 Respiratory Rate 20 24 H Blood Pressure 161/72 H Pulse Oximetry 91 04/09/21 00:42 04/09/21 04:00 04/09/21 06:00 Temperature 36.6 C Pulse Rate 94 86 87 Respiratory Rate 24 H 20 Blood Pressure 160/60 H Pulse Oximetry 99 04/09/21 08:16 04/09/21 08:26 04/09/21 09:12 Temperature Pulse Rate 90 94 100 Respiratory Rate 22 H 22 H Blood Pressure Pulse Oximetry Intake/Output Intake/Output: Intake & Output 04/06/21 04/07/21 04/08/21 04/09/21 23:59 23:59 23:59 23:59 Intake Total 377.5 50 1050 1100 Output Total 1200 650 500 Balance 377.5 -1150 400 600 Meds/Results Medications: Active Medications Generic Name Dose Route Start Last Admin Trade Name Freq PRN Reason Stop Dose Admin Albuterol 2 puff 03/29/21 08:00 04/09/21 08:16 Albuterol Sulfate (*Sp) Aerosol 1 Puff INHALATION 2 puff DAILYRT JACK Administration Alendronate Sodium 70 mg 04/01/21:00 04/01/21 21:14 Alendronate Sodium 70 Mg Tablet PO 70 mg Pinedo@2100 JACK Administration Amlodipine Besylate 10 mg 04/06/21 10:35 04/09/21 09:10 Amlodipine Besylate 5 Mg Tablet PO 10 mg DAILY JACK Administration Ascorbic Acid 1,000 mg 03/29/21 09:00 04/04/21 09:18 Ascorbic Acid 500 Mg Tablet PO 1,000 mg DAILY JACK Administration Calcium Carbonate 500 mg 03/29/21 17:00 04/04/21 17:42 Calcium/Vitamin D 500 Mg Tablet PO 04/28/21 17:01 Not Given BID JACK Clonidine HCl 0.1 mg 03/29/21 17:00 04/09/21 09:09 Clonidine Hcl 0.1 Mg Tablet PO 0.1 mg BID JACK Administration Cyanocobalamin 1,000 mcg 03/29/21 09:00 04/04/21 09:20 Cyanocobalamin 1,000 Mcg Tablet PO 04/29/21 09:01 1,000 mcg DAILY JACK Administration Ferrous Sulfate 324 mg 03/29/21 09:00 04/09/21 09:12 Ferrous Sulfate 324 Mg Tablet PO 324 mg QAM JACK Administration Fluticasone Propionate 1 spray 03/29/21 09:00 04/08/21 08:35 Fluticasone Propionate 0.05% Na Spr 16 Gm Btl (*Bkc) NASAL 1 spray DAILY JACK Administration Fluticasone Propionate 1 puff 03/29/21 20:00 04/09/21 08:15 Fluticasone Prop 110 Mcg Inhaler 12 Gm (*Sp) INHALATION 1 puff Q12HRT JACK Administration Gabapentin 300 mg 03/29/21 11:35 04/09/21 09:12 Gabapentin 300 Mg Capsule PO 300 mg Q12HR JACK Administration Heparin Sodium (Beef Lung) 50 units 03/30/21 09:00 04/09/21 08:14 Heparin Flush 50 Units/5 Ml Syringe IV PUSH Not Given QAM JACK Heparin Sodium (Beef Lung) 50 units 03/29/21 11:11 04/05/21 15:44 Heparin Flush 50 Units/5 Ml Syringe IV PUSH 50 units PRN PRN Administration after intermittent infusion Heparin Sodium (Beef Lung) 50 units 03/29/21 11:11 04/06/21 11:25 Heparin Flush 50 Units/5 Ml Syringe IV PUSH 50 units
--- NOTE | 2021-04-09 11:26 | PCNFU ---
Nutrition Follow-Up Complete: Inadequate oral intake related to reduced appetite as evidence by unintended wt loss of 9lbs Goal: PO intake of 50% or greater of meals to meet nutrition needs and halt further unintended wt loss Patient is progressing towards goal. We will continue current goal. Pt current nutrition is Pureed, Level 4. Last recorded weight is 57 kg, no new weight to report. Bowel Motility:Last BM reported 03/30. Labs Reviewed:GFR 16,BUN 74,Cr 2.8,Hct 29.7,Hgb 8.7. Meds Noted:Keppra, Zofran, Protonix, Vit E, SoluMedrol. Additional Notes: Patient seen today for nutrition follow up. Full assist with feedings, had cream of wheat for breakfast. Diet order has advanced to a Pureed, Level 4 diet. Diet supplement of Frozen Nutritional Treat added today for an additional 300 kcals and 9 gms protein. Monitoring: PO intake, wt, labs, diet every 5 days.
[2021-04-09] MEDS: FLUTICASONE PROPIONATE 0.05% NA SPR 16 GM BTL (*BKC) 1 SPRAY NASAL (12:55)
[2021-04-09 19:03] LABS: Add Urine Microscopic? YES; Appearance Urine Cloudy (Clear); Bacteria Urine Trace /hpf; Bilirubin Urine Negative (Negative); Blood Urine 1+ (Negative); Budding Yeast Urine Present /hpf; Color Urine Yellow (Yellow); Glucose Urine UA Negative (Negative); Ketones Urine Negative (Negative); Leukocyte Esterase Ur 3+ LEU/UL (NEGATIVE); Mucus Urine Rare /lpf; Nitrate Urine Negative (Negative); Protein Urine 2+ mg/dL (Negative); RBC Urine 21-50 /hpf (0-2); Specific Grav Ur 1.015 (1.001-1.035); Squamous Epithelial Cell Urine Many /hpf (Few); Urobilinogen Urine Negative mg/dL (<2.0); WBC Urine >75 /hpf (0-3)
[2021-04-10] VITALS (14 sets, daily range): BP systolic 139–181; BP diastolic 56–86; PULSE 68–88; RESP 16–20; TEMP 36.2–36.3; O2SAT 94–100
[2021-04-10] MEDS: LEVOTHYROXINE SODIUM 150 MCG TABLET PO (05:33)
[2021-04-10 06:10] LABS: Basophils Percent Auto 0.2 % (0.2-1.2); Eosinophils Absolute Auto 0.2 K/mm3 (0-0.3); Eosinophils Percent Auto 1.1 % (0-4.4); Hematocrit 28.6 % (37.0-47.0); Hemoglobin 8.3 g/dL (12.0-15.0); Immature Granulocyte Absolute 0.09 K/mm3 (0.00-0.031); Immature Granulocyte Percent A 0.6 % (0-0.5); Lymphocytes Absolute Auto 0.84 K/mm3 (0.9-3.2); Lymphocytes Percent Auto 5.8 % (18.3-44.2); Mean Corpuscular Hemoglobin 28.3 pg (26-34); Mean Corpuscular Volume 97.6 fl (80-100); Mean Platelet Volume 11.5 fl (7.4-10.4); Monocytes Absolute Auto 0.8 K/mm3 (0.1-0.6); Monocytes Percent Auto 5.5 % (2.6-8.5); Neutrophils Absolute Auto 12.5 K/mm3 (1.3-6.7); Neutrophils Percent Auto 86.8 % (45.5-73.1); Platelet Count Result 186 k/mm3 (150-375); Red Blood Count 2.93 M/mm3 (4.2-5.4); Red Cell Distribution Width 17.6 % (11.5-14.5); White Blood Count 14.4 K/mm3 (4.5-10.0)
[2021-04-10 06:27] LABS: Alanine Aminotransferase 6 U/L (4-35); Albumin Level 3.1 g/dL (3.5-5.1); Alkaline Phosphatase 75 U/L (38-126); Anion Gap 12 mmol/L (8-16); Aspartate Amino Transferase 21 U/L (14-36); Bilirubin,Total 0.4 mg/dL (0.2-1.3); Blood Urea Nitrogen 72 mg/dL (7-17); Carbon Dioxide 23 mmol/L (22-30); Chloride 113 mmol/L (98-107); Estimated CRCL calculation 11 ml/min; Estimated Glomerular Filt Rate 18; Glucose 112 mg/dL (65-110); Magnesium 2.2 mg/dL (1.6-2.3); Potassium 4.3 mmol/L (3.4-5.0); Sodium 148 mmol/L (137-145)
[2021-04-10 08:07] LABS: Hypochromasia 1+ (NORMAL); Platelet Estimate Adequate (Adequate)
[2021-04-10 08:08] LABS: Acanthocytes 1+ (NORMAL); Anisocytosis 1+ (NORMAL)
[2021-04-10] MEDS: methylPREDNISolone SOD SUCC 40 MG VIAL 20 MG IV PUSH (08:25)
[2021-04-10] MEDS: GABAPENTIN 300 MG CAPSULE PO ×2 (08:26→20:26)
[2021-04-10] MEDS: PANTOPRAZOLE 40 MG TABLET PO ×2 (08:26→20:26)
[2021-04-10] MEDS: FERROUS SULFATE 324 MG TABLET PO (08:26)
[2021-04-10] MEDS: cloNIDine HCL 0.1 MG TABLET PO ×2 (08:26→20:26)
[2021-04-10] MEDS: METOPROLOL SUCCINATE EXT REL 25 MG TABCR PO (08:26)
[2021-04-10] MEDS: FLUTICASONE PROPIONATE 0.05% NA SPR 16 GM BTL (*BKC) 1 SPRAY NASAL (08:29)
[2021-04-10] MEDS: SODIUM CHLOR 3% 15 ML NEB (RESPIRATORY THERAPY) 6 ML INHALATION (09:00)
[2021-04-10] MEDS: ALBUTEROL SULFATE (*SP) AEROSOL 1 PUFF 2 PUFF INHALATION (09:01)
[2021-04-10] MEDS: FLUTICASONE PROP 110 MCG INHALER 12 GM (*SP) 1 PUFF INHALATION (09:01)
--- NOTE | 2021-04-10 09:10 | PCOTNOTE ---
Pt. decline in health status. No longer tolerating therapy. Discharging from services.
--- NOTE | 2021-04-10 10:13 | P.PNIM_ITS ---
Progress Note: A&P Assessment and Plan (1) Acute encephalopathy: Code(s): G93.40 - Encephalopathy, unspecified Status: Acute Assessment and Plan: Likely component of delirium, waxing and waning mentatin ABG, ammonia, thyroid studies unremarkable Blood cultures negative Unable to do MRI brain given her pain pump. Question of PRES. Will work on better control of blood pressure. Given fever, appreciate help of Neurology is to with her LP would be helpful She maybe slowly improving off of keppra, will need swallow eval if she is alert enough for oral inatke (2) Seizure: Code(s): R56.9 - Unspecified convulsions Status: Acute Assessment and Plan: On 04/03 nursing staff noted patient was tensing up, and having some convulsions, and foaming of the mouth, and bladder leakage Episode lasted about less than 1 minutes, and followed by some post ictal declin e in responsiveness Keppra was started at 750 b.i.d. IV, had it for few days but patient became unresponsive, on further discussion with daughter Liliam, who the patient lives with prior to hospitalization, patient has had Keppra in the past and she is very sensitive to it, was always sleepy when she was on it years ago and it was discontinued. Based on conversations with daughter and Neurology, decision made to hold Keppra as it has made patient sleepy in the past. Will monitor. Appreciate input from neurology regarding alternative, or if safe to monitor her off anti-seizure meds altogether. Head CT- showed no acute process to explain episode Neurology consulted, appreciate recommendations EEG showing abnormal background rhythm, although no evidence of focal seizure- like activity at the time of exam (3) Acute UTI: Code(s): N39.0 - Urinary tract infection, site not specified Status: Acute Assessment and Plan: She presented with symptoms consistent with UTI. On 03/29 urine culture grew E coli, ESBL, which was sensitive to ertapenem, which was initiated on 03/30. Finished a 10 day course. (4) Essential hypertension: Code(s): I10 - Essential (primary) hypertension Status: Acute Assessment and Plan: Blood pressure remains above target. Increase amlodipine to 10 mg daily. Continue metoprolol and clonidine, and titrate. Given she is not taking p.o. currently, labetalol IV with parameters, hydralazine PRN, resume home medications when she can eat. (5) Wound of right lower extremity: Code(s): S81.801A - Unspecified open wound, right lower leg, initial encounter Status: Acute Assessment and Plan: Continue dressing changes (6) Chronic kidney disease, stage 4 (severe): Code(s): N18.4 - Chronic kidney disease, stage 4 (severe) Status: Acute Assessment and Plan: Baseline creatinine is the 3-4 range. Creatinine currently at baseline. Continue to monitor Continue to ensure meds are dosed to her level of kidney function (7) Rib fracture: Code(s): S22.39XA - Fracture of one rib, unspecified side, initial encounter for closed fracture Status: Acute Assessment and Plan: This was evident on CT scan 04/07, fractures of multiple ages. I discussed this with her daughter. She reported that she had a recent fall prior to her hospital stay with concern for rib fractures but was told did not have any on x- ray at that time. Will monitor closely and treat pain as needed. 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
[2021-04-10] MEDS: LABETALOL HCL INJ 100 MG/20 ML VIAL 20 MG IV PUSH (14:45)
--- NOTE | 2021-04-10 15:34 | ECG_ITS ---
Measurements Intervals [place] Rate: 75 P: 38 [place]: 157 QRS: -40 QRSD: 101 T: 49 QT: 413 QTc: 463 Interpretive Statements SINUS RHYTHM ATRIAL PREMATURE COMPLEXES LEFT AXIS DEVIATION VOLTAGE CRITERIA FOR LVH BORDERLINE R WAVE PROGRESSION, ANTERIOR LEADS BORDERLINE ECG Electronically Signed On 04-10-2021 16:41:59 CDT by Mustapha Meléndez D.O.
[2021-04-10] MEDS: ACETAMINOPHEN 325 MG TABLET 650 MG PO (18:11)
[2021-04-10] MEDS: amLODIPine BESYLATE 5 MG TABLET 10 MG PO (18:12)
[2021-04-10] MEDS: SODIUM CHLORIDE 0.9% IV 1,000 ML 50 ML IV CONT (20:29)
[2021-04-11] VITALS (12 sets, daily range): BP systolic 137–157; BP diastolic 56–82; PULSE 60–88; RESP 18; TEMP 35.6–36.6; O2SAT 94–100
[2021-04-11] MEDS: LABETALOL HCL INJ 100 MG/20 ML VIAL 20 MG IV PUSH ×2 (01:57→06:58)
[2021-04-11] MEDS: LEVOTHYROXINE SODIUM 150 MCG TABLET PO (06:20)
[2021-04-11 07:02] LABS: Basophils Percent Auto 0.2 % (0.2-1.2); Eosinophils Absolute Auto 0.2 K/mm3 (0-0.3); Eosinophils Percent Auto 1.7 % (0-4.4); Hematocrit 28.6 % (37.0-47.0); Hemoglobin 8.2 g/dL (12.0-15.0); Immature Granulocyte Absolute 0.08 K/mm3 (0.00-0.031); Immature Granulocyte Percent A 0.8 % (0-0.5); Lymphocytes Absolute Auto 0.87 K/mm3 (0.9-3.2); Lymphocytes Percent Auto 8.5 % (18.3-44.2); Mean Corpuscular HGB Conc 28.7 g/dl (32-36); Mean Corpuscular Hemoglobin 28.1 pg (26-34); Mean Corpuscular Volume 97.9 fl (80-100); Mean Platelet Volume 10.3 fl (7.4-10.4); Monocytes Absolute Auto 0.7 K/mm3 (0.1-0.6); Monocytes Percent Auto 6.9 % (2.6-8.5); Neutrophils Absolute Auto 8.4 K/mm3 (1.3-6.7); Neutrophils Percent Auto 81.9 % (45.5-73.1); Platelet Count Result 195 k/mm3 (150-375); Red Blood Count 2.92 M/mm3 (4.2-5.4); Red Cell Distribution Width 17.3 % (11.5-14.5); White Blood Count 10.3 K/mm3 (4.5-10.0)
[2021-04-11 07:17] LABS: Alanine Aminotransferase 6 U/L (4-35); Albumin Level 3.2 g/dL (3.5-5.1); Alkaline Phosphatase 71 U/L (38-126); Anion Gap 8 mmol/L (8-16); Aspartate Amino Transferase 24 U/L (14-36); Bilirubin,Total 0.4 mg/dL (0.2-1.3); Blood Urea Nitrogen 66 mg/dL (7-17); Calcium 8.5 mg/dL (8.4-10.2); Carbon Dioxide 25 mmol/L (22-30); Chloride 114 mmol/L (98-107); Estimated CRCL calculation 12 ml/min; Estimated Glomerular Filt Rate 19; Glucose 106 mg/dL (65-110); Magnesium 2.1 mg/dL (1.6-2.3); Phosphorus 3.8 mg/dL (2.5-4.5); Sodium 147 mmol/L (137-145)
--- NOTE | 2021-04-11 09:43 | PCPTNOTE ---
Attempted to see pt for PT session this AM but RN reports pt is not alert and having difficulty waking up. RN requests therapy return later when pt is more alert and responsive to commands. Will check back later as schedule allows.
[2021-04-11] MEDS: methylPREDNISolone SOD SUCC 40 MG VIAL 20 MG IV PUSH (10:20)
--- NOTE | 2021-04-11 10:26 | PCRCNOTE ---
Window of time for administration has passed. See next scheduled administration.
--- NOTE | 2021-04-11 10:27 | PM.IMPN ---
Progress Note: A&P Assessment and Plan (1) Acute encephalopathy: Code(s): G93.40 - Encephalopathy, unspecified Status: Acute Assessment and Plan: Likely component of delirium, waxing and waning mentatin ABG, ammonia, thyroid studies unremarkable Blood cultures negative Unable to do MRI brain given her pain pump. Question of PRES. Will work on better control of blood pressure. Given fever, appreciate help of Neurology is to with her LP would be helpful She maybe slowly improving off of keppra, will need swallow eval if she is alert enough for oral inatke (2) Seizure: Code(s): R56.9 - Unspecified convulsions Status: Acute Assessment and Plan: On 04/03 nursing staff noted patient was tensing up, and having some convulsions, and foaming of the mouth, and bladder leakage Episode lasted about less than 1 minutes, and followed by some post ictal decline in responsiveness Keppra was started at 750 b.i.d. IV, had it for few days but patient became unresponsive, on further discussion with daughter Liliam, who the patient lives with prior to hospitalization, patient has had Keppra in the past and she is very sensitive to it, was always sleepy when she was on it years ago and it was discontinued. Based on conversations with daughter and Neurology, decision made to hold Keppra as it has made patient sleepy in the past. Will monitor. Appreciate input from neurology regarding alternative, or if safe to monitor her off anti-seizure meds altogether. Head CT- showed no acute process to explain episode Neurology consulted, appreciate recommendations EEG showing abnormal background rhythm, although no evidence of focal seizure-like activity at the time of exam (3) Acute UTI: Code(s): N39.0 - Urinary tract infection, site not specified Status: Acute Assessment and Plan: She presented with symptoms consistent with UTI. On 03/29 urine culture grew E coli, ESBL, which was sensitive to ertapenem, which was initiated on 03/30. Finished a 10 day course. (4) Essential hypertension: Code(s): I10 - Essential (primary) hypertension Status: Acute Assessment and Plan: Blood pressure remains above target. Increase amlodipine to 10 mg daily. Continue metoprolol and clonidine, and titrate. Given she is not taking p.o. currently, labetalol IV with parameters, hydralazine PRN, resume home medications when she can eat. (5) Wound of right lower extremity: Code(s): S81.801A - Unspecified open wound, right lower leg, initial encounter Status: Acute Assessment and Plan: Continue dressing changes (6) Chronic kidney disease, stage 4 (severe): Code(s): N18.4 - Chronic kidney disease, stage 4 (severe) Status: Acute Assessment and Plan: Baseline creatinine is the 3-4 range. Creatinine currently at baseline. Continue to monitor Continue to ensure meds are dosed to her level of kidney function (7) Rib fracture: Code(s): S22.39XA - Fracture of one rib, unspecified side, initial encounter for closed fracture Status: Acute Assessment and Plan: This was evident on CT scan 04/07, fractures of multiple ages. I discussed this with her daughter. She reported that she had a recent fall prior to her hospital stay with concern for rib fractures but was told did not have any on x-ray at that time. Will monitor closely and treat pain as needed. 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 Indication is not clear but daughter reports that she has had recurrent pneumonias for which she has been on it. This is on hold currently during the hospitalization and can be resumed in the outpatient setting. (9) SLE (systemic lupus erythematosus related syndrome): Code(s): M32.9 - S
[2021-04-11] MEDS: FLUTICASONE PROPIONATE 0.05% NA SPR 16 GM BTL (*BKC) 1 SPRAY NASAL (11:14)
[2021-04-11] MEDS: HYDROXYCHLOROQUINE SULFATE 200 MG TABLET PO (11:14)
[2021-04-11] MEDS: PANTOPRAZOLE 40 MG TABLET PO ×2 (11:14→18:49)
[2021-04-11] MEDS: cloNIDine HCL 0.1 MG TABLET PO ×2 (11:14→18:48)
[2021-04-11] MEDS: METOPROLOL SUCCINATE EXT REL 25 MG TABCR PO (11:14)
[2021-04-11] MEDS: GABAPENTIN 300 MG CAPSULE PO ×2 (11:15→20:55)
[2021-04-11] MEDS: FERROUS SULFATE 324 MG TABLET PO (11:17)
[2021-04-11] MEDS: amLODIPine BESYLATE 5 MG TABLET 10 MG PO (14:05)
[2021-04-11] MEDS: HEPARIN SODIUM LOCK FLUSH 500 UNITS/5 ML VIAL IV PUSH (18:48)
[2021-04-11] MEDS: SODIUM CHLORIDE 0.9% IV 1,000 ML 50 ML IV CONT (18:52)
[2021-04-11] MEDS: FLUTICASONE PROP 110 MCG INHALER 12 GM (*SP) 1 PUFF INHALATION (21:18)
[2021-04-12] VITALS (7 sets, daily range): BP systolic 128–148; BP diastolic 43–58; PULSE 70–77; RESP 18–20; TEMP 36.3–36.9; O2SAT 92–98
[2021-04-12] MEDS: hydrALAZINE HCL 20 MG/ML VIAL 10 MG IV PUSH (02:03)
[2021-04-12 05:09] LABS: Basophils Percent Auto 0.4 % (0.2-1.2); Eosinophils Absolute Auto 0.4 K/mm3 (0-0.3); Eosinophils Percent Auto 4.1 % (0-4.4); Hematocrit 27.9 % (37.0-47.0); Hemoglobin 7.9 g/dL (12.0-15.0); Immature Granulocyte Absolute 0.03 K/mm3 (0.00-0.031); Immature Granulocyte Percent A 0.4 % (0-0.5); Lymphocytes Absolute Auto 0.64 K/mm3 (0.9-3.2); Lymphocytes Percent Auto 7.5 % (18.3-44.2); Mean Corpuscular HGB Conc 28.3 g/dl (32-36); Mean Corpuscular Hemoglobin 27.2 pg (26-34); Mean Corpuscular Volume 96.2 fl (80-100); Mean Platelet Volume 9.6 fl (7.4-10.4); Monocytes Absolute Auto 0.5 K/mm3 (0.1-0.6); Monocytes Percent Auto 6.1 % (2.6-8.5); Neutrophils Percent Auto 81.5 % (45.5-73.1); Platelet Count Result 188 k/mm3 (150-375); Red Cell Distribution Width 17.2 % (11.5-14.5); White Blood Count 8.6 K/mm3 (4.5-10.0)
[2021-04-12 05:32] LABS: Alanine Aminotransferase 6 U/L (4-35); Albumin Level 3.2 g/dL (3.5-5.1); Alkaline Phosphatase 71 U/L (38-126); Anion Gap 8 mmol/L (8-16); Aspartate Amino Transferase 23 U/L (14-36); Bilirubin,Total 0.5 mg/dL (0.2-1.3); Blood Urea Nitrogen 63 mg/dL (7-17); Calcium 8.8 mg/dL (8.4-10.2); Carbon Dioxide 24 mmol/L (22-30); Chloride 114 mmol/L (98-107); Estimated CRCL calculation 12 ml/min; Estimated Glomerular Filt Rate 19; Glucose 97 mg/dL (65-110); Phosphorus 3.4 mg/dL (2.5-4.5); Potassium 4.3 mmol/L (3.4-5.0); Sodium 146 mmol/L (137-145)
[2021-04-12 05:38] LABS: Anisocytosis 1+ (NORMAL); Platelet Estimate Adequate (Adequate)
[2021-04-12] MEDS: LEVOTHYROXINE SODIUM 150 MCG TABLET PO (06:32)
[2021-04-12] MEDS: FLUTICASONE PROP 110 MCG INHALER 12 GM (*SP) 1 PUFF INHALATION ×2 (08:32→21:10)
[2021-04-12] MEDS: ALBUTEROL SULFATE (*SP) AEROSOL 1 PUFF 2 PUFF INHALATION (08:35)
[2021-04-12] MEDS: cloNIDine HCL 0.1 MG TABLET PO (09:03)
[2021-04-12] MEDS: HYDROXYCHLOROQUINE SULFATE 200 MG TABLET PO (09:03)
[2021-04-12] MEDS: amLODIPine BESYLATE 5 MG TABLET 10 MG PO (09:05)
[2021-04-12] MEDS: FLUTICASONE PROPIONATE 0.05% NA SPR 16 GM BTL (*BKC) 1 SPRAY NASAL (09:05)
[2021-04-12] MEDS: GABAPENTIN 300 MG CAPSULE PO ×2 (09:05→20:27)
[2021-04-12] MEDS: FERROUS SULFATE 324 MG TABLET PO (09:05)
[2021-04-12] MEDS: methylPREDNISolone SOD SUCC 40 MG VIAL 20 MG IV PUSH (09:06)
[2021-04-12] MEDS: METOPROLOL SUCCINATE EXT REL 25 MG TABCR PO (09:06)
[2021-04-12] MEDS: PANTOPRAZOLE 40 MG TABLET PO ×2 (09:07→17:19)
[2021-04-12] MEDS: ONDANSETRON INJ 4 MG/2 ML VIAL IV PUSH (09:10)
--- NOTE | 2021-04-12 09:48 | P.PNIM_ITS ---
Progress Note: A&P Assessment and Plan (1) Acute encephalopathy: Code(s): G93.40 - Encephalopathy, unspecified Status: Acute Assessment and Plan: Likely component of delirium, waxing and waning mentatin ABG, ammonia, thyroid studies unremarkable Blood cultures negative Unable to do MRI brain given her pain pump. Question of PRES. Will work on better control of blood pressure. Given fever, appreciate help of Neurology is to with her LP would be helpful (2) Seizure: Code(s): R56.9 - Unspecified convulsions Status: Acute Assessment and Plan: On 04/03 nursing staff noted patient was tensing up, and having some convulsions, and foaming of the mouth, and bladder leakage Episode lasted about less than 1 minutes, and followed by some post ictal decline in responsiveness Keppra was started at 750 b.i.d. IV, had it for few days but patient became unresponsive, on further discussion with daughter Liliam, who the patient lives with prior to hospitalization, patient has had Keppra in the past and she is very sensitive to it, was always sleepy when she was on it years ago and it was discontinued. Based on conversations with daughter and Neurology, decision made to hold Keppra as it has made patient sleepy in the past. Will monitor. Appreciate input from neurology regarding alternative, or if safe to monitor her off anti-seizure meds altogether. Head CT- showed no acute process to explain episode Neurology consulted, appreciate recommendations EEG showing abnormal background rhythm, although no evidence of focal seizure- like activity at the time of exam (3) Acute UTI: Code(s): N39.0 - Urinary tract infection, site not specified Status: Acute Assessment and Plan: She presented with symptoms consistent with UTI. On 03/29 urine culture grew E coli, ESBL, which was sensitive to ertapenem, which was initiated on 03/30. Finished a 10 day course. (4) Essential hypertension: Code(s): I10 - Essential (primary) hypertension Status: Acute Assessment and Plan: Blood pressure remains above target. Increase amlodipine to 10 mg daily. Continue metoprolol and clonidine, and titrate. Given she is not taking p.o. currently, labetalol IV with parameters, hydralazine PRN, resume home medications when she can eat. (5) Wound of right lower extremity: Code(s): S81.801A - Unspecified open wound, right lower leg, initial encounter Status: Acute Assessment and Plan: Continue dressing changes (6) Chronic kidney disease, stage 4 (severe): Code(s): N18.4 - Chronic kidney disease, stage 4 (severe) Status: Acute Assessment and Plan: Baseline creatinine is the 3-4 range. Creatinine currently at baseline. Continue to monitor Continue to ensure meds are dosed to her level of kidney function (7) Rib fracture: Code(s): S22.39XA - Fracture of one rib, unspecified side, initial encounter for closed fracture Status: Acute Assessment and Plan: This was evident on CT scan 04/07, fractures of multiple ages. I discussed this with her daughter. She reported that she had a recent fall prior to her hospital stay with concern for rib fractures but was told did not have any on x- ray at that time. Will monitor closely and treat pain as needed. 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 Indication is not clear but daughter reports that she has had recurr
--- NOTE | 2021-04-12 14:06 | WPDINFPN2 ---
Progress Note: A&P Assessment and Plan (1) Asymptomatic bacteriuria: Code(s): R82.71 - Bacteriuria Status: Acute Assessment and Plan: ASB, agree no therapy needed. Moscoso in place, dwell time at your discretion. REC Ok discharge anytime. Call if Qs Subjective Date/time seen: 04/12/21 14:06 Objective Data Vital Signs Vital Signs: Vital Signs - 24 hr 04/11/21 16:00 04/11/21 20:00 04/11/21 22:00 Temperature 36.6 C Pulse Rate 63 67 Respiratory Rate 18 Blood Pressure 137/57 L Pulse Oximetry 100 100 04/12/21 06:00 04/12/21 07:59 04/12/21 08:36 Temperature 36.9 C Pulse Rate 77 77 Respiratory Rate 18 18 Blood Pressure 148/58 H Pulse Oximetry 98 98 94 Intake/Output Intake/Output: Intake & Output 04/09/21 04/10/21 04/11/21 04/12/21 23:59 23:59 23:59 23:59 Intake Total 2390 1540 1350 150 Output Total 950 1700 2025 400 Balance 6450 -160 -675 -250 Meds/Results Medications: Active Medications Generic Name Dose Route Start Last Admin Trade Name Freq PRN Reason Stop Dose Admin Acetaminophen 650 mg 04/10/21 16:31 04/10/21 18:11 Acetaminophen 325 Mg Tablet PO 650 mg Q6H PRN Administration Mild Pain (1-3) or Fever Albuterol 2 puff 03/29/21 08:00 04/12/21 08:35 Albuterol Sulfate (*Sp) Aerosol 1 Puff INHALATION 2 puff DAILYRT JACK Administration Alendronate Sodium 70 mg 04/01/21 21:00 04/01/21 21:14 Alendronate Sodium 70 Mg Tablet PO 70 mg Pinedo@2100 JACK Administration Amlodipine Besylate 10 mg 04/06/21 10:35 04/12/21 09:05 Amlodipine Besylate 5 Mg Tablet PO 10 mg DAILY JACK Administration Ascorbic Acid 1,000 mg 03/29/21 09:00 04/04/21 09:18 Ascorbic Acid 500 Mg Tablet PO 1,000 mg DAILY JACK Administration Calcium Carbonate 500 mg 03/29/21 17:00 04/04/21 17:42 Calcium/Vitamin D 500 Mg Tablet PO 04/28/21 17:01 Not Given BID JACK Clonidine HCl 0.1 mg 03/29/21 17:00 04/12/21 09:03 Clonidine Hcl 0.1 Mg Tablet PO 0.1 mg BID JACK Administration Cyanocobalamin 1,000 mcg 03/29/21 09:00 04/04/21 09:20 Cyanocobalamin 1,000 Mcg Tablet PO 04/29/21 09:01 1,000 mcg DAILY JACK Administration Ferrous Sulfate 324 mg 03/29/21 09:00 04/12/21 09:05 Ferrous Sulfate 324 Mg Tablet PO 324 mg QAM JACK Administration Fluticasone Propionate 1 spray 03/29/21 09:00 04/12/21 09:05 Fluticasone Propionate 0.05% Na Spr 16 Gm Btl (*Bkc) NASAL 1 spray DAILY JACK Administration Fluticasone Propionate 1 puff 03/29/21 20:00 04/12/21 08:32 Fluticasone Prop 110 Mcg Inhaler 12 Gm (*Sp) INHALATION 1 puff Q12HRT JACK Administration Gabapentin 300 mg 03/29/21 11:35 04/12/21 09:05 Gabapentin 300 Mg Capsule PO 300 mg Q12HR JACK Administration Heparin Sodium (Beef Lung) 50 units 03/30/21 09:00 04/12/21 09:10 Heparin Flush 50 Units/5 Ml Syringe IV PUSH 50 units QAM JACK Administration Heparin Sodium (Beef Lung) 50 units 03/29/21 11:11 04/05/21 15:44 Heparin Flush 50 Units/5 Ml Syringe IV PUSH 50 units PRN PRN Administration after intermittent infusion Heparin Sodium (Beef Lung) 50 units 03/29/21 11:11 04/06/21 11:25 Heparin Flush 50 Units/5 Ml Syringe IV PUSH 50 units PRN PRN Administration after blood draws Heparin Sodium (Porcine) 500 units 03/29/21 11:11 04/11/21 18:48 Heparin Sodium Lock Flush 500 Units/5 Ml Vial IV PUSH 500 units PRN PRN Administration see comments below Heparin Sodium (Porcine) 500 units 03/29/21 11:44 Heparin Sodium Lock Flush 500 Units/5 Ml Vial IV PUSH PRN PRN see comments below Hydralazine HCl 10 mg 04/08/21 11:11 04/12/21 02:03 Hydralazine Hcl 20 Mg/Ml Vial IV PUSH 10 mg Q8H PRN Administration Blood Pressure - High Hydroxychloroquine Sulfate 200 mg 04/11/21 08:00 04/12/21 09:03 Hydroxychloroquine Sulfate 200 Mg Tablet PO 200 mg DAILY@0800 JACK Administration Sodium
[2021-04-12] MEDS: SODIUM CHLORIDE 0.9% IV 1,000 ML 50 ML IV CONT (17:18)
[2021-04-13] VITALS (7 sets, daily range): BP systolic 131–169; BP diastolic 57–80; PULSE 64–76; RESP 16–18; TEMP 36.7–37.3; O2SAT 92–99
--- NOTE | 2021-04-13 03:39 | PC.NURSE ---
2100 medications were logged under wrong nurse. Slade Malone RN passed and logged these medications from 2100 on 04/12/2021 until 0700 on 04/13/2021.
[2021-04-13] MEDS: LEVOTHYROXINE SODIUM 150 MCG TABLET PO (05:30)
[2021-04-13 06:15] LABS: Basophils Percent Auto 0.2 % (0.2-1.2); Eosinophils Absolute Auto 0.1 K/mm3 (0-0.3); Eosinophils Percent Auto 1.7 % (0-4.4); Hematocrit 25.9 % (37.0-47.0); Hemoglobin 7.4 g/dL (12.0-15.0); Immature Granulocyte Absolute 0.05 K/mm3 (0.00-0.031); Immature Granulocyte Percent A 0.8 % (0-0.5); Lymphocytes Absolute Auto 0.95 K/mm3 (0.9-3.2); Lymphocytes Percent Auto 14.3 % (18.3-44.2); Mean Corpuscular HGB Conc 28.6 g/dl (32-36); Mean Corpuscular Volume 98.1 fl (80-100); Mean Platelet Volume 9.9 fl (7.4-10.4); Monocytes Absolute Auto 0.6 K/mm3 (0.1-0.6); Monocytes Percent Auto 9.2 % (2.6-8.5); Neutrophils Absolute Auto 4.9 K/mm3 (1.3-6.7); Neutrophils Percent Auto 73.8 % (45.5-73.1); Platelet Count Result 173 k/mm3 (150-375); Red Blood Count 2.64 M/mm3 (4.2-5.4); Red Cell Distribution Width 16.9 % (11.5-14.5); White Blood Count 6.6 K/mm3 (4.5-10.0)
[2021-04-13 06:32] LABS: Alanine Aminotransferase 6 U/L (4-35); Albumin Level 3.1 g/dL (3.5-5.1); Alkaline Phosphatase 64 U/L (38-126); Anion Gap 6 mmol/L (8-16); Aspartate Amino Transferase 22 U/L (14-36); Bilirubin,Total 0.4 mg/dL (0.2-1.3); Blood Urea Nitrogen 61 mg/dL (7-17); Calcium 8.4 mg/dL (8.4-10.2); Carbon Dioxide 25 mmol/L (22-30); Chloride 114 mmol/L (98-107); Estimated CRCL calculation 12 ml/min; Estimated Glomerular Filt Rate 20; Glucose 100 mg/dL (65-110); Magnesium 1.9 mg/dL (1.6-2.3); Phosphorus 3.4 mg/dL (2.5-4.5); Potassium 4.5 mmol/L (3.4-5.0); Sodium 145 mmol/L (137-145)
[2021-04-13] MEDS: FLUTICASONE PROPIONATE 0.05% NA SPR 16 GM BTL (*BKC) 1 SPRAY NASAL (08:20)
[2021-04-13] MEDS: methylPREDNISolone SOD SUCC 40 MG VIAL 20 MG IV PUSH (08:21)
[2021-04-13] MEDS: GABAPENTIN 300 MG CAPSULE PO ×2 (08:22→21:50)
[2021-04-13] MEDS: cloNIDine HCL 0.1 MG TABLET PO ×2 (08:22→16:55)
[2021-04-13] MEDS: FERROUS SULFATE 324 MG TABLET PO (08:22)
[2021-04-13] MEDS: amLODIPine BESYLATE 5 MG TABLET 10 MG PO (08:22)
[2021-04-13] MEDS: PANTOPRAZOLE 40 MG TABLET PO ×2 (08:23→16:57)
[2021-04-13] MEDS: METOPROLOL SUCCINATE EXT REL 25 MG TABCR PO (08:23)
--- NOTE | 2021-04-13 09:02 | PM.IMPN ---
Progress Note: A&P Assessment and Plan (1) Acute encephalopathy: Code(s): G93.40 - Encephalopathy, unspecified Status: Acute Assessment and Plan: Likely component of delirium, waxing and waning mentatin ABG, ammonia, thyroid studies unremarkable Blood cultures negative Unable to do MRI brain given her pain pump. Question of PRES. Will work on better control of blood pressure. Given fever, appreciate help of Neurology is to with her LP would be helpful (2) Seizure: Code(s): R56.9 - Unspecified convulsions Status: Acute Assessment and Plan: On 04/03 nursing staff noted patient was tensing up, and having some convulsions, and foaming of the mouth, and bladder leakage Episode lasted about less than 1 minutes, and followed by some post ictal decline in responsiveness Keppra was started at 750 b.i.d. IV, had it for few days but patient became unresponsive, on further discussion with daughter Liliam, who the patient lives with prior to hospitalization, patient has had Keppra in the past and she is very sensitive to it, was always sleepy when she was on it years ago and it was discontinued. Based on conversations with daughter and Neurology, decision made to hold Keppra as it has made patient sleepy in the past. Will monitor. Appreciate input from neurology regarding alternative, or if safe to monitor her off anti-seizure meds altogether. Head CT- showed no acute process to explain episode Neurology consulted, appreciate recommendations EEG showing abnormal background rhythm, although no evidence of focal seizure-like activity at the time of exam (3) Acute UTI: Code(s): N39.0 - Urinary tract infection, site not specified Status: Acute Assessment and Plan: She presented with symptoms consistent with UTI. On 03/29 urine culture grew E coli, ESBL, which was sensitive to ertapenem, which was initiated on 03/30. Finished a 10 day course. (4) Essential hypertension: Code(s): I10 - Essential (primary) hypertension Status: Acute Assessment and Plan: Blood pressure remains above target. Increase amlodipine to 10 mg daily. Continue metoprolol and clonidine, and titrate. Given she is not taking p.o. currently, labetalol IV with parameters, hydralazine PRN, resume home medications when she can eat. (5) Wound of right lower extremity: Code(s): S81.801A - Unspecified open wound, right lower leg, initial encounter Status: Acute Assessment and Plan: Continue dressing changes (6) Chronic kidney disease, stage 4 (severe): Code(s): N18.4 - Chronic kidney disease, stage 4 (severe) Status: Acute Assessment and Plan: Baseline creatinine is the 3-4 range. Creatinine currently at baseline. Continue to monitor Continue to ensure meds are dosed to her level of kidney function (7) Rib fracture: Code(s): S22.39XA - Fracture of one rib, unspecified side, initial encounter for closed fracture Status: Acute Assessment and Plan: This was evident on CT scan 04/07, fractures of multiple ages. I discussed this with her daughter. She reported that she had a recent fall prior to her hospital stay with concern for rib fractures but was told did not have any on x-ray at that time. Will monitor closely and treat pain as needed. (8) Long-term current use of intravenous immunoglobulin (IVIG): Code(s): Z79.899 - Other long-term (current) drug therapy Status: Acute Assessment and Plan: She has been receiving Gammagard on monthly basis. Indication is not clear but daughter reports that she has had recurrent pneumonias for which she has been on it. This is on hold currently during the hospitalization and can be resumed in the outpatient setting. (9) SLE (systemic lupus erythematosus related syndrome): Code(s): M32.9 - Systemic lupus erythematosus, unspecified Status: Chronic Assessment and Plan: She has been
[2021-04-13] MEDS: ALBUTEROL SULFATE (*SP) AEROSOL 1 PUFF 2 PUFF INHALATION (09:13)
[2021-04-13] MEDS: FLUTICASONE PROP 110 MCG INHALER 12 GM (*SP) 1 PUFF INHALATION ×2 (09:21→20:45)
--- NOTE | 2021-04-13 11:13 | PCNFU ---
Nutrition Follow-Up Complete: Inadequate oral intake related to reduced appetite as evidence by unintended wt loss of 9lbs Goal: PO intake of 50% or greater of meals to meet nutrition needs and halt further unintended wt loss Patient is progressing toward goal. We will continue current goal. Pt current nutrition is Pureed, Level 4 with Moderately Thick liquids, Level 3. Last recorded weight is 57 kg, no new weight to report. Bowel Motility:+BM reported 04/11 Labs Reviewed:Cr 2.3,GFR 20,BUN 61,Hct 25.9,Alb 3.1 Meds Noted:Keppra,Protonix, Vit E, Flomax,Solu Medrol. Additional Notes: Nutrition follow up. Patient oral intake is improving greater than 75% of meals. Patient also receiving Frozen Nutritional Treat providing an additional 300 kcals and 9 gms protein. No skin issues. Agree with diet orders. Monitoring: PO intake, wt, labs, diet every 5 days.
[2021-04-13 11:33] LABS: Anisocytosis 2+ (NORMAL); Hypochromasia 2+ (NORMAL); Platelet Estimate Adequate (Adequate); Schistocytes 1+ (NORMAL)
[2021-04-13 11:34] LABS: Atypical Lymphocytes Present
[2021-04-13] MEDS: SODIUM CHLORIDE 0.9% IV 1,000 ML 50 ML IV CONT (11:39)
[2021-04-14 05:36] LABS: Basophils Percent Auto 0.2 % (0.2-1.2); Eosinophils Absolute Auto 0.2 K/mm3 (0-0.3); Eosinophils Percent Auto 1.7 % (0-4.4); Hematocrit 29.9 % (37.0-47.0); Hemoglobin 8.6 g/dL (12.0-15.0); Immature Granulocyte Absolute 0.08 K/mm3 (0.00-0.031); Immature Granulocyte Percent A 0.9 % (0-0.5); Lymphocytes Absolute Auto 1.06 K/mm3 (0.9-3.2); Lymphocytes Percent Auto 11.5 % (18.3-44.2); Mean Corpuscular HGB Conc 28.8 g/dl (32-36); Mean Corpuscular Hemoglobin 28.1 pg (26-34); Mean Corpuscular Volume 97.7 fl (80-100); Monocytes Absolute Auto 0.8 K/mm3 (0.1-0.6); Monocytes Percent Auto 8.7 % (2.6-8.5); Neutrophils Absolute Auto 7.1 K/mm3 (1.3-6.7); Platelet Count Result 181 k/mm3 (150-375); Red Blood Count 3.06 M/mm3 (4.2-5.4); Red Cell Distribution Width 17.2 % (11.5-14.5); White Blood Count 9.2 K/mm3 (4.5-10.0)
[2021-04-14 05:45] LABS: Alanine Aminotransferase 7 U/L (4-35); Albumin Level 3.3 g/dL (3.5-5.1); Alkaline Phosphatase 76 U/L (38-126); Anion Gap 9 mmol/L (8-16); Aspartate Amino Transferase 27 U/L (14-36); Bilirubin,Total 0.5 mg/dL (0.2-1.3); Blood Urea Nitrogen 63 mg/dL (7-17); Calcium 8.6 mg/dL (8.4-10.2); Carbon Dioxide 25 mmol/L (22-30); Chloride 114 mmol/L (98-107); Estimated CRCL calculation 14 ml/min; Estimated Glomerular Filt Rate 23; Glucose 98 mg/dL (65-110); Magnesium 1.8 mg/dL (1.6-2.3); Phosphorus 3.2 mg/dL (2.5-4.5); Potassium 4.3 mmol/L (3.4-5.0); Sodium 148 mmol/L (137-145)
[2021-04-14] MEDS: SODIUM CHLORIDE 0.9% IV 1,000 ML 50 ML IV CONT (05:45)
[2021-04-14 06:00] VITALS: BP 167/83; PULSE 92; RESP 20; TEMP 36.9; O2SAT 94
[2021-04-14 06:06] LABS: Anisocytosis 1+ (NORMAL); Hypochromasia 2+ (NORMAL); Platelet Estimate Adequate (Adequate)
[2021-04-14] MEDS: LEVOTHYROXINE SODIUM 150 MCG TABLET PO (06:42)
[2021-04-14 08:00] VITALS: O2SAT 97
[2021-04-14 08:51] VITALS: PULSE 76
[2021-04-14] MEDS: METOPROLOL SUCCINATE EXT REL 25 MG TABCR PO (08:51)
[2021-04-14] MEDS: cloNIDine HCL 0.1 MG TABLET PO ×2 (08:53→18:13)
[2021-04-14] MEDS: amLODIPine BESYLATE 5 MG TABLET 10 MG PO (08:53)
[2021-04-14] MEDS: PANTOPRAZOLE 40 MG TABLET PO ×2 (08:53→18:14)
[2021-04-14] MEDS: FERROUS SULFATE 324 MG TABLET PO (08:53)
[2021-04-14] MEDS: GABAPENTIN 300 MG CAPSULE PO ×2 (08:53→21:36)
[2021-04-14] MEDS: HYDROXYCHLOROQUINE SULFATE 200 MG TABLET PO ×2 (08:53→08:55)
[2021-04-14] MEDS: methylPREDNISolone SOD SUCC 40 MG VIAL 20 MG IV PUSH (09:15)
[2021-04-14] MEDS: FLUTICASONE PROPIONATE 0.05% NA SPR 16 GM BTL (*BKC) 1 SPRAY NASAL (09:15)
[2021-04-14] MEDS: ALBUTEROL SULFATE (*SP) AEROSOL 1 PUFF 2 PUFF INHALATION (11:02)
[2021-04-14] MEDS: FLUTICASONE PROP 110 MCG INHALER 12 GM (*SP) 1 PUFF INHALATION ×2 (11:03→21:07)
[2021-04-14 11:06] VITALS: O2SAT 97
[2021-04-14] MEDS: HEPARIN SODIUM LOCK FLUSH 500 UNITS/5 ML VIAL IV PUSH (13:29)
[2021-04-14 14:00] VITALS: BP 144/82; PULSE 89; RESP 18; TEMP 36.7; O2SAT 98
--- NOTE | 2021-04-14 15:00 | PM.DS ---
DS: Admitting Diagnosis Discharge Date April 14, 2021 Admitting Diagnosis altered mentation, UTI DS: Discharge Diagnosis Discharge Diagnosis (1) Acute encephalopathy: Code(s): G93.40 - Encephalopathy, unspecified Status: Acute (2) Seizure: Code(s): R56.9 - Unspecified convulsions Status: Acute (3) Acute UTI: Code(s): N39.0 - Urinary tract infection, site not specified Status: Acute DS: Summary Hospital Course Hospital Course: patient is an 80-year-old lady who was brought to the emergency department for of altered mentation after she inadvertently bruised her right leg against a railing. According to daughter this was probably due to a urinary tract infection, she starts to behave slightly abnormally whenever she has 1, which is frequently. Patient was worked up, and indeed had a UTI, caused by ESBL, which was resistant to most antibiotics, however susceptible to Imipenem, and as such patient was started on Ertapenem, and was treated from March 29 to April 08. Symptoms improved, and her mentation returned to what is likely her baseline, although she is alert and oriented to herself and the year and where she was, she is not overly verbal, although she is able to convey if she is distress and answer simple questions. Spoke to the daughter, and this is approximately her baseline. Prior to departure, developed another UTI, however this time asymptomatic, growing VRE. infectious disease service consulted, agreed no therapy at this time, furthermore jessica resistant organism. Of note, on the afternoon of May 03, patient had a witnessed seizure, that lasted less than 1 minute. We discussed the case with her daughter, and apparently this has happened in the past, and patient was on Keppra, however did not tolerate well, and therefore was taken off. We capture on Keppra, however the same problem arose again with the patient was somewhat lethargic. neurology consulted. Patient taken off Keppra after conversation with daughter, and input from neurologist, as she was becoming excessively lethargic unable to me activities of daily life. [facility] send [facility] with close follow-up with neurologist to look into alternative seizure therapies. Patient was taking Gammagard before coming to the hospital, however this was changed to Privigen, equivalent does found, and patient tolerated this well. Discharge to nursing facility. Status at Discharge Functional status at discharge: bed bound Time Spent with Patient Time attestation: Total time spent providing and/or coordinating discharge services: Time spent: Less than 30 minutes Exam Const: General: no acute distress Neck: Neck: no JVD Resp: Effort & Inspection: normal respiratory effort Auscultation: clear to auscultation bilaterally Cardio: Rate: regular rate Rhythm: regular rhythm GI: GI Palp: Yes Soft to palpation and No Tenderness to palpation present (GI) DS: Data Data Completed and Pending Labs on day of discharge: Labs from last 24 hours 04/14/21 04/14/21 05:29 05:29 WBC 9.2 RBC 3.06 L Hgb 8.6 L Hct 29.9 L MCV 97.7 MCH 28.1 MCHC 28.8 L RDW 17.2 H Plt Count 181 MPV 10.0 Immature Gran % (Auto) 0.9 H Neut % (Auto) 77.0 H Lymph % (Auto) 11.5 L Colbert % (Auto) 8.7 H Eos % (Auto) 1.7 Baso % (Auto) 0.2 Lymph # (Auto) 1.06 Colbert # (Auto) 0.8 H Eos # (Auto) 0.2 Baso # (Auto) 0.0 Abs Immat Gran (auto) 0.08 H Absolute Neuts (auto) 7.1 H Absolute Nucleated RBC 0.0 Nucleated RBC % 0.0 Platelet Estimate Adequate Hypochromasia 2+ Anisocytosis 1+ Sodium 148 H Potassium 4.3 Chloride 114 H Carbon Dioxide 25 Anion Gap 9 BUN 63 H Creatinine 2.10 H Estim Creat Clear Calc 14 Estimated GFR 23 L Glucose 98 Calcium 8.6 Phosphorus 3.2 Magnesium 1.8 Total Bilirubin 0.5 AST 27 ALT 7 Alkaline Phosphatase 76 Total Pr
[2021-04-14 21:10] VITALS: PULSE 82; O2SAT 97
--- NOTE | 2021-04-19 12:17 | CONS_ITS ---
DATE OF CONSULTATION: 04/12/2021 REASON FOR CONSULTATION: Abnormal UA. HISTORY OF PRESENT ILLNESS: 81-year-old female who is unable to provide a comprehensive history. As far as I can tell, she is on chronic Moscoso catheter. She was originally admitted to the hospital from her care home on March 29 when she struck her right leg against the railing and skin changes were noted. While here, the patient has been seen by Neurology for encephalopathy. Hospital course otherwise has been complicated by possible seizure as described, hypertension with labile blood pressures, stage 4 renal insufficiency, and intermittent leukocytosis. The patient is on monthly immunoglobulin infusions as well as prednisone and hydroxychloroquine apparently for treatment of systemic lupus. No other events here in the hospital. On admission, she did have a positive urinalysis and was given 10 days of ertapenem. She has had temperatures 6 days ago up to 37.9. Otherwise, has been consistently afebrile. ALLERGIES: CEFEPIME, UNKNOWN REACTION; LEVOFLOXACIN, SWELLING; PENICILLIN, SWELLING; SULFA, ITCHING. OTHERS NOT PERTINENT. PRESENT MEDICATIONS: Prednisone 5 mg daily and hydroxychloroquine 200 mg daily. No other immunosuppressants. HABITS: Ex-smoker. No alcohol. FAMILY HISTORY: Prostate cancer, hypertension, NH, stroke, Alzheimer's. PAST MEDICAL HISTORY: Spinal surgery. She has an analgesic pump in place, right lower quadrant. Bilateral knee replacements, hysterectomy, exploratory laparotomy, IVC filter, appendectomy, carpal tunnel surgery. She has a Port-A-Cath in place. Sleep apnea, osteoporosis, lupus, hypothyroidism, hypertension, GERD, diverticulitis, DDD, ALEX, COPD, others as listed. REVIEW OF SYSTEMS: The patient is hoarse and has memory loss making 14-point review difficult, but otherwise negative. SOCIAL HISTORY: No family at the bedside. She is listed as single. PHYSICAL EXAMINATION: GENERAL: This is a chronically ill-appearing female, much older than her actual age. No acute distress. VITAL SIGNS: Afebrile, 77, 18, 148/58, 98% on 2 L. SKIN: Ecchymoses, some of which are confluent, warm and dry. EENT: The conjunctivae are normal. Pupils are equal and round. She has arcus senilis. The oropharynx, oral mucosa normal. Dry mucous membranes. NECK: No masses, thyromegaly or meningismus. LUNGS: Clear to auscultation on tidal respirations, clear to percussion. CARDIAC: Soft S1, S2. Regular rate and rhythm. Grade 1/6 systolic flow murmur at the lower left sternal border and the apex. Pulses are 1+. ABDOMEN: Nontender, soft. No organomegaly. No masses. EXTREMITIES: No clubbing, cyanosis, or edema. : Moscoso catheter draining clear yellow urine. No sediment. No blood. LABORATORY DATA: Original urine culture with ESBL producing E coli, similar to previous results. Blood cultures final, no growth and the . Urine from the , VRE. White blood cell count has been intermittently high, though normal on admission and normal again today, 8.6, hemoglobin 7.9, platelets are 188. Chemistries with hypernatremia, BUN 63, creatinine 2.4, similar to previous values. Urinalysis on the , multiple abnormalities, which are reviewed. RADIOLOGY: Chest x-ray on 04/09, bibasilar opacities. Chest, abdomen, and pelvic CT, 04/07, endobronchial debris, atelectasis, diverticulosis, distended bladder, hiatal hernia, sacral insufficiency fractures, rib fractures that appeared old. ASSESSMENT: 1. Bed-bound status. 2. Lupus with immunocompromise and immunosuppression. 3. Distended bladder on CT, possible atonic or neurogenic bladder. 4. Escherichia coli urinary tract infection suspected, appropriately treated. 5. Vancomycin-resistant enterococci in the urin
== END 2021-04-14 22:10 | DRG 690 ==
LOC: ANHED 05:25 → ANH3MEDSUR 05:50
PROVIDERS: Family Medicine; Internal Medicine; Admitting Provider Internal Medicine; Emergency Provider Emergency Medicine; PCP Family Medicine Adolescent Medicine; Visit Provider Internal Medicine Nephrology
DX: N39.0 Urinary tract infection, site not specified (principal); S22.39XA Fracture of one rib, unspecified side, initial encounter for closed fracture; N18.4 Chronic kidney disease, stage 4 (severe); J96.11 Chronic respiratory failure with hypoxia; D83.9 Common variable immunodeficiency, unspecified; G93.40 Encephalopathy, unspecified; Z16.12 Extended spectrum beta lactamase (ESBL) resistance; Z16.21 Resistance to vancomycin; B95.2 Enterococcus as the cause of diseases classified elsewhere; W19.XXXA Unspecified fall, initial encounter; R56.9 Unspecified convulsions; S81.801A Unspecified open wound, right lower leg, initial encounter; W22.8XXA Striking against or struck by other objects, initial encounter; B96.20 Unspecified Escherichia coli [E. coli] as the cause of diseases classified elsewhere; R33.9 Retention of urine, unspecified; I12.9 Hypertensive chronic kidney disease with stage 1 through stage 4 chronic kidney disease, or unspecified chronic kidney disease; J43.9 Emphysema, unspecified; Z99.81 Dependence on supplemental oxygen; M32.9 Systemic lupus erythematosus, unspecified; K21.9 Gastro-esophageal reflux disease without esophagitis; E03.9 Hypothyroidism, unspecified; D50.0 Iron deficiency anemia secondary to blood loss (chronic); M81.0 Age-related osteoporosis without current pathological fracture; Z79.899 Other long term (current) drug therapy; Z86.718 Personal history of other venous thrombosis and embolism; Z87.440 Personal history of urinary (tract) infections; Z87.891 Personal history of nicotine dependence; Z95.828 Presence of other vascular implants and grafts; Z96.82 Presence of neurostimulator; Z98.42 Cataract extraction status, left eye; Z98.41 Cataract extraction status, right eye
CPT/HCPCS: 36415; 36600; 51701; 70450; 70486; 71045; 71250; 73590; 73610; 74176; 80048; 80053; 81001; 82140; 82805; 82948; 83735; 84100; 84146; 84439; 84443; 85025; 85027; 87040; 87077; 87086; 87088; 87186; 92610; 93005; 94640; 95816; 96365; 96366; 96367; 96375; 97110; 97161; 97165; 97530; 97535; 99285; A9270; G0378; J0131; J0360; J1335; J1459; J1642; J1953; J2270; J2405; J2920; J7030; J7512

== ENCOUNTER 2021-05-03 15:09 | Outpatient (CLI) | payer MEDICARE, MEDICAID, SELFPAY ==
--- NOTE | ~2021-05-03 | CT_ITS ---
EXAMINATION: CT brain wo con DATE: 05/03/2021 15:41 INDICATION: Headache. Fall. TECHNIQUE: Computed tomography (CT) of the head was performed without intravenous contrast. The mA wa s adjusted according to patient size. Iterative reconstruction technique was employed. The dose-lengt h product was 1210.67 mGy-cm. COMPARISON: Head CT 04/03/2021 FINDINGS: There are scattered areas of low attenuation in the cerebral white matter. There is no intr acranial hemorrhage, acute infarction, or abnormal intracranial mass lesion. The ventricles are anali l in size. There are likely changes of ocular lens replacement surgeries. The paranasal sinuses are c lear. There is a small right mastoid effusion. Partially visualized is a comminuted fracture of C1. IMPRESSION: 1. Partially visualized acute comminuted C1 fracture. I alerted the line driver to apply a C-col lar and take the patient to the emergency department. Cervical spine CT is recommended. 2. Stable extensive nonspecific cerebral white matter disease, which likely represents chronic small vessel ischemic disease. Reviewed, dictated and finalized at location A. IMPRESSION: 1. Partially visualized acute comminuted C1 fracture. I alerted the ambulance d river to apply a C-collar and take the patient to the emergency department. Cer vical spine CT is recommended. 2. Stable extensive nonspecific cerebral white matter disease, which likely rep resents chronic small vessel ischemic disease.
== END 2021-05-03 15:10 | disposition home or self-care (01) ==
LOC: ANHIMG 15:17
PROVIDERS: PCP Family Medicine Adolescent Medicine; Visit Provider Internal Medicine
DX: R51.9 Headache, unspecified (principal); S12.090A Other displaced fracture of first cervical vertebra, initial encounter for closed fracture
CPT/HCPCS: 70450

== ENCOUNTER 2021-05-03 16:04 | Emergency (ER) | payer MEDICARE, MEDICAID, SELFPAY ==
--- NOTE | ~2021-05-03 | XR_ITS ---
EXAMINATION: XR chest 1V EXAM DATE: 05/03/2021 16:33 INDICATION: Fall, transient alteration of awareness. TECHNIQUE: Portable AP frontal chest x-ray was obtained. Comparison is made to prior examination from 04/09/2021. FINDINGS: There is a right-sided portacatheter. Spine stimulator leads. IVC filter. Needle foreign felix dy projecting over upper abdomen. Couple of leads overlying the heart. Chronic right hemidiaphragm elevation with adjacent atelectasis. Underlying pneumonia or cancer not e xcludable. Some residual left-sided opacity probably postinfectious from previous more extensive left -sided airspace disease. IMPRESSION: Bilateral airspace disease probably atelectasis but pneumonia or cancer not excludable. Reviewed, dictated and finalized at location G. IMPRESSION: Bilateral airspace disease probably atelectasis but pneumonia or cancer not exc ludable.
--- NOTE | ~2021-05-03 | CT_ITS ---
EXAMINATION: CT cervical spine wo con DATE: 05/03/2021 16:38 INDICATION: Neck injury. TECHNIQUE: Computed tomography (CT) of the cervical spine was performed without intravenous contrast. Automated exposure control and iterative reconstruction technique were employed. The dose-length pro duct was 289.29 mGy-cm. COMPARISON: CT cervical spine 01/06/2021 FINDINGS: There is mild atelectasis and scarring at the lung apices. Partially visualized is a right internal jugular central venous catheter. There is a comminuted fractures of C1 involving the left la teral mass and right anterior arch. There is a comminuted, predominantly oblique fracture of the base of the dens. The dens demonstrate 7 mm posterior displacement and 21 degrees posterior angulation wi th respect to the C2 body. There is 3 mm anterolisthesis of C4 on C5 and 2 mm retrolisthesis of C5 on C6. There is mild chronic anterior wedging of C5, C6, T2, and T3 vertebral bodies. There is severely decreased disc height at C3-C4, mildly decreased disc height at C4-C5, and severely decreased disc h eight at C5-C6 and C6-C7. The following disc levels are specifically discussed: C2-C3: There is no uncovertebral joint osteoarthritis. There is severe bilateral facet joint osteoart hritis. There is no neural foraminal stenosis. There is mild central canal stenosis. C3-C4: There is mild right and moderate left uncovertebral joint osteoarthritis. There is moderate ri ght facet joint osteoarthritis. There is ankylosis of left facet joint with moderate hypertrophy. The re is mild bilateral neural foraminal stenosis. There is mild central canal stenosis. C4-C5: There is mild right uncovertebral joint osteoarthritis. There is severe bilateral facet joint osteoarthritis. There is mild bilateral neural foraminal stenosis. There is mild central canal stenos is. C5-C6: There is severe bilateral uncovertebral joint osteoarthritis. There is severe bilateral facet joint osteoarthritis. There is moderate right and mild left neural foraminal stenosis. There is mild central canal stenosis. C6-C7: There is severe bilateral uncovertebral joint osteoarthritis. There is severe bilateral facet joint osteoarthritis. There is moderate right and mild left neural foraminal stenosis. There is mild central canal stenosis. C7-T1: There is no uncovertebral joint osteoarthritis. There is severe bilateral facet joint osteoart hritis. There is no neural foraminal stenosis. There is no central canal stenosis. IMPRESSION: 1. Acute comminuted C1 fracture. 2. Acute type II odontoid fracture. 3. Severe cervical spondylosis. Reviewed, dictated and finalized at location A.
[2021-05-03 16:16] VITALS: BP 183/99; PULSE 77; RESP 15; O2SAT 100
--- NOTE | 2021-05-03 17:08 | ED.NECK ---
HPI - Neck Pain/Injury General Chief Complaint: Neck Pain/Injury Stated Complaint: cervical fx Time Seen by Provider: 05/03/21 16:04 Source: RN notes reviewed History of Present Illness HPI Narrative: Patient presents emergency department from outpatient radiology for cervical spine fracture. Patient currently resides in a halfway she has fallen several times per her daughter with the most recent fall on 04/22/2021 the patient has been complaining of a continued headache and had a CT scan of her head today and on CT scan of the head they noted a C1 fracture patient notes pain at the back of her head and the base of her neck she denies any numbness or tingling of the extremities she denies any chest pain shortness of breath or any other symptoms Related Data Home Medications Medication Instructions Recorded Confirmed Arnuity Ellipta 1 inh INHALATION EVERY OTHER DAY 03/07/21 03/29/21 B12 Active 1,000 mcg PO DAILY 03/07/21 03/29/21 Calcium 600 + D(3) 1 cap PO BID 03/07/21 03/29/21 albuterol sulfate 2 puff INHALATION DAILY 03/07/21 03/29/21 alendronate 70 mg PO WEEKLY 03/07/21 03/29/21 amlodipine 2.5 mg PO DAILY 03/07/21 03/29/21 ascorbic acid (vitamin C) [Vitamin 1 g PO DAILY 03/07/21 03/29/21 C With Kenna Hips] clonidine HCl 0.1 mg PO BID 03/07/21 03/29/21 fluticasone propionate 1 spray INTRANASAL DAILY 03/07/21 03/29/21 gabapentin 300 mg PO BID 03/07/21 03/29/21 hydroxychloroquine 200 mg PO DAILY 03/07/21 03/29/21 iron See Rx Instructions .ROUTE .COMPLEX 03/07/21 03/29/21 levothyroxine 150 mcg PO DAILY 03/07/21 03/29/21 metoprolol succinate 25 mg PO DAILY 03/07/21 03/29/21 pantoprazole 40 mg PO BID 03/07/21 03/29/21 prednisone 5 mg PO DAILY 03/07/21 03/29/21 vitamin E 800 unit PO DAILY 03/07/21 03/29/21 Allergies Allergy/AdvReac Type Severity Reaction Status Date / Time cefepime Allergy Intermediate Unknown Verified 03/29/21 02:35 apixaban [From Eliquis] Allergy Unknown Other Verified 03/29/21 02:35 latex Allergy Unknown Rash Verified 03/29/21 02:35 levofloxacin Allergy Unknown Swelling Verified 03/29/21 02:35 Penicillins Allergy Unknown Swelling Verified 03/29/21 02:35 pregabalin Allergy Unknown Unknown Verified 03/29/21 02:35 Quinolones Allergy Unknown Unknown Verified 03/29/21 02:35 Sulfa (Sulfonamide Allergy Unknown Itching Verified 03/29/21 02:35 Antibiotics) Review of Systems Review of Systems: Gen.: Denies fevers or chills Eyes: Denies eye pain or visual change ENT: Denies congestion Respiratory: Denies shortness of breath or cough CV: Denies chest pain GI: Denies abdominal pain nausea, emesis Musculoskeletal: See HPI Neuro: Reports headache Skin: Denies rash Except as documented, all other systems reviewed and negative PMFSH Past Medical History Medical History Acute on chronic blood loss anemia Anemia Arthritis Bronchitis Chronic kidney disease, stage 4 (severe) Chronic respiratory failure with hypoxia, on home O2 therapy Home O2 at 2L CKD (chronic kidney disease) Common variable immunodeficiency, unspecified COPD (chronic obstructive pulmonary disease) CPAP (continuous positive airway pressure) dependence DDD (degenerative disc disease) Diverticulitis DVT (deep venous thrombosis) Emphysema of lung Essential hypertension Femur fracture, left s/p surgical repair in Jun 2020 GERD (gastroesophageal reflux disease) HTN (hypertension) Hypothyroid Lupus Occult blood in stools Osteoporosis Pneumonia Port-A-Cath in place Sleep apnea Spinal cord stimulator status UTI (urinary tract infection) Surgical History Surgical History H/O bilateral cataract extraction H/O exploratory laparotomy H/O repair of rotator cuff right H/O: hysterectomy History of carpal tunnel release History of total bilateral knee replacement Hx of appendectomy Hx of tonsillectomy S/P IVC filter S/P spinal surgery
--- NOTE | 2021-05-03 17:27 | PC.NURSE ---
[facility] accepted transfer ETA 2000 Trip#[id number]
[2021-05-03 18:00] VITALS: BP 184/107; PULSE 82; RESP 18; O2SAT 98
[2021-05-03 19:12] VITALS: BP 180/94; PULSE 81; RESP 18; O2SAT 98
== END 2021-05-03 19:15 | disposition short-term general hospital (02) ==
PROVIDERS: Emergency Provider Emergency Medicine; PCP Family Medicine Adolescent Medicine
DX: S12.040A Displaced lateral mass fracture of first cervical vertebra, initial encounter for closed fracture (principal); S12.090A Other displaced fracture of first cervical vertebra, initial encounter for closed fracture; S12.120A Other displaced dens fracture, initial encounter for closed fracture; I12.9 Hypertensive chronic kidney disease with stage 1 through stage 4 chronic kidney disease, or unspecified chronic kidney disease; N18.4 Chronic kidney disease, stage 4 (severe); J96.11 Chronic respiratory failure with hypoxia; Z99.81 Dependence on supplemental oxygen; D83.9 Common variable immunodeficiency, unspecified; J43.9 Emphysema, unspecified; D64.9 Anemia, unspecified; K21.9 Gastro-esophageal reflux disease without esophagitis; M81.0 Age-related osteoporosis without current pathological fracture; G47.30 Sleep apnea, unspecified; Z87.01 Personal history of pneumonia (recurrent); Z86.718 Personal history of other venous thrombosis and embolism; Z87.440 Personal history of urinary (tract) infections; Z98.42 Cataract extraction status, left eye; Z98.41 Cataract extraction status, right eye; Z96.653 Presence of artificial knee joint, bilateral; M47.812 Spondylosis without myelopathy or radiculopathy, cervical region; Z87.891 Personal history of nicotine dependence; W19.XXXA Unspecified fall, initial encounter
CPT/HCPCS: 70450; 71045; 72125; 99285